=== PATIENT | female | born 1965 | race Caucasian/White ===

== ENCOUNTER 2016-05-28 20:21 | Inpatient (IN) | payer MEDICAID ==
[~2016-05-28] VITALS: Ht 142.2 cm; Wt 48.5 kg
[2016-05-28] VITALS (8 sets, daily range): BP systolic 136–159; BP diastolic 85–98; PULSE 91–105; RESP 18; TEMP 98.3; O2SAT 94–99
[~2016-05-28 20:21] MED LIST: ADVA100A INH; ALBU6.7H INH; GABA300C5 PO; LEVO500T3 PO; PANT20 PO; PRED20 PO; PROT40TA PO; SPIRCAP INH; TRAZ50TA12 PO
[2016-05-28] MEDS ORDERED: SODIUM CHLOR 0.9% 1000 ML INJ 1,000 ML IV ONE (20:27)
[2016-05-28] MEDS ORDERED: ALTEPLASE BOLUS 9 MG/9 ML SYR IV ONE (20:30)
[2016-05-28] MEDS ORDERED: SODIUM CHLORIDE 0.9% 50 ML BAG IVF ONE (20:30)
[2016-05-28] MEDS ORDERED: ALTEPLASE DRIP IV ONE (20:30)
[2016-05-28] MEDS ORDERED: MISCELLANEOUS NURSING INFORMATION XX PRN (20:30)
--- NOTE | 2016-05-28 20:42 | RADRPT ---
EXAM DATE/TIME: 05/28/2016 20:26 [facility] COMPARISON: No previous studies available for comparison. INDICATIONS : Stroke alert; left sided weakness and facial droop for 30 minutes. RADIATION DOSE: 56.35 CTDIvol (mGy) This report was called by Dr Tyler to Dr. Starr at 8: 40PM MEDICAL HISTORY : Cerebrovascular disease. SURGICAL HISTORY : None. ENCOUNTER: Initial ACUITY: 1 day PAIN SCALE: 0/10 LOCATION: cranial TECHNIQUE: Multiple contiguous axial images were obtained of the head. Using automated exposure control and adj ustment of the mA and/or kV according to patient size, radiation dose was kept as low as reasonably a chievable to obtain optimal diagnostic quality images. FINDINGS: CEREBRUM: The ventricles are normal for age. No evidence of midline shift, mass lesion, hemorrhage or acute in farction. No extra-axial fluid collections are seen. POSTERIOR FOSSA: The cerebellum and brainstem are intact. The 4th ventricle is midline. The cerebellopontine angle i s unremarkable. EXTRACRANIAL: The visualized portion of the orbits is intact. There is right maxillary and ethmoid sinus disease. SKULL: The calvaria is intact. No evidence of skull fracture. CONCLUSION: No acute intracranial abnormality is seen. There is sinus disease. Eriberto Mirza MD on May 28, 2016 at 20:38 Board Certified Radiologist. This report was verified electronically.
[2016-05-28 20:43] LABS: AUTOMATED NEUTROPHIL # 20.3 TH/MM3 (1.8-7.7); BASOPHIL # 0.1 TH/MM3 (0-0.2); BASOPHIL % 0.6 % (0.0-2.0); HEMATOCRIT 42.1 % (35.0-46.0); LYMPHOCYTE # 2.6 TH/MM3 (1.0-4.8); MEAN CELL VOLUME 90.4 FL (80.0-100.0); MEAN CORPUSCULAR HEMOGLOBIN 31.5 PG (27.0-34.0); MEAN CORPUSCULAR HGB CONC 34.8 % (32.0-36.0); MONO % 2.9 % (0.0-8.0); NEUT % 85.5 % (16.0-70.0); PLATELET COUNT 282 TH/MM3 (150-450); RED BLOOD COUNT 4.65 MIL/MM3 (4.00-5.30); RED CELL DISTRIBUTION WIDTH 15.3 % (11.6-17.2); WHITE BLOOD COUNT 23.7 TH/MM3 (4.0-11.0)
[2016-05-28 20:44] LABS: I-STAT SODIUM 139 MMOL/L (138-146)
[2016-05-28] MEDS ORDERED: IOHEXOL 350 MG/ML 10 ML VIAL (for RAD DIAG) IV ONE (20:44)
[2016-05-28 20:46] LABS: HEMO FLAGS AUTO DIFF
[2016-05-28 20:57] LABS: APTT (PATIENT) 23.7 SEC (24.3-30.1); INTERNATIONAL NORMALIZED RATIO 0.9 RATIO; PROTHROMBIN TIME - PATIENT 10.3 SEC (9.8-11.6)
--- NOTE | 2016-05-28 21:03 | RADRPT ---
EXAM DATE/TIME: 05/28/2016 20:32 [facility] COMPARISON: No previous studies available for comparison. INDICATIONS : Stroke alert. Altered mental status. IV CONTRAST: 75 cc Omnipaque 350 (iohexol) IV RADIATION DOSE: 17.86 CTDIvol (mGy) MEDICAL HISTORY : Cerebrovascular disease. SURGICAL HISTORY : None. ENCOUNTER: Initial ACUITY: 1 day PAIN SCALE: Non-responsive LOCATION: Cranial TECHNIQUE: Volumetric scanning was performed using a multirow detector CT scanner. The data was post processed with a variety of visualization algorithms including full-volume maximum intensity projection, multip lanar sliding thin-slab reformation, curved-planar reformation, and surface-rendering techniques. Us ing automated exposure control and adjustment of the mA and/or kV according to patient size, radiatio n dose was kept as low as reasonably achievable to obtain optimal diagnostic quality images. FINDINGS: The left common carotid artery arises from the base of the right brachiocephalic artery. This is a no rmal variant. No ostial narrowing is seen at the great vessels at the aortic arch. The common carot id arteries are patent bilaterally. There is calcified plaque seen at the left proximal internal car otid artery. A significant stenosis in the internal carotids is not see on either side. The vertebr al arteries are parent throughout the neck. CONCLUSION: Mild calcified plaque at the left proximal internal carotid artery. A significant st enosis is not seen. Eriberto Mirza MD on May 28, 2016 at 20:54 Board Certified Radiologist. This report was verified electronically.
[2016-05-28 21:08] LABS: BANDS 10 % (0-6); NEUTROPHIL # MANUAL DIFF 21.3 TH/MM3 (1.8-7.7); PLATELET ESTIMATE SMEAR NORMAL (NORMAL); PLATELET MORPHOLOGY NORMAL (NORMAL); POLYS (SEG NEUTROPHILS) 80 % (16-70); WBC DIFF SAMPLE 100
[2016-05-28 21:09] LABS: SCAN/DIFF FINAL DIFF MANUAL
[2016-05-28 21:11] LABS: BETA HCG QUANT 6 MIU/ML (0-5)
--- NOTE | 2016-05-28 21:11 | PD.CONS ---
History of Present Illness Service Neurology Consult Requested By er Reason for Consult stroke Primary Care Physician No Primary Care Physician History of Present Illness 50 y/o f brought in by evac as a stroke alert. acute left sided weakness approx 30 minutes prior to arrival. glucose 118 ct brain naicp. no hx of tia/stroke. no hx of ich/mi. smokes 1 ppd. not on any blood thinners. denies any headache. Past Medical History Asthma: Yes Cancer: No Cardiovascular Problems: No Diabetes: No Diminished Hearing: No Endocrine: No Genitourinary: No Hepatitis: No Hiatal Hernia: No Immune Disorder: No Musculoskeletal: No Neurologic: Yes (NUMBNESS RIGHT FOOT) Reproductive: No Respiratory: Yes (ASTHMA, COPD OXYGEN AT HS) Migraines: Yes Thyroid Disease: No Menopausal: Yes : 2 Para: 2 Tubal Ligation: Yes Past Surgical History Abdominal Surgery: No AICD: No Cardiac Surgery: Yes Ear Surgery: No Endocrine Surgery: No Eye Surgery: No Genitourinary Surgery: No Gynecologic Surgery: Yes (TUBAL LIGATION) Joint Replacement: No Neurologic Surgery: No Oral Surgery: Yes (TEETH REMOVED) Pacemaker: No Thoracic Surgery: No Other Surgery: No Social History Alcohol Use: Yes (OCC) Tobacco Use: Yes (1 PPD) Substance Use: No Allergies-Medications (Allergen,Severity, Reaction): Coded Allergies: No Known Allergies (Verified , 05/28/16) Reported Meds & Prescriptions Reported Meds & Active Scripts Active Reported Protonix (Pantoprazole Sodium) 40 Mg Tab 40 Mg PO DAILY Protonix (Pantoprazole Sodium) 20 Mg Tab 20 Mg PO DAILY Levofloxacin 500 Mg Tab 500 Mg PO DAILY Spiriva Handihaler (Tiotropium Inh) 18 Mcg Cap 18 Mcg INH DAILY 1 capsule = 18 mcg Prednisone 20 Mg Tab 40 Mg PO BID Trazodone (Trazodone HCl) 50 Mg Tab 150 Mg PO HS Gabapentin 300 Mg Cap 600 Mg PO HS Advair Diskus Inh (Fluticasone-Salmeterol Inh) 100-50 Mcg/Blist Aer 1 Puff INH BID Rinse mouth after use. Proventil Hfa 6.7 GM Inh (Albuterol Sulfate) 90 Mcg/Act Aer 2 Puff INH Q4H PRN Review of Systems All other ROS: ROS reviewed as documented in chart Past Family Social History Allergies: Coded Allergies: No Known Allergies (Verified , 05/28/16) Active Ordered Medications Current Medications Medications (Trade) Dose Ordered Sig/Aric Route Start Time Stop Time Status Last Admin Sodium Chloride 1,000 ml @ 70 mls/hr [id number] ONCE IV 05/28/16 20:27 05/29/16 10:44 (Activase Drip/ Syringe/Bag) 45.5 ml @ 45.5 mls/hr ONCE ONCE IV 05/28/16 20:30 05/28/16 21:29 Miscellaneous Information No Heparin, Warfarin, Aspir... UNSCH PRN XX 05/28/16 20:30 05/29/16 20:29 Family History no hx of stroke/sz Social History tob use 1ppd x years Exam I&O / VS Vital Signs Date Time Temp Pulse Resp B/P Pulse Ox O2 Delivery O2 Flow Rate FiO2 05/28/16 20:25 98.3 105 18 153/98 97 Nasal Cannula 05/28/16 20:20 99 2.00 General: Alert and Oriented, No acute distress Neurologic: Alert Psychiatric: Cooperative Exam Comments alert ox 3. follows. mild rt gaze preference. left field hh, reduced left nlf, left hemiplegia, left hemisensory, left anosognosia, left hemiattention, nihss 20 Review/Management Diagnosis/Plan: (1) Acute ischemic right MCA stroke Plan: s/p iv tpa cta's show rt mca ?stenosis with distal filling iv tpa started at 2053 spoke with interventional radiology at 2120 they will be coming in recs pt going to radiology for possible intervention to rt mca post-tpa order set bp <180/100 f/u ct brain in 24 hrs mri brain/echo p.t./s.t scd's no blood thinners x 24 hrs isc follow exam addendum: repeat exam after 45 minutes, nihss 1. intervention deferred (2) HTN (hypertension) (3) Tobacco use Plan: cessation d/w pt Problem Qualifiers (1) HTN (hypertension): Qualified Code: I10 - Essential hypertension Arnaldo Bobo MD May 28, 2016 21:11
[2016-05-28 21:14] LABS: CREATINE KINASE 71 U/L (26-192)
--- NOTE | 2016-05-28 21:28 | RADRPT ---
EXAM DATE/TIME: 05/28/2016 20:32 [facility] COMPARISON: No previous studies available for comparison. INDICATIONS : Stroke alert. Altered mental status. IV CONTRAST: 75 cc Omnipaque 350 (iohexol) IV RADIATION DOSE: 17.86 CTDIvol (mGy) MEDICAL HISTORY : Cerebrovascular disease. SURGICAL HISTORY : None. ENCOUNTER: Initial ACUITY: 1 day PAIN SCALE: Non-responsive LOCATION: Cranial TECHNIQUE: Volumetric scanning was performed using a multi-row detector CT scanner. The data was post processed with a variety of visualization algorithms including full volume maximum intensity pr ojection, multi-planar sliding thin slab reformation, curved planar reformation, and surface renderin g techniques. Using automated exposure control and adjustment of the mA and/or kV according to patie nt size, radiation dose was kept as low as reasonably achievable to obtain optimal diagnostic quality images. FINDINGS: The internal carotid arteries are patent bilaterally. It appears that the right fashion intern al carotid artery primarily bifurcates into the middle and posterior cerebral arteries. There is a f ocal area of significantly diminished flow seen in the midportion of the M1 segment of the right midd le cerebral artery. This is best seen on the coronal images. Flow is seen beyond this region. There do appear to be diminished distal flow in the right cerebral hemisphere compared to the left side in the middle cerebral artery territory. The left internal carotid artery is seen to bifurcate into the anterior and middle cerebral arteries. There is a patent anterior communicating artery. It appears the majority of the A2 flow on both th e right and left side originates from the left side through the patent anterior communicating artery. The basilar artery is performed from the two vertebral arteries. It seems to normally bifurcate into the posterior cerebral arteries with preferential flow going to the left. Much of the right posteri or cerebral artery flow arises from the right internal carotid artery. CONCLUSION: Short focal area of diminished flow potentially representing a thrombus in the midpor tion of the M1 segment of the right middle cerebral artery. The more peripheral flow at the right mi ddle cerebral artery is diminished when compared to the left side. Eriberto Mirza MD on May 28, 2016 at 20:56 Board Certified Radiologist. This report was verified electronically.
--- NOTE | 2016-05-28 21:35 | PD ---
HPI Chief Complaint: Stroke Alert Time Seen by Provider: 20:27 Travel History International Travel<30 days: No Contact w/Intl Traveler<30days: No Traveled to known affect area: No History of Present Illness HPI The patient's 50 years old and arrives as a stroke alert. About 25 minutes prior to ER arrival she developed sudden weakness and left arm and leg and a left facial droop. Smoking and drinking at the time. In the ER patient was identified to have a NIH stroke scale of 15. Her head CT was read as no bleed. TPA was administered with an hour. EMS reports on scene the blood pressure was 140/90 and the heart rate was about 120. O2 sat was 100% on 2 L. The patient has no history of anticoagulant use. She underwent a colonoscopy about 2 months ago which was normal. She reports an endoscopy showed ulcers but cannot provide any additional detail. She has been compliant with Protonix since. No recent surgery or traumatic event reported. The patient offers no specific medical complaint in the ER. PFSH Past Medical History Asthma: Yes Cancer: No Cardiovascular Problems: No Diabetes: No Diminished Hearing: No Endocrine: No Genitourinary: No Hepatitis: No Hiatal Hernia: No Immune Disorder: No Musculoskeletal: No Neurologic: Yes (NUMBNESS RIGHT FOOT) Reproductive: No Respiratory: Yes (ASTHMA, COPD OXYGEN AT HS) Migraines: Yes Thyroid Disease: No Menopausal: Yes : 2 Para: 2 Tubal Ligation: Yes Past Surgical History Abdominal Surgery: No AICD: No Cardiac Surgery: Yes Ear Surgery: No Endocrine Surgery: No Eye Surgery: No Genitourinary Surgery: No Gynecologic Surgery: Yes (TUBAL LIGATION) Joint Replacement: No Neurologic Surgery: No Oral Surgery: Yes (TEETH REMOVED) Pacemaker: No Thoracic Surgery: No Other Surgery: No Social History Alcohol Use: Yes (OCC) Tobacco Use: Yes (1 PPD) Substance Use: No Allergies-Medications (Allergen,Severity, Reaction): Coded Allergies: No Known Allergies (Verified , 05/28/16) Reported Meds & Prescriptions Reported Meds & Active Scripts Active Reported Protonix (Pantoprazole Sodium) 40 Mg Tab 40 Mg PO DAILY Protonix (Pantoprazole Sodium) 20 Mg Tab 20 Mg PO DAILY Levofloxacin 500 Mg Tab 500 Mg PO DAILY Spiriva Handihaler (Tiotropium Inh) 18 Mcg Cap 18 Mcg INH DAILY 1 capsule = 18 mcg Prednisone 20 Mg Tab 40 Mg PO BID Trazodone (Trazodone HCl) 50 Mg Tab 150 Mg PO HS Gabapentin 300 Mg Cap 600 Mg PO HS Advair Diskus Inh (Fluticasone-Salmeterol Inh) 100-50 Mcg/Blist Aer 1 Puff INH BID Rinse mouth after use. Proventil Hfa 6.7 GM Inh (Albuterol Sulfate) 90 Mcg/Act Aer 2 Puff INH Q4H PRN Review of Systems ROS Limitations: Clinical Condition Physical Exam Narrative GENERAL: 50-year-old female mild distress well-nourished well-developed SKIN: Warm and dry. HEAD: Atraumatic. Normocephalic. EYES: Pupils equal and round. No scleral icterus. No injection or drainage. ENT: No nasal bleeding or discharge. Mucous membranes pink and moist. NECK: Trachea midline. No JVD. CARDIOVASCULAR: Regular rhythm. Tachycardia at about 90. RESPIRATORY: No accessory muscle use. Clear to auscultation. Breath sounds equal bilaterally. GASTROINTESTINAL: Abdomen soft, non-tender, nondistended. Hepatic and splenic margins not palpable. MUSCULOSKELETAL: No obvious deformities. No clubbing. No cyanosis. No edema. NEUROLOGICAL: Awake and alert and oriented. The patient has mild dysarthria secondary to left face paralysis. Left upper and lower extremities flaccid. Total sensory loss present in both upper and lower extremities L side. NIH stroke scale estimated to be 15. PSYCHIATRIC: Appropriate mood and affect; insight and judgment normal. Data Data Last Documented VS Vital Signs Date Time Temp Pulse Resp B/P Pulse Ox O2 Delivery O2 Flow Rate FiO2 05/28/16 21:08 91 18 141/97 97 Nasal Cannula 2 05/28/16 20:25 98.3 Orders Diet Npo (05/29/16 Breakfast) Activity Bed Rest (05/28/16 ) Electrocardiogram (05/28/16 ) I-Stat Creatinine (05/28/16 20:27) I-Stat Profile (05/28/16 20:27) Prothrombin Time / Inr (Pt) (05/28/16 20:27) Act Partial Throm Time (Ptt) (05/28/16 20:27) Complete Blood Count With Diff (05/28/16 20:27) Fibrinogen (05/28/16 20:27) Creatine Kinase (Cpk) (05/28/16 20:27) Troponin I (05/28/16 20:27) Ua Includes Microscopic (05/28/16 20:27) Drug Screen, Random Urine (05/28/16 20:27) Type And Screen (05/28/16 20:) Ct Brain W/O Iv Contrast(Rout) (05/28/16 ) Beta Hcg (Quant/Titer) (05/28/16 20:27) Consult Neurology (05/28/16 ) Blood Glucose (05/28/16 20:27) Ecg Monitoring (05/28/16 20:) Neuro Checks Q2HX12,Q4H (05/28/16 20:27) Nursing Bedside Swallow Assess .ONCE (05/28/16 20:) Iv Access Insert/Monitor (05/28/16 20:) NPO (05/28/16 20:) Oximetry (05/28/16 20:27) Oxygen Administration (05/28/16 20:27) Sodium Chlor 0.9% 1000 Ml Inj (Ns 1000 M (05/28/16 20:27) Resp Oxygen Kirill C Titrat 1-4 L (05/28/16 20:27) Cath For Specimen (05/28/16 20:27) ^ Call Pharmacy (05/28/16 20:27) Nih Stroke Scale - Nihss .ONCE (05/28/16 20:) Urinary Catheter Management EVER.Q8H (05/28/16 20:27) Urinary Catheter Insert/Apply (05/28/16 20:27) ^ Anticoagulant Alert (05/28/16 20:) ^ Post Infusion Restrictions (05/28/16 20:27) ^ Medication Alert (05/28/16 20:27) Vital Signs (Adult) .As directed (05/28/16 20:27) ^ Notify Dr: Blood Pressure (05/28/16 20:27) ^ Medication Alert (05/28/16 20:27) Alteplase Bolus (Activase Bolus) (05/28/16 20:30) Alteplase Drip (Activase Drip) (05/28/16 20:30) Sodium Chloride 0.9% Inj (Ns Inj) (05/28/16 20:30) Misc Nursing Information (05/28/16 20:30) Resp Oxygen Kirill C Titrat 1-4 L (05/28/16 ) Ct Brain W/O Iv Contrast(Rout) (05/29/16 ) Cta Brain W Iv Contrast W 3d (05/28/16 20:27) Cta Neck W Iv Contrast W 3d (05/28/16 20:27) (Hub Use Only)Inp Phy Cons/Ref (05/28/16 ) Iohexol 350 Inj (Omnipaque 350 Inj) (05/28/16 20:44) Admit Order (Ed Use Only) (05/28/16 21:11) Mri Brain W/O Contrast (05/28/16 ) Consult Pt Eval & Tx Oob (05/28/16 20:53) Swallow Eval W/ St (05/28/16 20:53) St Request For Service (05/28/16 20:53) Ot Request For Service (05/28/16 20:53) Scd Bilateral/Knee High EVER.QSHIFT (05/28/16 20:53) Corn Sheller / Telemetry EVER.Q8H (05/28/16 20:53) ^ Fall Precautions (05/28/16 20:53) Westergren Sedimentation Rate (05/28/16 20:53) Vitamin B12 (05/28/16 20:53) Thyroid Stimulating Hormone (05/28/16 20:53) Hemoglobin (Hgb) A1c (05/28/16 20:53) Lipid Profile (05/28/16 20:53) Echo 2d Comp W/Dopp(Routine) (05/28/16 ) Labs Laboratory Tests Test 05/28/16 20:30 White Blood Count 23.7 TH/MM3 Red Blood Count 4.65 MIL/MM3 Hemoglobin 14.6 GM/DL Bedside Hemoglobin 14.6 G/DL Hematocrit 42.1 % Bedside Hematocrit 43.0 % Mean Corpuscular Volume 90.4 FL Mean Corpuscular Hemoglobin 31.5 PG Mean Corpuscular Hemoglobin 34.8 % Concent Red Cell Distribution Width 15.3 % Platelet Count 282 TH/MM3 Mean Platelet Volume 7.1 FL Neutrophils (%) (Auto) 85.5 % Lymphocytes (%) (Auto) 11.0 % Monocytes (%) (Auto) 2.9 % Eosinophils (%) (Auto) 0.0 % Basophils (%) (Auto) 0.6 % Neutrophils # (Auto) 20.3 TH/MM3 Lymphocytes # (Auto) 2.6 TH/MM3 Monocytes # (Auto) 0.7 TH/MM3 Eosinophils # (Auto) 0.0 TH/MM3 Basophils # (Auto) 0.1 TH/MM3 CBC Comment AUTO DIFF Differential Total Cells 100 Counted Neutrophils % (Manual) 80 % Band Neutrophils % 10 % Lymphocytes % 8 % Monocytes % 2 % Neutrophils # (Manual) 21.3 TH/MM3 Differential Comment FINAL DIFF MANUAL Platelet Estimate NORMAL Platelet Morphology Comment NORMAL Red Cell Morphology Comment NORMAL Prothrombin Time 10.3 SEC Prothromb Time International 0.9 RATIO Ratio Activated Partial 23.7 SEC Thromboplast Time Fibrinogen 460 mg/dL Bedside Sodium 139 MMOL/L Bedside Potassium 4.0 MMOL/L Bedside Chloride 100 MMOL/L Bedside Blood Urea Nitrogen 11 MG/DL Bedside Creatinine 0.6 MG/DL Bedside Glucose 118 MG/DL Total Creatine Kinase 71 U/L Troponin I LESS THAN 0.02 NG/ML Human Chorionic Gonadotropin, 6 MIU/ML Quant MDM Medical Screen Exam Complete: Yes Emergency Medical Condition: Yes Medical Record Reviewed: Yes EKG Prior to Arrival: Yes Differential Diagnosis Hemorrhagic stroke, ischemic stroke, Rj's paralysis, complex migraine Narrative Course CBC & BMP Diagram 05/28/16 20:30 The troponin is less than 0.02 The EKG reveals a sinus rhythm with normal axis and intervals and a rate of 97 POC Electrolytes are essentially normal Fibrinogen is 460 INR 0.9 APTT 23.7 Last [address] 05/28/16 0000 Signed Impressions: Service Date/Time: Saturday, May 28, 2016 20:26 - CONCLUSION: No acute intracranial abnormality is seen. There is sinus disease. Eriberto Mirza MD Patient is an excellent candidate for TPA. Respiratory alternatives of TPA discussed patient. She was explicitly informed that there is a significant risk for potentially life-threatening bleed. Patient understands and consents to TPA was administered at about 854pm. She'll be admitted to the [facility] under Dr. Segundo. Possible occlusive lesion in the right MCA discussed with the interventionalist Dr Laboy who is considering neuro intervention at time of admission. Neurology consultation Dr. Bobo fortunately was able to evaluate the patient in the ER at time of TPA administration. Critical Care Narrative Aggregate critical care time was 60 minutes. Time to perform other separately billable procedures was not included in the critical care time. My time did not include minutes spent treating any other patients simultaneously or on activities that did not directly contribute to the patient's treatment. The services I provided to this patient were to treat and/or prevent clinically significant deterioration that could result in: Permanent neurologic deficit, cardiopulmonary arrest I provided critical care services requiring my management, as noted below: Chart data review, documentation time, medication orders and management, vital sign assessments/reviewing monitor data, ordering and reviewing lab tests, ordering and interpreting/reviewing x-rays and diagnostic studies, care of the patient and discussion of the patient with the admitting physicians. Stroke Alert NIHSS NIH Stroke Scale Result: 15 NIHSS Time Completed: 20:30 Diagnosis Diagnosis: Primary Impression: Acute ischemic right MCA stroke Admitting Physician Requests: Ronald River MD May 28, 2016 21:35
[2016-05-28 22:16] LABS: BLOOD, URINE NEG (NEG); GLUCOSE,URINE NEG (NEG); KETONE, URINE NEG (NEG); MUCUS URINE FEW /lpf (OCC); NITRITE,URINE NEG (NEG); PH, URINE 6.5 (5.0-8.5); SQUAMOUS EPITHELIAL CELL URINE 5 /hpf (0-5); URINE COLOR YELLOW (YELLW/STRAW)
[2016-05-28 22:23] LABS: AMPHETAMINE, URINE NEG (NEG); BARBITURATES, URINE NEG (NEG); COCAINE, URINE NEG (NEG)
[2016-05-28 22:44] LABS: HDL CHOLESTEROL 82.6 MG/DL (40.0-60.0); LDL CHOLESTEROL 183 MG/DL (0-99)
--- NOTE | 2016-05-28 22:57 | HHI.HP ---
HPI Service Critical Care Medicine Primary Care Physician No Primary Care Physician Admission Diagnosis L MCA CVA Diagnosis: Chief Complaint: weakness Travel History International Travel<30 Days: No Contact w/Intl Traveler <30 Da: No Traveled to Known Affected Are: No History of Present Illness This is a 50-year-old female who presented to the emergency department with history of left arm and leg weakness and facial droop. Symptoms started approximately 25 minutes prior to ER arrival. She admits to smoking and drinking alcohol at the time of first and onset. NIH stroke scale on arrival was 15. Noncontrasted head CT was negative for acute bleed. Systemic TPA was administered within the first hour of symptom onset. CT angiography had not demonstrated possible flow deficit in the right MCA territory. Initially plans for possible endovascular thrombectomy, however repeat neuro exam of 45 minutes to complete resolution of symptoms. She is admitted to the ICU for close monitoring and further evaluation of her ischemic stroke. Review of Systems ROS Limitations: Clinical Condition Past Family Social History Allergies: Coded Allergies: No Known Allergies (Verified , 05/28/16) Past Medical History Asthma COPD- home o2 at night chronic right foot numbness Past Surgical History Tubal ligation teeth removal unknown history of cardiac surgery Reported Medications Protonix (Pantoprazole Sodium) 20 Mg Tab 20 Mg PO DAILY Levofloxacin 500 Mg Tab 500 Mg PO DAILY Spiriva Handihaler (Tiotropium Inh) 18 Mcg Cap 18 Mcg INH DAILY 1 capsule = 18 mcg Prednisone 20 Mg Tab 40 Mg PO BID Trazodone (Trazodone HCl) 50 Mg Tab 150 Mg PO HS Gabapentin 300 Mg Cap 600 Mg PO HS Advair Diskus Inh (Fluticasone-Salmeterol Inh) 100-50 Mcg/Blist Aer 1 Puff INH BID Rinse mouth after use. Proventil Hfa 6.7 GM Inh (Albuterol Sulfate) 90 Mcg/Act Aer 2 Puff INH Q4H PRN Active Ordered Medications See MAR Family History A complete family history is unobtainable secondary to her clinical condition. Social History 1ppd smoker, occasional etoh. Physical Exam Vital Signs Vital Signs Date Time Temp Pulse Resp B/P Pulse Ox O2 Delivery O2 Flow Rate FiO2 05/28/16 22:03 99 18 159/85 99 Room Air 05/28/16 21:30 96 18 145/94 95 Room Air 05/28/16 21:18 98 Room Air 05/28/16 21:16 95 Room Air 05/28/16 21:15 96 18 136/90 95 Room Air 05/28/16 21:08 91 18 141/97 97 Nasal Cannula 2 05/28/16 20:25 98.3 105 18 153/98 97 Nasal Cannula 05/28/16 20:20 99 2.00 Physical Exam GENERAL: Middle-aged female, lying in bed, in apparent distress HEENT: Pupils equal, round and reactive. Notable left-sided facial droop NECK:. Midline. No JVD. CHEST: Equal chest rise. Clear to auscultation. CARDIOVASCULAR: Normal rate. Regular rhythm. No appreciable murmurs. ABDOMEN: Soft, nontender, nondistended. No guarding. MUSCULOSKELETAL: No peripheral edema. Distal pulses 2+. NEUROLOGICAL:Left-sided facial droop. Marked weakness of the left arm and leg. I evaluated the patient both very briefly in the emergency department prior to her radiologic evaluation and then in the intensive care unit approximately an hour later. On my reevaluation approximately an hour later her musculoskeletal strength is 5 out of 5 in all 4 extremities. Sensation is grossly intact on both evaluations. Laboratory Laboratory Tests Test 05/28/16 05/28/16 05/28/16 20:30 20:40 21:30 White Blood Count 23.7 Red Blood Count 4.65 Hemoglobin 14.6 Bedside Hemoglobin 14.6 Hematocrit 42.1 Bedside Hematocrit 43.0 Mean Corpuscular Volume 90.4 Mean Corpuscular Hemoglobin 31.5 Mean Corpuscular Hemoglobin 34.8 Concent Red Cell Distribution Width 15.3 Platelet Count 282 Mean Platelet Volume 7.1 Neutrophils (%) (Auto) 85.5 Lymphocytes (%) (Auto) 11.0 Monocytes (%) (Auto) 2.9 Eosinophils (%) (Auto) 0.0 Basophils (%) (Auto) 0.6 Neutrophils # (Auto) 20.3 Lymphocytes # (Auto) 2.6 Monocytes # (Auto) 0.7 Eosinophils # (Auto) 0.0 Basophils # (Auto) 0.1 CBC Comment AUTO DIFF Differential Total Cells 100 Counted Neutrophils % (Manual) 80 Band Neutrophils % 10 Lymphocytes % 8 Monocytes % 2 Neutrophils # (Manual) 21.3 Differential Comment FINAL DIFF MANUAL Platelet Estimate NORMAL Platelet Morphology Comment NORMAL Red Cell Morphology Comment NORMAL Erythrocyte Sedimentation Rate 35 Prothrombin Time 10.3 Prothromb Time International 0.9 Ratio Activated Partial 23.7 Thromboplast Time Fibrinogen 460 Bedside Sodium 139 Bedside Potassium 4.0 Bedside Chloride 100 Bedside Blood Urea Nitrogen 11 Bedside Creatinine 0.6 Bedside Glucose 118 Total Creatine Kinase 71 Troponin I LESS THAN 0.02 Triglycerides Level 202 Cholesterol Level 306 LDL Cholesterol 183 HDL Cholesterol 82.6 Cholesterol/HDL Ratio 3.70 Vitamin B12 Level 462 Thyroid Stimulating Hormone 0.598 3rd Gen Human Chorionic Gonadotropin, 6 Quant Blood Type O POSITIVE Antibody Screen NEGATIVE Blood Bank Comment Urine Color YELLOW Urine Turbidity CLEAR Urine pH 6.5 Urine Specific [place] 1.035 Urine Protein TRACE Urine Glucose (UA) NEG Urine Ketones NEG Urine Occult Blood NEG Urine Nitrite NEG Urine Bilirubin NEG Urine Urobilinogen LESS THAN 2.0 Urine Leukocyte Esterase NEG Urine WBC 1 Urine Squamous Epithelial 5 Cells Urine Mucus FEW Microscopic Urinalysis Comment Urine Opiates Screen NEG Urine Barbiturates Screen NEG Urine Amphetamines Screen NEG Urine Benzodiazepines Screen NEG Urine Cocaine Screen NEG Urine Cannabinoids Screen POS Result Diagram: 05/28/162029 Imaging Last 24 hours Impressions Neck CTA 05/28/162026 Signed Impressions: Service Date/Time: Saturday, May 28, 2016 20:32 - CONCLUSION: Mild calcified plaque at the left proximal internal carotid artery. A significant stenosis is not seen. Eriberto Mirza MD Head CTA 05/28/162026 Signed Impressions: Service Date/Time: Saturday, May 28, 2016 20:32 - CONCLUSION: Short focal area of diminished flow potentially representing a thrombus in the midportion of the M1 segment of the right middle cerebral artery. The more peripheral flow at the right middle cerebral artery is diminished when compared to the left side. Eriberto Mirza MD Assessment and Plan Assessment and Plan Assessment: 50yF with h/o htn, smoking, and COPD with o2 use at night who presented with right MCA CVA status post systemic TPA. Although her symptoms is resolved. She is still very high risk for decompensation and hemorrhagic conversion remains critically ill this time. She will be admitted to the ICU for close monitoring. Active Problems: Acute CVA s/p systemic TPA Plan: Admit to the ICU 2 hour neuro checks Follow 24-hour head CT A.m. CBC Goal systolic blood pressure less than 180 When necessary labetalol, hydralazine for goal systolic Lipid panel 2-D echo Nursing bedside swallow assessment. If she passes we will do strict clear liquid diet. If she fails we will make nothing by mouth and order formal speech and swallow evaluation. SCDs. holding pharmacologic DVT prophylaxis status post TPA Protonix for GI prophylaxis This patient remains critically ill with one or more organ systems which are or may become a threat to life. I have spent in excess of 40 minutes discontinuously in the care and management of this patient. This time is exclusive of procedures, and includes, but is not limited to, evaluation of the patient, review of the medical record, discussions with family, consultants, nursing staff, or respiratory therapy, and documentation in the medical record. Code Status Full code Mick Valentino MD May 28, 2016 22:57
[2016-05-28] MEDS: RESP: ALBUTEROL 2.5 MG/IPRATROPIUM 0.5 MG NEB (SCH) NEB (23:34)
[2016-05-29] VITALS (12 sets, daily range): BP systolic 118–180; BP diastolic 60–92; PULSE 68–127; RESP 21–36; TEMP 98.3–99.5; O2SAT 88–99
[2016-05-29] MEDS ORDERED: SODIUM PHOSPHATE INJ 30 MMOL in SODIUM CHLOR 0.9% 250 ML INJ 240 ML IV PRN (02:15)
[2016-05-29] MEDS ORDERED: POTASSIUM CHLOR 20 MEQ PREMIX 100 ML IV PRN ×2 (02:15)
[2016-05-29] MEDS ORDERED: POTASSIUM CL 40 MEQ/30 ML LIQ UDC PO/TUBE PRN (02:15)
[2016-05-29] MEDS ORDERED: POTASSIUM CHLOR 40 MEQ PREMIX 100 ML IV PRN ×2 (02:15)
[2016-05-29] MEDS ORDERED: MAGNESIUM SULFATE INJ 2 GM in SODIUM CHLORIDE 0.9% INJ 96 ML IV PRN (02:15)
[2016-05-29] MEDS ORDERED: MISCELLANEOUS NURSING INFORMATION XX SCH (02:15)
[2016-05-29] MEDS ORDERED: POTASSIUM PHOSPHATE MONOBASIC 500 MG TAB PO PRN (02:15)
[2016-05-29] MEDS ORDERED: CHLORHEXIDINE GLUCONATE 2 % 1 PACK (2 CLOTHS) TOP PRN (02:15)
[2016-05-29] MEDS ORDERED: MAGNESIUM SULFATE INJ 4 GM in SODIUM CHLORIDE 0.9% INJ 92 ML IV PRN (02:15)
[2016-05-29] MEDS ORDERED: ONDANSETRON HCL 4 MG/2 ML VIAL IV PRN (02:15)
[2016-05-29] MEDS ORDERED: DEXTROSE 50% IN WATER 50 ML VIAL(D50) IV PUSH PRN (02:15)
[2016-05-29] MEDS ORDERED: SODIUM CHLORIDE 0.9% FLUSH 5 ML FLUSH IV FLUSH PRN (02:15)
[2016-05-29] MEDS ORDERED: POTASSIUM PHOSPHATE INJ 30 MMOL in SODIUM CHLOR 0.9% 250 ML INJ 250 ML IV PRN (02:15)
[2016-05-29] MEDS ORDERED: POTASSIUM PHOSPHATE MONOBASIC 500 MG TAB PO/TUBE PRN (02:15)
[2016-05-29] MEDS ORDERED: MAGNESIUM OXIDE 400 MG TAB PO PRN (02:15)
[2016-05-29] MEDS: CHLORHEXIDINE GLUCONATE 2 % 1 PACK (2 CLOTHS) TOP SCH (04:00)
[2016-05-29] MEDS: RESP: ALBUTEROL 2.5 MG/IPRATROPIUM 0.5 MG NEB (SCH) NEB ×5 (04:07→19:28)
[2016-05-29] MEDS: INSULIN NovoLIN REGULAR SUPPLEMENTAL SCALE SQ SCH ×3 (06:00→18:00)
--- NOTE | 2016-05-29 06:14 | HHI.CCPN ---
Subjective Remarks/Hospital Course This is a 50-year-old female who presented to the emergency department with history of left arm and leg weakness and facial droop. Symptoms started approximately 25 minutes prior to ER arrival. She admits to smoking and drinking alcohol at the time of first and onset. NIH stroke scale on arrival was 15. Noncontrasted head CT was negative for acute bleed. Systemic TPA was administered within the first hour of symptom onset. CT angiography had not demonstrated possible flow deficit in the right MCA territory. Initially plans for possible endovascular thrombectomy, however repeat neuro exam of 45 minutes to complete resolution of symptoms. She is admitted to the ICU for close monitoring and further evaluation of her ischemic stroke. 05/29: Symptoms resolved after tPA last evening. Stable hemodynamics. Objective Vital Signs Date Time Temp Pulse Resp B/P Pulse Ox O2 Delivery O2 Flow Rate FiO2 05/29/16 04:00 98.3 96 21 136/74 93 05/28/16 23:35 21 05/28/16 22:45 Room Air 05/28/16 21:08 2 Intake and Output 05/28/16 05/28/16 05/29/16 08:00 16:00 00:00 Output Total 250 ml Balance -250 ml Result Diagram: 05/28/162029 Imaging Last 24 hours Impressions Neck CTA 05/28/162026 Signed Impressions: Service Date/Time: Saturday, May 28, 2016 20:32 - CONCLUSION: Mild calcified plaque at the left proximal internal carotid artery. A significant stenosis is not seen. Eriberto Mirza MD Head CTA 05/28/162026 Signed Impressions: Service Date/Time: Saturday, May 28, 2016 20:32 - CONCLUSION: Short focal area of diminished flow potentially representing a thrombus in the midportion of the M1 segment of the right middle cerebral artery. The more peripheral flow at the right middle cerebral artery is diminished when compared to the left side. Eriberto Mirza MD Objective Remarks GENERAL: Middle-aged female, calm HEENT: Pupils equal, round and reactive. NECK:. Midline. No JVD. Airway widely patent. CHEST: Equal chest rise. Clear to auscultation. CARDIOVASCULAR: Normal rate. Regular rhythm. No appreciable murmurs. No JVD. ABDOMEN: Soft, nontender, nondistended. No guarding. MUSCULOSKELETAL: No peripheral edema. Distal pulses 2+. NEUROLOGICAL: Musculoskeletal strength is 5 out of 5 in all 4 extremities. A/P Assessment and Plan Assessment: 50yF with h/o htn, smoking, and COPD with o2 use at night who presented with right MCA CVA status post systemic TPA. Although her symptoms have resolved. She is still very high risk for decompensation and hemorrhagic conversion remains critically ill this time. Active Problems: Acute CVA s/p systemic TPA Plan: Keep in ICU X 24 hours total. 2 hour neuro checks Follow 24-hour head CT A.m. CBC Goal systolic blood pressure less than 180 When necessary labetalol, hydralazine for goal systolic Lipid panel 2-D echo Nursing bedside swallow assessment. If she passes we will do strict clear liquid diet. If she fails we will make nothing by mouth and order formal speech and swallow evaluation. SCDs. holding pharmacologic DVT prophylaxis status post TPA Protonix for GI prophylaxis --Repeat CT Head after 24 hours rom tPA Warner Carrero MD May 29, 2016 06:14
--- NOTE | 2016-05-29 06:19 | PD.TRANSFR ---
Transfer Summary Admission Date May 28, 2016 at 21:12 Transfer Date: May 30, 2016 Admitting Diagnosis L MCA CVA Diagnoses: (1) Acute ischemic right MCA stroke Diagnosis: Principal (2) HTN (hypertension) Diagnosis: Principal Significant Findings CT Head, CTA head, neck all negative. Transfer Summary/Subjective 50 y/o woman developed symptoms of Left MCA CVA. Resolved quickly after tPA @ 2100 hours. Objective Vital Signs Date Time Temp Pulse Resp B/P Pulse Ox O2 Delivery O2 Flow Rate FiO2 05/29/16 04:00 98.3 96 21 136/74 93 05/28/16 23:35 21 05/28/16 22:45 Room Air 05/28/16 21:08 2 Intake and Output 05/28/16 05/28/16 05/29/16 08:00 16:00 00:00 Output Total 250 ml Balance -250 ml Result Diagram: 05/28/162029 Imaging Last 24 hours Impressions Neck CTA 05/28/162026 Signed Impressions: Service Date/Time: Saturday, May 28, 2016 20:32 - CONCLUSION: Mild calcified plaque at the left proximal internal carotid artery. A significant stenosis is not seen. Eriberto Mirza MD Head CTA 05/28/162026 Signed Impressions: Service Date/Time: Saturday, May 28, 2016 20:32 - CONCLUSION: Short focal area of diminished flow potentially representing a thrombus in the midportion of the M1 segment of the right middle cerebral artery. The more peripheral flow at the right middle cerebral artery is diminished when compared to the left side. Eriberto Mirza MD Objective Remarks GENERAL: Middle-aged female, calm HEENT: Pupils equal, round and reactive. NECK:. Midline. No JVD. Airway widely patent. CHEST: Equal chest rise. Clear to auscultation. CARDIOVASCULAR: Normal rate. Regular rhythm. No appreciable murmurs. No JVD. ABDOMEN: Soft, nontender, nondistended. No guarding. MUSCULOSKELETAL: No peripheral edema. Distal pulses 2+. NEUROLOGICAL: Musculoskeletal strength is 5 out of 5 in all 4 extremities. A/P Assessment and Plan Assessment: 50yF with h/o htn, smoking, and COPD with o2 use at night who presented with right MCA CVA status post systemic TPA. Although her symptoms have resolved. She is still very high risk for decompensation and hemorrhagic conversion remains critically ill this time. Active Problems: Acute CVA s/p systemic TPA Plan: Keep in ICU X 24 hours total. 2 hour neuro checks Follow 24-hour head CT A.m. CBC Goal systolic blood pressure less than 180 When necessary labetalol, hydralazine for goal systolic Lipid panel 2-D echo Nursing bedside swallow assessment. If she passes we will do strict clear liquid diet. If she fails we will make nothing by mouth and order formal speech and swallow evaluation. SCDs. holding pharmacologic DVT prophylaxis status post TPA Protonix for GI prophylaxis --Repeat CT Head after 24 hours rom tPA Warner Carrero MD May 29, 2016 06:19
[2016-05-29] MEDS: PANTOPRAZOLE SODIUM 40 MG VIAL IV SCH (08:32)
[2016-05-29] MEDS: SODIUM CHLORIDE 0.9% FLUSH 5 ML FLUSH IV FLUSH SCH ×2 (08:32→21:00)
[2016-05-29] MEDS: DOCUSATE SODIUM 50 MG/SENNA 8.6 MG TAB PO SCH ×2 (08:32→22:16)
--- NOTE | 2016-05-29 08:40 | HHI.PR ---
Review/Management Diagnosis/Plan: (1) Acute ischemic right MCA stroke Plan: s/p iv tpa; significant improvement cta's show rt mca ?stenosis with distal filling iv tpa started at 2053 spoke with interventional radiology at 2120 they will be coming in recs risperdone prn iv ativan prn for anxiety/agitation bp <180/100 f/u ct brain in 24 hrs mri brain/echo p.t./s.t scd's no blood thinners x 24 hrs d/w pt, rn (2) HTN (hypertension) (3) Tobacco use Plan: cessation d/w pt Subjective Subjective Comments No acute events reported No headache No chest pain No dyspnea Active Medications Current Medications Medications (Trade) Dose Ordered Sig/Raic Route Start Time Stop Time Status Last Admin (NS 1000 ml Inj) 1,000 ml @ 70 mls/hr [id number] ONCE IV 05/28/16 20:27 05/29/16 10:44 05/28/16 20:58 Miscellaneous Information No Heparin, Warfarin, Aspir... UNSCH PRN XX 05/28/16 20:30 05/29/16 20:29 Magnesium Oxide 800 mg 800 mg UNSCH PRN PO 05/29/16 02:15 Magnesium Sulfate 4 gm/Sodium Chloride 100 ml @ 50 mls/hr UNSCH PRN IV 05/29/16 02:15 Magnesium Sulfate 2 gm/Sodium Chloride 100 ml @ 50 mls/hr UNSCH PRN IV 05/29/16 02:15 Potassium Chloride 100 ml @ 50 mls/hr Q2H PRN IV 05/29/16 02:15 Potassium Chloride 100 ml @ 50 mls/hr Q2H PRN IV 05/29/16 02:15 Potassium Chloride 100 ml @ 50 mls/hr Q2H PRN IV 05/29/16 02:15 (KCl 40 Meq Premix Inj) 100 ml @ 25 mls/hr UNSCH PRN IV 05/29/16 02:15 (KCl 40 Meq/30 ml Liq) 40 meq UNSCH PRN PO/TUBE 05/29/16 02:15 (KCl 40 Meq/30 ml Liq) 40 meq UNSCH PRN PO/TUBE 05/29/16 02:15 (K-Phos) 2,000 mg Q4H PRN PO 05/29/16 02:15 Potassium Phosphate 2000 mg 2,000 mg UNSCH PRN PO/TUBE 05/29/16 02:15 Potassium Phosphate 30 mmol/ Sodium Chloride 260 ml @ 42 mls/hr UNSCH PRN IV 05/29/16 02:15 (Sodium Phosphate Inj/NS 250 ml Inj) 250 ml @ 42 mls/hr UNSCH PRN IV 05/29/16 02:15 (D50w (Vial) Inj) 25 ml UNSCH PRN IV PUSH 05/29/16 02:15 (NovoLIN R SUPPLEMENTAL SCALE) 1 Q6HR SQ 05/29/16 06:00 (NS Flush) 2 ml UNSCH PRN IV FLUSH 05/29/16 02:15 (NS Flush) 2 ml BID IV FLUSH 05/29/16 09:00 05/29/16 08:32 (Tylenol) 650 mg Q6H PRN PO 05/29/16 02:15 (Protonix Inj) 40 mg DAILY IV 05/29/16 09:00 05/29/16 08:32 (Zofran Inj) 4 mg Q6H PRN IV 05/29/16 02:15 (Steffany-Colace) 2 tab BID PO 05/29/16 09:00 Miscellaneous Information 1 Q361D XX 05/29/16 02:15 05/29/16 02:15 (Chlorhexidine 2% Cloth) 3 pack Taper DAILY@04 TOP 05/29/16 04:00 05/25/17 03:59 05/29/16 04:00 (Chlorhexidine 2% Cloth) 3 pack UNSCH PRN TOP 05/29/16 02:15 Allergies Allergies Coded Allergies No Known Allergies (Verified05/28/16) Review of Systems All other ROS: ROS reviewed as documented in chart Exam I&O / VS 05/28/16 05/28/16 05/29/16 15:00 23:00 07:00 Intake Total 748 ml Output Total 250 ml 900 ml Balance -250 ml -152 ml Intake Oral 120 ml IV Total 628 ml Output Urine Total 250 ml 900 ml # Bowel Movements 0 Vital Signs Date Time Temp Pulse Resp B/P Pulse Ox O2 Delivery O2 Flow Rate FiO2 05/29/16 07:00 Room Air 05/29/16 04:00 98.3 96 21 136/74 93 05/29/16 04:00 96 05/29/16 02:00 90 05/29/16 00:00 98.5 88 22 141/67 94 05/29/16 00:00 88 05/28/16 23:35 94 21 05/28/16 22:45 98 Room Air 05/28/16 22:03 99 18 159/85 99 Room Air 05/28/16 21:30 96 18 145/94 95 Room Air 05/28/16 21:18 98 Room Air 05/28/16 21:16 95 Room Air 05/28/16 21:15 96 18 136/90 95 Room Air 05/28/16 21:08 91 18 141/97 97 Nasal Cannula 2 05/28/16 20:25 98.3 105 18 153/98 97 Nasal Cannula 05/28/16 20:20 99 2.00 General: Alert and Oriented, No acute distress Neurologic: Alert Psychiatric: Cooperative Exam Comments alert ox 3. follows. mildly anxious, eomi, vff, no drift, mild left hemisensory , msr symmetric, planterflexor Objective Micro and Labs Laboratory Tests Test 05/28/16 05/28/16 05/28/16 20:30 20:40 21:30 White Blood Count 23.7 Red Blood Count 4.65 Hemoglobin 14.6 Bedside Hemoglobin 14.6 Hematocrit 42.1 Bedside Hematocrit 43.0 Mean Corpuscular Volume 90.4 Mean Corpuscular Hemoglobin 31.5 Mean Corpuscular Hemoglobin 34.8 Concent Red Cell Distribution Width 15.3 Platelet Count 282 Mean Platelet Volume 7.1 Neutrophils (%) (Auto) 85.5 Lymphocytes (%) (Auto) 11.0 Monocytes (%) (Auto) 2.9 Eosinophils (%) (Auto) 0.0 Basophils (%) (Auto) 0.6 Neutrophils # (Auto) 20.3 Lymphocytes # (Auto) 2.6 Monocytes # (Auto) 0.7 Eosinophils # (Auto) 0.0 Basophils # (Auto) 0.1 CBC Comment AUTO DIFF Differential Total Cells 100 Counted Neutrophils % (Manual) 80 Band Neutrophils % 10 Lymphocytes % 8 Monocytes % 2 Neutrophils # (Manual) 21.3 Differential Comment FINAL DIFF MANUAL Platelet Estimate NORMAL Platelet Morphology Comment NORMAL Red Cell Morphology Comment NORMAL Erythrocyte Sedimentation Rate 35 Prothrombin Time 10.3 Prothromb Time International 0.9 Ratio Activated Partial 23.7 Thromboplast Time Fibrinogen 460 Bedside Sodium 139 Bedside Potassium 4.0 Bedside Chloride 100 Bedside Blood Urea Nitrogen 11 Bedside Creatinine 0.6 Bedside Glucose 118 Total Creatine Kinase 71 Troponin I LESS THAN 0.02 Triglycerides Level 202 Cholesterol Level 306 LDL Cholesterol 183 HDL Cholesterol 82.6 Cholesterol/HDL Ratio 3.70 Vitamin B12 Level 462 Thyroid Stimulating Hormone 0.598 3rd Gen Human Chorionic Gonadotropin, 6 Quant Blood Type O POSITIVE Antibody Screen NEGATIVE Blood Bank Comment Urine Color YELLOW Urine Turbidity CLEAR Urine pH 6.5 Urine Specific [place] 1.035 Urine Protein TRACE Urine Glucose (UA) NEG Urine Ketones NEG Urine Occult Blood NEG Urine Nitrite NEG Urine Bilirubin NEG Urine Urobilinogen LESS THAN 2.0 Urine Leukocyte Esterase NEG Urine WBC 1 Urine Squamous Epithelial 5 Cells Urine Mucus FEW Microscopic Urinalysis Comment Urine Opiates Screen NEG Urine Barbiturates Screen NEG Urine Amphetamines Screen NEG Urine Benzodiazepines Screen NEG Urine Cocaine Screen NEG Urine Cannabinoids Screen POS Problem Qualifiers (1) HTN (hypertension): Qualified Code: I10 - Essential hypertension Arnaldo Bobo MD May 29, 2016 08:40
[2016-05-29] MEDS: risperiDONE 0.5 MG TAB PO SCH ×2 (09:00→22:16)
[2016-05-29] MEDS ORDERED: SODIUM CHLOR 0.9% 1000 ML INJ 1,000 ML IV SCH (13:30)
[2016-05-29] MEDS ORDERED: TERBUTALINE INJ 1 MG/ML AMP SQ PRN (13:45)
[2016-05-29] MEDS ORDERED: EPINEPHrine HCL (1:10,000) 1 MG/10 ML SYRINGE ONE ×2 (14:25→21:08)
[2016-05-29] MEDS ORDERED: ATROPINE SULFATE 1 MG/10 ML SYRINGE ONE ×2 (14:25→21:08)
[2016-05-29] MEDS ORDERED: LIDOCAINE HCL 2% 100 MG/5 ML SYRINGE ONE ×2 (14:26→21:09)
[2016-05-29] MEDS ORDERED: fentaNYL CITRATE 250 MCG/5 ML AMP ONE (14:55)
[2016-05-29] MEDS ORDERED: MIDAZOLAM HCL 5 MG/5 ML VIAL ONE (14:55)
[2016-05-29] MEDS ORDERED: VERAPAMIL HCL 5 MG/2 ML VIAL ONE (15:01)
[2016-05-29 16:08] LABS: HEMOGLOBIN A1a 1.3 %; HEMOGLOBIN A1b 2.1 %; HEMOGLOBIN Ao 83.8 %; HEMOGLOBIN LA1C 2.1 %; HEMOGLOBIN P3 4.1 %
--- NOTE | 2016-05-29 17:09 | RADRPT ---
EXAM DATE/TIME: 05/28/2016 00:00 [facility] COMPARISON : No previous studies available for comparison. INDICATIONS : Stroke alert. FINDINGS: Called for stroke alert. Reviewed CTA remotely demonstrating occlusive thrombus in the M2 segment jus t distal to the temporal branch of the right MCA. Discussed the situation with Dr. Bobo from the eurology service. Was told to stroke score was around 20. When I arrived in the emergency department, the patient was moving all 4 extremities symmetrically and there was no facial droop. Reassessment b y Dr. Bobo showed some sensory deficit on the left but no motor dysfunction. Stroke score was cons idered less than 6 and therefore, no intervention was performed. PLAN: No intervention TIME SPENT: 30 minutes Chalo Payne MD on May 29, 2016 at 17:04 Board Certified Radiologist. This report was verified electronically.
--- NOTE | 2016-05-29 17:22 | PD.RAD ---
Post Procedure Progress Note Pre Procedure Diagnosis: (1) Acute ischemic right MCA stroke Post Procedure Diagnosis: (1) Acute ischemic right MCA stroke Procedure Date: May 29, 2016 Supervising Radiologist: Chalo Payne Proceduralist/Assist: Betsy Catherine RT(R), Harvey Croft RT(R), Jasmina Marques RT(R)() Anesthesia: MAC (by anesthesia dept) Plan of Activity Patient to Unit: PACU Patient Condition: Fair See PACS Report for procedural detail/treatment Vascular-Arterial Procedure Procedure 1 Procedure Site: Cerebral (right MCA) Procedure(s): Angiogram, Embolectomy (Large M1 embolus with a smaller embolus in the insular cortex) Access Access Site(s): Right Femoral Artery Closure Site(s): Right vascular closure device (6Fr angioseal) Chalo Payne MD May 29, 2016 17:22
[2016-05-29] MEDS: RESP: ALBUTEROL 2.5 MG/IPRATROPIUM 0.5 MG NEB (PRN) INH (17:23)
[2016-05-29] MEDS: PHENYLEPHRINE INJ 160 MG in DEXTROSE 5% IN WATE 500 ML INJ 484 ML IV SCH ×2 (17:24)
[2016-05-29] MEDS ORDERED: IODIXANOL 320 MG/ML 50 ML VIAL (for RAD SPEC) I-ARTERIAL ONE (17:37)
[2016-05-29] MEDS: SODIUM CHLOR 0.9% 1000 ML INJ 1,000 ML IV SCH (18:13)
--- NOTE | 2016-05-29 22:12 | RADRPT ---
EXAM DATE/TIME: 05/29/2016 21:51 [facility] COMPARISON: CT BRAIN W/O CONTRAST, May 28, 2016, 20:26. INDICATIONS : Stroke; 24 hours post TPA. RADIATION DOSE: 40.56 CTDIvol (mGy) MEDICAL HISTORY : Non-responsive. SURGICAL HISTORY : Non-responsive. ENCOUNTER: Initial ACUITY: 1 day PAIN SCALE: Non-responsive LOCATION: cranial TECHNIQUE: Multiple contiguous axial images were obtained of the head. Using automated exposure control and adj ustment of the mA and/or kV according to patient size, radiation dose was kept as low as reasonably a chievable to obtain optimal diagnostic quality images. FINDINGS: CEREBRUM: There is a new focal area of low density at the midportion of the right frontal lobe. This area measu res 3.1 x 1.3 x 1.5 cm. In addition, there appears to be effacement of the right-sided sulci compared to the left side. The ventricles are normal for age. No evidence of midline shift or hemorrhage. N o extra-axial fluid collections are seen. POSTERIOR FOSSA: The cerebellum and brainstem are intact. The 4th ventricle is midline. The cerebellopontine angle i s unremarkable. EXTRACRANIAL: The visualized portion of the orbits is intact. Sinus disease is present. SKULL: The calvaria is intact. No evidence of skull fracture. CONCLUSION: New focal area of low density at the mid right frontal lobe likely related to an evolving infarct. No hemorrhage is seen. There is some effacement of the sulci over the right convexity compared to the l eft side. Eriberto Mirza MD on May 29, 2016 at 22:07 Board Certified Radiologist. This report was verified electronically.
--- NOTE | 2016-05-29 22:57 | EKG ---
Date Performed: 05/28/2016 Time Performed: 20:46:55 PTAGE: 50 years EKG: Sinus rhythm WITH SHORT SD INTERVAL BORDERLINE ECG INTERPRETATION BASED ON A DEFAULT AGE OF 40 YEARS PREVIOUS TRACING : 03/15/2016 09.22 DOCTOR: Anthony Mayfield Interpretating Date/Time 05/29/2016 22:54:39
[2016-05-30] VITALS (14 sets, daily range): BP systolic 134–164; BP diastolic 65–94; PULSE 62–106; RESP 23–32; TEMP 97.8–99.7; O2SAT 89–100
[2016-05-30] MEDS: RESP: ALBUTEROL 2.5 MG/IPRATROPIUM 0.5 MG NEB (SCH) NEB ×6 (00:27→23:29)
[2016-05-30 04:20] LABS: HEMATOCRIT 37.5 % (35.0-46.0); MEAN CELL VOLUME 89.9 FL (80.0-100.0); MEAN CORPUSCULAR HEMOGLOBIN 31.6 PG (27.0-34.0); MEAN CORPUSCULAR HGB CONC 35.2 % (32.0-36.0); PLATELET COUNT 248 TH/MM3 (150-450); RED BLOOD COUNT 4.17 MIL/MM3 (4.00-5.30); RED CELL DISTRIBUTION WIDTH 15.6 % (11.6-17.2); REVIEW FLAG FINAL; WHITE BLOOD COUNT 16.6 TH/MM3 (4.0-11.0)
[2016-05-30 04:40] LABS: BICARBONATE 27.6 MEQ/L (21.0-32.0); POTASSIUM 3.5 MEQ/L (3.5-5.1)
[2016-05-30] MEDS: INSULIN NovoLIN REGULAR SUPPLEMENTAL SCALE SQ SCH ×4 (05:14→18:00)
[2016-05-30] MEDS: CHLORHEXIDINE GLUCONATE 2 % 1 PACK (2 CLOTHS) TOP SCH (05:14)
--- NOTE | 2016-05-30 07:18 | HHI.CCPN ---
Subjective Remarks/Hospital Course This is a 50-year-old female who presented to the emergency department with history of left arm and leg weakness and facial droop. Symptoms started approximately 25 minutes prior to ER arrival. She admits to smoking and drinking alcohol at the time of first and onset. NIH stroke scale on arrival was 15. Noncontrasted head CT was negative for acute bleed. Systemic TPA was administered within the first hour of symptom onset. CT angiography had not demonstrated possible flow deficit in the right MCA territory. Initially plans for possible endovascular thrombectomy, however repeat neuro exam of 45 minutes to complete resolution of symptoms. She is admitted to the ICU for close monitoring and further evaluation of her ischemic stroke. 05/29: Symptoms resolved after tPA last evening. Stable hemodynamics. 05/30: Persistent left arm weakness but much improved. SBP > 150 with Neosynephrine. Objective Vital Signs Date Time Temp Pulse Resp B/P Pulse Ox O2 Delivery O2 Flow Rate FiO2 05/30/16 06:00 93 05/30/16 04:00 98.4 23 147/79 99 05/29/16 19:30 Nasal Cannula 3.00 05/28/16 23:35 21 Intake and Output 05/29/16 05/29/16 05/30/16 08:00 16:00 00:00 Intake Total 748 ml 575 ml 540 ml Output Total 900 ml Balance -152 ml 575 ml 540 ml Result Diagram: 05/30/16 0320 05/30/16 0320 Imaging Last 24 hours Impressions Neck CTA 05/28/162026 Signed Impressions: Service Date/Time: Saturday, May 28, 2016 20:32 - CONCLUSION: Mild calcified plaque at the left proximal internal carotid artery. A significant stenosis is not seen. Eriberto Mirza MD Head CTA 05/28/162026 Signed Impressions: Service Date/Time: Saturday, May 28, 2016 20:32 - CONCLUSION: Short focal area of diminished flow potentially representing a thrombus in the midportion of the M1 segment of the right middle cerebral artery. The more peripheral flow at the right middle cerebral artery is diminished when compared to the left side. Eriberto Mirza MD Objective Remarks GENERAL: Middle-aged female, moderately agitated. HEENT: Pupils equal, round and reactive. NECK:. Midline. No JVD. Airway widely patent. CHEST: Equal chest rise. Clear to auscultation. Comfortable pattern. CARDIOVASCULAR: Normal rate. Regular rhythm. No appreciable murmurs. No JVD. ABDOMEN: Soft, nontender, nondistended. No guarding. BS active. MUSCULOSKELETAL: No peripheral edema. Distal pulses 2+. Well perfused. NEUROLOGICAL: Musculoskeletal strength is 5 out of 5 in right extremities. 3/5 left arm. 4/5 left leg. A/P Assessment and Plan Assessment: 50yF with h/o htn, smoking, and COPD with o2 use at night who presented with right MCA CVA status post systemic TPA. Although her symptoms have improved after clot extraction, she is still very high risk for decompensation and hemorrhagic conversion; remains critically ill this time. Active Problems: Acute CVA s/p systemic TPA Plan: Keep in ICU X 24 hours total. 2 hour neuro checks Follow 24-hour head CT A.m. CBC Goal systolic blood pressure less than 180 When necessary labetalol, hydralazine for goal systolic Lipid panel 2-D echo Nursing bedside swallow assessment. If she passes we will do strict clear liquid diet. If she fails we will make nothing by mouth and order formal speech and swallow evaluation. SCDs. holding pharmacologic DVT prophylaxis status post TPA Protonix for GI prophylaxis --Repeat CT Head after 24 hours from tPA Overall impression: Complete resolution of symptoms after tPA but recurrent symptoms later yesterday required right side clot extraction in IR. Now on vasopressor support and critically ill. Critical Care 37 mins Warner Carrero MD May 30, 2016 07:18
[2016-05-30] MEDS: DOCUSATE SODIUM 50 MG/SENNA 8.6 MG TAB PO SCH ×2 (08:25→20:07)
[2016-05-30] MEDS: risperiDONE 0.5 MG TAB PO SCH ×2 (08:25→20:06)
[2016-05-30] MEDS: PANTOPRAZOLE SODIUM 40 MG VIAL IV SCH (08:25)
[2016-05-30] MEDS: SODIUM CHLORIDE 0.9% FLUSH 5 ML FLUSH IV FLUSH SCH ×2 (08:25→20:07)
--- NOTE | 2016-05-30 08:47 | HHI.PR ---
Review/Management Diagnosis/Plan: (1) Acute ischemic right MCA stroke Plan: 05/28 s/p iv tpa; significant improvement 05/29 s/p rt mca embolectomy recs start aspirin gabapentin for pain f/u mri/mra brain ok to keep bp <200/100 now light p.t today appreciate critical care/interventional/rn d/w pt, rn (2) HTN (hypertension) (3) Tobacco use Plan: cessation d/w pt Subjective Subjective Comments went to interventional yesterday 05/16 worsening exam; had clot retraction no events overnight No headache No chest pain No dyspnea Active Medications Current Medications Medications (Trade) Dose Ordered Sig/Aric Route Start Time Stop Time Status Last Admin Magnesium Oxide 800 mg 800 mg UNSCH PRN PO 05/29/16 02:15 Magnesium Sulfate 4 gm/Sodium Chloride 100 ml @ 50 mls/hr UNSCH PRN IV 05/29/16 02:15 Magnesium Sulfate 2 gm/Sodium Chloride 100 ml @ 50 mls/hr UNSCH PRN IV 05/29/16 02:15 Potassium Chloride 100 ml @ 50 mls/hr Q2H PRN IV 05/29/16 02:15 Potassium Chloride 100 ml @ 50 mls/hr Q2H PRN IV 05/29/16 02:15 Potassium Chloride 100 ml @ 50 mls/hr Q2H PRN IV 05/29/16 02:15 (KCl 40 Meq Premix Inj) 100 ml @ 25 mls/hr UNSCH PRN IV 05/29/16 02:15 (KCl 40 Meq/30 ml Liq) 40 meq UNSCH PRN PO/TUBE 05/29/16 02:15 (KCl 40 Meq/30 ml Liq) 40 meq UNSCH PRN PO/TUBE 05/29/16 02:15 (K-Phos) 2,000 mg Q4H PRN PO 05/29/16 02:15 Potassium Phosphate 2000 mg 2,000 mg UNSCH PRN PO/TUBE 05/29/16 02:15 Potassium Phosphate 30 mmol/ Sodium Chloride 260 ml @ 42 mls/hr UNSCH PRN IV 05/29/16 02:15 (Sodium Phosphate Inj/NS 250 ml Inj) 250 ml @ 42 mls/hr UNSCH PRN IV 05/29/16 02:15 (D50w (Vial) Inj) 25 ml UNSCH PRN IV PUSH 05/29/16 02:15 (NovoLIN R SUPPLEMENTAL SCALE) 1 Q6HR SQ 05/29/16 06:00 (NS Flush) 2 ml UNSCH PRN IV FLUSH 05/29/16 02:15 (NS Flush) 2 ml BID IV FLUSH 05/29/16 09:00 05/30/16 08:25 (Tylenol) 650 mg Q6H PRN PO 05/29/16 02:15 (Protonix Inj) 40 mg DAILY IV 05/29/16 09:00 05/30/16 08:25 (Zofran Inj) 4 mg Q6H PRN IV 05/29/16 02:15 (Steffany-Colace) 2 tab BID PO 05/29/16 09:00 05/30/16 08:25 Miscellaneous Information 1 Q361D XX 05/29/16 02:15 05/29/16 02:15 (Chlorhexidine 2% Cloth) 3 pack Taper DAILY@04 TOP 05/29/16 04:00 05/25/17 03:59 05/30/16 05:14 (Chlorhexidine 2% Cloth) 3 pack UNSCH PRN TOP 05/29/16 02:15 (risperDAL) 0.5 mg Q12H PRN PO 05/29/16 08:45 (Ativan Inj) 0.5 mg BID PRN IVS 05/29/16 08:45 Risperidone 0.5 mg 0.5 mg BID PO 05/29/16 09:00 05/30/16 08:25 (NS 1000 ml Inj) 1,000 ml @ 70 mls/hr [id number] IV 05/29/16 19:31 Terbutaline Sulfate 1 mg 1 mg UNSCH PRN SQ 05/29/16 13:45 (Neosynephrine Inj/D5W 500 ml Inj) 500 ml @ 0 mls/hr TITRATE IV 05/29/16 13:45 05/29/16 17:24 Allergies Allergies Coded Allergies No Known Allergies (Verified05/28/16) Review of Systems All other ROS: ROS reviewed as documented in chart Exam I&O / VS 05/29/16 05/29/16 05/30/16 15:00 23:00 07:00 Intake Total 575 ml 540 ml 750 ml Balance 575 ml 540 ml 750 ml Intake Oral 120 ml 50 ml 50 ml IV Total 455 ml 490 ml 700 ml # Voids 2 2 3 # Bowel Movements 1 0 0 Vital Signs Date Time Temp Pulse Resp B/P Pulse Ox O2 Delivery O2 Flow Rate FiO2 05/30/16 08:18 100 21 05/30/16 06:00 93 05/30/16 04:00 98.4 70 23 147/79 99 05/30/16 04:00 62 05/30/16 02:00 66 05/30/16 00:00 66 05/30/16 00:00 98.9 83 24 134/79 100 05/29/16 22:00 71 05/29/16 20:00 99.2 73 28 180/92 96 05/29/16 20:00 73 05/29/16 19:30 99 Nasal Cannula 3.00 05/29/16 19:00 Nasal Cannula 3.00 05/29/16 18:00 68 05/29/16 18:00 99.5 68 25 118/60 94 05/29/16 14:00 96 05/29/16 12:00 107 05/29/16 12:00 99.2 107 32 147/79 88 05/29/16 10:00 120 General: Alert and Oriented, No acute distress Neurologic: Alert Psychiatric: Cooperative Exam Comments alert ox 3. follows. mildly anxious, eomi, vff, no drift, able to raise all 4 ext to gravity, left arm 4/5, leg 4+/5, mild left hemisensory, msr symmetric, planterflexor Objective Micro and Labs Laboratory Tests Test 05/30/16 03:20 White Blood Count 16.6 Red Blood Count 4.17 Hemoglobin 13.2 Hematocrit 37.5 Mean Corpuscular Volume 89.9 Mean Corpuscular Hemoglobin 31.6 Mean Corpuscular Hemoglobin 35.2 Concent Red Cell Distribution Width 15.6 Platelet Count 248 Mean Platelet Volume 7.2 Sodium Level 140 Potassium Level 3.5 Chloride Level 104 Carbon Dioxide Level 27.6 Anion Gap 8 Blood Urea Nitrogen 5 Creatinine 0.62 Estimat Glomerular Filtration 101 Rate Random Glucose 83 Calcium Level 8.7 Problem Qualifiers (1) HTN (hypertension): Qualified Code: I10 - Essential hypertension Arnaldo Bobo MD May 30, 2016 08:47
[2016-05-30] MEDS: SODIUM CHLOR 0.9% 1000 ML INJ 1,000 ML IV SCH (09:49)
[2016-05-30] MEDS: POTASSIUM CL 40 MEQ/30 ML LIQ UDC PO/TUBE PRN (10:47)
[2016-05-30] MEDS: ASPIRIN EC 81 MG TABEC PO SCH (10:47)
[2016-05-30] MEDS: HEPARIN SODIUM - SQ 10,000 UNITS/ML VIAL SQ SCH ×2 (10:47→20:07)
[2016-05-30] MEDS ORDERED: ATROPINE SULFATE 1 MG/10 ML SYRINGE ONE (11:24)
[2016-05-30] MEDS ORDERED: EPINEPHrine HCL (1:10,000) 1 MG/10 ML SYRINGE ONE (11:24)
[2016-05-30] MEDS ORDERED: LIDOCAINE HCL 2% 100 MG/5 ML SYRINGE ONE (11:24)
[2016-05-30] MEDS: LORazepam 2 MG/ML VIAL IVS PRN ×2 (12:26→21:05)
--- NOTE | 2016-05-30 13:19 | RADRPT ---
EXAM DATE/TIME: 05/30/2016 11:39 [facility] COMPARISON: No previous studies available for comparison. INDICATIONS : CVA. Slurred speech and left sided weakness. MEDICAL HISTORY : Chronic obstructive pulmonary disease. Hypertension. Stroke Anxiety and asthma. SURGICAL HISTORY : Total knee replacement, right. Blood clots removed from brain on 05/29/2016. ENCOUNTER: Initial ACUITY: 1 day PAIN SCORE: 0/10 LOCATION: Head. TECHNIQUE: Multiplanar, multisequence MRI of the brain was performed without contrast. FINDINGS: There is a large acute infarct in the right MCA distribution also involving the right basal ganglia. There is some associated cerebral swelling and about 3 mm of [id number] midline shift. Mild white matter ischemic changes are noted in the periventricular region. No left-sided infarction is identifi ed. No evidence for associated hemorrhage. No hydrocephalus. No abnormal extra-axial fluid collection s. CONCLUSION: 1. Large right MCA distribution infarct with mild mass effect and 3 mm right to left midline shift. Bert Ayoub MD on May 30, 2016 at 13:13 Board Certified Radiologist. This report was verified electronically.
--- NOTE | 2016-05-30 13:27 | RADRPT ---
EXAM DATE/TIME: 05/30/2016 11:39 [facility] COMPARISON: CTA BRAIN W 3D RECON, May 28, 2016, 20:32. INDICATIONS : CVA. Slurred speech and left sided weakness. MEDICAL HISTORY : Chronic obstructive pulmonary disease. Hypertension. Stroke Asthma and anxiety. SURGICAL HISTORY : Tubal ligation. Blood clots removed from brain on 05/29/2016. ENCOUNTER: Initial ACUITY: 1 day PAIN SCORE: 0/10 LOCATION: Head. Please note a normal MRA of the brain does not entirely exclude the possibility of a small aneurysm, nor the possibility of distal intracranial vessel disease. TECHNIQUE: 3D time of flight MRA was performed. Source images, multiplanar STS MIP, and 3D volume MIP reconstru ctions were reviewed. FINDINGS: Comparison CTA from May 28. Previously identified filling defect in the right cerebral artery is not visualized on the current examination. There is some slight luminal irregularity remaining witho ut definite evidence for hemodynamically significant stenosis. There is origin left [employer]. Distal internal carotid arteries, anterior cerebral arteries, left middle cerebral artery and basilar arter y are patent. CONCLUSION: 1. Resolution of previously identified intraluminal filling defect in the mid right middle cerebral a rtery seen on prior CTA. Currently no hemodynamically significant stenosis identified. Bert Ayoub MD on May 30, 2016 at 13:17 Board Certified Radiologist. This report was verified electronically.
--- NOTE | 2016-05-30 14:54 | RADRPT ---
EXAM DATE/TIME: 05/29/2016 15:22 [facility] COMPARISON: No previous studies available for comparison. INDICATIONS : Patient is in need of a crebral angiogram for evaluation after ischemic stroke symptoms. MEDICAL HISTORY : History of asthma, COPD, chronic right foot numbness. SURGICAL HISTORY : History of tubal ligation, multiple dental extractions, unknown cardiac surgery. ENCOUNTER: Initial ACUITY: 1 day PAIN SCORE: 0/10 FLUORO TIME: 20.3 minutes ACCESS SITE: Right Femoral artery CONTRAST: 140 cc Visipaque (iodixanol) MEDICATION(S): 1.) 5000 units Heparin IV Vancomycin within 2 hours of procedure, Ancef (or alternative) within 1 hour of procedure. DEVICE(S): 1.) Right middle cerebral artery KENISHA 68 reperfusion catheter 2.) Right midddle cerebral artery Solitaire 2 08/01 3.) Right common femoral artery 6Fr Angio-Seal Anesthesia and pain control was provided by the Anesthesia department. PROCEDURE : 1. Ultrasound-guided puncture of the access site. 2. Angiography of the access site prior to closure device. 3. Conscious sedation with continuous EKG and Oximetry monitoring. 4. Percutaneous closure of the access site. 5. Angiography of the right vertebral 6. Angiography of the right middle cerebral artery, M2 segment 7. Penumbra and Solitaire embolectomy, right MCA territory The risks, benefits and alternatives to the procedure were explained and verbal and written consent w as obtained. The site was prepped in sterile fashion. Full sterile technique was used, including ca p, mask, sterile gloves and gown and a large sterile sheet. Hand hygiene and 2% chlorhexidine and/or betadine/alcohol prep was utilized per protocol for cutaneous antisepsis. The skin and subcutaneous tissues were infiltrated with local anesthetic solution. With ultrasound and fluoroscopic guidance the selected artery was punctured and a vascular sheath was placed. Angiography of the common femoral artery was performed for evaluation prior to percutaneous closure device placement. A ARLEEN 2 catheter was used to select the brachiocephalic artery. The catheter was initially placed in t he right vertebral position was confirmed fluoroscopically with positive contrast. Catheter was backe d out in redirected into the common carotid artery. Position was again confirmed with positive contra st. The wire and catheter were then manipulated into the external carotid. The wire was removed and replaced with a Magic torque to facilitate placement of the 088 Neuron sheath. Contrast injection thr ough the neuron sheath showed occlusion near the origin of the M1 segment of the right middle cerebra l artery. Therefore, the Neuron sheath was advanced [id number] just proximal to the Josh portion of the internal carotid. There are sheath was connected to a Verapamil pressure bag. Through the she ath, a coaxial apparatus with an agility wire, Marksman catheter and the 068 Penumbra catheter was ad vanced into the distal internal. The agility wire and microcatheter were manipulated up to and throug h the occluded segment. Position was confirmed with positive contrast. At this point, the 068 Penumbr a catheter was advanced up to the edge of the thrombus, the wire and microcatheter were removed and a spiration instituted for 90 seconds. The catheter was then removed with aspiration of an approximate 8mm li thrombus. Contrast injection showed marked improvement in flow with some residual thrombus i n what appeared to be an insular branch. Therefore, the entire coaxial apparatus was advanced back up through the carrier sheath. Microwire and catheter were advanced through the occluded segment of the MCA and a 4 mm x 2 cm Solitaire stent deployed across the occlusion with some voodoo of flow th rough the trifurcation vessels as confirmed from a positive contrast injection through the Penumbra c atheter. The margin catheter was removed and a solitary left expanded at the junction of the M2 and M 3 segments for 5 minutes. Catheter was then withdrawn to the edge of the penumbra and aspiration inst ituted. The entire device was removed with some thrombus identified in the solitare stent. Completio n angiogram shows excellent flow through the temporal branch with some sluggish flow through the insu lar branch of the trifurcation . Hemostasis was obtained with the prescribed medicated closure device. Conscious sedation was perform ed with the prescribed dosages and duration as above. EKG and oximetry remained stable throughout th e procedure. The patient was sent to post anesthesia recovery in stable condition. CONCLUSION: Success right MCA embolectomy as above . Chalo Payne MD on May 30, 2016 at 14:20 Board Certified Radiologist. This report was verified electronically.
--- NOTE | 2016-05-30 19:00 | EC ---
Study Study Date:05/30/2016 STUDY CONCLUSIONS SUMMARY LEFT VENTRICLE: The cavity size was normal. Wall thickness was normal. Systolic function was normal. The estimated ejection fraction was in the range of 50% to 55%. Wall motion was normal; there were no regional wall motion abnormalities. If LV function is below 40, please consider prescribing an ACEI or ARB or document rationale for non-use. PROCEDURE DATA STUDY STATUS: Elective. Procedure: Transthoracic echocardiography. Image quality was good. Scanning was performed from the parasternal, apical, and subcostal acoustic windows. Study completion: The patient tolerated the procedure well. Transthoracic echocardiography. M-mode, complete 2D, complete spectral Doppler, and color Doppler. Height: Height: 62in. Weight: Weight: 123.7lb. Body mass index: BMI: 22.7kg/m^2. Body surface area: BSA: 1.56m^2. Patient status: Inpatient. CARDIAC ANATOMY LEFT VENTRICLE: The cavity size was normal. Wall thickness was normal. Systolic function was normal. The estimated ejection fraction was in the range of 50% to 55%. Wall motion was normal; there were no regional wall motion abnormalities. AORTIC VALVE: Trileaflet; normal thickness leaflets. Doppler: Transvalvular velocity was within the normal range. There was no stenosis. No regurgitation. Mean gradient: 9mm Hg (S). Peak gradient: 18mm Hg (S). AORTA: Aortic root: The aortic root was normal in size. MITRAL VALVE: Structurally normal valve. Doppler: Transvalvular velocity was within the normal range. There was no evidence for stenosis. No regurgitation. LEFT ATRIUM: The atrium was normal in size. RIGHT VENTRICLE: The cavity size was normal. Wall thickness was normal. PULMONIC VALVE: Doppler: Transvalvular velocity was within the normal range. There was no evidence for stenosis. No regurgitation. TRICUSPID VALVE: Structurally normal valve. Doppler: Transvalvular velocity was within the normal range. Trace regurgitation. PULMONARY ARTERY: The main pulmonary artery was normal-sized. Systolic pressure was within the normal range. RIGHT ATRIUM: The atrium was normal in size. PERICARDIUM: There was no pericardial effusion. SYSTEMIC VEINS: Inferior vena cava: The vessel was normal in size. Patient weight: 123.7lb _Ejection fraction:_ 65-75% _Fractional shortening:_ 32% up to 5Kg 5-11.5Kg 11.6-22.9Kg 23-45Kg 45-57Kg Aortic Root 7-13 <17 13-22 17-27 17-27 LA diam 6-13 <23 24-38 33-47 37-40 RVID 10-17 7-15 7-15 7-18 8-17 LVIDd 12-22 <32 24-38 33-47 37-40 LVPW 2-4 3-6 5-7 6-8 7-8 IVS 2-4 3-6 5-7 6-8 7-8 BASIC MEASUREMENTS ADULT NORMAL Left ventricle LV internal dimension, ED, chordal level, *41 mm 43-52 PLAX LV internal dimension, ES, chordal level, 25.2 mm 23-38 PLAX Fractional shortening, chordal level, PLAX 39 % >29 LV posterior wall thickness, ED 7.59 mm IVS/LVPW ratio, ED 0.99 <1.3 Ventricular septum Septal thickness, ED 7.5 mm Left atrium Anterior-posterior dimension 32 mm Anterior-posterior dimension index 2.05 cm/m^2 <2.2 DOPPLER MEASUREMENTS ADULT NORMAL Aortic valve Peak velocity, S 214 cm/s Mean velocity, S 139 cm/s VTI, S 34.6 cm Mean gradient, S 9 mm Hg Peak gradient, S 18 mm Hg Mitral valve Peak E-wave velocity 58.7 cm/s Peak A-wave velocity 71.6 cm/s Peak E/A ratio 0.8 Tricuspid valve Regurgitant peak velocity 167 cm/s Peak RV-RA gradient, S 11 mm Hg Maximal regurgitant velocity 167 cm/s LEGEND: Mean values are shown as u=mean value. Asterisk (*) lopez values outside specified normal range. Prepared and signed by Rodríguez Klein [id number]
[2016-05-30] MEDS ORDERED: 2% NS 1000 ML IV SCH ×2 (20:00)
[2016-05-30] MEDS: GABAPENTIN 100 MG CAP PO SCH (20:06)
[2016-05-30] MEDS: ATORVASTATIN 40 MG TAB PO SCH (20:06)
[2016-05-30] MEDS: ACETAMINOPHEN 325 MG TAB PO PRN (21:05)
[2016-05-31] VITALS (15 sets, daily range): BP systolic 134–163; BP diastolic 66–96; PULSE 62–116; RESP 16–34; TEMP 98–102.6; O2SAT 90–100
[2016-05-31] MEDS: PHENYLEPHRINE INJ 160 MG in DEXTROSE 5% IN WATE 500 ML INJ 484 ML IV SCH ×4 (01:34→23:40)
[2016-05-31] MEDS: RESP: ALBUTEROL 2.5 MG/IPRATROPIUM 0.5 MG NEB (SCH) NEB ×5 (03:17→20:14)
[2016-05-31] MEDS: CHLORHEXIDINE GLUCONATE 2 % 1 PACK (2 CLOTHS) TOP SCH (04:00)
[2016-05-31 04:51] LABS: HEMATOCRIT 38.7 % (35.0-46.0); MEAN CELL VOLUME 92.9 FL (80.0-100.0); MEAN CORPUSCULAR HEMOGLOBIN 31.1 PG (27.0-34.0); MEAN CORPUSCULAR HGB CONC 33.4 % (32.0-36.0); PLATELET COUNT 231 TH/MM3 (150-450); RED BLOOD COUNT 4.17 MIL/MM3 (4.00-5.30); RED CELL DISTRIBUTION WIDTH 15.5 % (11.6-17.2); REVIEW FLAG FINAL; WHITE BLOOD COUNT 15.1 TH/MM3 (4.0-11.0)
[2016-05-31 05:11] LABS: BICARBONATE 23.4 MEQ/L (21.0-32.0); POTASSIUM 3.9 MEQ/L (3.5-5.1)
[2016-05-31] MEDS: INSULIN NovoLIN REGULAR SUPPLEMENTAL SCALE SQ SCH ×5 (06:00→23:47)
[2016-05-31] MEDS: PANTOPRAZOLE SODIUM 40 MG VIAL IV SCH (07:37)
[2016-05-31] MEDS: SODIUM CHLORIDE 0.9% FLUSH 5 ML FLUSH IV FLUSH SCH ×2 (07:37→20:55)
[2016-05-31] MEDS: risperiDONE 0.5 MG TAB PO SCH ×2 (07:39→20:55)
[2016-05-31] MEDS: DOCUSATE SODIUM 50 MG/SENNA 8.6 MG TAB PO SCH ×2 (07:39→20:56)
[2016-05-31] MEDS: ASPIRIN EC 81 MG TABEC PO SCH (07:39)
[2016-05-31] MEDS: HEPARIN SODIUM - SQ 10,000 UNITS/ML VIAL SQ SCH ×2 (07:39→20:56)
--- NOTE | 2016-05-31 08:00 | HHI.PR ---
Review/Management Diagnosis/Plan: (1) Acute ischemic right MCA stroke Plan: 05/28 s/p iv tpa; significant improvement 05/29 s/p rt mca embolectomy mri brain reviewed; no significant shift, patchy areas of infarct; no ich recs neuro stable d/c pressor follow exam today; if stable ok for 5th floor with tele later today/am full therapy d/w pt, rn (2) HTN (hypertension) (3) Tobacco use Plan: cessation d/w pt Subjective Subjective Comments No acute events reported No headache No chest pain No dyspnea Active Medications Current Medications Medications (Trade) Dose Ordered Sig/Aric Route Start Time Stop Time Status Last Admin Magnesium Oxide 800 mg 800 mg UNSCH PRN PO 05/29/16 02:15 Magnesium Sulfate 4 gm/Sodium Chloride 100 ml @ 50 mls/hr UNSCH PRN IV 05/29/16 02:15 Magnesium Sulfate 2 gm/Sodium Chloride 100 ml @ 50 mls/hr UNSCH PRN IV 05/29/16 02:15 Potassium Chloride 100 ml @ 50 mls/hr Q2H PRN IV 05/29/16 02:15 Potassium Chloride 100 ml @ 50 mls/hr Q2H PRN IV 05/29/16 02:15 Potassium Chloride 100 ml @ 50 mls/hr Q2H PRN IV 05/29/16 02:15 (KCl 40 Meq Premix Inj) 100 ml @ 25 mls/hr UNSCH PRN IV 05/29/16 02:15 (KCl 40 Meq/30 ml Liq) 40 meq UNSCH PRN PO/TUBE 05/29/16 02:15 05/30/16 10:47 (KCl 40 Meq/30 ml Liq) 40 meq UNSCH PRN PO/TUBE 05/29/16 02:15 (K-Phos) 2,000 mg Q4H PRN PO 05/29/16 02:15 Potassium Phosphate 2000 mg 2,000 mg UNSCH PRN PO/TUBE 05/29/16 02:15 Potassium Phosphate 30 mmol/ Sodium Chloride 260 ml @ 42 mls/hr UNSCH PRN IV 05/29/16 02:15 (Sodium Phosphate Inj/NS 250 ml Inj) 250 ml @ 42 mls/hr UNSCH PRN IV 05/29/16 02:15 (D50w (Vial) Inj) 25 ml UNSCH PRN IV PUSH 05/29/16 02:15 (NovoLIN R SUPPLEMENTAL SCALE) 1 Q6HR SQ 05/29/16 06:00 (NS Flush) 2 ml UNSCH PRN IV FLUSH 05/29/16 02:15 (NS Flush) 2 ml BID IV FLUSH 05/29/16 09:00 05/31/16 07:37 (Tylenol) 650 mg Q6H PRN PO 05/29/16 02:15 05/30/16 21:05 (Protonix Inj) 40 mg DAILY IV 05/29/16 09:00 05/31/16 07:37 (Zofran Inj) 4 mg Q6H PRN IV 05/29/16 02:15 (Steffany-Colace) 2 tab BID PO 05/29/16 09:00 05/31/16 07:39 Miscellaneous Information 1 Q361D XX 05/29/16 02:15 05/29/16 02:15 (Chlorhexidine 2% Cloth) 3 pack Taper DAILY@04 TOP 05/29/16 04:00 05/25/17 03:59 05/30/16 05:14 (Chlorhexidine 2% Cloth) 3 pack UNSCH PRN TOP 05/29/16 02:15 (risperDAL) 0.5 mg Q12H PRN PO 05/29/16 08:45 (Ativan Inj) 0.5 mg BID PRN IVS 05/29/16 08:45 05/30/16 21:05 (risperDAL) 0.5 mg BID PO 05/29/16 09:00 05/31/16 07:39 Terbutaline Sulfate 1 mg 1 mg UNSCH PRN SQ 05/29/16 13:45 (Neosynephrine Inj/D5W 500 ml Inj) 500 ml @ 0 mls/hr TITRATE IV 05/29/16 13:45 05/31/16 01:34 (Ecotrin Ec) 162 mg DAILY PO 05/30/16 09:00 05/31/16 07:39 (Heparin Inj) 5,000 units BID SQ 05/30/16 09:00 05/31/16 07:39 (Lipitor) 40 mg HS PO 05/30/16 21:00 05/30/16 20:06 Gabapentin 600 mg 600 mg HS PO 05/30/16 21:00 05/30/16 20:06 (Sodium Chloride 23.4% Inj/NS 1000 ml Inj) 1,000 ml @ 30 mls/hr Q24H IV 05/30/16 20:00 05/30/16 20:07 Allergies Allergies Coded Allergies No Known Allergies (Verified05/28/16) Review of Systems All other ROS: ROS reviewed as documented in chart Exam I&O / VS 05/30/16 05/30/16 05/31/16 15:00 23:00 07:00 Intake Total 1577 ml 810 ml 453 ml Balance 1577 ml 810 ml 453 ml Intake Oral 240 ml 480 ml 0 ml IV Total 1337 ml 330 ml 453 ml # Voids 3 2 1 # Bowel Movements 0 0 0 Vital Signs Date Time Temp Pulse Resp B/P Pulse Ox O2 Delivery O2 Flow Rate FiO2 05/31/16 07:57 92 Venturi Mask 6.00 50 05/31/16 06:00 74 05/31/16 04:00 81 05/31/16 04:00 98.0 81 23 145/71 90 05/31/16 02:00 62 05/31/16 00:00 98.2 89 21 134/75 94 05/31/16 00:00 89 05/30/16 22:00 101 05/30/16 20:00 106 05/30/16 20:00 97.8 104 24 160/94 94 05/30/16 19:40 90 21 05/30/16 19:00 90 Nasal Cannula 3.00 05/30/16 18:00 90 05/30/16 16:00 86 05/30/16 16:00 99.7 86 32 147/65 91 05/30/16 14:00 82 05/30/16 12:00 99.2 106 29 160/76 89 05/30/16 12:00 106 05/30/16 10:00 80 05/30/16 08:18 100 21 05/30/16 08:00 80 05/30/16 08:00 99.0 78 23 164/94 100 General: Alert and Oriented, No acute distress Neurologic: Alert Psychiatric: Cooperative Exam Comments alert ox 3. follows, eomi, vff, no drift, able to raise all 4 ext to gravity, left arm 4/5, leg 4+/5, mild left hemisensory, msr symmetric, planterflexor, nihss 3 Objective Micro and Labs Laboratory Tests Test 05/31/16 05/31/16 00:09 02:43 Sodium Level 139 139 White Blood Count 15.1 Red Blood Count 4.17 Hemoglobin 12.9 Hematocrit 38.7 Mean Corpuscular Volume 92.9 Mean Corpuscular Hemoglobin 31.1 Mean Corpuscular Hemoglobin 33.4 Concent Red Cell Distribution Width 15.5 Platelet Count 231 Mean Platelet Volume 7.4 Potassium Level 3.9 Chloride Level 105 Carbon Dioxide Level 23.4 Anion Gap 11 Blood Urea Nitrogen 9 Creatinine 0.52 Estimat Glomerular Filtration 124 Rate Random Glucose 75 Calcium Level 8.7 Problem Qualifiers (1) HTN (hypertension): Qualified Code: I10 - Essential hypertension Arnaldo Bobo MD May 31, 2016 08:00
[2016-05-31] MEDS ORDERED: MIDAZOLAM HCL 5 MG/ML VIAL (1 ML) ONE (09:30)
[2016-05-31] MEDS ORDERED: ROCURONIUM INJ 50 MG/5 ML VIAL ONE (09:30)
[2016-05-31] MEDS ORDERED: PROPOFOL 1000 MG/100 ML INJ 100 ML ONE (09:47)
--- NOTE | 2016-05-31 09:53 | HHI.CCPN ---
Subjective Remarks/Hospital Course This is a 50-year-old female who presented to the emergency department with history of left arm and leg weakness and facial droop. Symptoms started approximately 25 minutes prior to ER arrival. She admits to smoking and drinking alcohol at the time of first and onset. NIH stroke scale on arrival was 15. Noncontrasted head CT was negative for acute bleed. Systemic TPA was administered within the first hour of symptom onset. CT angiography had not demonstrated possible flow deficit in the right MCA territory. Initially plans for possible endovascular thrombectomy, however repeat neuro exam of 45 minutes to complete resolution of symptoms. She is admitted to the ICU for close monitoring and further evaluation of her ischemic stroke. 05/29: Symptoms resolved after tPA last evening. Stable hemodynamics. 05/30: Persistent left arm weakness but much improved. SBP > 150 with Neosynephrine. 05/31: Persistent hypoxemia this morning. Patient will not wear face mask and does not clear secretions well. Will need to intubate to protect airway and oxygenate adequately. Discussed with her daughter at the bedside. Objective Vital Signs Date Time Temp Pulse Resp B/P Pulse Ox O2 Delivery O2 Flow Rate FiO2 05/31/16 07:57 92 Venturi Mask 6.00 50 05/31/16 06:00 74 05/31/16 04:00 98.0 23 145/71 Intake and Output 05/30/16 05/30/16 05/31/16 08:00 16:00 00:00 Intake Total 750 ml 1577 ml 810 ml Balance 750 ml 1577 ml 810 ml Result Diagram: 05/31/16 0243 05/31/16 0243 Imaging Last 24 hours Impressions Neck CTA 05/28/162026 Signed Impressions: Service Date/Time: Saturday, May 28, 2016 20:32 - CONCLUSION: Mild calcified plaque at the left proximal internal carotid artery. A significant stenosis is not seen. Eriberto Mirza MD Head CTA 05/28/162026 Signed Impressions: Service Date/Time: Saturday, May 28, 2016 20:32 - CONCLUSION: Short focal area of diminished flow potentially representing a thrombus in the midportion of the M1 segment of the right middle cerebral artery. The more peripheral flow at the right middle cerebral artery is diminished when compared to the left side. Eriberto Mirza MD Objective Remarks GENERAL: Middle-aged female, agitated. Uncooperative. HEENT: Pupils equal, round and reactive. NECK:. Midline. No JVD. Snoring, gurgling. CHEST: Equal chest rise. Shallow excursions. Sats 79% CARDIOVASCULAR: Normal rate. Regular rhythm. No appreciable murmurs. No JVD. ABDOMEN: Soft, nontender, nondistended. No guarding. BS active. MUSCULOSKELETAL: No peripheral edema. Distal pulses 2+. Well perfused. NEUROLOGICAL: Musculoskeletal strength is 5 out of 5 in right extremities. 2/5 left arm. 3/5 left leg. Speech unclear. A/P Assessment and Plan Assessment: 50yF with h/o htn, smoking, and COPD with o2 use at night who presented with right MCA CVA status post systemic TPA. Although her symptoms have improved after clot extraction, she is still very high risk for decompensation and hemorrhagic conversion; remains critically ill this time. Active Problems: Acute CVA s/p systemic TPA Plan: Keep in ICU X 24 hours total. 2 hour neuro checks Follow 24-hour head CT A.m. CBC Goal systolic blood pressure less than 180 When necessary labetalol, hydralazine for goal systolic Lipid panel 2-D echo Nursing bedside swallow assessment. If she passes we will do strict clear liquid diet. If she fails we will make nothing by mouth and order formal speech and swallow evaluation. SCDs. holding pharmacologic DVT prophylaxis status post TPA Protonix for GI prophylaxis --Repeat CT Head after 24 hours from tPA -Intubation. Overall impression: Complete resolution of symptoms after tPA but recurrent symptoms later yesterday required right side clot extraction in IR. Now on vasopressor support and critically ill. She repeated her CVA symtoms when we tried to wean neosynephrine. Oxygen diffusion unacceptable - deteriorating status of alertness and ability to protect airway. Requires ventilator support now. Critical Care 42 mins aside from procedures. Warner Carrero MD May 31, 2016 09:52
--- NOTE | 2016-05-31 09:55 | PD.PROCEDR ---
Procedure Note Procedure DX: Hypoxemic Respiratory Failure (J96.01) OP: Orotracheal intubation (90316) Procedure: Versed 5 mg IV while bag mask ventilating. Repeated x 1 versed for suitable sedation. Rocuronium 50 mg IV. Intubated orally with 7.5 tube. Position confirmed with CIO2 detection, breath sounds, improved sats to 100%. CXR ordered, will review. Warner Carrero MD May 31, 2016 09:55
[2016-05-31] MEDS ORDERED: SODIUM CHLOR 0.9% 1000 ML INJ 1,000 ML IV SCH (10:00)
[2016-05-31 10:04] LABS: BLOOD GAS BASE EXCESS -2.1 mmol/L (-2-2); BLOOD GAS CARBOXYHEMOGLOBIN 1.5 % (0-4); BLOOD GAS HCO3 22 mmol/L (22-26); BLOOD GAS O2 HGB SATURATION 76 % (90-100); BLOOD GAS OXYGEN CONTENT 14.8 Vol % (12.0-20.0); BLOOD GAS PCO2 36 mmHg (38-42); BLOOD GAS PO2 44 mmHg (61-120); BLOOD GAS TOTAL HGB 13.9 G/DL (12.0-16.0); CRITICAL VALUE YES; DRAW SITE LT RADIAL; FIO2 50 %; NUMBER OF ARTERIAL PUNCTURES 2; OXYGEN DEVICE Venti Mask; STAT YES; TEMP CORR TO 98.6; ULNAR PULSE PRESENT
[2016-05-31] MEDS ORDERED: METOPROLOL TARTRATE 5 MG/5 ML VIAL ONE (10:37)
[2016-05-31] MEDS ORDERED: MIDAZOLAM HCL 10 MG/10 ML VIAL IV ONE (10:45)
[2016-05-31] MEDS ORDERED: ROCURONIUM INJ 50 MG/5 ML VIAL IV ONE (10:45)
--- NOTE | 2016-05-31 10:52 | RADRPT ---
EXAM DATE/TIME: 05/31/2016 10:14 [facility] COMPARISON: No previous studies available for comparison. INDICATIONS : ET tube placement. NG tube placement. MEDICAL HISTORY : Cerebrovascular disease SURGICAL HISTORY : None. ENCOUNTER: Subsequent ACUITY: 4 - 6 days PAIN SCORE: Non-responsive. LOCATION: Bilateral chest FINDINGS: 2 AP semierect portable views of the chest were obtained and demonstrate an endotracheal tube in plac e with the tip approximately 2 cm above the daryl. Nasogastric tube is in place with the tip project ed over the distal stomach or proximal duodenum. The heart size is within normal limits and there is no effusion. The right lung is clear. There is patchy opacity in the left perihilar region and left l karley base with apparent mild volume loss. The bony thorax is intact. There are no echocardiogram leads and oxygen tubing. CONCLUSION: 1. Intubation and placement of nasogastric tube. 2. Mild volume loss in the left hemithorax with patchy opacity in the perihilar region and left lung base which could indicate pneumonia. Tae Marquez MD on May 31, 2016 at 10:47 Board Certified Radiologist. This report was verified electronically.
[2016-05-31 11:57] LABS: BLOOD GAS BASE EXCESS -4.5 mmol/L (-2-2); BLOOD GAS CARBOXYHEMOGLOBIN 0.9 % (0-4); BLOOD GAS HCO3 21 mmol/L (22-26); BLOOD GAS METHEMOGLOBIN 1.1 % (0-2); BLOOD GAS O2 HGB SATURATION 97 % (90-100); BLOOD GAS OXYGEN CONTENT 16.6 Vol % (12.0-20.0); BLOOD GAS PCO2 40 mmHg (38-42); BLOOD GAS PO2 202 mmHg (61-120); BLOOD GAS TOTAL HGB 11.9 G/DL (12.0-16.0); CRITICAL VALUE NO; DRAW SITE ART LINE; FIO2 100 %; NUMBER OF ARTERIAL PUNCTURES 0; OXYGEN DEVICE VENTILATOR; STAT NO; TEMP CORR TO 98.6; ULNAR PULSE PRESENT; VENT SETTINGS PRVC/AC
[2016-05-31] MEDS: fentaNYL DRIP 250 ML IV SCH (12:09)
[2016-05-31] MEDS: PROPOFOL 1000 MG/100 ML INJ 100 ML IV SCH (12:23)
[2016-05-31] MEDS: ACETAMINOPHEN 325 MG TAB PO PRN ×2 (12:27→23:40)
[2016-05-31] MEDS ORDERED: ATROPINE SULFATE 1 MG/10 ML SYRINGE ONE (13:37)
[2016-05-31] MEDS ORDERED: EPINEPHrine HCL (1:10,000) 1 MG/10 ML SYRINGE ONE (13:37)
[2016-05-31] MEDS ORDERED: LIDOCAINE HCL 2% 100 MG/5 ML SYRINGE ONE (13:38)
[2016-05-31] MEDS ORDERED: IOHEXOL 350 MG/ML 10 ML VIAL (for RAD DIAG) IV ONE (14:17)
--- NOTE | 2016-05-31 14:32 | RADRPT ---
EXAM DATE/TIME: 05/31/2016 13:54 [facility] COMPARISON: CT BRAIN W/O CONTRAST, May 28, 2016, 20:26. ANGIOGRAM, CEREBRAL WO ARCH, May 29, 2016, 15: 22. ANGIOGRAM,SELECT ADD VESSEL,RT, May 29, 2016, 0:00. ANGIOGRAM,SELECT ADD VESSEL,RT, 2016, 0:00. CTA BRAIN W 3D RECON, May 28, 2016, 20:32. MRI BRAIN W/O CONTRAST, May 30, 2016, 11:39. CT BRAIN W/O CONTRAST, May 29, 2016, 21:51. INDICATIONS : Previous stroke alert; status-post intubation. Evolving right middle cerebral artery infarct. Occlude d right MCA status post embolectomy. RADIATION DOSE: 63.10 CTDIvol (mGy) MEDICAL HISTORY : Non-responsive. SURGICAL HISTORY : Non-responsive. ENCOUNTER: Initial ACUITY: 1 day PAIN SCALE: Non-responsive LOCATION: cranial TECHNIQUE: Multiple contiguous axial images were obtained of the head. Using automated exposure control and adj ustment of the mA and/or kV according to patient size, radiation dose was kept as low as reasonably a chievable to obtain optimal diagnostic quality images. FINDINGS: Evolving right MCA territory infarct is again noted with areas of decreased attenuation now noted com pared to the prior CT in portions of the right posterior frontal, parietal and temporal lobes. There is effacement of the sulci with mild mass effect on the right lateral ventricle. There is slight midl ine shift to the left of several millimeters. There is no acute hemorrhage. The posterior fossa and b rainstem remain intact. The right maxillary sinus remains opacified. There is opacification of multip le ethmoidal air cells with possible thickening the sphenoid sinus and right frontal sinus. CONCLUSION: Evolving right middle cerebral artery infarct with mild increased mass effect and sli ght midline shift now noted. Tae Marquez MD on May 31, 2016 at 14:20 Board Certified Radiologist. This report was verified electronically.
--- NOTE | 2016-05-31 14:42 | RADRPT ---
EXAM DATE/TIME: 05/31/2016 14:08 [facility] COMPARISON: CHEST SINGLE AP, May 31, 2016, 10:14. INDICATIONS : Previous stroke alert; right MCA territory infarct. Respiratory failure. The patient is status-post i ntubation. IV CONTRAST: 75 cc Omnipaque 350 (iohexol) IV RADIATION DOSE: 23.34 CTDIvol (mGy) MEDICAL HISTORY : Non-responsive. SURGICAL HISTORY : Non-responsive. ENCOUNTER: Initial ACUITY: 1 day PAIN SCALE: Non-responsive LOCATION: chest TECHNIQUE: Volumetric scanning of the chest was performed using a pulmonary embolism protocol MIP images were re constructed. Using automated exposure control and adjustment of the mA and/or kV according to patien t size, radiation dose was kept as low as reasonably achievable to obtain optimal diagnostic quality images. FINDINGS: PULMONARY ARTERIES: No filling defects are seen in the pulmonary arteries through the segmental level. LUNGS: There is no pneumothorax . Dense consolidation in the left lower lobe area there is patchy infiltrate in the posterior left upper lobe. The right lung is clear. An endotracheal tube and nasogastric tube are present. No concerning pulmonary nodule is visualized. PLEURAE: There is no pleural thickening or pleural effusion. MEDIASTINUM: There is good visualization of the great vessels of the middle mediastinum. No evidence of mediastin al or hilar adenopathy/mass. MUSCULOSKELETAL: Within normal limits for patient age. MISCELLANEOUS: The visualized upper abdominal organs demonstrate no acute abnormality. CONCLUSION: 1. No evidence of pulmonary embolism. 2. Dense consolidation in the left lower lobe with more patchy infiltrate in the posterior left upper lobe. Tae Marquez MD on May 31, 2016 at 14:35 Board Certified Radiologist. This report was verified electronically.
[2016-05-31] MEDS: SODIUM CHLOR 0.9% 1000 ML INJ 1,000 ML IV SCH (16:00)
--- NOTE | 2016-05-31 16:05 | PD.CONS ---
[facility] Service Rehabilitation Medicine Consult Requested By Arnaldo Bobo MD Reason for Consult Comprehensive rehabilitation evaluation. Primary Care Physician No Primary Care Physician History of Present Illness Una Kumar is a 50-year-old female admitted [facility] 05/28/16 with acute onset of left-sided weakness. Head CT was negative. She received tPA. On 05/29/16 she underwent right MCA embolectomy. Brain MRI 05/30/16 showed large right MCA infarct with mild mass effect 3 mm left midline shift. She was intubated 05/31/16. Review of Systems ROS Limitations: Clinical Condition, Intubated Past Family Social History Allergies: Coded Allergies: No Known Allergies (Verified , 05/28/16) Past Medical History Asthma COPD requiring oxygen at night at home Migraine Past Surgical History Tubal ligation Current Medications Current Medications Medications (Trade) Dose Ordered Sig/Aric Route Start Time Stop Time Status Last Admin Magnesium Oxide 800 mg 800 mg UNSCH PRN PO 05/29/16 02:15 Magnesium Sulfate 4 gm/Sodium Chloride 100 ml @ 50 mls/hr UNSCH PRN IV 05/29/16 02:15 Magnesium Sulfate 2 gm/Sodium Chloride 100 ml @ 50 mls/hr UNSCH PRN IV 05/29/16 02:15 Potassium Chloride 100 ml @ 50 mls/hr Q2H PRN IV 05/29/16 02:15 Potassium Chloride 100 ml @ 50 mls/hr Q2H PRN IV 05/29/16 02:15 Potassium Chloride 100 ml @ 50 mls/hr Q2H PRN IV 05/29/16 02:15 (KCl 40 Meq Premix Inj) 100 ml @ 25 mls/hr UNSCH PRN IV 05/29/16 02:15 (KCl 40 Meq/30 ml Liq) 40 meq UNSCH PRN PO/TUBE 05/29/16 02:15 05/30/16 10:47 (KCl 40 Meq/30 ml Liq) 40 meq UNSCH PRN PO/TUBE 05/29/16 02:15 (K-Phos) 2,000 mg Q4H PRN PO 05/29/16 02:15 Potassium Phosphate 2000 mg 2,000 mg UNSCH PRN PO/TUBE 05/29/16 02:15 Potassium Phosphate 30 mmol/ Sodium Chloride 260 ml @ 42 mls/hr UNSCH PRN IV 05/29/16 02:15 (Sodium Phosphate Inj/NS 250 ml Inj) 250 ml @ 42 mls/hr UNSCH PRN IV 05/29/16 02:15 (D50w (Vial) Inj) 25 ml UNSCH PRN IV PUSH 05/29/16 02:15 (NovoLIN R SUPPLEMENTAL SCALE) 1 Q6HR SQ 05/29/16 06:00 (NS Flush) 2 ml UNSCH PRN IV FLUSH 05/29/16 02:15 (NS Flush) 2 ml BID IV FLUSH 05/29/16 09:00 05/31/16 07:37 (Tylenol) 650 mg Q6H PRN PO 05/29/16 02:15 05/31/16 12:27 (Protonix Inj) 40 mg DAILY IV 05/29/16 09:00 05/31/16 07:37 (Zofran Inj) 4 mg Q6H PRN IV 05/29/16 02:15 (Steffany-Colace) 2 tab BID PO 05/29/16 09:00 05/31/16 07:39 Miscellaneous Information 1 Q361D XX 05/29/16 02:15 05/29/16 02:15 (Chlorhexidine 2% Cloth) 3 pack Taper DAILY@04 TOP 05/29/16 04:00 05/25/17 03:59 05/30/16 05:14 (Chlorhexidine 2% Cloth) 3 pack UNSCH PRN TOP 05/29/16 02:15 (risperDAL) 0.5 mg Q12H PRN PO 05/29/16 08:45 (Ativan Inj) 0.5 mg BID PRN IVS 05/29/16 08:45 05/30/16 21:05 (risperDAL) 0.5 mg BID PO 05/29/16 09:00 05/31/16 07:39 (Brethine Inj) 1 mg UNSCH PRN SQ 05/29/16 13:45 (Ecotrin Ec) 162 mg DAILY PO 05/30/16 09:00 05/31/16 07:39 (Heparin Inj) 5,000 units BID SQ 05/30/16 09:00 05/31/16 07:39 (Lipitor) 40 mg HS PO 05/30/16 21:00 05/30/16 20:06 (Neurontin) 600 mg HS PO 05/30/16 21:00 05/30/16 20:06 Chlorhexidine Gluconate 15 ml 15 ml BID@08,20 MT 05/31/16 20:00 Propofol 100 ml @ 0 mls/hr TITRATE IV 05/31/16 10:00 05/31/16 12:23 Sodium Chloride 1,000 ml @ 84 mls/hr [id number] IV 05/31/16 10:00 05/31/16 10:00 Phenylephrine HCl 160 mg/Dextrose 500 ml @ 0 mls/hr TITRATE IV 05/31/16 12:00 (fentaNYL DRIP) 250 ml @ 0 mls/hr TITRATE IV 05/31/16 12:00 05/31/16 12:09 Family History No family history of stroke Social History 1 pack per day tobacco. Lives in [place], [place]. Exam I&O / VS 05/30/16 05/30/16 05/31/16 15:00 23:00 07:00 Intake Total 1577 ml 810 ml 453 ml Balance 1577 ml 810 ml 453 ml Intake Oral 240 ml 480 ml 0 ml IV Total 1337 ml 330 ml 453 ml # Voids 3 2 1 # Bowel Movements 0 0 0 Vital Signs Date Time Temp Pulse Resp B/P Pulse Ox O2 Delivery O2 Flow Rate FiO2 05/31/16 15:47 98 60 05/31/16 12:53 100 60 05/31/16 12:00 102.6 101 29 152/89 100 05/31/16 09:45 100 100 05/31/16 08:00 100.7 116 34 163/96 96 05/31/16 07:57 92 Venturi Mask 6.00 50 05/31/16 07:00 90 Nasal Cannula 3.00 05/31/16 06:00 74 05/31/16 04:00 81 05/31/16 04:00 98.0 81 23 145/71 90 05/31/16 02:00 62 05/31/16 00:00 98.2 89 21 134/75 94 05/31/16 00:00 89 05/30/16 22:00 101 05/30/16 20:00 106 05/30/16 20:00 97.8 104 24 160/94 94 05/30/16 19:40 90 21 05/30/16 19:00 90 Nasal Cannula 3.00 05/30/16 18:00 90 General: Intubated, Sedated Respiratory: Lungs CTA, Non-labored respirations, Coarse breath sounds Gastrointestinal: Positive Bowel Sounds, Non-Distended Cardiovascular: Normal rate, Regular Rhythm Orientation: unable to asses Self, unable to asses Place, unable to asses Time , unable to asses Situation Neurologic: Pupils (PERRLA) DTRs: Normal Babinski: Positive (Left) Clonus: Negative Assessment and Plan Diagnosis: (1) Acute ischemic right MCA stroke Assessment 1. Right MCA ischemic stroke status post TPA and right MCA embolectomy 2. Asthma 3. COPD: Using oxygen nasal cannula at home at bedtime 4. Migraine 5. History tubal ligation Plan 1. Will follow while hospitalized and at discharge. 2. Physical therapy for range of motion progressing to mobilization when medical and neurological status allows 3. Speech therapy for swallow evaluation once extubated 4. Occupational therapy for ADLs 5. Anticipate patient will likely need ongoing rehabilitation and will follow in conjunction with case management Thank you for this consult Lubna Caraballo MD May 31, 2016 16:05
[2016-05-31] MEDS ORDERED: Vancomycin Consult Pharmacy 1 EA OTHER SCH (16:15)
[2016-05-31] MEDS ORDERED: NOREPINEPHRINE INJ 4 MG in SODIUM CHLOR 0.9% 250 ML INJ 246 ML IV SCH (16:15)
[2016-05-31] MEDS ORDERED: TERBUTALINE INJ 1 MG/ML AMP SQ PRN (16:15)
[2016-05-31] MEDS ORDERED: VANCOMYCIN 1,000 MG/NS 250 ML IV ONE ×2 (17:00)
[2016-05-31 17:54] LABS: BLOOD, URINE NEG (NEG); COMMENT (UR) CULT NOT INDICATED; CULTURE IF INDICATED CULT NOT INDICATED; GLUCOSE,URINE NEG (NEG); KETONE, URINE NEG (NEG); NITRITE,URINE NEG (NEG); URINE COLOR YELLOW (YELLW/STRAW)
[2016-05-31] MEDS: PIPERACIL-TAZO 3.375 GM PREMIX 50 ML IV SCH (17:58)
[2016-05-31] MEDS: SODIUM CHLORIDE 23.4% INJ 188 MEQ in SODIUM CHLOR 0.9% 1000 ML INJ 1,000 ML IV SCH (17:58)
--- NOTE | 2016-05-31 18:27 | RADRPT ---
EXAM DATE/TIME: 05/31/2016 18:02 [facility] COMPARISON: CHEST SINGLE AP, May 31, 2016, 10:14. INDICATIONS : Evaluate PICC line placement. MEDICAL HISTORY : None. SURGICAL HISTORY : None. ENCOUNTER: Initial ACUITY: 1 day PAIN SCORE: 0/10 LOCATION: Bilateral chest FINDINGS: The patient is intubated with the tip of the ET tube 2 cm from the daryl. There is a PICC line in place from the right arm with the tip overlying the SVC. The heart size is normal. The re is patchy increased density in the left perihilar region and left base. The right lung is clear. T he costophrenic angles are grossly clear. CONCLUSION: 1. Patchy areas of consolidation in the left perihilar region and left base. 2. PICC line in good position. Eriberto Mirza MD on May 31, 2016 at 18:20 Board Certified Radiologist. This report was verified electronically.
[2016-05-31 19:47] LABS: SODIUM (NA) 137 MEQ/L (136-145)
[2016-05-31 19:56] LABS: BETA HCG QUANT 2 MIU/ML (0-5)
[2016-05-31] MEDS: ATORVASTATIN 40 MG TAB PO SCH (20:55)
[2016-05-31] MEDS: CHLORHEXIDINE 0.12% (ORAL KIT) 15 ML CUP MT SCH (20:55)
[2016-05-31] MEDS: GABAPENTIN 100 MG CAP PO SCH (20:56)
[2016-05-31] MEDS: METOPROLOL TARTRATE 25 MG TAB PO SCH (22:00)
[2016-06-01] VITALS (18 sets, daily range): BP systolic 135–166; BP diastolic 60–72; PULSE 59–85; RESP 16; TEMP 99.3–101.8; O2SAT 96–100
[2016-06-01] MEDS: RESP: ALBUTEROL 2.5 MG/IPRATROPIUM 0.5 MG NEB (SCH) NEB ×7 (00:14→23:44)
[2016-06-01] MEDS: PIPERACIL-TAZO 3.375 GM PREMIX 50 ML IV SCH ×3 (00:38→16:34)
[2016-06-01 03:17] LABS: AUTOMATED NEUTROPHIL # 21.9 TH/MM3 (1.8-7.7); BASOPHIL # 0.1 TH/MM3 (0-0.2); BASOPHIL % 0.2 % (0.0-2.0); EOSINOPHIL % 0.2 % (0.0-4.0); HEMATOCRIT 33.6 % (35.0-46.0); LYMPH % 10.2 % (9.0-44.0); LYMPHOCYTE # 2.6 TH/MM3 (1.0-4.8); MEAN CELL VOLUME 91.5 FL (80.0-100.0); MEAN CORPUSCULAR HEMOGLOBIN 30.9 PG (27.0-34.0); MEAN CORPUSCULAR HGB CONC 33.8 % (32.0-36.0); MONO % 3.6 % (0.0-8.0); NEUT % 85.8 % (16.0-70.0); PLATELET COUNT 226 TH/MM3 (150-450); RED BLOOD COUNT 3.67 MIL/MM3 (4.00-5.30); RED CELL DISTRIBUTION WIDTH 15.6 % (11.6-17.2); WHITE BLOOD COUNT 25.5 TH/MM3 (4.0-11.0)
[2016-06-01 03:23] LABS: HEMO FLAGS AUTO DIFF
[2016-06-01] MEDS: CHLORHEXIDINE GLUCONATE 2 % 1 PACK (2 CLOTHS) TOP SCH (03:32)
[2016-06-01 04:56] LABS: BANDS 5 % (0-6); NEUTROPHIL # MANUAL DIFF 20.7 TH/MM3 (1.8-7.7); POLYS (SEG NEUTROPHILS) 76 % (16-70); WBC DIFF SAMPLE 100
[2016-06-01 04:57] LABS: PLATELET ESTIMATE SMEAR NORMAL (NORMAL); PLATELET MORPHOLOGY NORMAL (NORMAL); SCAN/DIFF FINAL DIFF MANUAL
[2016-06-01 05:34] LABS: BICARBONATE 26.4 MEQ/L (21.0-32.0); POTASSIUM 3.9 MEQ/L (3.5-5.1)
[2016-06-01] MEDS: METOPROLOL TARTRATE 25 MG TAB PO SCH ×3 (05:54→22:00)
[2016-06-01] MEDS: INSULIN NovoLIN REGULAR SUPPLEMENTAL SCALE SQ SCH ×4 (05:54→23:37)
[2016-06-01] MEDS: VANCOMYCIN 1,000 MG/NS 250 ML IV SCH ×4 (05:58→17:35)
[2016-06-01] MEDS: PROPOFOL 1000 MG/100 ML INJ 100 ML IV SCH ×3 (05:58→22:03)
--- NOTE | 2016-06-01 06:28 | RADRPT ---
EXAM DATE/TIME: 06/01/2016 04:36 [facility] COMPARISON: CHEST SINGLE AP, May 31, 2016, 18:02. INDICATIONS : Shortness of breath. MEDICAL HISTORY : None. SURGICAL HISTORY : None. ENCOUNTER: Subsequent ACUITY: 4 - 6 days PAIN SCORE: Non-responsive. LOCATION: Bilateral chest FINDINGS: The cardiac silhouette is normal in transverse diameter. Support lines and tubes are in satisfactory position. There is patchy alveolar disease on the left compatible with edema or pneumonia. The findin gs are improved when compared with the prior exam. The right lung is free of acute parenchymal opacit y. CONCLUSION: 1. Improving left-sided edema versus pneumonia Garrison Holt MD on June 01, 2016 at 6:26 Board Certified Radiologist. This report was verified electronically.
--- NOTE | 2016-06-01 07:19 | MB ---
cc: TAYE GREGORY DO DATE OF CONSULTATION: May 31, 2016 REASON FOR CONSULTATION Consideration of transesophageal echocardiogram. HISTORY OF PRESENT ILLNESS Una Kumar is a 50-year-old female who originally presented to the [facility] emergency room on May 28, 2016 due to left arm and left leg weakness with facial droop. The symptoms started approximately 25 minutes prior to the emergency room arrival. A noncontrast CT at that time was negative for an acute bleed and she was given systemic TPA. A repeat neurologic examination, 45 minutes later showed complete resolution of symptoms. She was admitted to the ICU for close monitoring and further evaluation for his her ischemic stroke. She then underwent embolectomy by interventional radiology of her right MCA. She continued to have left arm weakness but this was much improved with keeping her blood pressure above 150. On May 31, she was noted to have persistent hypoxemia. At that time she was intubated to protect her airway. I was asked to see Ms. Kumar due to consideration for a transesophageal echocardiogram due to her recent stroke which appears to be embolic in nature. In seeing her she is currently intubated and sedated. History is taken from the chart. PAST MEDICAL HISTORY 1. Asthma. 2. Chronic obstructive pulmonary disease with home oxygen at night. 3. Chronic right foot no numbness. PAST SURGICAL HISTORY 1. Tubal ligation. 2. Teeth removal. 3. Unknown history of cardiac surgery. ALLERGIES NO KNOWN DRUG ALLERGIES. MEDICATIONS: 1. Prednisone 40 mg b.i.d. 2. Gabapentin 600 mg every night 3. Trazodone 150 mg every night. 4. Spiriva 18 mcg daily. 5. Albuterol two puffs every 4 hours as needed 6. Advair 100/50, one puff twice a day. 7. Protonix 20 mg daily. FAMILY HISTORY Denies, no known history of sudden cardiac or premature coronary artery disease. SOCIAL HISTORY Smokes one-pack a day. Occasional alcohol use. No drug use history. REVIEW OF SYSTEMS Unable to obtain due to the patient's status. PHYSICAL EXAMINATION VITAL SIGNS: Temperature 100.80, heart rate 64, blood pressure 153/87, respirations 16, pulse ox 98% on the ventilator. IN GENERAL: The patient is currently sedated on the ventilator. HEAD, EYES, EARS, NOSE, AND THROAT: Pupils are equal, round. Mucous membranes moist. ET tube in place. HEART: Heart is regular rate and rhythm. Positive first and second heart sounds with no murmurs, gallops or rubs. PMI is difficult to ascertain. LUNGS: Lungs are clear to auscultation bilaterally. No wheezes, rales or rhonchi. ABDOMEN: The abdomen is soft, nontender and no organomegaly noted. EXTREMITEIS: The extremities show no clubbing, cyanosis or edema. Femoral and distal pulses intact bilaterally. NEUROLOGIC: Neurologically unable to obtain at this time. SKIN: Warm, dry and intact. Osteopathic with no kyphoscoliosis, lordosis or paraspinal tender points. LABORATORY FINDINGS Hemoglobin 12.9, hematocrit 38.7, platelets . Potassium 3.9, BUN 90, creatinine 0.52. IMPRESSION 1. Acute Cerebrovascular accident with embolic stroke of her right MCA status post TPA. 2. Vent respiratory failure. 3. COPD 4. Asthma. RECOMMENDATIONS 1. Una appears to have embolic cerebrovascular accident to the right MCA for which she has undergone t-PA and then embolectomy. This will continue to be treated by neurology and critical care. 2. We will consider doing transesophageal echocardiogram once the patient has stabilized, to look for possible causes. 3. Vent per critical care. 4. Further recommendations based on hospital course. Thank you for allowing me to see Una Kumar. If there are more problems please do not hesitate to call. Taye Gregory DO OMAYRA/minh /11:11 PM /7:01 AM [facility]
[2016-06-01] MEDS: CHLORHEXIDINE 0.12% (ORAL KIT) 15 ML CUP MT SCH ×2 (08:00→20:10)
[2016-06-01] MEDS: ASPIRIN 81 MG CHEW TAB OG-TUBE SCH (08:28)
[2016-06-01] MEDS: HEPARIN SODIUM - SQ 10,000 UNITS/ML VIAL SQ SCH ×2 (08:28→20:11)
[2016-06-01] MEDS: PANTOPRAZOLE SODIUM 40 MG VIAL IV SCH (08:28)
[2016-06-01] MEDS: DOCUSATE SODIUM 50 MG/SENNA 8.6 MG TAB PO SCH ×2 (08:29→20:11)
[2016-06-01] MEDS: SODIUM CHLORIDE 0.9% FLUSH 5 ML FLUSH IV FLUSH SCH ×2 (08:29→20:10)
[2016-06-01] MEDS: risperiDONE 0.5 MG TAB PO SCH ×2 (08:29→20:11)
--- NOTE | 2016-06-01 11:28 | PD.CARD.PN ---
Subjective Subjective Remarks No events over night Objective Medications Current Medications Medications (Trade) Dose Ordered Sig/Aric Route Start Time Stop Time Status Last Admin Magnesium Oxide 800 mg 800 mg UNSCH PRN PO 05/29/16 02:15 Magnesium Sulfate 4 gm/Sodium Chloride 100 ml @ 50 mls/hr UNSCH PRN IV 05/29/16 02:15 Magnesium Sulfate 2 gm/Sodium Chloride 100 ml @ 50 mls/hr UNSCH PRN IV 05/29/16 02:15 Potassium Chloride 100 ml @ 50 mls/hr Q2H PRN IV 05/29/16 02:15 Potassium Chloride 100 ml @ 50 mls/hr Q2H PRN IV 05/29/16 02:15 Potassium Chloride 100 ml @ 50 mls/hr Q2H PRN IV 05/29/16 02:15 (KCl 40 Meq Premix Inj) 100 ml @ 25 mls/hr UNSCH PRN IV 05/29/16 02:15 (KCl 40 Meq/30 ml Liq) 40 meq UNSCH PRN PO/TUBE 05/29/16 02:15 05/30/16 10:47 (KCl 40 Meq/30 ml Liq) 40 meq UNSCH PRN PO/TUBE 05/29/16 02:15 (K-Phos) 2,000 mg Q4H PRN PO 05/29/16 02:15 Potassium Phosphate 2000 mg 2,000 mg UNSCH PRN PO/TUBE 05/29/16 02:15 Potassium Phosphate 30 mmol/ Sodium Chloride 260 ml @ 42 mls/hr UNSCH PRN IV 05/29/16 02:15 (Sodium Phosphate Inj/NS 250 ml Inj) 250 ml @ 42 mls/hr UNSCH PRN IV 05/29/16 02:15 (D50w (Vial) Inj) 25 ml UNSCH PRN IV PUSH 05/29/16 02:15 (NovoLIN R SUPPLEMENTAL SCALE) 1 Q6HR SQ 05/29/16 06:00 (NS Flush) 2 ml UNSCH PRN IV FLUSH 05/29/16 02:15 (NS Flush) 2 ml BID IV FLUSH 05/29/16 09:00 06/01/16 08:29 (Tylenol) 650 mg Q6H PRN PO 05/29/16 02:15 05/31/16 23:40 (Protonix Inj) 40 mg DAILY IV 05/29/16 09:00 06/01/16 08:28 (Zofran Inj) 4 mg Q6H PRN IV 05/29/16 02:15 (Steffany-Colace) 2 tab BID PO 05/29/16 09:00 06/01/16 08:29 Miscellaneous Information 1 Q361D XX 05/29/16 02:15 05/29/16 02:15 (Chlorhexidine 2% Cloth) 3 pack Taper DAILY@04 TOP 05/29/16 04:00 05/25/17 03:59 06/01/16 03:32 (Chlorhexidine 2% Cloth) 3 pack UNSCH PRN TOP 05/29/16 02:15 (risperDAL) 0.5 mg Q12H PRN PO 05/29/16 08:45 (Ativan Inj) 0.5 mg BID PRN IVS 05/29/16 08:45 05/30/16 21:05 (risperDAL) 0.5 mg BID PO 05/29/16 09:00 06/01/16 08:29 (Brethine Inj) 1 mg UNSCH PRN SQ 05/29/16 13:45 (Heparin Inj) 5,000 units BID SQ 05/30/16 09:00 06/01/16 08:28 (Lipitor) 40 mg HS PO 05/30/16 21:00 05/31/16 20:55 (Neurontin) 600 mg HS PO 05/30/16 21:00 05/31/16 20:56 Chlorhexidine Gluconate 15 ml 15 ml BID@08,20 MT 05/31/16 20:00 06/01/16 08:00 Propofol 100 ml @ 0 mls/hr TITRATE IV 05/31/16 10:00 06/01/16 08:28 Phenylephrine HCl 160 mg/Dextrose 500 ml @ 0 mls/hr TITRATE IV 05/31/16 12:00 05/31/16 23:40 Fentanyl Citrate 250 ml @ 0 mls/hr TITRATE IV 05/31/16 12:00 05/31/16 12:09 Sodium Chloride 188 meq/Sodium Chloride 1,047 ml @ 30 mls/hr Q24H IV 05/31/16 17:00 05/31/16 17:58 (NS 1000 ml Inj) 1,000 ml @ 42 mls/hr [id number] IV 05/31/16 16:00 05/31/16 16:00 Metoprolol Tartrate 12.5 mg 12.5 mg Q8HR PO 05/31/16 22:00 Pharmacy Profile Note 0 ml @ 0 mls/hr UNSCH OTHER 05/31/16 16:15 Piperacillin Sod/ Tazobactam Sod 50 ml @ 100 mls/hr Q8H IV 05/31/16 17:00 06/01/16 08:29 (Levophed Inj/NS 250 ml Inj) 250 ml @ 0 mls/hr TITRATE IV 05/31/16 16:15 (Brethine Inj) 1 mg UNSCH PRN SQ 05/31/16 16:15 (NS Flush) See Protocol DAILY IVF 06/01/16 09:00 (NS Flush) See Protocol UNSCH PRN IVF 05/31/16 18:15 (Heparin Central Flush) See Protocol DAILY IVF 06/01/16 09:00 (Heparin Central Flush) See Protocol UNSCH PRN IVF 05/31/16 18:15 IV Flush See Protocol UNSCH PRN IVF 05/31/16 18:15 (Vancomycin Inj/ NS 250 ml Inj) 250 ml @ 250 mls/hr Q12H IV 06/01/16 06:00 06/01/16 05:58 Miscellaneous Information SPECIFIC LAB TO BE ... ONCE ONCE XX 06/02/16 05:45 06/02/16 05:46 (Aspirin Chew) 162 mg DAILY OG-TUBE 06/01/16 09:00 06/01/16 08:28 Vital Signs / I&O Vital Signs Date Time Temp Pulse Resp B/P Pulse Ox O2 Delivery O2 Flow Rate FiO2 06/01/16 10:00 82 06/01/16 08:07 100 50 06/01/16 08:00 59 06/01/16 08:00 50 06/01/16 08:00 99.5 61 16 161/68 100 06/01/16 07:00 Mechanical Ventilator 06/01/16 06:00 60 06/01/16 04:26 100 50 06/01/16 04:00 99.3 63 16 166/71 100 06/01/16 04:00 63 06/01/16 04:00 50 06/01/16 02:00 65 06/01/16 00:14 98 50 06/01/16 00:00 101.7 67 16 151/65 98 06/01/16 00:00 67 06/01/16 00:00 50 05/31/16 22:00 65 05/31/16 20:14 98 50 05/31/16 20:00 50 05/31/16 20:00 100.8 65 16 145/66 100 05/31/16 20:00 64 05/31/16 19:00 Mechanical Ventilator 05/31/16 18:00 64 05/31/16 16:00 60 05/31/16 16:00 100.8 64 16 153/87 97 05/31/16 16:00 64 05/31/16 15:47 98 60 05/31/16 12:53 100 60 05/31/16 12:00 102.6 101 29 152/89 100 I/O 05/31/16 05/31/16 05/31/16 06/01/16 06/01/16 06/01/16 07:00 15:00 23:00 07:00 15:00 23:00 Intake Total 453 ml 594 ml 1262 ml 1190 ml Output Total 550 ml 550 ml 875 ml Balance 453 ml 44 ml 712 ml 315 ml Intake Oral 0 ml IV Total 453 ml 594 ml 1262 ml 1190 ml Output Urine Total 550 ml 550 ml 875 ml # Voids 1 # Bowel Movements 0 2 0 0 Physical Exam GENERAL: Intubated and sedated SKIN: Warm and dry. HEAD: Atraumatic. Normocephalic. EYES: Pupils equal and round. No scleral icterus. No injection or drainage. ENT: No nasal bleeding or discharge. Mucous membranes pink and moist. NECK: Trachea midline. No JVD. CARDIOVASCULAR: Regular rate and rhythm. RESPIRATORY: No accessory muscle use. Clear to auscultation. Breath sounds equal bilaterally. GASTROINTESTINAL: Abdomen soft, non-tender, nondistended. Hepatic and splenic margins not palpable. MUSCULOSKELETAL: Extremities without clubbing, cyanosis, or edema. No obvious deformities. NEUROLOGICAL: Sedated on the vent Laboratory Laboratory Tests Test 05/31/16 05/31/16 05/31/16 05/31/16 11:45 12:12 15:00 18:50 Blood Gas Puncture Site ART LINE Blood Gas Patient Temperature 98.6 Blood Gas HCO3 21 mmol/L Blood Gas Base Excess -4.5 mmol/L Blood Gas Oxygen Saturation 97 % Arterial Blood pH 7.33 Arterial Blood Partial 40 mmHg Pressure CO2 Arterial Blood Partial 202 mmHg Pressure O2 Arterial Blood Oxygen Content 16.6 Vol % Arterial Blood 0.9 % Carboxyhemoglobin Arterial Blood Methemoglobin 1.1 % Blood Gas Hemoglobin 11.9 G/DL Oxygen Delivery Device VENTILATOR Blood Gas Ventilator Setting PRVC/AC Blood Gas Inspired Oxygen 100 % Sodium Level 137 MEQ/L 137 MEQ/L Urine Color YELLOW Urine Turbidity CLEAR Urine pH 6.0 Urine Specific [place] GREATER THAN 1.050 Urine Protein TRACE mg/dL Urine Glucose (UA) NEG mg/dL Urine Ketones NEG mg/dL Urine Occult Blood NEG Urine Nitrite NEG Urine Bilirubin NEG Urine Urobilinogen LESS THAN 2.0 MG/DL Urine Leukocyte Esterase NEG Urine WBC LESS THAN 1 /hpf Microscopic Urinalysis Comment CULT NOT INDICATED Human Chorionic Gonadotropin, 2 MIU/ML Quant Test 06/01/16 03:00 White Blood Count 25.5 TH/MM3 Red Blood Count 3.67 MIL/MM3 Hemoglobin 11.3 GM/DL Hematocrit 33.6 % Mean Corpuscular Volume 91.5 FL Mean Corpuscular Hemoglobin 30.9 PG Mean Corpuscular Hemoglobin 33.8 % Concent Red Cell Distribution Width 15.6 % Platelet Count 226 TH/MM3 Mean Platelet Volume 7.0 FL Neutrophils (%) (Auto) 85.8 % Lymphocytes (%) (Auto) 10.2 % Monocytes (%) (Auto) 3.6 % Eosinophils (%) (Auto) 0.2 % Basophils (%) (Auto) 0.2 % Neutrophils # (Auto) 21.9 TH/MM3 Lymphocytes # (Auto) 2.6 TH/MM3 Monocytes # (Auto) 0.9 TH/MM3 Eosinophils # (Auto) 0.0 TH/MM3 Basophils # (Auto) 0.1 TH/MM3 CBC Comment AUTO DIFF Differential Total Cells 100 Counted Neutrophils % (Manual) 76 % Band Neutrophils % 5 % Lymphocytes % 16 % Monocytes % 3 % Neutrophils # (Manual) 20.7 TH/MM3 Differential Comment FINAL DIFF MANUAL Platelet Estimate NORMAL Platelet Morphology Comment NORMAL Red Cell Morphology Comment NORMAL Sodium Level 140 MEQ/L Potassium Level 3.9 MEQ/L Chloride Level 107 MEQ/L Carbon Dioxide Level 26.4 MEQ/L Anion Gap 7 MEQ/L Blood Urea Nitrogen 7 MG/DL Creatinine 0.62 MG/DL Estimat Glomerular Filtration 101 ML/MIN Rate Random Glucose 140 MG/DL Calcium Level 8.2 MG/DL Assessment and Plan Problem List: (1) Acute ischemic right MCA stroke (2) HTN (hypertension) (3) Tobacco use Assessment and Plan 1) R MCA CVA s/p TPA then embolectomy by IR 2) Will plan MELONIE on Friday, discussed with Dr. Carrero, will plan on continuing on the vent Problem Qualifiers (1) HTN (hypertension): Qualified Code: I10 - Essential hypertension Taye Starr DO Jun 01, 2016 11:28
[2016-06-01] MEDS ORDERED: LIDOCAINE HCL 2% 100 MG/5 ML SYRINGE ONE (11:30)
[2016-06-01] MEDS ORDERED: EPINEPHrine HCL (1:10,000) 1 MG/10 ML SYRINGE ONE (11:30)
[2016-06-01] MEDS ORDERED: ATROPINE SULFATE 1 MG/10 ML SYRINGE ONE (11:30)
[2016-06-01] MEDS: ACETAMINOPHEN 325 MG TAB PO PRN ×2 (11:35→20:10)
--- NOTE | 2016-06-01 12:44 | RADRPT ---
EXAM DATE/TIME: 06/01/2016 12:10 [facility] COMPARISON: CT BRAIN W/O CONTRAST, May 31, 2016, 13:54. INDICATIONS : Post stroke alert. RADIATION DOSE: 32.88 CTDIvol (mGy) MEDICAL HISTORY : Stroke. SURGICAL HISTORY : None. ENCOUNTER: Initial ACUITY: 1 day PAIN SCALE: Non-responsive LOCATION: cranial TECHNIQUE: Multiple contiguous axial images were obtained of the head. Using automated exposure control and adj ustment of the mA and/or kV according to patient size, radiation dose was kept as low as reasonably a chievable to obtain optimal diagnostic quality images. FINDINGS: Subacute infarct right middle cerebral artery distribution again noted, evolving. There is about 3 mm of leftward midline shift, slightly worse. No new ischemic event demonstrated. There is no bleed. No mass lesion demonstrated. CONCLUSION: The subacute right middle cerebral artery distribution infarct is evolving. No bleed. Edema/mass effe ct minimally worse in the interim. Eriberto Castañeda MD on June 01, 2016 at 12:39 Board Certified Radiologist. This report was verified electronically.
[2016-06-01] MEDS: PHENYLEPHRINE INJ 160 MG in DEXTROSE 5% IN WATE 500 ML INJ 484 ML IV SCH ×2 (13:23)
[2016-06-01] MEDS: SODIUM CHLOR 0.9% 1000 ML INJ 1,000 ML IV SCH (15:29)
[2016-06-01] MEDS: SODIUM CHLORIDE 23.4% INJ 188 MEQ in SODIUM CHLOR 0.9% 1000 ML INJ 1,000 ML IV SCH (16:35)
[2016-06-01 18:07] LABS: BICARBONATE 25.3 MEQ/L (21.0-32.0); POTASSIUM 3.8 MEQ/L (3.5-5.1)
[2016-06-01] MEDS: GABAPENTIN 100 MG CAP PO SCH (20:10)
[2016-06-01] MEDS: ATORVASTATIN 40 MG TAB PO SCH (20:10)
--- NOTE | 2016-06-01 20:41 | HHI.PR ---
Review/Management Diagnosis right MCA stroke s/p iv TPA and then right MCA embolectomy Plan hypertonic saline has been increased due to increase edema re check CT brain tomorrow Diagnosis/Plan: (1) Acute ischemic right MCA stroke Plan: 05/28 s/p iv tpa; significant improvement 05/29 s/p rt mca embolectomy mri brain reviewed; no significant shift, patchy areas of infarct; no ich recs neuro stable d/c pressor follow exam today; if stable ok for 5th floor with tele later today/am full therapy d/w pt, rn (2) HTN (hypertension) (3) Tobacco use Plan: cessation d/w pt Subjective Subjective Comments No acute events reported Active Medications Current Medications Medications (Trade) Dose Ordered Sig/Aric Route Start Time Stop Time Status Last Admin Magnesium Oxide 800 mg 800 mg UNSCH PRN PO 05/29/16 02:15 Magnesium Sulfate 4 gm/Sodium Chloride 100 ml @ 50 mls/hr UNSCH PRN IV 05/29/16 02:15 Magnesium Sulfate 2 gm/Sodium Chloride 100 ml @ 50 mls/hr UNSCH PRN IV 05/29/16 02:15 Potassium Chloride 100 ml @ 50 mls/hr Q2H PRN IV 05/29/16 02:15 Potassium Chloride 100 ml @ 50 mls/hr Q2H PRN IV 05/29/16 02:15 Potassium Chloride 100 ml @ 50 mls/hr Q2H PRN IV 05/29/16 02:15 (KCl 40 Meq Premix Inj) 100 ml @ 25 mls/hr UNSCH PRN IV 05/29/16 02:15 (KCl 40 Meq/30 ml Liq) 40 meq UNSCH PRN PO/TUBE 05/29/16 02:15 05/30/16 10:47 (KCl 40 Meq/30 ml Liq) 40 meq UNSCH PRN PO/TUBE 05/29/16 02:15 (K-Phos) 2,000 mg Q4H PRN PO 05/29/16 02:15 Potassium Phosphate 2000 mg 2,000 mg UNSCH PRN PO/TUBE 05/29/16 02:15 Potassium Phosphate 30 mmol/ Sodium Chloride 260 ml @ 42 mls/hr UNSCH PRN IV 05/29/16 02:15 (Sodium Phosphate Inj/NS 250 ml Inj) 250 ml @ 42 mls/hr UNSCH PRN IV 05/29/16 02:15 (D50w (Vial) Inj) 25 ml UNSCH PRN IV PUSH 05/29/16 02:15 (NovoLIN R SUPPLEMENTAL SCALE) 1 Q6HR SQ 05/29/16 06:00 (NS Flush) 2 ml UNSCH PRN IV FLUSH 05/29/16 02:15 (NS Flush) 2 ml BID IV FLUSH 05/29/16 09:00 06/01/16 20:10 (Tylenol) 650 mg Q6H PRN PO 05/29/16 02:15 06/01/16 20:10 (Protonix Inj) 40 mg DAILY IV 05/29/16 09:00 06/01/16 08:28 (Zofran Inj) 4 mg Q6H PRN IV 05/29/16 02:15 (Steffany-Colace) 2 tab BID PO 05/29/16 09:00 06/01/16 20:11 Miscellaneous Information 1 Q361D XX 05/29/16 02:15 05/29/16 02:15 (Chlorhexidine 2% Cloth) 3 pack Taper DAILY@04 TOP 05/29/16 04:00 05/25/17 03:59 06/01/16 03:32 (Chlorhexidine 2% Cloth) 3 pack UNSCH PRN TOP 05/29/16 02:15 (risperDAL) 0.5 mg Q12H PRN PO 05/29/16 08:45 (Ativan Inj) 0.5 mg BID PRN IVS 05/29/16 08:45 05/30/16 21:05 (risperDAL) 0.5 mg BID PO 05/29/16 09:00 06/01/16 20:11 (Brethine Inj) 1 mg UNSCH PRN SQ 05/29/16 13:45 (Heparin Inj) 5,000 units BID SQ 05/30/16 09:00 06/01/16 20:11 (Lipitor) 40 mg HS PO 05/30/16 21:00 06/01/16 20:10 (Neurontin) 600 mg HS PO 05/30/16 21:00 06/01/16 20:10 Chlorhexidine Gluconate 15 ml 15 ml BID@08,20 MT 05/31/16 20:00 06/01/16 20:10 Propofol 100 ml @ 0 mls/hr TITRATE IV 05/31/16 10:00 06/01/16 08:28 Phenylephrine HCl 160 mg/Dextrose 500 ml @ 0 mls/hr TITRATE IV 05/31/16 12:00 06/01/16 13:23 Fentanyl Citrate 250 ml @ 0 mls/hr TITRATE IV 05/31/16 12:00 05/31/16 12:09 (Sodium Chloride 23.4% Inj/NS 1000 ml Inj) 1,047 ml @ 50 mls/hr [id number] IV 05/31/16 17:00 06/01/16 16:35 Metoprolol Tartrate 12.5 mg 12.5 mg Q8HR PO 05/31/16 22:00 Pharmacy Profile Note 0 ml @ 0 mls/hr UNSCH OTHER 05/31/16 16:15 Piperacillin Sod/ Tazobactam Sod 50 ml @ 100 mls/hr Q8H IV 05/31/16 17:00 06/01/16 16:34 (Levophed Inj/NS 250 ml Inj) 250 ml @ 0 mls/hr TITRATE IV 05/31/16 16:15 (Brethine Inj) 1 mg UNSCH PRN SQ 05/31/16 16:15 (NS Flush) See Protocol DAILY IVF 06/01/16 09:00 (NS Flush) See Protocol UNSCH PRN IVF 05/31/16 18:15 (Heparin Central Flush) See Protocol DAILY IVF 06/01/16 09:00 (Heparin Central Flush) See Protocol UNSCH PRN IVF 05/31/16 18:15 IV Flush See Protocol UNSCH PRN IVF 05/31/16 18:15 (Vancomycin Inj/ NS 250 ml Inj) 250 ml @ 250 mls/hr Q12H IV 06/01/16 06:00 06/01/16 17:35 Miscellaneous Information SPECIFIC LAB TO BE JOSÉ MANUEL... ONCE ONCE XX 06/02/16 05:45 06/02/16 05:46 (Aspirin Chew) 162 mg DAILY OG-TUBE 06/01/16 09:00 06/01/16 08:28 Allergies Allergies Coded Allergies No Known Allergies (Verified05/28/16) Review of Systems All other ROS: ROS reviewed as documented in chart Exam I&O / VS 05/31/16 05/31/16 06/01/16 15:00 23:00 07:00 Intake Total 594 ml 1262 ml 1190 ml Output Total 550 ml 550 ml 875 ml Balance 44 ml 712 ml 315 ml IV Total 594 ml 1262 ml 1190 ml Output Urine Total 550 ml 550 ml 875 ml # Bowel Movements 2 0 0 Vital Signs Date Time Temp Pulse Resp B/P Pulse Ox O2 Delivery O2 Flow Rate FiO2 06/01/16 20:10 96 50 06/01/16 18:00 81 06/01/16 16:00 50 06/01/16 16:00 99.7 66 16 135/60 99 06/01/16 16:00 66 06/01/16 15:22 98 50 06/01/16 14:00 62 06/01/16 12:00 50 06/01/16 12:00 101.1 66 16 154/72 100 06/01/16 12:00 66 06/01/16 12:00 100 06/01/16 11:22 100 50 06/01/16 10:00 82 06/01/16 08:07 100 50 06/01/16 08:00 59 06/01/16 08:00 50 06/01/16 08:00 99.5 61 16 161/68 100 06/01/16 07:00 Mechanical Ventilator 06/01/16 06:00 60 06/01/16 04:26 100 50 06/01/16 04:00 99.3 63 16 166/71 100 06/01/16 04:00 63 06/01/16 04:00 50 06/01/16 02:00 65 06/01/16 00:14 98 50 06/01/16 00:00 101.7 67 16 151/65 98 06/01/16 00:00 67 06/01/16 00:00 50 05/31/16 22:00 65 General: Alert and Oriented, No acute distress Neurologic: Alert Psychiatric: Cooperative Exam Comments min responsive pupils 2mm symmetric and reactive. EOMI to occulocephalics No movement left withdrawal right Objective Radiology Results CT brain showing evolving right MCA stroke with mild increase in edema Micro and Labs Laboratory Tests Test 06/01/16 06/01/16 06/01/16 03:00 14:30 14:40 White Blood Count 25.5 Red Blood Count 3.67 Hemoglobin 11.3 Hematocrit 33.6 Mean Corpuscular Volume 91.5 Mean Corpuscular Hemoglobin 30.9 Mean Corpuscular Hemoglobin 33.8 Concent Red Cell Distribution Width 15.6 Platelet Count 226 Mean Platelet Volume 7.0 Neutrophils (%) (Auto) 85.8 Lymphocytes (%) (Auto) 10.2 Monocytes (%) (Auto) 3.6 Eosinophils (%) (Auto) 0.2 Basophils (%) (Auto) 0.2 Neutrophils # (Auto) 21.9 Lymphocytes # (Auto) 2.6 Monocytes # (Auto) 0.9 Eosinophils # (Auto) 0.0 Basophils # (Auto) 0.1 CBC Comment AUTO DIFF Differential Total Cells 100 Counted Neutrophils % (Manual) 76 Band Neutrophils % 5 Lymphocytes % 16 Monocytes % 3 Neutrophils # (Manual) 20.7 Differential Comment FINAL DIFF MANUAL Platelet Estimate NORMAL Platelet Morphology Comment NORMAL Red Cell Morphology Comment NORMAL Sodium Level 140 145 Potassium Level 3.9 3.8 Chloride Level 107 112 Carbon Dioxide Level 26.4 25.3 Anion Gap 7 8 Blood Urea Nitrogen 7 6 Creatinine 0.62 0.76 Estimat Glomerular Filtration 101 80 Rate Random Glucose 140 106 Calcium Level 8.2 8.3 Phosphorus Level 2.9 Magnesium Level 2.0 Date/Time Procedure Status Source Growth 05/31/16 18:05 Aerobic Blood Culture - Preliminary Resulted Blood Peripheral NO GROWTH IN 1 DAY 05/31/16 18:05 Anaerobic Blood Culture - Final Resulted Blood Peripheral ONLY AEROBIC CULTURE ORDERED 05/31/16 15:00 Urine Culture - Preliminary Resulted Urine Catheterized Urine NO GROWTH IN 24 HOURS. 05/31/16 15:00 Gram Stain - Final Resulted Sputum Endotracheal 05/31/16 15:00 Sputum Culture - Preliminary Resulted Sputum Endotracheal HEAVY GROWTH NORMAL RESPIRATORY FERNIE... Problem Qualifiers (1) HTN (hypertension): Qualified Code: I10 - Essential hypertension Amol Isabel PhD Jun 01, 2016 20:41
[2016-06-02] VITALS (17 sets, daily range): BP systolic 131–160; BP diastolic 58–72; PULSE 60–86; RESP 16; TEMP 98.1–99.9; O2SAT 99–100
[2016-06-02] MEDS: CHLORHEXIDINE GLUCONATE 2 % 1 PACK (2 CLOTHS) TOP SCH
[2016-06-02] MEDS: PIPERACIL-TAZO 3.375 GM PREMIX 50 ML IV SCH ×3 (00:46→17:19)
[2016-06-02] MEDS: PHENYLEPHRINE INJ 160 MG in DEXTROSE 5% IN WATE 500 ML INJ 484 ML IV SCH ×4 (00:46→11:10)
[2016-06-02] MEDS: fentaNYL DRIP 250 ML IV SCH ×2 (00:46→11:16)
[2016-06-02] MEDS: RESP: ALBUTEROL 2.5 MG/IPRATROPIUM 0.5 MG NEB (PRN) INH ×2 (04:05→07:44)
[2016-06-02] MEDS ORDERED: EPINEPHrine HCL (1:10,000) 1 MG/10 ML SYRINGE ONE (04:10)
[2016-06-02] MEDS ORDERED: ATROPINE SULFATE 1 MG/10 ML SYRINGE ONE (04:10)
[2016-06-02] MEDS ORDERED: LIDOCAINE HCL 2% 100 MG/5 ML SYRINGE ONE (04:11)
[2016-06-02 04:50] LABS: HEMATOCRIT 31.9 % (35.0-46.0); MEAN CORPUSCULAR HEMOGLOBIN 30.8 PG (27.0-34.0); MEAN CORPUSCULAR HGB CONC 33.2 % (32.0-36.0); PLATELET COUNT 223 TH/MM3 (150-450); RED BLOOD COUNT 3.43 MIL/MM3 (4.00-5.30); RED CELL DISTRIBUTION WIDTH 15.4 % (11.6-17.2); REVIEW FLAG FINAL; WHITE BLOOD COUNT 20.8 TH/MM3 (4.0-11.0)
[2016-06-02 05:15] LABS: BICARBONATE 25.3 MEQ/L (21.0-32.0); POTASSIUM 3.7 MEQ/L (3.5-5.1)
--- NOTE | 2016-06-02 05:34 | RADRPT ---
EXAM DATE/TIME: 06/02/2016 04:59 [facility] COMPARISON: ANGIOGRAM, CEREBRAL WO ARCH, May 29, 2016, 15:22. ANGIOGRAM,SELECT ADD VESSEL,RT, May 29, 2016, 0:00. THROMBECTOMY INTRACRANIAL, RIGHT, May 29, 2016, 0:00. CT BRAIN W/O CONTRAST, 2016, 12:10. INDICATIONS : Post stroke alert. RADIATION DOSE: 32.07 CTDIvol (mGy) MEDICAL HISTORY : Stroke. Cardiovascular disease Chronic obstructive pulmonary disease. SURGICAL HISTORY : None. ENCOUNTER: Subsequent ACUITY: 4 - 6 days PAIN SCALE: 0/10 LOCATION: cranial TECHNIQUE: Multiple contiguous axial images were obtained of the head. Using automated exposure control and adj ustment of the mA and/or kV according to patient size, radiation dose was kept as low as reasonably a chievable to obtain optimal diagnostic quality images. FINDINGS: There is evolving ischemic infarct involving 50% of the right middle cerebral artery distribution. Th ere is minimal mass effect and midline shift 3-4 mm but no signs of herniation. Posterior fossa struc tures are unremarkable. There is complete opacification of the right maxillary sinus and ethmoid air cells. CONCLUSION: 1. Expected evolution of right middle cerebral artery ischemic infarct. 2. No acute hemorrhage is identified Garrison Holt MD on June 02, 2016 at 5:28 Board Certified Radiologist. This report was verified electronically.
[2016-06-02] MEDS: VANCOMYCIN 1,000 MG/NS 250 ML IV SCH ×4 (05:42→17:19)
[2016-06-02] MEDS ORDERED: PHARMACY ORDERED LAB XX ONE ×2 (05:45→17:45)
[2016-06-02] MEDS: METOPROLOL TARTRATE 25 MG TAB PO SCH ×3 (05:51→21:07)
[2016-06-02] MEDS: INSULIN NovoLIN REGULAR SUPPLEMENTAL SCALE SQ SCH ×3 (05:53→17:17)
--- NOTE | 2016-06-02 06:59 | HHI.CCPN ---
Subjective Remarks/Hospital Course This is a 50-year-old female who presented to the emergency department with history of left arm and leg weakness and facial droop. Symptoms started approximately 25 minutes prior to ER arrival. She admits to smoking and drinking alcohol at the time of first and onset. NIH stroke scale on arrival was 15. Noncontrasted head CT was negative for acute bleed. Systemic TPA was administered within the first hour of symptom onset. CT angiography had not demonstrated possible flow deficit in the right MCA territory. Initially plans for possible endovascular thrombectomy, however repeat neuro exam of 45 minutes to complete resolution of symptoms. She is admitted to the ICU for close monitoring and further evaluation of her ischemic stroke. 05/29: Symptoms resolved after tPA last evening. Stable hemodynamics. 05/30: Persistent left arm weakness but much improved. SBP > 150 with Neosynephrine. 05/31: Persistent hypoxemia this morning. Patient will not wear face mask and does not clear secretions well. Will need to intubate to protect airway and oxygenate adequately. Discussed with her daughter at the bedside. 06/01: Unable to wean ventilator. Right hemispheric edema slightly increased, 06/02: Unable to wean ventilator. Objective Vital Signs Date Time Temp Pulse Resp B/P Pulse Ox O2 Delivery O2 Flow Rate FiO2 06/02/16 04:00 50 06/02/16 04:00 99.9 86 16 131/72 100 06/01/16 19:00 Mechanical Ventilator 05/31/16 07:57 6.00 Intake and Output 06/01/16 06/01/16 06/02/16 08:00 16:00 00:00 Intake Total 1190 ml 1272 ml 882 ml Output Total 875 ml 750 ml 1150 ml Balance 315 ml 522 ml -268 ml Result Diagram: 06/02/16 0349 06/02/16 0349 Imaging Last 24 hours Impressions Neck CTA 05/28/162026 Signed Impressions: Service Date/Time: Saturday, May 28, 2016 20:32 - CONCLUSION: Mild calcified plaque at the left proximal internal carotid artery. A significant stenosis is not seen. Eriberto Mirza MD Head CTA 05/28/162026 Signed Impressions: Service Date/Time: Saturday, May 28, 2016 20:32 - CONCLUSION: Short focal area of diminished flow potentially representing a thrombus in the midportion of the M1 segment of the right middle cerebral artery. The more peripheral flow at the right middle cerebral artery is diminished when compared to the left side. Eriberto Mirza MD Objective Remarks GENERAL: Middle-aged female, agitated. Sedated for safety and vent synchrony. HEENT: Pupils equal, round and reactive. NECK:. Midline. Supple. Orally intubated. CHEST: Equal chest rise. Shallow excursions. Sats 79% CARDIOVASCULAR: Normal rate. Regular rhythm. No appreciable murmurs. No JVD. ABDOMEN: Soft, nontender, nondistended. No guarding. BS active. MUSCULOSKELETAL: No peripheral edema. Warm. Well perfused. NEUROLOGICAL: Musculoskeletal strength is 5 out of 5 in right extremities. Left arm and leg grossly weaker than right. Intubated. A/P Assessment and Plan Assessment: 50yF with h/o htn, smoking, and COPD with o2 use at night who presented with right MCA CVA status post systemic TPA. Although her symptoms have improved after clot extraction, she is still very high risk for decompensation and hemorrhagic conversion; remains critically ill this time. Active Problems: Acute CVA s/p systemic TPA Plan: Keep in ICU X 24 hours total. 2 hour neuro checks Follow 24-hour head CT A.m. CBC Goal systolic blood pressure less than 180 When necessary labetalol, hydralazine for goal systolic Lipid panel 2-D echo Nursing bedside swallow assessment. If she passes we will do strict clear liquid diet. If she fails we will make nothing by mouth and order formal speech and swallow evaluation. SCDs. holding pharmacologic DVT prophylaxis status post TPA Protonix for GI prophylaxis --Repeat CT Head after 24 hours from tPA --Intubation. PRVC mode. --2% saline prn to keep Na > 145 --Start TFs Glucerna 06/02 Overall impression: Complete resolution of symptoms after tPA but recurrent symptoms later, required right side clot extraction in IR. Now on vasopressor support, mechanical ventilation, and critically ill. She has sustained and lerge R MCA CVA with swelling and shift. Requires ventilator support and vasopressor therapy. Critical Care 40 mins aside from procedures. Warner Carrero MD Jun 02, 2016 06:59
--- NOTE | 2016-06-02 07:02 | HHI.CCPN ---
Subjective Remarks/Hospital Course Note for 06/01/16: This is a 50-year-old female who presented to the emergency department with history of left arm and leg weakness and facial droop. Symptoms started approximately 25 minutes prior to ER arrival. She admits to smoking and drinking alcohol at the time of first and onset. NIH stroke scale on arrival was 15. Noncontrasted head CT was negative for acute bleed. Systemic TPA was administered within the first hour of symptom onset. CT angiography had not demonstrated possible flow deficit in the right MCA territory. Initially plans for possible endovascular thrombectomy, however repeat neuro exam of 45 minutes to complete resolution of symptoms. She is admitted to the ICU for close monitoring and further evaluation of her ischemic stroke. 05/29: Symptoms resolved after tPA last evening. Stable hemodynamics. 05/30: Persistent left arm weakness but much improved. SBP > 150 with Neosynephrine. 05/31: Persistent hypoxemia this morning. Patient will not wear face mask and does not clear secretions well. Will need to intubate to protect airway and oxygenate adequately. Discussed with her daughter at the bedside. 06/01: Unable to wean ventilator. Right hemispheric edema slightly increased, Objective Vital Signs Date Time Temp Pulse Resp B/P Pulse Ox O2 Delivery O2 Flow Rate FiO2 06/02/16 04:00 50 06/02/16 04:00 99.9 86 16 131/72 100 06/01/16 19:00 Mechanical Ventilator 05/31/16 07:57 6.00 Intake and Output 06/01/16 06/01/16 06/02/16 08:00 16:00 00:00 Intake Total 1190 ml 1272 ml 882 ml Output Total 875 ml 750 ml 1150 ml Balance 315 ml 522 ml -268 ml Result Diagram: 06/02/16 0349 06/02/16 0349 Imaging Last 24 hours Impressions Neck CTA 05/28/162026 Signed Impressions: Service Date/Time: Saturday, May 28, 2016 20:32 - CONCLUSION: Mild calcified plaque at the left proximal internal carotid artery. A significant stenosis is not seen. Eriberto Mirza MD Head CTA 05/28/162026 Signed Impressions: Service Date/Time: Saturday, May 28, 2016 20:32 - CONCLUSION: Short focal area of diminished flow potentially representing a thrombus in the midportion of the M1 segment of the right middle cerebral artery. The more peripheral flow at the right middle cerebral artery is diminished when compared to the left side. Eriberto Mirza MD Objective Remarks GENERAL: Middle-aged female, agitated. Sedated for safety and vent synchrony. HEENT: Pupils equal, round and reactive. NECK:. Midline. Supple. Orally intubated. CHEST: Equal chest rise. Shallow excursions. Sats 79% -> 100% after intubation CARDIOVASCULAR: Normal rate. Regular rhythm. No appreciable murmurs. No JVD. ABDOMEN: Soft, nontender, nondistended. No guarding. BS active. MUSCULOSKELETAL: No peripheral edema. Warm. Well perfused. NEUROLOGICAL: Musculoskeletal strength is 5 out of 5 in right extremities. Left arm and leg grossly weaker than right. Intubated. A/P Assessment and Plan Assessment: 50yF with h/o htn, smoking, and COPD with o2 use at night who presented with right MCA CVA status post systemic TPA. Although her symptoms have improved after clot extraction, she is still very high risk for decompensation and hemorrhagic conversion; remains critically ill this time. Active Problems: Acute CVA s/p systemic TPA Plan: Keep in ICU X 24 hours total. 2 hour neuro checks Follow 24-hour head CT A.m. CBC Goal systolic blood pressure less than 180 When necessary labetalol, hydralazine for goal systolic Lipid panel 2-D echo Nursing bedside swallow assessment. If she passes we will do strict clear liquid diet. If she fails we will make nothing by mouth and order formal speech and swallow evaluation. SCDs. holding pharmacologic DVT prophylaxis status post TPA Protonix for GI prophylaxis --Repeat CT Head after 24 hours from tPA --Intubation. PRVC mode. --2% saline prn to keep Na > 145 Overall impression: Complete resolution of symptoms after tPA but recurrent symptoms later, required right side clot extraction in IR. Now on vasopressor support, mechanical ventilation, and critically ill. Large R MCA CVA with swelling and shift. Requires ventilator support and vasopressor therapy. Clinical deterioration. Critical Care 37 mins aside from procedures. Warner Carrero MD Jun 02, 2016 07:02
[2016-06-02] MEDS: SODIUM CHLORIDE 0.9% FLUSH 5 ML FLUSH IV FLUSH SCH ×2 (09:00→21:07)
[2016-06-02] MEDS: PANTOPRAZOLE SODIUM 40 MG VIAL IV SCH (09:40)
[2016-06-02] MEDS: CHLORHEXIDINE 0.12% (ORAL KIT) 15 ML CUP MT SCH ×2 (09:40→20:20)
[2016-06-02] MEDS: BENEPROTEIN POWDER 1 PACK G-TUBE SCH ×3 (09:40→17:20)
[2016-06-02] MEDS: DOCUSATE SODIUM 50 MG/SENNA 8.6 MG TAB PO SCH ×2 (09:41→21:06)
[2016-06-02] MEDS: ASPIRIN 81 MG CHEW TAB OG-TUBE SCH (09:41)
[2016-06-02] MEDS: HEPARIN SODIUM - SQ 10,000 UNITS/ML VIAL SQ SCH ×2 (09:42→21:06)
[2016-06-02] MEDS: risperiDONE 0.5 MG TAB PO SCH ×2 (09:49→21:06)
[2016-06-02] MEDS: PROPOFOL 1000 MG/100 ML INJ 100 ML IV SCH ×3 (09:49→11:16)
--- NOTE | 2016-06-02 09:51 | PD.CARD.PN ---
Subjective Subjective Remarks No events over night Sedation vacation this morning, follows commands on the right not on the left Objective Medications Current Medications Medications (Trade) Dose Ordered Sig/Aric Route Start Time Stop Time Status Last Admin Magnesium Oxide 800 mg 800 mg UNSCH PRN PO 05/29/16 02:15 Magnesium Sulfate 4 gm/Sodium Chloride 100 ml @ 50 mls/hr UNSCH PRN IV 05/29/16 02:15 Magnesium Sulfate 2 gm/Sodium Chloride 100 ml @ 50 mls/hr UNSCH PRN IV 05/29/16 02:15 Potassium Chloride 100 ml @ 50 mls/hr Q2H PRN IV 05/29/16 02:15 Potassium Chloride 100 ml @ 50 mls/hr Q2H PRN IV 05/29/16 02:15 Potassium Chloride 100 ml @ 50 mls/hr Q2H PRN IV 05/29/16 02:15 (KCl 40 Meq Premix Inj) 100 ml @ 25 mls/hr UNSCH PRN IV 05/29/16 02:15 (KCl 40 Meq/30 ml Liq) 40 meq UNSCH PRN PO/TUBE 05/29/16 02:15 05/30/16 10:47 (KCl 40 Meq/30 ml Liq) 40 meq UNSCH PRN PO/TUBE 05/29/16 02:15 (K-Phos) 2,000 mg Q4H PRN PO 05/29/16 02:15 Potassium Phosphate 2000 mg 2,000 mg UNSCH PRN PO/TUBE 05/29/16 02:15 Potassium Phosphate 30 mmol/ Sodium Chloride 260 ml @ 42 mls/hr UNSCH PRN IV 05/29/16 02:15 (Sodium Phosphate Inj/NS 250 ml Inj) 250 ml @ 42 mls/hr UNSCH PRN IV 05/29/16 02:15 (D50w (Vial) Inj) 25 ml UNSCH PRN IV PUSH 05/29/16 02:15 (NovoLIN R SUPPLEMENTAL SCALE) 1 Q6HR SQ 05/29/16 06:00 (NS Flush) 2 ml UNSCH PRN IV FLUSH 05/29/16 02:15 (NS Flush) 2 ml BID IV FLUSH 05/29/16 09:00 06/01/16 20:10 (Tylenol) 650 mg Q6H PRN PO 05/29/16 02:15 06/01/16 20:10 (Protonix Inj) 40 mg DAILY IV 05/29/16 09:00 06/02/16 09:40 (Zofran Inj) 4 mg Q6H PRN IV 05/29/16 02:15 (Steffany-Colace) 2 tab BID PO 05/29/16 09:00 06/02/16 09:41 Miscellaneous Information 1 Q361D XX 05/29/16 02:15 05/29/16 02:15 (Chlorhexidine 2% Cloth) 3 pack Taper DAILY@04 TOP 05/29/16 04:00 05/25/17 03:59 06/02/16 00:00 (Chlorhexidine 2% Cloth) 3 pack UNSCH PRN TOP 05/29/16 02:15 (risperDAL) 0.5 mg Q12H PRN PO 05/29/16 08:45 (Ativan Inj) 0.5 mg BID PRN IVS 05/29/16 08:45 05/30/16 21:05 (risperDAL) 0.5 mg BID PO 05/29/16 09:00 06/02/16 09:49 (Brethine Inj) 1 mg UNSCH PRN SQ 05/29/16 13:45 (Heparin Inj) 5,000 units BID SQ 05/30/16 09:00 06/02/16 09:42 (Lipitor) 40 mg HS PO 05/30/16 21:00 06/01/16 20:10 (Neurontin) 600 mg HS PO 05/30/16 21:00 06/01/16 20:10 Chlorhexidine Gluconate 15 ml 15 ml BID@08,20 MT 05/31/16 20:00 06/02/16 09:40 Propofol 100 ml @ 0 mls/hr TITRATE IV 05/31/16 10:00 06/02/16 09:49 Phenylephrine HCl 160 mg/Dextrose 500 ml @ 0 mls/hr TITRATE IV 05/31/16 12:00 06/02/16 00:46 Fentanyl Citrate 250 ml @ 0 mls/hr TITRATE IV 05/31/16 12:00 06/02/16 00:46 (Sodium Chloride 23.4% Inj/NS 1000 ml Inj) 1,047 ml @ 50 mls/hr [id number] IV 05/31/16 17:00 06/01/16 16:35 Metoprolol Tartrate 12.5 mg 12.5 mg Q8HR PO 05/31/16 22:00 Pharmacy Profile Note 0 ml @ 0 mls/hr UNSCH OTHER 05/31/16 16:15 Piperacillin Sod/ Tazobactam Sod 50 ml @ 100 mls/hr Q8H IV 05/31/16 17:00 06/02/16 09:39 (Levophed Inj/NS 250 ml Inj) 250 ml @ 0 mls/hr TITRATE IV 05/31/16 16:15 (Brethine Inj) 1 mg UNSCH PRN SQ 05/31/16 16:15 (NS Flush) See Protocol DAILY IVF 06/01/16 09:00 (NS Flush) See Protocol UNSCH PRN IVF 05/31/16 18:15 (Heparin Central Flush) See Protocol DAILY IVF 06/01/16 09:00 (Heparin Central Flush) See Protocol UNSCH PRN IVF 05/31/16 18:15 IV Flush See Protocol UNSCH PRN IVF 05/31/16 18:15 (Vancomycin Inj/ NS 250 ml Inj) 250 ml @ 250 mls/hr Q12H IV 06/01/16 06:00 06/02/16 05:42 (Aspirin Chew) 162 mg DAILY OG-TUBE 06/01/16 09:00 06/02/16 09:41 (Beneprotein Powder) 1 pack TID G-TUBE 06/02/16 09:00 06/02/16 09:40 Miscellaneous Information SPECIFIC LAB TO BE DRAWN:PHARM... ONCE ONCE XX 06/02/16 17:45 06/02/16 17:46 Vital Signs / I&O Vital Signs Date Time Temp Pulse Resp B/P Pulse Ox O2 Delivery O2 Flow Rate FiO2 06/02/16 08:00 98.2 65 16 160/70 100 06/02/16 08:00 50 06/02/16 07:44 100 50 06/02/16 07:00 Mechanical Ventilator 06/02/16 06:00 77 06/02/16 04:55 100 100 06/02/16 04:05 100 50 06/02/16 04:00 50 06/02/16 04:00 99.9 86 16 131/72 100 06/02/16 04:00 86 06/02/16 02:00 65 06/02/16 01:50 100 50 06/02/16 00:00 78 06/02/16 00:00 50 06/02/16 00:00 99.3 78 16 154/72 99 06/01/16 22:00 60 06/01/16 20:10 96 50 06/01/16 20:00 101.8 85 16 146/61 100 06/01/16 20:00 50 06/01/16 20:00 62 06/01/16 19:00 Mechanical Ventilator 06/01/16 18:00 81 06/01/16 16:00 50 06/01/16 16:00 99.7 66 16 135/60 99 06/01/16 16:00 66 06/01/16 15:22 98 50 06/01/16 14:00 62 06/01/16 12:00 50 06/01/16 12:00 101.1 66 16 154/72 100 06/01/16 12:00 66 06/01/16 12:00 100 06/01/16 11:22 100 50 06/01/16 10:00 82 I/O 06/01/16 06/01/16 06/01/16 06/02/16 06/02/16 06/02/16 07:00 15:00 23:00 07:00 15:00 23:00 Intake Total 1190 ml 1272 ml 882 ml 772 ml Output Total 875 ml 750 ml 1150 ml 675 ml Balance 315 ml 522 ml -268 ml 97 ml IV Total 1190 ml 1272 ml 882 ml 772 ml Output Urine Total 875 ml 750 ml 1150 ml 675 ml # Bowel Movements 0 0 0 0 Physical Exam GENERAL: Intubated and sedated SKIN: Warm and dry. HEAD: Atraumatic. Normocephalic. EYES: Pupils equal and round. No scleral icterus. No injection or drainage. ENT: No nasal bleeding or discharge. Mucous membranes pink and moist. NECK: Trachea midline. No JVD. CARDIOVASCULAR: Regular rate and rhythm. RESPIRATORY: No accessory muscle use. Clear to auscultation. Breath sounds equal bilaterally. GASTROINTESTINAL: Abdomen soft, non-tender, nondistended. Hepatic and splenic margins not palpable. MUSCULOSKELETAL: Extremities without clubbing, cyanosis, or edema. No obvious deformities. NEUROLOGICAL: Sedated on the vent Laboratory Laboratory Tests Test 2/18/17 2/18/17 2/19/17 14:30 14:40 03:49 Sodium Level 145 MEQ/L 148 MEQ/L Potassium Level 3.8 MEQ/L 3.7 MEQ/L Chloride Level 112 MEQ/L 113 MEQ/L Carbon Dioxide Level 25.3 MEQ/L 25.3 MEQ/L Anion Gap 8 MEQ/L 10 MEQ/L Blood Urea Nitrogen 6 MG/DL 6 MG/DL Creatinine 0.76 MG/DL 0.93 MG/DL Estimat Glomerular Filtration 80 ML/MIN 63 ML/MIN Rate Random Glucose 106 MG/DL 101 MG/DL Calcium Level 8.3 MG/DL 8.4 MG/DL Phosphorus Level 2.9 MG/DL Magnesium Level 2.0 MG/DL White Blood Count 20.8 TH/MM3 Red Blood Count 3.43 MIL/MM3 Hemoglobin 10.6 GM/DL Hematocrit 31.9 % Mean Corpuscular Volume 93.0 FL Mean Corpuscular Hemoglobin 30.8 PG Mean Corpuscular Hemoglobin 33.2 % Concent Red Cell Distribution Width 15.4 % Platelet Count 223 TH/MM3 Mean Platelet Volume 7.2 FL Assessment and Plan Problem List: (1) Acute ischemic right MCA stroke (2) HTN (hypertension) (3) Tobacco use Assessment and Plan 1) R MCA CVA s/p TPA then embolectomy by IR 2) Will plan [facility] on Friday, discussed with Dr. Carrero 3) Stop tube feeds at 6am Problem Qualifiers (1) HTN (hypertension): Qualified Code: I10 - Essential hypertension Taye Starr DO Jun 02, 2016 09:51
[2016-06-02] MEDS: SODIUM CHLORIDE 23.4% INJ 188 MEQ in SODIUM CHLOR 0.9% 1000 ML INJ 1,000 ML IV SCH (11:10)
--- NOTE | 2016-06-02 17:56 | HHI.PR ---
Review/Management Diagnosis right MCA stroke s/p iv TPA and then right MCA embolectomy Plan hypertonic saline has been increased due to increase edema CT brain stable today Diagnosis/Plan: (1) Acute ischemic right MCA stroke Plan: 05/28 s/p iv tpa; significant improvement 05/29 s/p rt mca embolectomy mri brain reviewed; no significant shift, patchy areas of infarct; no ich recs neuro stable d/c pressor follow exam today; if stable ok for 5th floor with tele later today/am full therapy d/w pt, rn (2) HTN (hypertension) (3) Tobacco use Plan: cessation d/w pt Subjective Subjective Comments No acute events reported Active Medications Current Medications Medications (Trade) Dose Ordered Sig/Aric Route Start Time Stop Time Status Last Admin Magnesium Oxide 800 mg 800 mg UNSCH PRN PO 05/29/16 02:15 Magnesium Sulfate 4 gm/Sodium Chloride 100 ml @ 50 mls/hr UNSCH PRN IV 05/29/16 02:15 Magnesium Sulfate 2 gm/Sodium Chloride 100 ml @ 50 mls/hr UNSCH PRN IV 05/29/16 02:15 Potassium Chloride 100 ml @ 50 mls/hr Q2H PRN IV 05/29/16 02:15 Potassium Chloride 100 ml @ 50 mls/hr Q2H PRN IV 05/29/16 02:15 Potassium Chloride 100 ml @ 50 mls/hr Q2H PRN IV 05/29/16 02:15 (KCl 40 Meq Premix Inj) 100 ml @ 25 mls/hr UNSCH PRN IV 05/29/16 02:15 (KCl 40 Meq/30 ml Liq) 40 meq UNSCH PRN PO/TUBE 05/29/16 02:15 05/30/16 10:47 (KCl 40 Meq/30 ml Liq) 40 meq UNSCH PRN PO/TUBE 05/29/16 02:15 (K-Phos) 2,000 mg Q4H PRN PO 05/29/16 02:15 Potassium Phosphate 2000 mg 2,000 mg UNSCH PRN PO/TUBE 05/29/16 02:15 Potassium Phosphate 30 mmol/ Sodium Chloride 260 ml @ 42 mls/hr UNSCH PRN IV 05/29/16 02:15 (Sodium Phosphate Inj/NS 250 ml Inj) 250 ml @ 42 mls/hr UNSCH PRN IV 05/29/16 02:15 (D50w (Vial) Inj) 25 ml UNSCH PRN IV PUSH 05/29/16 02:15 (NovoLIN R SUPPLEMENTAL SCALE) 1 Q6HR SQ 05/29/16 06:00 (NS Flush) 2 ml UNSCH PRN IV FLUSH 05/29/16 02:15 (NS Flush) 2 ml BID IV FLUSH 05/29/16 09:00 06/01/16 20:10 (Tylenol) 650 mg Q6H PRN PO 05/29/16 02:15 06/01/16 20:10 (Protonix Inj) 40 mg DAILY IV 05/29/16 09:00 06/02/16 09:40 (Zofran Inj) 4 mg Q6H PRN IV 05/29/16 02:15 (Steffany-Colace) 2 tab BID PO 05/29/16 09:00 06/02/16 09:41 Miscellaneous Information 1 Q361D XX 05/29/16 02:15 05/29/16 02:15 (Chlorhexidine 2% Cloth) 3 pack Taper DAILY@04 TOP 05/29/16 04:00 05/25/17 03:59 06/02/16 00:00 (Chlorhexidine 2% Cloth) 3 pack UNSCH PRN TOP 05/29/16 02:15 (risperDAL) 0.5 mg Q12H PRN PO 05/29/16 08:45 (Ativan Inj) 0.5 mg BID PRN IVS 05/29/16 08:45 05/30/16 21:05 (risperDAL) 0.5 mg BID PO 05/29/16 09:00 06/02/16 09:49 (Brethine Inj) 1 mg UNSCH PRN SQ 05/29/16 13:45 (Heparin Inj) 5,000 units BID SQ 05/30/16 09:00 06/02/16 09:42 (Lipitor) 40 mg HS PO 05/30/16 21:00 06/01/16 20:10 (Neurontin) 600 mg HS PO 05/30/16 21:00 06/01/16 20:10 Chlorhexidine Gluconate 15 ml 15 ml BID@08,20 MT 05/31/16 20:00 06/02/16 09:40 Propofol 100 ml @ 0 mls/hr TITRATE IV 05/31/16 10:00 06/02/16 11:16 Phenylephrine HCl 160 mg/Dextrose 500 ml @ 0 mls/hr TITRATE IV 05/31/16 12:00 06/02/16 11:10 Fentanyl Citrate 250 ml @ 0 mls/hr TITRATE IV 05/31/16 12:00 06/02/16 11:16 (Sodium Chloride 23.4% Inj/NS 1000 ml Inj) 1,047 ml @ 50 mls/hr [id number] IV 05/31/16 17:00 06/02/16 11:10 Metoprolol Tartrate 12.5 mg 12.5 mg Q8HR PO 05/31/16 22:00 Pharmacy Profile Note 0 ml @ 0 mls/hr UNSCH OTHER 05/31/16 16:15 Piperacillin Sod/ Tazobactam Sod 50 ml @ 100 mls/hr Q8H IV 05/31/16 17:00 06/02/16 17:19 (Levophed Inj/NS 250 ml Inj) 250 ml @ 0 mls/hr TITRATE IV 05/31/16 16:15 (Brethine Inj) 1 mg UNSCH PRN SQ 05/31/16 16:15 (NS Flush) See Protocol DAILY IVF 06/01/16 09:00 (NS Flush) See Protocol UNSCH PRN IVF 05/31/16 18:15 (Heparin Central Flush) See Protocol DAILY IVF 06/01/16 09:00 (Heparin Central Flush) See Protocol UNSCH PRN IVF 05/31/16 18:15 IV Flush See Protocol UNSCH PRN IVF 05/31/16 18:15 (Vancomycin Inj/ NS 250 ml Inj) 250 ml @ 250 mls/hr Q12H IV 06/01/16 06:00 06/02/16 17:19 (Aspirin Chew) 162 mg DAILY OG-TUBE 06/01/16 09:00 06/02/16 09:41 (Beneprotein Powder) 1 pack TID G-TUBE 06/02/16 09:00 06/02/16 17:20 Allergies Allergies Coded Allergies No Known Allergies (Verified05/28/16) Review of Systems All other ROS: ROS reviewed as documented in chart Exam I&O / VS 06/01/16 06/01/16 06/02/16 15:00 23:00 07:00 Intake Total 1272 ml 882 ml 772 ml Output Total 750 ml 1150 ml 675 ml Balance 522 ml -268 ml 97 ml IV Total 1272 ml 882 ml 772 ml Output Urine Total 750 ml 1150 ml 675 ml # Bowel Movements 0 0 0 Vital Signs Date Time Temp Pulse Resp B/P Pulse Ox O2 Delivery O2 Flow Rate FiO2 06/02/16 16:00 98.4 64 16 159/58 99 06/02/16 16:00 50 06/02/16 15:11 100 50 06/02/16 12:00 98.8 71 16 158/62 100 06/02/16 12:00 50 06/02/16 11:25 100 50 06/02/16 08:00 98.2 65 16 160/70 100 06/02/16 08:00 50 06/02/16 07:44 100 50 06/02/16 07:00 Mechanical Ventilator 06/02/16 06:00 77 06/02/16 04:55 100 100 06/02/16 04:05 100 50 06/02/16 04:00 50 06/02/16 04:00 99.9 86 16 131/72 100 06/02/16 04:00 86 06/02/16 02:00 65 06/02/16 01:50 100 50 06/02/16 00:00 78 06/02/16 00:00 50 06/02/16 00:00 99.3 78 16 154/72 99 06/01/16 22:00 60 06/01/16 20:10 96 50 06/01/16 20:00 101.8 85 16 146/61 100 06/01/16 20:00 50 06/01/16 20:00 62 06/01/16 19:00 Mechanical Ventilator 06/01/16 18:00 81 General: Alert and Oriented, No acute distress Neurologic: Alert Psychiatric: Cooperative Exam Comments min responsive pupils 2mm symmetric and reactive. EOMI to occulocephalics No movement left withdrawal right Objective Radiology Results CT brain--right MCA stroke with no hemorrhage. No change from prior CT Micro and Labs Laboratory Tests Test 06/02/16 03:49 White Blood Count 20.8 Red Blood Count 3.43 Hemoglobin 10.6 Hematocrit 31.9 Mean Corpuscular Volume 93.0 Mean Corpuscular Hemoglobin 30.8 Mean Corpuscular Hemoglobin 33.2 Concent Red Cell Distribution Width 15.4 Platelet Count 223 Mean Platelet Volume 7.2 Sodium Level 148 Potassium Level 3.7 Chloride Level 113 Carbon Dioxide Level 25.3 Anion Gap 10 Blood Urea Nitrogen 6 Creatinine 0.93 Estimat Glomerular Filtration 63 Rate Random Glucose 101 Calcium Level 8.4 Date/Time Procedure Status Source Growth 05/31/16 18:05 Aerobic Blood Culture - Preliminary Resulted Blood Peripheral NO GROWTH IN 1 DAY 05/31/16 18:05 Anaerobic Blood Culture - Final Resulted Blood Peripheral ONLY AEROBIC CULTURE ORDERED 05/31/16 15:00 Urine Culture - Final Complete Urine Catheterized Urine NO GROWTH IN 48 HOURS. 05/31/16 15:00 Gram Stain - Final Complete Sputum Endotracheal 05/31/16 15:00 Sputum Culture - Final Complete Moraxella Catarrahalis Problem Qualifiers (1) HTN (hypertension): Qualified Code: I10 - Essential hypertension Amol Isabel PhD Jun 02, 2016 17:56
[2016-06-02 18:15] LABS: BICARBONATE 25.5 MEQ/L (21.0-32.0); POTASSIUM 3.4 MEQ/L (3.5-5.1)
[2016-06-02] MEDS: GABAPENTIN 100 MG CAP PO SCH (21:06)
[2016-06-02] MEDS: ATORVASTATIN 40 MG TAB PO SCH (21:06)
[2016-06-03] VITALS (19 sets, daily range): BP systolic 136–189; BP diastolic 58–97; PULSE 52–78; RESP 16–18; TEMP 98.2–100.8; O2SAT 96–100
[2016-06-03] MEDS: PIPERACIL-TAZO 3.375 GM PREMIX 50 ML IV SCH ×3 (01:01→17:00)
[2016-06-03] MEDS: CHLORHEXIDINE GLUCONATE 2 % 1 PACK (2 CLOTHS) TOP SCH (04:00)
[2016-06-03 04:05] LABS: HEMATOCRIT 27.8 % (35.0-46.0); MEAN CELL VOLUME 91.8 FL (80.0-100.0); MEAN CORPUSCULAR HGB CONC 33.8 % (32.0-36.0); PLATELET COUNT 241 TH/MM3 (150-450); RED BLOOD COUNT 3.03 MIL/MM3 (4.00-5.30); RED CELL DISTRIBUTION WIDTH 15.4 % (11.6-17.2); REVIEW FLAG FINAL; WHITE BLOOD COUNT 13.7 TH/MM3 (4.0-11.0)
[2016-06-03 04:31] LABS: BICARBONATE 26.3 MEQ/L (21.0-32.0)
[2016-06-03] MEDS: POTASSIUM CL 40 MEQ/30 ML LIQ UDC PO/TUBE PRN (05:18)
[2016-06-03] MEDS: VANCOMYCIN 1,000 MG/NS 250 ML IV SCH ×2 (05:18)
[2016-06-03] MEDS: INSULIN NovoLIN REGULAR SUPPLEMENTAL SCALE SQ SCH ×4 (05:19→18:00)
[2016-06-03] MEDS: METOPROLOL TARTRATE 25 MG TAB PO SCH ×3 (05:57→20:58)
--- NOTE | 2016-06-03 08:28 | HHI.PR ---
Review/Management Diagnosis right MCA stroke s/p iv TPA and then right MCA embolectomy Diagnosis/Plan: (1) Acute ischemic right MCA stroke Plan: 05/28 s/p iv tpa 05/29 s/p rt mca embolectomy mri brain reviewed; no significant shift, patchy areas of infarct; no ich 06/02 ct brain- stable, very mild left temporal lobe swelling and mass effect recs get off sedation and aim for extubation hold off on repeat ct this am; reassess after extubated; yesterday's ct looked stable f/u cxr d/w ccm (2) HTN (hypertension) (3) Tobacco use Plan: cessation d/w pt Subjective Subjective Comments No acute events reported Active Medications Current Medications Medications (Trade) Dose Ordered Sig/Aric Route Start Time Stop Time Status Last Admin Magnesium Oxide 800 mg 800 mg UNSCH PRN PO 05/29/16 02:15 Magnesium Sulfate 4 gm/Sodium Chloride 100 ml @ 50 mls/hr UNSCH PRN IV 05/29/16 02:15 Magnesium Sulfate 2 gm/Sodium Chloride 100 ml @ 50 mls/hr UNSCH PRN IV 05/29/16 02:15 Potassium Chloride 100 ml @ 50 mls/hr Q2H PRN IV 05/29/16 02:15 06/03/16 05:19 Potassium Chloride 100 ml @ 50 mls/hr Q2H PRN IV 05/29/16 02:15 Potassium Chloride 100 ml @ 50 mls/hr Q2H PRN IV 05/29/16 02:15 (KCl 40 Meq Premix Inj) 100 ml @ 25 mls/hr UNSCH PRN IV 05/29/16 02:15 (KCl 40 Meq/30 ml Liq) 40 meq UNSCH PRN PO/TUBE 05/29/16 02:15 06/03/16 05:18 (KCl 40 Meq/30 ml Liq) 40 meq UNSCH PRN PO/TUBE 05/29/16 02:15 (K-Phos) 2,000 mg Q4H PRN PO 05/29/16 02:15 Potassium Phosphate 2000 mg 2,000 mg UNSCH PRN PO/TUBE 05/29/16 02:15 Potassium Phosphate 30 mmol/ Sodium Chloride 260 ml @ 42 mls/hr UNSCH PRN IV 05/29/16 02:15 (Sodium Phosphate Inj/NS 250 ml Inj) 250 ml @ 42 mls/hr UNSCH PRN IV 05/29/16 02:15 (D50w (Vial) Inj) 25 ml UNSCH PRN IV PUSH 05/29/16 02:15 (NovoLIN R SUPPLEMENTAL SCALE) 1 Q6HR SQ 05/29/16 06:00 06/03/16 05:19 (NS Flush) 2 ml UNSCH PRN IV FLUSH 05/29/16 02:15 (NS Flush) 2 ml BID IV FLUSH 05/29/16 09:00 06/02/16 21:07 (Tylenol) 650 mg Q6H PRN PO 05/29/16 02:15 06/01/16 20:10 (Protonix Inj) 40 mg DAILY IV 05/29/16 09:00 06/02/16 09:40 (Zofran Inj) 4 mg Q6H PRN IV 05/29/16 02:15 (Steffany-Colace) 2 tab BID PO 05/29/16 09:00 06/02/16 21:06 Miscellaneous Information 1 Q361D XX 05/29/16 02:15 05/29/16 02:15 (Chlorhexidine 2% Cloth) Taper DAILY@04 TOP 05/29/16 04:00 05/25/17 03:59 06/03/16 04:00 (Chlorhexidine 2% Cloth) 3 pack UNSCH PRN TOP 05/29/16 02:15 (risperDAL) 0.5 mg Q12H PRN PO 05/29/16 08:45 (Ativan Inj) 0.5 mg BID PRN IVS 05/29/16 08:45 05/30/16 21:05 (risperDAL) 0.5 mg BID PO 05/29/16 09:00 06/02/16 21:06 (Brethine Inj) 1 mg UNSCH PRN SQ 05/29/16 13:45 (Heparin Inj) 5,000 units BID SQ 05/30/16 09:00 06/02/16 21:06 (Lipitor) 40 mg HS PO 05/30/16 21:00 06/02/16 21:06 (Neurontin) 600 mg HS PO 05/30/16 21:00 06/02/16 21:06 Chlorhexidine Gluconate 15 ml 15 ml BID@08,20 MT 05/31/16 20:00 06/02/16 20:20 Propofol 100 ml @ 0 mls/hr TITRATE IV 05/31/16 10:00 06/02/16 11:16 Phenylephrine HCl 160 mg/Dextrose 500 ml @ 0 mls/hr TITRATE IV 05/31/16 12:00 06/02/16 11:10 Fentanyl Citrate 250 ml @ 0 mls/hr TITRATE IV 05/31/16 12:00 06/02/16 11:16 (Sodium Chloride 23.4% Inj/NS 1000 ml Inj) 1,047 ml @ 50 mls/hr [id number] IV 05/31/16 17:00 06/02/16 11:10 Metoprolol Tartrate 12.5 mg 12.5 mg Q8HR PO 05/31/16 22:00 06/03/16 05:57 Pharmacy Profile Note 0 ml @ 0 mls/hr UNSCH OTHER 05/31/16 16:15 Piperacillin Sod/ Tazobactam Sod 50 ml @ 100 mls/hr Q8H IV 05/31/16 17:00 06/03/16 01:01 (Levophed Inj/NS 250 ml Inj) 250 ml @ 0 mls/hr TITRATE IV 05/31/16 16:15 (Brethine Inj) 1 mg UNSCH PRN SQ 05/31/16 16:15 (NS Flush) See Protocol DAILY IVF 06/01/16 09:00 (NS Flush) See Protocol UNSCH PRN IVF 05/31/16 18:15 (Heparin Central Flush) See Protocol DAILY IVF 06/01/16 09:00 (Heparin Central Flush) See Protocol UNSCH PRN IVF 05/31/16 18:15 IV Flush See Protocol UNSCH PRN IVF 05/31/16 18:15 (Vancomycin Inj/ NS 250 ml Inj) 250 ml @ 250 mls/hr Q12H IV 06/01/16 06:00 06/03/16 05:18 (Aspirin Chew) 162 mg DAILY OG-TUBE 06/01/16 09:00 06/02/16 09:41 (Beneprotein Powder) 1 pack TID G-TUBE 06/02/16 09:00 06/02/16 17:20 Allergies Allergies Coded Allergies No Known Allergies (Verified05/28/16) Review of Systems All other ROS: ROS reviewed as documented in chart Exam I&O / VS 06/02/16 06/02/16 06/03/16 15:00 23:00 07:00 Intake Total 1088 ml 1633 ml 798 ml Output Total 1000 ml 1000 ml 450 ml Balance 88 ml 633 ml 348 ml IV Total 1088 ml 1448 ml 695 ml Tube Feeding 185 ml 103 ml Output Urine Total 1000 ml 1000 ml 450 ml Vital Signs Date Time Temp Pulse Resp B/P Pulse Ox O2 Delivery O2 Flow Rate FiO2 06/03/16 07:37 99 40 06/03/16 07:10 63 06/03/16 06:00 63 06/03/16 04:00 50 06/03/16 04:00 100.0 63 16 136/58 98 06/03/16 03:43 98 40 06/03/16 02:00 58 06/03/16 01:20 99 40 06/03/16 00:00 50 06/03/16 00:00 60 06/03/16 00:00 98.4 60 16 158/67 99 06/02/16 22:30 99 40 06/02/16 22:00 64 06/02/16 20:00 98.1 60 16 147/70 100 06/02/16 20:00 60 06/02/16 20:00 50 06/02/16 20:00 Mechanical Ventilator 06/02/16 19:30 100 40 06/02/16 16:00 98.4 64 16 159/58 99 06/02/16 16:00 50 06/02/16 15:11 100 50 06/02/16 12:00 98.8 71 16 158/62 100 06/02/16 12:00 50 06/02/16 11:25 100 50 General: Alert and Oriented, No acute distress Neurologic: Alert Psychiatric: Cooperative Exam Comments intubated, sedated, limited exam Objective Micro and Labs Laboratory Tests Test 06/02/16 06/03/16 17:29 03:50 Sodium Level 148 146 Potassium Level 3.4 3.0 Chloride Level 115 113 Carbon Dioxide Level 25.5 26.3 Anion Gap 8 7 Blood Urea Nitrogen 7 7 Creatinine 0.91 0.87 Estimat Glomerular Filtration 65 68 Rate Random Glucose 118 204 Calcium Level 8.4 7.9 Vancomycin Level Trough 16.6 White Blood Count 13.7 Red Blood Count 3.03 Hemoglobin 9.4 Hematocrit 27.8 Mean Corpuscular Volume 91.8 Mean Corpuscular Hemoglobin 31.0 Mean Corpuscular Hemoglobin 33.8 Concent Red Cell Distribution Width 15.4 Platelet Count 241 Mean Platelet Volume 7.1 Date/Time Procedure Status Source Growth 05/31/16 18:05 Aerobic Blood Culture - Preliminary Resulted Blood Peripheral NO GROWTH IN 1 DAY 05/31/16 18:05 Anaerobic Blood Culture - Final Resulted Blood Peripheral ONLY AEROBIC CULTURE ORDERED 05/31/16 15:00 Urine Culture - Final Complete Urine Catheterized Urine NO GROWTH IN 48 HOURS. 05/31/16 15:00 Gram Stain - Final Complete Sputum Endotracheal 05/31/16 15:00 Sputum Culture - Final Complete Moraxella Catarrahalis Problem Qualifiers (1) HTN (hypertension): Qualified Code: I10 - Essential hypertension Arnaldo Bobo MD Jun 03, 2016 08:28
[2016-06-03] MEDS: PROPOFOL 1000 MG/100 ML INJ 100 ML IV SCH (08:36)
[2016-06-03] MEDS: risperiDONE 0.5 MG TAB PO SCH ×2 (08:37→20:57)
[2016-06-03] MEDS: PANTOPRAZOLE SODIUM 40 MG VIAL IV SCH (08:37)
[2016-06-03] MEDS: DOCUSATE SODIUM 50 MG/SENNA 8.6 MG TAB PO SCH ×2 (08:37→20:57)
[2016-06-03] MEDS: HEPARIN SODIUM - SQ 10,000 UNITS/ML VIAL SQ SCH ×2 (08:38→20:58)
[2016-06-03] MEDS: SODIUM CHLORIDE 0.9% FLUSH 5 ML FLUSH IV FLUSH SCH ×2 (08:38→20:22)
[2016-06-03] MEDS: CHLORHEXIDINE 0.12% (ORAL KIT) 15 ML CUP MT SCH ×2 (08:39→20:00)
[2016-06-03] MEDS: BENEPROTEIN POWDER 1 PACK G-TUBE SCH ×3 (08:39→18:00)
[2016-06-03] MEDS: ASPIRIN 81 MG CHEW TAB OG-TUBE SCH (09:00)
[2016-06-03] MEDS: SODIUM CHLORIDE 23.4% INJ 188 MEQ in SODIUM CHLOR 0.9% 1000 ML INJ 1,000 ML IV SCH (09:14)
[2016-06-03] MEDS: PHENYLEPHRINE INJ 160 MG in DEXTROSE 5% IN WATE 500 ML INJ 484 ML IV SCH ×2 (09:14)
--- NOTE | 2016-06-03 09:28 | RADRPT ---
EXAM DATE/TIME: 06/03/2016 08:46 [facility] COMPARISON: CHEST SINGLE AP, June 01, 2016, 4:36. INDICATIONS : CHF. MEDICAL HISTORY : Congestive heart failure. SURGICAL HISTORY : Unobtainable ENCOUNTER: Subsequent ACUITY: 4 - 6 days PAIN SCORE: Non-responsive. LOCATION: Bilateral chest FINDINGS: ET tube remains above the daryl with nasogastric tube to the midline at the stomach and clear right lung field with right PICC line in place. Patchy primarily mid left lung field density is appreciated and faint in the left base not significantly changed. CONCLUSION: Stable chest Noah Parekh MD on June 03, 2016 at 9:25 Board Certified Radiologist. This report was verified electronically.
--- NOTE | 2016-06-03 11:58 | HHI.CCPN ---
Subjective Remarks/Hospital Course This is a 50-year-old female who presented to the emergency department with history of left arm and leg weakness and facial droop. Symptoms started approximately 25 minutes prior to ER arrival. She admits to smoking and drinking alcohol at the time of first and onset. NIH stroke scale on arrival was 15. Noncontrasted head CT was negative for acute bleed. Systemic TPA was administered within the first hour of symptom onset. CT angiography had not demonstrated possible flow deficit in the right MCA territory. Initially plans for possible endovascular thrombectomy, however repeat neuro exam of 45 minutes to complete resolution of symptoms. She is admitted to the ICU for close monitoring and further evaluation of her ischemic stroke. 05/29: Symptoms resolved after tPA last evening. Stable hemodynamics. 05/30: Persistent left arm weakness but much improved. SBP > 150 with Neosynephrine. 05/31: Persistent hypoxemia this morning. Patient will not wear face mask and does not clear secretions well. Will need to intubate to protect airway and oxygenate adequately. Discussed with her daughter at the bedside. 06/01: Unable to wean ventilator. Right hemispheric edema slightly increased, 06/02: Unable to wean ventilator. 06/03: Remains sedated, orally intubated on mechanical ventilation. Awaiting sedation vacation Objective Vital Signs Date Time Temp Pulse Resp B/P Pulse Ox O2 Delivery O2 Flow Rate FiO2 06/03/16 11:45 40 06/03/16 11:43 99 06/03/16 10:00 69 06/03/16 08:00 Mechanical Ventilator 06/03/16 08:00 98.2 16 139/60 05/31/16 07:57 6.00 Intake and Output 06/02/16 06/02/16 06/03/16 08:00 16:00 00:00 Intake Total 772 ml 1088 ml 1633 ml Output Total 675 ml 1000 ml 1000 ml Balance 97 ml 88 ml 633 ml Result Diagram: 06/03/16 0350 06/03/16 0350 Other Results Microbiology Date/Time Procedure Status Source Growth 05/31/16 15:00 Gram Stain - Final Complete Sputum Endotracheal 05/31/16 15:00 Sputum Culture - Final Complete Moraxella Catarrahalis 05/31/16 15:00 Urine Culture - Final Complete Urine Catheterized Urine NO GROWTH IN 48 HOURS. Imaging Last 24 hours Impressions Neck CTA 05/28/162026 Signed Impressions: Service Date/Time: Saturday, May 28, 2016 20:32 - CONCLUSION: Mild calcified plaque at the left proximal internal carotid artery. A significant stenosis is not seen. Eriberto Mirza MD Head CTA 05/28/162026 Signed Impressions: Service Date/Time: Saturday, May 28, 2016 20:32 - CONCLUSION: Short focal area of diminished flow potentially representing a thrombus in the midportion of the M1 segment of the right middle cerebral artery. The more peripheral flow at the right middle cerebral artery is diminished when compared to the left side. Eriberto Mirza MD Objective Remarks GENERAL: Middle-aged female, Sedated for safety and vent synchrony. HEENT: Pupils equal, round and reactive. NECK:. Midline. Supple. Orally intubated. CHEST: Equal chest rise. Shallow excursions. Sats 79% -> 100% after intubation CARDIOVASCULAR: Normal rate. Regular rhythm. No appreciable murmurs. No JVD. ABDOMEN: Soft, nontender, nondistended. No guarding. BS active. MUSCULOSKELETAL: No peripheral edema. Warm. Well perfused. NEUROLOGICAL: Musculoskeletal strength is 5 out of 5 in right extremities. Left arm and leg grossly weaker than right. Intubated. A/P Assessment and Plan Assessment: 50yF with h/o htn, smoking, and COPD with o2 use at night who presented with right MCA CVA status post systemic TPA. Although her symptoms have improved after clot extraction, she is still very high risk for decompensation and hemorrhagic conversion; remains critically ill this time. Active Problems: Acute CVA s/p systemic TPA\ Acute respiratory failure on mechanical ventilation Cerebral edema Plan: Neuro: 2 hour neuro checks Goal systolic blood pressure less than 180 When necessary labetalol, hydralazine for goal systolic Lipid panel, 2-D echo - Hypertonic saline to keep sodium greater than 145 Cardiovascular: - Follow 2-D echo, Naveen-Synephrine for hypotension if needed Pulmonary: - Continue mechanical ventilation. Daily C Pap trials to decide extubation. Vent bundle, bronchodilators as needed. GI/liver: - Continue tube feeds. Renal/: - Strict intake output, monitor and replete electro lites, follow BUN/ creatinine ID: - No antibiotics at this time Endocrine: - Watch for hyperglycemia, SSI for glycemic control as needed Heme: - Follow CBC Prophylaxis: -PPI/SCDs. Subcutaneous heparin when okay with neurology SCDs. holding pharmacologic DVT prophylaxis status post TPA Overall impression: Complete resolution of symptoms after tPA but recurrent symptoms later, required right side clot extraction in IR. Now on mechanical ventilation, and critically ill. Large R MCA CVA with swelling and shift. Requires ventilator support and vasopressor therapy. Clinical deterioration. D/W Dr. Bobo Critical Care 35 mins aside from procedures. Gaurav Gold MD Jun 03, 2016 11:58
--- NOTE | 2016-06-03 15:44 | PD.CARD.PN ---
Subjective Subjective Remarks Post MELONIE, no cardioembolic cause found No events over night noted Objective Medications Current Medications Medications (Trade) Dose Ordered Sig/Aric Route Start Time Stop Time Status Last Admin Magnesium Oxide 800 mg 800 mg UNSCH PRN PO 05/29/16 02:15 Magnesium Sulfate 4 gm/Sodium Chloride 100 ml @ 50 mls/hr UNSCH PRN IV 05/29/16 02:15 Magnesium Sulfate 2 gm/Sodium Chloride 100 ml @ 50 mls/hr UNSCH PRN IV 05/29/16 02:15 Potassium Chloride 100 ml @ 50 mls/hr Q2H PRN IV 05/29/16 02:15 06/03/16 05:19 Potassium Chloride 100 ml @ 50 mls/hr Q2H PRN IV 05/29/16 02:15 Potassium Chloride 100 ml @ 50 mls/hr Q2H PRN IV 05/29/16 02:15 (KCl 40 Meq Premix Inj) 100 ml @ 25 mls/hr UNSCH PRN IV 05/29/16 02:15 (KCl 40 Meq/30 ml Liq) 40 meq UNSCH PRN PO/TUBE 05/29/16 02:15 06/03/16 05:18 (KCl 40 Meq/30 ml Liq) 40 meq UNSCH PRN PO/TUBE 05/29/16 02:15 (K-Phos) 2,000 mg Q4H PRN PO 05/29/16 02:15 Potassium Phosphate 2000 mg 2,000 mg UNSCH PRN PO/TUBE 05/29/16 02:15 Potassium Phosphate 30 mmol/ Sodium Chloride 260 ml @ 42 mls/hr UNSCH PRN IV 05/29/16 02:15 (Sodium Phosphate Inj/NS 250 ml Inj) 250 ml @ 42 mls/hr UNSCH PRN IV 05/29/16 02:15 (D50w (Vial) Inj) 25 ml UNSCH PRN IV PUSH 05/29/16 02:15 (NovoLIN R SUPPLEMENTAL SCALE) 1 Q6HR SQ 05/29/16 06:00 06/03/16 05:19 (NS Flush) 2 ml UNSCH PRN IV FLUSH 05/29/16 02:15 (NS Flush) 2 ml BID IV FLUSH 05/29/16 09:00 06/03/16 08:38 (Tylenol) 650 mg Q6H PRN PO 05/29/16 02:15 06/01/16 20:10 (Protonix Inj) 40 mg DAILY IV 05/29/16 09:00 06/03/16 08:37 (Zofran Inj) 4 mg Q6H PRN IV 05/29/16 02:15 (Steffany-Colace) 2 tab BID PO 05/29/16 09:00 06/03/16 08:37 Miscellaneous Information 1 Q361D XX 05/29/16 02:15 05/29/16 02:15 (Chlorhexidine 2% Cloth) Taper DAILY@04 TOP 05/29/16 04:00 05/25/17 03:59 06/03/16 04:00 (Chlorhexidine 2% Cloth) 3 pack UNSCH PRN TOP 05/29/16 02:15 (risperDAL) 0.5 mg Q12H PRN PO 05/29/16 08:45 (Ativan Inj) 0.5 mg BID PRN IVS 05/29/16 08:45 05/30/16 21:05 (risperDAL) 0.5 mg BID PO 05/29/16 09:00 06/03/16 08:37 (Brethine Inj) 1 mg UNSCH PRN SQ 05/29/16 13:45 (Heparin Inj) 5,000 units BID SQ 05/30/16 09:00 06/03/16 08:38 (Lipitor) 40 mg HS PO 05/30/16 21:00 06/02/16 21:06 (Neurontin) 600 mg HS PO 05/30/16 21:00 06/02/16 21:06 Chlorhexidine Gluconate 15 ml 15 ml BID@08,20 MT 05/31/16 20:00 06/03/16 08:39 Propofol 100 ml @ 0 mls/hr TITRATE IV 05/31/16 10:00 06/03/16 08:36 Phenylephrine HCl 160 mg/Dextrose 500 ml @ 0 mls/hr TITRATE IV 05/31/16 12:00 06/03/16 09:14 Fentanyl Citrate 250 ml @ 0 mls/hr TITRATE IV 05/31/16 12:00 06/02/16 11:16 (Sodium Chloride 23.4% Inj/NS 1000 ml Inj) 1,047 ml @ 50 mls/hr [id number] IV 05/31/16 17:00 06/03/16 09:14 Metoprolol Tartrate 12.5 mg 12.5 mg Q8HR PO 05/31/16 22:00 06/03/16 05:57 Piperacillin Sod/ Tazobactam Sod 50 ml @ 100 mls/hr Q8H IV 05/31/16 17:00 06/03/16 08:37 (Levophed Inj/NS 250 ml Inj) 250 ml @ 0 mls/hr TITRATE IV 05/31/16 16:15 (Brethine Inj) 1 mg UNSCH PRN SQ 05/31/16 16:15 (NS Flush) See Protocol DAILY IVF 06/01/16 09:00 06/03/16 08:38 (NS Flush) See Protocol UNSCH PRN IVF 05/31/16 18:15 (Heparin Central Flush) See Protocol DAILY IVF 06/01/16 09:00 (Heparin Central Flush) See Protocol UNSCH PRN IVF 05/31/16 18:15 (NS Flush) See Protocol UNSCH PRN IVF 05/31/16 18:15 (Aspirin Chew) 162 mg DAILY OG-TUBE 06/01/16 09:00 06/03/16 09:00 (Beneprotein Powder) 1 pack TID G-TUBE 06/02/16 09:00 06/03/16 08:39 Vital Signs / I&O Vital Signs Date Time Temp Pulse Resp B/P Pulse Ox O2 Delivery O2 Flow Rate FiO2 06/03/16 14:00 77 06/03/16 12:00 100.8 76 18 172/93 97 06/03/16 12:00 78 06/03/16 12:00 40 06/03/16 11:45 40 06/03/16 11:43 99 40 06/03/16 10:00 69 06/03/16 10:00 40 06/03/16 08:00 98 Mechanical Ventilator 40 06/03/16 08:00 65 06/03/16 08:00 40 06/03/16 08:00 98.2 65 16 139/60 98 06/03/16 07:37 99 40 06/03/16 07:10 63 06/03/16 06:00 63 06/03/16 04:00 50 06/03/16 04:00 100.0 63 16 136/58 98 06/03/16 03:43 98 40 06/03/16 02:00 58 06/03/16 01:20 99 40 06/03/16 00:00 50 06/03/16 00:00 60 06/03/16 00:00 98.4 60 16 158/67 99 06/02/16 22:30 99 40 06/02/16 22:00 64 06/02/16 20:00 98.1 60 16 147/70 100 06/02/16 20:00 60 06/02/16 20:00 50 06/02/16 20:00 Mechanical Ventilator 06/02/16 19:30 100 40 06/02/16 16:00 98.4 64 16 159/58 99 06/02/16 16:00 50 I/O 06/02/16 06/02/16 06/02/16 06/03/16 06/03/16 06/03/16 07:00 15:00 23:00 07:00 15:00 23:00 Intake Total 772 ml 1088 ml 1633 ml 798 ml 1450 ml Output Total 675 ml 1000 ml 1000 ml 450 ml 1010.0 ml Balance 97 ml 88 ml 633 ml 348 ml 440.0 ml IV Total 772 ml 1088 ml 1448 ml 695 ml 1450 ml Tube Feeding 185 ml 103 ml Output Urine Total 675 ml 1000 ml 1000 ml 450 ml 950 ml Tube Feeding Residual Discard 60.0 ml # Bowel Movements 0 2 Physical Exam GENERAL: Intubated and sedated SKIN: Warm and dry. HEAD: Atraumatic. Normocephalic. EYES: Pupils equal and round. No scleral icterus. No injection or drainage. ENT: No nasal bleeding or discharge. Mucous membranes pink and moist. NECK: Trachea midline. No JVD. CARDIOVASCULAR: Regular rate and rhythm. RESPIRATORY: No accessory muscle use. Clear to auscultation. Breath sounds equal bilaterally. GASTROINTESTINAL: Abdomen soft, non-tender, nondistended. Hepatic and splenic margins not palpable. MUSCULOSKELETAL: Extremities without clubbing, cyanosis, or edema. No obvious deformities. NEUROLOGICAL: Sedated on the vent Laboratory Laboratory Tests Test 06/02/16 06/03/16 06/03/16 17:29 03:50 11:00 Sodium Level 148 MEQ/L 146 MEQ/L Potassium Level 3.4 MEQ/L 3.0 MEQ/L 3.9 MEQ/L Chloride Level 115 MEQ/L 113 MEQ/L Carbon Dioxide Level 25.5 MEQ/L 26.3 MEQ/L Anion Gap 8 MEQ/L 7 MEQ/L Blood Urea Nitrogen 7 MG/DL 7 MG/DL Creatinine 0.91 MG/DL 0.87 MG/DL Estimat Glomerular Filtration 65 ML/MIN 68 ML/MIN Rate Random Glucose 118 MG/DL 204 MG/DL Calcium Level 8.4 MG/DL 7.9 MG/DL Vancomycin Level Trough 16.6 MCG/ML White Blood Count 13.7 TH/MM3 Red Blood Count 3.03 MIL/MM3 Hemoglobin 9.4 GM/DL Hematocrit 27.8 % Mean Corpuscular Volume 91.8 FL Mean Corpuscular Hemoglobin 31.0 PG Mean Corpuscular Hemoglobin 33.8 % Concent Red Cell Distribution Width 15.4 % Platelet Count 241 TH/MM3 Mean Platelet Volume 7.1 FL Assessment and Plan Problem List: (1) Acute ischemic right MCA stroke (2) HTN (hypertension) (3) Tobacco use Assessment and Plan 1) R MCA CVA s/p TPA then embolectomy by IR 2) MELONIE done, no cause of cardioembolic found 3) Will see PRN, call with questions Problem Qualifiers (1) HTN (hypertension): Qualified Code: I10 - Essential hypertension Taye Starr DO Jun 03, 2016 15:44
[2016-06-03] MEDS: GABAPENTIN 100 MG CAP PO SCH (20:57)
[2016-06-03] MEDS: ATORVASTATIN 40 MG TAB PO SCH (20:57)
[2016-06-04] VITALS (21 sets, daily range): BP systolic 139–170; BP diastolic 70–85; PULSE 49–87; RESP 16–18; TEMP 97.5–99; O2SAT 97–100
[2016-06-04] MEDS: PROPOFOL 1000 MG/100 ML INJ 100 ML IV SCH ×3 (00:30→15:55)
[2016-06-04] MEDS: PIPERACIL-TAZO 3.375 GM PREMIX 50 ML IV SCH ×3 (00:31→15:56)
[2016-06-04] MEDS: CHLORHEXIDINE GLUCONATE 2 % 1 PACK (2 CLOTHS) TOP SCH (04:00)
[2016-06-04] MEDS: SODIUM CHLORIDE 23.4% INJ 188 MEQ in SODIUM CHLOR 0.9% 1000 ML INJ 1,000 ML IV SCH ×2 (04:41→07:51)
[2016-06-04 05:48] LABS: HEMATOCRIT 26.7 % (35.0-46.0); MEAN CELL VOLUME 91.6 FL (80.0-100.0); MEAN CORPUSCULAR HEMOGLOBIN 31.4 PG (27.0-34.0); MEAN CORPUSCULAR HGB CONC 34.3 % (32.0-36.0); PLATELET COUNT 262 TH/MM3 (150-450); RED BLOOD COUNT 2.92 MIL/MM3 (4.00-5.30); RED CELL DISTRIBUTION WIDTH 15.6 % (11.6-17.2); REVIEW FLAG FINAL; WHITE BLOOD COUNT 9.7 TH/MM3 (4.0-11.0)
[2016-06-04] MEDS: INSULIN NovoLIN REGULAR SUPPLEMENTAL SCALE SQ SCH ×4 (06:00→17:30)
[2016-06-04 06:17] LABS: BICARBONATE 25.1 MEQ/L (21.0-32.0); POTASSIUM 3.4 MEQ/L (3.5-5.1)
--- NOTE | 2016-06-04 07:08 | HHI.CCPN ---
Subjective Remarks/Hospital Course This is a 50-year-old female who presented to the emergency department with history of left arm and leg weakness and facial droop. Symptoms started approximately 25 minutes prior to ER arrival. She admits to smoking and drinking alcohol at the time of first and onset. NIH stroke scale on arrival was 15. Noncontrasted head CT was negative for acute bleed. Systemic TPA was administered within the first hour of symptom onset. CT angiography had not demonstrated possible flow deficit in the right MCA territory. Initially plans for possible endovascular thrombectomy, however repeat neuro exam of 45 minutes to complete resolution of symptoms. She is admitted to the ICU for close monitoring and further evaluation of her ischemic stroke. 05/29: Symptoms resolved after tPA last evening. Stable hemodynamics. 05/30: Persistent left arm weakness but much improved. SBP > 150 with Neosynephrine. 05/31: Persistent hypoxemia this morning. Patient will not wear face mask and does not clear secretions well. Will need to intubate to protect airway and oxygenate adequately. Discussed with her daughter at the bedside. 06/01: Unable to wean ventilator. Right hemispheric edema slightly increased, 06/02: Unable to wean ventilator. 06/03: Remains sedated, orally intubated on mechanical ventilation. Awaiting sedation vacation. 06/04: Remains sedated, orally intubated on mechanical ventilation. On Naveen- Synephrine to achieve SBP 150. Tolerating tube feeds Objective Vital Signs Date Time Temp Pulse Resp B/P Pulse Ox O2 Delivery O2 Flow Rate FiO2 06/04/16 06:00 87 06/04/16 04:00 40 06/04/16 04:00 98.7 16 157/85 98 06/03/16 20:00 Mechanical Ventilator 05/31/16 07:57 6.00 Intake and Output 06/03/16 06/03/16 06/04/16 08:00 16:00 00:00 Intake Total 798 ml 1450 ml 3141 ml Output Total 510.0 ml 950 ml 1150.0 ml Balance 288.0 ml 500 ml 1991.0 ml Result Diagram: 06/04/16 0530 06/04/16 0530 Imaging Last Impressions Chest X-Ray 06/03/16 0000 Signed Impressions: Service Date/Time: Friday, June 03, 2016 08:46 - CONCLUSION: Stable chest Noah Parekh MD Head CT 06/02/16 0000 Signed Impressions: Service Date/Time: Thursday, June 02, 2016 04:59 - CONCLUSION: 1. Expected evolution of right middle cerebral artery ischemic infarct. 2. No acute hemorrhage is identified Garrison Holt MD CT Angiography 05/31/16 0000 Signed Impressions: Service Date/Time: Tuesday, May 31, 2016 14:08 - CONCLUSION: 1. No evidence of pulmonary embolism. 2. Dense consolidation in the left lower lobe with more patchy infiltrate in the posterior left upper lobe. Tae Marquez MD Head Magnetic Resonance Angiography 05/30/16 0000 Signed Impressions: Service Date/Time: May 11:39 - CONCLUSION: 1. Resolution of previously identified intraluminal filling defect in the mid right middle cerebral artery seen on prior CTA. Currently no hemodynamically significant stenosis identified. Bert Ayoub MD Brain MRI 05/30/16 0000 Signed Impressions: Service Date/Time: May 11:39 - CONCLUSION: 1. Large right MCA distribution infarct with mild mass effect and 3 mm right to left midline shift. Bert Ayoub MD Cerebral Arteriogram 05/29/16 1454 Signed Impressions: Service Date/Time: Sunday, May 29, 2016 15:22 - CONCLUSION: Success right MCA embolectomy as above . Chalo Payne MD Neck CTA 05/28/162026 Signed Impressions: Service Date/Time: Saturday, May 28, 2016 20:32 - CONCLUSION: Mild calcified plaque at the left proximal internal carotid artery. A significant stenosis is not seen. Eriberto Mirza MD Head CTA 05/28/162026 Signed Impressions: Service Date/Time: Saturday, May 28, 2016 20:32 - CONCLUSION: Short focal area of diminished flow potentially representing a thrombus in the midportion of the M1 segment of the right middle cerebral artery. The more peripheral flow at the right middle cerebral artery is diminished when compared to the left side. Eriberto Mirza MD Objective Remarks GENERAL: Middle-aged female, Sedated for safety and vent synchrony. HEENT: Pupils equal, round and reactive. NECK:. Midline. Supple. Orally intubated. CHEST: Equal chest rise. Shallow excursions. Sats 79% -> 100% after intubation CARDIOVASCULAR: Normal rate. Regular rhythm. No appreciable murmurs. No JVD. ABDOMEN: Soft, nontender, nondistended. No guarding. BS active. MUSCULOSKELETAL: No peripheral edema. Warm. Well perfused. NEUROLOGICAL: Musculoskeletal strength is 5 out of 5 in right extremities. Left arm and leg grossly weaker than right. Intubated. Urinary Catheter: Yes Assessment to: Continue Shea insert reason: Measure Accurate Output A/P Assessment and Plan Assessment: 50yF with h/o htn, smoking, and COPD with o2 use at night who presented with right MCA CVA status post systemic TPA and clot extraction, remains critically ill this time. Active Problems: Acute CVA s/p systemic TPA\ Thrombectomy Acute respiratory failure on mechanical ventilation Cerebral edema Plan: Neuro: 2 hour neuro checks Goal systolic blood pressure less than 180 When necessary labetalol, hydralazine for goal systolic Lipid panel, 2-D echo - Hypertonic saline to keep sodium greater than 145 Cardiovascular: - Follow 2-D echo, On Naveen-Synephrine to keep SBP 150s - will d/w Neuro re. titrating off Naveen. Pulmonary: - Continue mechanical ventilation. Daily C Pap trials to decide extubation. Vent bundle, bronchodilators as needed. GI/liver: - Continue tube feeds. Renal/: - Strict intake output, monitor and replete electro lites, follow BUN/ creatinine ID: - No antibiotics at this time Endocrine: - Watch for hyperglycemia, SSI for glycemic control as needed Heme: - Follow CBC Prophylaxis: -PPI/SCDs. Subcutaneous heparin when okay with neurology SCDs. holding pharmacologic DVT prophylaxis status post TPA Overall impression: Complete resolution of symptoms after tPA but recurrent symptoms later, required right side clot extraction in IR. Now on mechanical ventilation, and critically ill. Large R MCA CVA with swelling and shift. Requires ventilator support and vasopressor therapy. D/W Dr. Bobo on 06/03 Critical Care 35 mins aside from procedures. Gaurav Gold MD Jun 04, 2016 07:08
[2016-06-04] MEDS: CHLORHEXIDINE 0.12% (ORAL KIT) 15 ML CUP MT SCH ×2 (08:00→20:00)
[2016-06-04] MEDS: BENEPROTEIN POWDER 1 PACK G-TUBE SCH ×3 (09:00→18:00)
[2016-06-04] MEDS: SODIUM CHLORIDE 0.9% FLUSH 5 ML FLUSH IV FLUSH SCH ×2 (09:00→20:47)
[2016-06-04] MEDS ORDERED: PHENYLEPHRINE HCL 10 MG/ML VIAL ONE (09:06)
[2016-06-04] MEDS: PHENYLEPHRINE INJ 160 MG in DEXTROSE 5% IN WATE 500 ML INJ 484 ML IV SCH ×2 (09:13)
[2016-06-04] MEDS: DOCUSATE SODIUM 50 MG/SENNA 8.6 MG TAB PO SCH ×2 (09:25→20:46)
[2016-06-04] MEDS: ASPIRIN 81 MG CHEW TAB OG-TUBE SCH (09:26)
[2016-06-04] MEDS: PANTOPRAZOLE SODIUM 40 MG VIAL IV SCH (09:26)
--- NOTE | 2016-06-04 09:27 | ETE ---
Study Study Date:06/03/2016 STUDY CONCLUSIONS SUMMARY - Left ventricle: The cavity size was normal. Systolic function was normal. The estimated ejection fraction was in the range of 55% to 60%. Wall motion was normal; there were no regional wall motion abnormalities. - Left atrium: No evidence of thrombus in the atrial cavity or appendage. No spontaneous echo contrast was observed. - Atrial septum: No defect or patent foramen ovale was identified. Impressions: No cardiac source of emboli was indentified. If LV function is below 40, please consider prescribing an ACEI or ARB or document rationale for non-use. PROCEDURE DATA Consent: The risks, benefits, and alternatives to the procedure were explained to the patient's daughterand informed consent was obtained. Procedure: Initial setup. Surface ECG leads and pulse oximetric signals were monitored. Sedation.Patient is intubated and currently on sedation. Transesophageal echocardiography. A transesophageal probe was inserted by the attending owner oral surgeon. Image quality was good. Study completion: All IVs inserted during the procedure were removed. The patient tolerated the procedure well. There were no complications. Transesophageal echocardiography. 2D, complete spectral Doppler, and color Doppler. CARDIAC ANATOMY LEFT VENTRICLE: The cavity size was normal. Systolic function was normal. The estimated ejection fraction was in the range of 55% to 60%. Wall motion was normal; there were no regional wall motion abnormalities. AORTIC VALVE: Structurally normal valve. Trileaflet. Doppler: There was no stenosis. No significant regurgitation. Aorta: - There was no atheroma. There was no evidence for dissection. MITRAL VALVE: The valve appears to be grossly normal. Doppler: There was no evidence for stenosis. Trace regurgitation. LEFT ATRIUM: No evidence of thrombus in the atrial cavity or appendage. No spontaneous echo contrast was observed. The appendage was morphologically a left appendage. Emptying velocity was normal. ATRIAL SEPTUM: No defect or patent foramen ovale was identified. RIGHT VENTRICLE: The cavity size was normal. PULMONIC VALVE: The valve appears to be grossly normal. Doppler: There was no evidence for stenosis. No significant regurgitation. TRICUSPID VALVE: The valve appears to be grossly normal. Doppler: There was no evidence for stenosis. Trace regurgitation. Prepared and signed by Taye Starr [id number]
[2016-06-04] MEDS: HEPARIN SODIUM - SQ 10,000 UNITS/ML VIAL SQ SCH ×2 (09:28→20:47)
[2016-06-04] MEDS: risperiDONE 0.5 MG TAB PO SCH ×2 (09:31→20:46)
[2016-06-04] MEDS: POTASSIUM CL 40 MEQ/30 ML LIQ UDC PO/TUBE PRN (10:14)
[2016-06-04] MEDS: METOPROLOL TARTRATE 25 MG TAB PO SCH ×2 (14:00→20:46)
[2016-06-04] MEDS: fentaNYL DRIP 250 ML IV SCH (15:56)
[2016-06-04 19:09] LABS: BICARBONATE 26.8 MEQ/L (21.0-32.0); POTASSIUM 3.7 MEQ/L (3.5-5.1)
[2016-06-04] MEDS: ATORVASTATIN 40 MG TAB PO SCH (20:46)
[2016-06-04] MEDS: GABAPENTIN 100 MG CAP PO SCH (20:47)
[2016-06-05] VITALS (15 sets, daily range): BP systolic 112–171; BP diastolic 55–85; PULSE 55–70; RESP 16; TEMP 98–98.5; O2SAT 92–100
[2016-06-05] MEDS: PIPERACIL-TAZO 3.375 GM PREMIX 50 ML IV SCH ×3 (00:51→17:28)
[2016-06-05] MEDS: PROPOFOL 1000 MG/100 ML INJ 100 ML IV SCH ×4 (00:51→22:04)
[2016-06-05] MEDS: CHLORHEXIDINE GLUCONATE 2 % 1 PACK (2 CLOTHS) TOP SCH (03:04)
[2016-06-05 04:19] LABS: HEMATOCRIT 26.6 % (35.0-46.0); MEAN CELL VOLUME 92.3 FL (80.0-100.0); MEAN CORPUSCULAR HEMOGLOBIN 32.3 PG (27.0-34.0); PLATELET COUNT 293 TH/MM3 (150-450); RED BLOOD COUNT 2.89 MIL/MM3 (4.00-5.30); RED CELL DISTRIBUTION WIDTH 15.7 % (11.6-17.2); REVIEW FLAG FINAL; WHITE BLOOD COUNT 9.3 TH/MM3 (4.0-11.0)
[2016-06-05 04:39] LABS: BICARBONATE 26.9 MEQ/L (21.0-32.0); POTASSIUM 3.6 MEQ/L (3.5-5.1)
[2016-06-05] MEDS: SODIUM CHLORIDE 23.4% INJ 188 MEQ in SODIUM CHLOR 0.9% 1000 ML INJ 1,000 ML IV SCH ×2 (04:48→13:14)
[2016-06-05] MEDS: INSULIN NovoLIN REGULAR SUPPLEMENTAL SCALE SQ SCH ×4 (05:11→18:00)
[2016-06-05] MEDS: METOPROLOL TARTRATE 25 MG TAB PO SCH ×3 (05:11→22:00)
--- NOTE | 2016-06-05 06:11 | RADRPT ---
EXAM DATE/TIME: 06/05/2016 05:36 [facility] COMPARISON: CT BRAIN W/O CONTRAST, June 02, 2016, 4:59. INDICATIONS : Follow up stroke. RADIATION DOSE: 32.92 CTDIvol (mGy) MEDICAL HISTORY : Stroke. Cardiovascular disease Chronic obstructive pulmonary disease. SURGICAL HISTORY : None. ENCOUNTER: Subsequent ACUITY: 1 week PAIN SCALE: 0/10 LOCATION: cranial TECHNIQUE: Multiple contiguous axial images were obtained of the head. Using automated exposure control and adj ustment of the mA and/or kV according to patient size, radiation dose was kept as low as reasonably a chievable to obtain optimal diagnostic quality images. FINDINGS: CEREBRUM: There is low-density in the right temporal, parietal, and posterior left frontal lobes consistent wit h MCA territory infarct. There is 2-3 mm of minimal right to left midline shift. The basal cisterns a re open. type The ventricles are normal for age. No evidence of hemorrhage. No extra-axial fluid co llections are seen. POSTERIOR FOSSA: The cerebellum and brainstem are intact. The 4th ventricle is midline. The cerebellopontine angle i s unremarkable. EXTRACRANIAL: The visualized portion of the orbits is intact. There is right maxillary sinus, bilateral ethmoid, an d right sphenoid sinus disease. SKULL: The calvaria is intact. No evidence of skull fracture. CONCLUSION: Evolving right middle cerebral artery territory infarct. Eriberto Mirza MD on June 05, 2016 at 6:07 Board Certified Radiologist. This report was verified electronically.
--- NOTE | 2016-06-05 08:00 | HHI.PR ---
Review/Management Diagnosis right MCA stroke s/p iv TPA and then right MCA embolectomy Diagnosis/Plan: (1) Acute ischemic right MCA stroke Plan: 05/28 s/p iv tpa 05/29 s/p rt mca embolectomy mri brain reviewed; no significant shift, patchy areas of infarct; no ich 06/02 ct brain- stable, very mild left temporal lobe swelling and mass effect 06/05 ct brain stable recs cpap trials; difficult extubation 05/16 underlying advanced copd follow exam d/w ccm (2) HTN (hypertension) (3) Tobacco use Plan: cessation d/w pt Subjective Subjective Comments No acute events reported Active Medications Current Medications Medications (Trade) Dose Ordered Sig/Aric Route Start Time Stop Time Status Last Admin Magnesium Oxide 800 mg 800 mg UNSCH PRN PO 05/29/16 02:15 Magnesium Sulfate 4 gm/Sodium Chloride 100 ml @ 50 mls/hr UNSCH PRN IV 05/29/16 02:15 Magnesium Sulfate 2 gm/Sodium Chloride 100 ml @ 50 mls/hr UNSCH PRN IV 05/29/16 02:15 Potassium Chloride 100 ml @ 50 mls/hr Q2H PRN IV 05/29/16 02:15 06/03/16 05:19 Potassium Chloride 100 ml @ 50 mls/hr Q2H PRN IV 05/29/16 02:15 Potassium Chloride 100 ml @ 50 mls/hr Q2H PRN IV 05/29/16 02:15 (KCl 40 Meq Premix Inj) 100 ml @ 25 mls/hr UNSCH PRN IV 05/29/16 02:15 (KCl 40 Meq/30 ml Liq) 40 meq UNSCH PRN PO/TUBE 05/29/16 02:15 06/04/16 10:14 (KCl 40 Meq/30 ml Liq) 40 meq UNSCH PRN PO/TUBE 05/29/16 02:15 (K-Phos) 2,000 mg Q4H PRN PO 05/29/16 02:15 Potassium Phosphate 2000 mg 2,000 mg UNSCH PRN PO/TUBE 05/29/16 02:15 Potassium Phosphate 30 mmol/ Sodium Chloride 260 ml @ 42 mls/hr UNSCH PRN IV 05/29/16 02:15 (Sodium Phosphate Inj/NS 250 ml Inj) 250 ml @ 42 mls/hr UNSCH PRN IV 05/29/16 02:15 (D50w (Vial) Inj) 25 ml UNSCH PRN IV PUSH 05/29/16 02:15 (NovoLIN R SUPPLEMENTAL SCALE) 1 Q6HR SQ 05/29/16 06:00 06/05/16 05:11 (NS Flush) 2 ml UNSCH PRN IV FLUSH 05/29/16 02:15 (NS Flush) 2 ml BID IV FLUSH 05/29/16 09:00 06/04/16 20:47 (Tylenol) 650 mg Q6H PRN PO 05/29/16 02:15 06/01/16 20:10 (Protonix Inj) 40 mg DAILY IV 05/29/16 09:00 06/04/16 09:26 (Zofran Inj) 4 mg Q6H PRN IV 05/29/16 02:15 (Steffany-Colace) 2 tab BID PO 05/29/16 09:00 06/04/16 20:46 Miscellaneous Information 1 Q361D XX 05/29/16 02:15 05/29/16 02:15 (Chlorhexidine 2% Cloth) Taper DAILY@04 TOP 05/29/16 04:00 05/25/17 03:59 06/04/16 04:00 (Chlorhexidine 2% Cloth) 3 pack UNSCH PRN TOP 05/29/16 02:15 (risperDAL) 0.5 mg Q12H PRN PO 05/29/16 08:45 (Ativan Inj) 0.5 mg BID PRN IVS 05/29/16 08:45 05/30/16 21:05 (risperDAL) 0.5 mg BID PO 05/29/16 09:00 06/04/16 20:46 (Brethine Inj) 1 mg UNSCH PRN SQ 05/29/16 13:45 (Heparin Inj) 5,000 units BID SQ 05/30/16 09:00 06/04/16 20:47 (Lipitor) 40 mg HS PO 05/30/16 21:00 06/04/16 20:46 (Neurontin) 600 mg HS PO 05/30/16 21:00 06/04/16 20:47 Chlorhexidine Gluconate 15 ml 15 ml BID@08,20 MT 05/31/16 20:00 06/04/16 20:00 Propofol 100 ml @ 0 mls/hr TITRATE IV 05/31/16 10:00 06/05/16 06:49 Phenylephrine HCl 160 mg/Dextrose 500 ml @ 0 mls/hr TITRATE IV 05/31/16 12:00 06/04/16 09:13 Fentanyl Citrate 250 ml @ 0 mls/hr TITRATE IV 05/31/16 12:00 06/04/16 15:56 (Sodium Chloride 23.4% Inj/NS 1000 ml Inj) 1,047 ml @ 50 mls/hr [id number] IV 05/31/16 17:00 06/05/16 04:48 Metoprolol Tartrate 12.5 mg 12.5 mg Q8HR PO 05/31/16 22:00 06/05/16 05:11 Piperacillin Sod/ Tazobactam Sod 50 ml @ 100 mls/hr Q8H IV 05/31/16 17:00 06/05/16 00:51 (Levophed Inj/NS 250 ml Inj) 250 ml @ 0 mls/hr TITRATE IV 05/31/16 16:15 (Brethine Inj) 1 mg UNSCH PRN SQ 05/31/16 16:15 (NS Flush) See Protocol DAILY IVF 06/01/16 09:00 06/03/16 08:38 (NS Flush) See Protocol UNSCH PRN IVF 05/31/16 18:15 (Heparin Central Flush) See Protocol DAILY IVF 06/01/16 09:00 06/04/16 09:28 (Heparin Central Flush) See Protocol UNSCH PRN IVF 05/31/16 18:15 (NS Flush) See Protocol UNSCH PRN IVF 05/31/16 18:15 (Aspirin Chew) 162 mg DAILY OG-TUBE 06/01/16 09:00 06/04/16 09:26 (Beneprotein Powder) 1 pack TID G-TUBE 06/02/16 09:00 06/04/16 18:00 Allergies Allergies Coded Allergies No Known Allergies (Verified05/28/16) Review of Systems All other ROS: ROS reviewed as documented in chart Exam I&O / VS 06/04/16 06/04/16 06/05/16 15:00 23:00 07:00 Intake Total 1829 ml 1940 ml 736 ml Output Total 1400 ml 2100 ml 900 ml Balance 429 ml -160 ml -164 ml IV Total 1612 ml 1551 ml 676 ml Tube Feeding 217 ml 329 ml Other 60 ml 60 ml Output Urine Total 1400 ml 2100 ml 900 ml Vital Signs Date Time Temp Pulse Resp B/P Pulse Ox O2 Delivery O2 Flow Rate FiO2 06/05/16 06:00 64 06/05/16 04:00 64 06/05/16 04:00 40 06/05/16 04:00 98.5 64 16 171/73 99 06/05/16 03:47 97 40 06/05/16 02:00 63 06/05/16 00:59 99 40 06/05/16 00:00 40 06/05/16 00:00 70 06/05/16 00:00 98.5 70 16 170/80 98 06/04/16 22:00 66 06/04/16 21:00 40 06/04/16 20:00 Mechanical Ventilator 50 06/04/16 20:00 70 06/04/16 20:00 98.5 70 16 170/80 98 06/04/16 19:40 97 40 06/04/16 18:00 68 06/04/16 16:52 98 40 06/04/16 16:00 40 06/04/16 16:00 68 06/04/16 16:00 98.2 68 16 169/85 99 06/04/16 14:00 66 06/04/16 12:21 100 40 06/04/16 12:00 68 06/04/16 12:00 40 06/04/16 11:49 98.5 76 18 139/81 99 06/04/16 11:00 64 06/04/16 11:00 40 06/04/16 10:00 64 06/04/16 09:00 70 06/04/16 08:49 40 06/04/16 08:00 40 06/04/16 08:00 Mechanical Ventilator 50 06/04/16 08:00 62 06/04/16 08:00 97.5 76 18 161/76 99 Arterial Line General: Alert and Oriented, No acute distress Respiratory: Lungs CTA, Non-labored respirations, Coarse breath sounds Cardiology: Normal rate, Regular Rhythm Neurologic: Alert Psychiatric: Cooperative Exam Comments intubated, off propofol, ou 3-2mm, eomi, follows with rt side; shows 2 fingers, moves toes Objective Micro and Labs Laboratory Tests Test 06/04/16 06/05/16 18:23 03:45 Sodium Level 145 142 Potassium Level 3.7 3.6 Chloride Level 112 108 Carbon Dioxide Level 26.8 26.9 Anion Gap 6 7 Blood Urea Nitrogen 6 6 Creatinine 0.84 0.73 Estimat Glomerular Filtration 71 84 Rate Random Glucose 118 211 Calcium Level 8.2 7.7 White Blood Count 9.3 Red Blood Count 2.89 Hemoglobin 9.3 Hematocrit 26.6 Mean Corpuscular Volume 92.3 Mean Corpuscular Hemoglobin 32.3 Mean Corpuscular Hemoglobin 35.0 Concent Red Cell Distribution Width 15.7 Platelet Count 293 Mean Platelet Volume 7.6 Date/Time Procedure Status Source Growth 05/31/16 18:05 Aerobic Blood Culture - Preliminary Resulted Blood Peripheral NO GROWTH IN 1 DAY 05/31/16 18:05 Anaerobic Blood Culture - Final Resulted Blood Peripheral ONLY AEROBIC CULTURE ORDERED 05/31/16 15:00 Urine Culture - Final Complete Urine Catheterized Urine NO GROWTH IN 48 HOURS. 05/31/16 15:00 Gram Stain - Final Complete Sputum Endotracheal 05/31/16 15:00 Sputum Culture - Final Complete Moraxella Catarrahalis Problem Qualifiers (1) HTN (hypertension): Qualified Code: I10 - Essential hypertension Arnaldo Bobo MD Jun 05, 2016 08:00
[2016-06-05] MEDS: CHLORHEXIDINE 0.12% (ORAL KIT) 15 ML CUP MT SCH ×2 (08:32→20:00)
[2016-06-05] MEDS: BENEPROTEIN POWDER 1 PACK G-TUBE SCH ×3 (08:33→17:29)
[2016-06-05] MEDS: SODIUM CHLORIDE 0.9% FLUSH 5 ML FLUSH IV FLUSH SCH ×2 (08:33→22:02)
[2016-06-05] MEDS: DOCUSATE SODIUM 50 MG/SENNA 8.6 MG TAB PO SCH ×2 (08:34→22:02)
[2016-06-05] MEDS: HEPARIN SODIUM - SQ 10,000 UNITS/ML VIAL SQ SCH ×2 (08:35→22:03)
[2016-06-05] MEDS: PANTOPRAZOLE SODIUM 40 MG VIAL IV SCH (08:35)
[2016-06-05] MEDS: risperiDONE 0.5 MG TAB PO SCH ×2 (08:36→22:02)
[2016-06-05] MEDS: ASPIRIN 81 MG CHEW TAB OG-TUBE SCH (08:36)
--- NOTE | 2016-06-05 09:54 | HHI.CCPN ---
Subjective Remarks/Hospital Course This is a 50-year-old female who presented to the emergency department with history of left arm and leg weakness and facial droop. Symptoms started approximately 25 minutes prior to ER arrival. She admits to smoking and drinking alcohol at the time of first and onset. NIH stroke scale on arrival was 15. Noncontrasted head CT was negative for acute bleed. Systemic TPA was administered within the first hour of symptom onset. CT angiography had not demonstrated possible flow deficit in the right MCA territory. Initially plans for possible endovascular thrombectomy, however repeat neuro exam of 45 minutes to complete resolution of symptoms. She is admitted to the ICU for close monitoring and further evaluation of her ischemic stroke. 05/29: Symptoms resolved after tPA last evening. Stable hemodynamics. 05/30: Persistent left arm weakness but much improved. SBP > 150 with Neosynephrine. 05/31: Persistent hypoxemia this morning. Patient will not wear face mask and does not clear secretions well. Will need to intubate to protect airway and oxygenate adequately. Discussed with her daughter at the bedside. 06/01: Unable to wean ventilator. Right hemispheric edema slightly increased, 06/02: Unable to wean ventilator. 06/03: Remains sedated, orally intubated on mechanical ventilation. Awaiting sedation vacation. 06/04: Remains sedated, orally intubated on mechanical ventilation. On Naveen- Synephrine to achieve SBP 150. Tolerating tube feeds. 06/05: Sedated, orally intubated on mechanical ventilation. Tolerating tube feeds. Naveen-Synephrine being titrated down. Objective Vital Signs Date Time Temp Pulse Resp B/P Pulse Ox O2 Delivery O2 Flow Rate FiO2 06/05/16 07:52 99 30 06/05/16 07:00 Mechanical Ventilator 06/05/16 06:00 64 06/05/16 04:00 98.5 16 171/73 Intake and Output 06/04/16 06/04/16 06/05/16 08:00 16:00 00:00 Intake Total 1644 ml 1829 ml 1940 ml Output Total 1000 ml 1400 ml 2100 ml Balance 644 ml 429 ml -160 ml Result Diagram: 06/05/16 0345 06/05/16 0345 Imaging Last Impressions Chest X-Ray 06/03/16 0000 Signed Impressions: Service Date/Time: Friday, June 03, 2016 08:46 - CONCLUSION: Stable chest Noah Parekh MD Head CT 06/02/16 0000 Signed Impressions: Service Date/Time: Thursday, June 02, 2016 04:59 - CONCLUSION: 1. Expected evolution of right middle cerebral artery ischemic infarct. 2. No acute hemorrhage is identified Garrison Holt MD CT Angiography 05/31/16 0000 Signed Impressions: Service Date/Time: Tuesday, May 31, 2016 14:08 - CONCLUSION: 1. No evidence of pulmonary embolism. 2. Dense consolidation in the left lower lobe with more patchy infiltrate in the posterior left upper lobe. Tae Marquez MD Head Magnetic Resonance Angiography 05/30/16 0000 Signed Impressions: Service Date/Time: May 11:39 - CONCLUSION: 1. Resolution of previously identified intraluminal filling defect in the mid right middle cerebral artery seen on prior CTA. Currently no hemodynamically significant stenosis identified. Bert Ayoub MD Brain MRI 05/30/16 0000 Signed Impressions: Service Date/Time: May 11:39 - CONCLUSION: 1. Large right MCA distribution infarct with mild mass effect and 3 mm right to left midline shift. Bert Ayoub MD Cerebral Arteriogram 05/29/16 1454 Signed Impressions: Service Date/Time: Sunday, May 29, 2016 15:22 - CONCLUSION: Success right MCA embolectomy as above . Chalo Payne MD Neck CTA 05/28/162026 Signed Impressions: Service Date/Time: Saturday, May 28, 2016 20:32 - CONCLUSION: Mild calcified plaque at the left proximal internal carotid artery. A significant stenosis is not seen. Eriberto Mirza MD Head CTA 05/28/162026 Signed Impressions: Service Date/Time: Saturday, May 28, 2016 20:32 - CONCLUSION: Short focal area of diminished flow potentially representing a thrombus in the midportion of the M1 segment of the right middle cerebral artery. The more peripheral flow at the right middle cerebral artery is diminished when compared to the left side. Eriberto Mirza MD Objective Remarks GENERAL: Middle-aged female, Sedated for safety and vent synchrony. HEENT: Pupils equal, round and reactive. NECK:. Midline. Supple. Orally intubated. CHEST: On mechanical ventilation, good air entry bilaterally, scattered rhonchi , no wheezing CARDIOVASCULAR: Normal rate. Regular rhythm. No appreciable murmurs. No JVD. ABDOMEN: Soft, nontender, nondistended. No guarding. BS active. MUSCULOSKELETAL: No peripheral edema. Warm. Well perfused. NEUROLOGICAL: Sedated, arousable, orally intubated Musculoskeletal strength is 5 out of 5 in right extremities. Left arm and leg grossly weaker than right. Intubated. A/P Assessment and Plan Assessment: 50yF with h/o htn, smoking, and COPD with o2 use at night who presented with right MCA CVA status post systemic TPA and clot extraction, remains critically ill this time. Active Problems: Acute CVA s/p systemic TPA\ Thrombectomy Acute respiratory failure on mechanical ventilation Cerebral edema Plan: Neuro: 2 hour neuro checks Goal systolic blood pressure less than 180 When necessary labetalol, hydralazine for goal systolic Lipid panel, 2-D echo - Hypertonic saline to keep sodium greater than 145 Cardiovascular: - Follow 2-D echo, Titrate off Naveen. Pulmonary: - Continue mechanical ventilation. Daily C Pap trials to decide extubation. Vent bundle, bronchodilators as needed. Failed C Pap trial and 4 minutes on . We will initiate Solu-Medrol 40 mg IV every 8 hourly in view of advanced COPD and failure to extubate. GI/liver: - Continue tube feeds. Renal/: - Strict intake output, monitor and replete electrolites, follow BUN/ creatinine ID: -Continue Zosyn started on 05/31. Moraxella in sputum cultures noted. Endocrine: - Watch for hyperglycemia, SSI for glycemic control as needed Heme: - Follow CBC Prophylaxis: -PPI/SCDs. Subcutaneous heparin when okay with neurology SCDs. holding pharmacologic DVT prophylaxis status post TPA Overall impression: Complete resolution of symptoms after tPA but recurrent symptoms later, required right side clot extraction in IR. Now on mechanical ventilation, and critically ill. Large R MCA CVA with swelling and shift. Requires ventilator support and vasopressor therapy. D/W Dr. Bobo on 06/04 Critical Care 35 mins aside from procedures. Gaurav Gold MD Jun 05, 2016 09:54
[2016-06-05] MEDS: methylPREDNISolone SOD SUCC 40 MG/1 ML VIAL IV PUSH SCH ×3 (13:15→22:03)
[2016-06-05] MEDS: fentaNYL DRIP 250 ML IV SCH (17:28)
[2016-06-05] MEDS: GABAPENTIN 100 MG CAP PO SCH (22:02)
[2016-06-05] MEDS: ATORVASTATIN 40 MG TAB PO SCH (22:03)
[2016-06-06] VITALS (16 sets, daily range): BP systolic 107–170; BP diastolic 56–77; PULSE 53–76; RESP 16–22; TEMP 97.8–98.8; O2SAT 96–100
[2016-06-06] MEDS: SODIUM CHLORIDE 23.4% INJ 188 MEQ in SODIUM CHLOR 0.9% 1000 ML INJ 1,000 ML IV SCH (00:29)
[2016-06-06] MEDS: INSULIN NovoLIN REGULAR SUPPLEMENTAL SCALE SQ SCH ×5 (01:52→23:33)
[2016-06-06] MEDS: PIPERACIL-TAZO 3.375 GM PREMIX 50 ML IV SCH ×4 (01:53→23:46)
[2016-06-06] MEDS: fentaNYL DRIP 250 ML IV SCH ×2 (02:14→16:15)
[2016-06-06] MEDS: CHLORHEXIDINE GLUCONATE 2 % 1 PACK (2 CLOTHS) TOP SCH (04:00)
[2016-06-06] MEDS: METOPROLOL TARTRATE 25 MG TAB PO SCH ×3 (05:23→21:31)
[2016-06-06] MEDS: methylPREDNISolone SOD SUCC 40 MG/1 ML VIAL IV PUSH SCH ×3 (05:23→21:32)
[2016-06-06] MEDS: PROPOFOL 1000 MG/100 ML INJ 100 ML IV SCH (06:21)
[2016-06-06] MEDS: HEPARIN SODIUM - SQ 10,000 UNITS/ML VIAL SQ SCH ×2 (08:50→21:32)
[2016-06-06] MEDS: CHLORHEXIDINE 0.12% (ORAL KIT) 15 ML CUP MT SCH ×2 (08:50→20:45)
[2016-06-06] MEDS: DOCUSATE SODIUM 50 MG/SENNA 8.6 MG TAB PO SCH ×2 (08:51→21:31)
[2016-06-06] MEDS: SODIUM CHLORIDE 0.9% FLUSH 5 ML FLUSH IV FLUSH SCH ×2 (08:51→21:32)
[2016-06-06] MEDS: ASPIRIN 81 MG CHEW TAB OG-TUBE SCH (08:51)
[2016-06-06] MEDS: risperiDONE 0.5 MG TAB PO SCH ×2 (08:51→21:31)
[2016-06-06] MEDS: PANTOPRAZOLE SODIUM 40 MG VIAL IV SCH (08:52)
[2016-06-06] MEDS: BENEPROTEIN POWDER 1 PACK G-TUBE SCH ×2 (08:52→13:46)
[2016-06-06 15:50] LABS: AUTOMATED NEUTROPHIL # 8.6 TH/MM3 (1.8-7.7); BASOPHIL % 0.2 % (0.0-2.0); HEMATOCRIT 24.2 % (35.0-46.0); LYMPH % 10.2 % (9.0-44.0); MEAN CORPUSCULAR HEMOGLOBIN 31.6 PG (27.0-34.0); MEAN CORPUSCULAR HGB CONC 33.9 % (32.0-36.0); MONO % 4.4 % (0.0-8.0); NEUT % 85.2 % (16.0-70.0); PLATELET COUNT 300 TH/MM3 (150-450); RED BLOOD COUNT 2.61 MIL/MM3 (4.00-5.30); RED CELL DISTRIBUTION WIDTH 15.4 % (11.6-17.2); WHITE BLOOD COUNT 10.1 TH/MM3 (4.0-11.0)
[2016-06-06 15:54] LABS: HEMO FLAGS AUTO DIFF
[2016-06-06 16:05] LABS: BICARBONATE 29.4 MEQ/L (21.0-32.0); POTASSIUM 3.5 MEQ/L (3.5-5.1)
[2016-06-06 16:37] LABS: SCAN/DIFF AUTO DIFF CONFIRMED
[2016-06-06] MEDS: FREE WATER G-TUBE SCH ×2 (18:00→23:34)
--- NOTE | 2016-06-06 18:24 | HHI.CCPN ---
Subjective Remarks/Hospital Course This is a 50-year-old female who presented to the emergency department with history of left arm and leg weakness and facial droop. Symptoms started approximately 25 minutes prior to ER arrival. She admits to smoking and drinking alcohol at the time of first and onset. NIH stroke scale on arrival was 15. Noncontrasted head CT was negative for acute bleed. Systemic TPA was administered within the first hour of symptom onset. CT angiography had not demonstrated possible flow deficit in the right MCA territory. Initially plans for possible endovascular thrombectomy, however repeat neuro exam of 45 minutes to complete resolution of symptoms. She is admitted to the ICU for close monitoring and further evaluation of her ischemic stroke. 05/29: Symptoms resolved after tPA last evening. Stable hemodynamics. 05/30: Persistent left arm weakness but much improved. SBP > 150 with Neosynephrine. 05/31: Persistent hypoxemia this morning. Patient will not wear face mask and does not clear secretions well. Will need to intubate to protect airway and oxygenate adequately. Discussed with her daughter at the bedside. 06/01: Unable to wean ventilator. Right hemispheric edema slightly increased, 06/02: Unable to wean ventilator. 06/03: Remains sedated, orally intubated on mechanical ventilation. Awaiting sedation vacation. 06/04: Remains sedated, orally intubated on mechanical ventilation. On Naveen- Synephrine to achieve SBP 150. Tolerating tube feeds. 06/05: Sedated, orally intubated on mechanical ventilation. Tolerating tube feeds. Naveen-Synephrine being titrated down. 06/06: passes SAT and follows commands, but gets agitated on SBT and fails for tachypnea and agitation. weaning down on phenylephrine infusion. neuro exam stable with SBP > 100. still hypernatremic. Objective Vital Signs Date Time Temp Pulse Resp B/P Pulse Ox O2 Delivery O2 Flow Rate FiO2 06/06/16 16:00 76 06/06/16 16:00 60 06/06/16 16:00 98.8 22 170/77 99 06/05/16 07:00 Mechanical Ventilator Intake and Output 06/05/16 06/05/16 06/06/16 08:00 16:00 00:00 Intake Total 736 ml 1139 ml 1523 ml Output Total 900 ml 1905 ml 1000 ml Balance -164 ml -766 ml 523 ml Result Diagram: 06/06/16 1500 06/06/16 1500 Imaging Last Impressions Chest X-Ray 06/03/16 0000 Signed Impressions: Service Date/Time: Friday, June 03, 2016 08:46 - CONCLUSION: Stable chest Noah Parekh MD Head CT 06/02/16 0000 Signed Impressions: Service Date/Time: Thursday, June 02, 2016 04:59 - CONCLUSION: 1. Expected evolution of right middle cerebral artery ischemic infarct. 2. No acute hemorrhage is identified Garrison Holt MD CT Angiography 05/31/16 0000 Signed Impressions: Service Date/Time: Tuesday, May 31, 2016 14:08 - CONCLUSION: 1. No evidence of pulmonary embolism. 2. Dense consolidation in the left lower lobe with more patchy infiltrate in the posterior left upper lobe. Tae Marquez MD Head Magnetic Resonance Angiography 05/30/16 0000 Signed Impressions: Service Date/Time: May 11:39 - CONCLUSION: 1. Resolution of previously identified intraluminal filling defect in the mid right middle cerebral artery seen on prior CTA. Currently no hemodynamically significant stenosis identified. Bert Ayoub MD Brain MRI 05/30/16 0000 Signed Impressions: Service Date/Time: May 11:39 - CONCLUSION: 1. Large right MCA distribution infarct with mild mass effect and 3 mm right to left midline shift. Bert Ayoub MD Cerebral Arteriogram 05/29/16 1454 Signed Impressions: Service Date/Time: Sunday, May 29, 2016 15:22 - CONCLUSION: Success right MCA embolectomy as above . Chalo Payne MD Neck CTA 05/28/162026 Signed Impressions: Service Date/Time: Saturday, May 28, 2016 20:32 - CONCLUSION: Mild calcified plaque at the left proximal internal carotid artery. A significant stenosis is not seen. Eriberto Mirza MD Head CTA 05/28/162026 Signed Impressions: Service Date/Time: Saturday, May 28, 2016 20:32 - CONCLUSION: Short focal area of diminished flow potentially representing a thrombus in the midportion of the M1 segment of the right middle cerebral artery. The more peripheral flow at the right middle cerebral artery is diminished when compared to the left side. Eriberto Mirza MD Objective Remarks GENERAL: Middle-aged female, Sedated for safety and vent synchrony. HEENT: Pupils equal, round and reactive. NECK:. Midline. Supple. Orally intubated. CHEST: On mechanical ventilation, good air entry bilaterally, scattered rhonchi , no wheezing CARDIOVASCULAR: Normal rate. Regular rhythm. No appreciable murmurs. No JVD. ABDOMEN: Soft, nontender, nondistended. No guarding. BS active. MUSCULOSKELETAL: No peripheral edema. Warm. Well perfused. NEUROLOGICAL: Sedated, arousable, orally intubated Musculoskeletal strength is 5 out of 5 in right extremities. Left arm and leg grossly weaker than right. Intubated. follows commands. RASS -2. A/P Assessment and Plan Assessment: 50yF with h/o htn, smoking, and COPD with o2 use at night who presented with right MCA CVA status post systemic TPA and clot extraction, remains critically ill this time. continues to fail SBT and has persistent acute respiratory failure. Active Problems: Acute CVA s/p systemic TPA\ Thrombectomy Acute respiratory failure on mechanical ventilation Cerebral edema Plan: Neuro: 2 hour neuro checks Goal systolic blood pressure less than 180 When necessary labetalol, hydralazine for goal systolic Lipid panel, 2-D echo - Hypertonic saline to keep sodium greater than 145 Cardiovascular: - Follow 2-D echo, Titrate off Naveen, as tolerated for sbp > 100. Pulmonary: - Continue mechanical ventilation. Daily C Pap trials to decide extubation. continues to fail for tachypnea and agitation on sedation hold. Vent bundle, bronchodilators as needed. continue Solu-Medrol 40 mg IV every 8 hourly in view of advanced COPD and failure to extubate. GI/liver: - Continue tube feeds. Renal/: - Strict intake output, monitor and replete electrolytes, follow BUN/ creatinine ID: -Continue Zosyn started on 05/31. Moraxella in sputum cultures noted. Endocrine: - Watch for hyperglycemia, SSI for glycemic control as needed Heme: - Follow CBC Prophylaxis: -PPI/SCDs. Subcutaneous heparin when okay with neurology SCDs. holding pharmacologic DVT prophylaxis status post TPA Overall impression: Complete resolution of symptoms after tPA but recurrent symptoms later, required right side clot extraction in IR. Now on mechanical ventilation, and critically ill. Large R MCA CVA with swelling and shift. Requires ventilator support and vasopressor therapy. D/W Dr. Bobo on 06/04 Critical Care 39 mins aside from procedures. Mick Valentino MD Jun 06, 2016 18:24
[2016-06-06] MEDS: GABAPENTIN 300 MG CAP PO SCH (21:31)
[2016-06-06] MEDS: ATORVASTATIN 40 MG TAB PO SCH (21:31)
[2016-06-07] VITALS (17 sets, daily range): BP systolic 110–177; BP diastolic 53–104; PULSE 53–108; RESP 16–26; TEMP 98–99.2; O2SAT 94–100
[2016-06-07] MEDS: PROPOFOL 1000 MG/100 ML INJ 100 ML IV SCH ×3 (01:23→08:25)
[2016-06-07] MEDS: CHLORHEXIDINE GLUCONATE 2 % 1 PACK (2 CLOTHS) TOP SCH (02:32)
[2016-06-07 04:16] LABS: AUTOMATED NEUTROPHIL # 12.6 TH/MM3 (1.8-7.7); BASOPHIL # 0.1 TH/MM3 (0-0.2); BASOPHIL % 0.5 % (0.0-2.0); HEMATOCRIT 26.4 % (35.0-46.0); LYMPH % 7.7 % (9.0-44.0); LYMPHOCYTE # 1.1 TH/MM3 (1.0-4.8); MEAN CELL VOLUME 92.9 FL (80.0-100.0); MEAN CORPUSCULAR HEMOGLOBIN 31.9 PG (27.0-34.0); MEAN CORPUSCULAR HGB CONC 34.4 % (32.0-36.0); MONO % 4.1 % (0.0-8.0); NEUT % 87.7 % (16.0-70.0); PLATELET COUNT 357 TH/MM3 (150-450); RED BLOOD COUNT 2.84 MIL/MM3 (4.00-5.30); RED CELL DISTRIBUTION WIDTH 15.1 % (11.6-17.2); WHITE BLOOD COUNT 14.4 TH/MM3 (4.0-11.0)
[2016-06-07 04:23] LABS: HEMO FLAGS AUTO DIFF
[2016-06-07 04:31] LABS: ALT (GPT) 30 U/L (10-53); ANION GAP 7 MEQ/L (5-15); AST (GOT) 44 U/L (15-37); BICARBONATE 29.9 MEQ/L (21.0-32.0); BLOOD UREA NITROGEN 23 MG/DL (7-18); CHLORIDE 115 MEQ/L (98-107); GLOMERULAR FILTRATION RATE 74 ML/MIN (>89); POTASSIUM 3.5 MEQ/L (3.5-5.1); SODIUM (NA) 152 MEQ/L (136-145)
[2016-06-07 04:33] LABS: ALKALINE PHOSPHATASE 256 U/L (45-117); TOTAL BILIRUBIN ADULT 0.3 MG/DL (0.2-1.0)
[2016-06-07] MEDS: methylPREDNISolone SOD SUCC 40 MG/1 ML VIAL IV PUSH SCH ×3 (05:00→20:25)
[2016-06-07] MEDS: INSULIN NovoLIN REGULAR SUPPLEMENTAL SCALE SQ SCH ×4 (05:00→23:39)
[2016-06-07] MEDS: fentaNYL DRIP 250 ML IV SCH (05:00)
[2016-06-07] MEDS: FREE WATER G-TUBE SCH ×6 (05:00→23:25)
[2016-06-07] MEDS: METOPROLOL TARTRATE 25 MG TAB PO SCH (05:00)
[2016-06-07] MEDS: POTASSIUM CL 40 MEQ/30 ML LIQ UDC PO/TUBE PRN (05:21)
--- NOTE | 2016-06-07 07:11 | HHI.CCPN ---
Subjective Remarks/Hospital Course This is a 50-year-old female who presented to the emergency department with history of left arm and leg weakness and facial droop. Symptoms started approximately 25 minutes prior to ER arrival. She admits to smoking and drinking alcohol at the time of first and onset. NIH stroke scale on arrival was 15. Noncontrasted head CT was negative for acute bleed. Systemic TPA was administered within the first hour of symptom onset. CT angiography had not demonstrated possible flow deficit in the right MCA territory. Initially plans for possible endovascular thrombectomy, however repeat neuro exam of 45 minutes to complete resolution of symptoms. She is admitted to the ICU for close monitoring and further evaluation of her ischemic stroke. 05/29: Symptoms resolved after tPA last evening. Stable hemodynamics. 05/30: Persistent left arm weakness but much improved. SBP > 150 with Neosynephrine. 05/31: Persistent hypoxemia this morning. Patient will not wear face mask and does not clear secretions well. Will need to intubate to protect airway and oxygenate adequately. Discussed with her daughter at the bedside. 06/01: Unable to wean ventilator. Right hemispheric edema slightly increased, 06/02: Unable to wean ventilator. 06/03: Remains sedated, orally intubated on mechanical ventilation. Awaiting sedation vacation. 06/04: Remains sedated, orally intubated on mechanical ventilation. On Naveen- Synephrine to achieve SBP 150. Tolerating tube feeds. 06/05: Sedated, orally intubated on mechanical ventilation. Tolerating tube feeds. Naveen-Synephrine being titrated down. 06/06: passes SAT and follows commands, but gets agitated on SBT and fails for tachypnea and agitation. weaning down on phenylephrine infusion. neuro exam stable with SBP > 100. still hypernatremic. 06/07: failed SBT yesterday. initially weaned off naveen, but overnight back on for hypotension. hypernatremia worse despite d/c 2% nacl. Objective Vital Signs Date Time Temp Pulse Resp B/P Pulse Ox O2 Delivery O2 Flow Rate FiO2 06/07/16 06:00 82 06/07/16 04:00 99.2 16 135/74 96 06/07/16 04:00 60 06/05/16 07:00 Mechanical Ventilator Intake and Output 06/06/16 06/06/16 06/07/16 08:00 16:00 00:00 Intake Total 1424 ml 1385 ml 858 ml Output Total 850.0 ml 975 ml 760.0 ml Balance 574.0 ml 410 ml 98.0 ml Result Diagram: 06/07/16 0355 06/07/16 0355 Imaging Last Impressions Chest X-Ray 06/03/16 0000 Signed Impressions: Service Date/Time: Friday, June 03, 2016 08:46 - CONCLUSION: Stable chest Noah Parekh MD Head CT 06/02/16 0000 Signed Impressions: Service Date/Time: Thursday, June 02, 2016 04:59 - CONCLUSION: 1. Expected evolution of right middle cerebral artery ischemic infarct. 2. No acute hemorrhage is identified Garrison Hlot MD CT Angiography 05/31/16 0000 Signed Impressions: Service Date/Time: Tuesday, May 31, 2016 14:08 - CONCLUSION: 1. No evidence of pulmonary embolism. 2. Dense consolidation in the left lower lobe with more patchy infiltrate in the posterior left upper lobe. Tae Marquez MD Head Magnetic Resonance Angiography 05/30/16 Signed Impressions: Service Date/Time: May 11:39 - CONCLUSION: 1. Resolution of previously identified intraluminal filling defect in the mid right middle cerebral artery seen on prior CTA. Currently no hemodynamically significant stenosis identified. Bert Ayoub MD Brain MRI 05/30/16 Signed Impressions: Service Date/Time: May 11:39 - CONCLUSION: 1. Large right MCA distribution infarct with mild mass effect and 3 mm right to left midline shift. Bert Ayoub MD Cerebral Arteriogram 05/29/16 1454 Signed Impressions: Service Date/Time: Sunday, May 29, 2016 15:22 - CONCLUSION: Success right MCA embolectomy as above . Chalo Payne MD Neck CTA 05/28/162026 Signed Impressions: Service Date/Time: Saturday, May 28, 2016 20:32 - CONCLUSION: Mild calcified plaque at the left proximal internal carotid artery. A significant stenosis is not seen. Eriberto Mirza MD Head CTA 05/28/162026 Signed Impressions: Service Date/Time: Saturday, May 28, 2016 20:32 - CONCLUSION: Short focal area of diminished flow potentially representing a thrombus in the midportion of the M1 segment of the right middle cerebral artery. The more peripheral flow at the right middle cerebral artery is diminished when compared to the left side. Eriberto Mirza MD Objective Remarks GENERAL: Middle-aged female, Sedated for safety and vent synchrony. HEENT: Pupils equal, round and reactive. NECK:. Midline. Supple. Orally intubated. CHEST: On mechanical ventilation, good air entry bilaterally, scattered rhonchi , no wheezing CARDIOVASCULAR: Normal rate. Regular rhythm. No appreciable murmurs. No JVD. ABDOMEN: Soft, nontender, nondistended. No guarding. BS active. MUSCULOSKELETAL: No peripheral edema. Warm. Well perfused. NEUROLOGICAL: Sedated, arousable, orally intubated Musculoskeletal strength is 5 out of 5 in right extremities. Left arm and leg grossly weaker than right. Intubated. follows commands. RASS -2. A/P Assessment and Plan Assessment: 50yF with h/o htn, smoking, and COPD with o2 use at night who presented with right MCA CVA status post systemic TPA and clot extraction, remains critically ill this time. continues to fail SBT and has persistent acute respiratory failure. Plan by systems: Neurologic: Acute right MCA CVA s/p TPA s/p mechanical endovascular thrombectomy Cerebral Edema -- q2h neuro checks -- slowly normalize serum sodium -- fent/prop for vent synchrony -- continue gabapentin at lower dose, 300mg daily -- avoid long-acting sedating medications Respiratory: Acute hypercarbic hypoxic respiratory failure COPD Vent bundle Head of bed 30 We'll again do SBT today. Failed yesterday for tachycardia and agitation Wean FiO2 for goal SPO2 greater than 92% --continue methylpred for presumed COPD exacerbation Cardiovascular: Hypotension --hold home metoprolol --likely sedation related --already receiving steroids, though unlikely to be adrenal insufficiency --wean phenylephrine as tolerated for map > 65 mmHg or SBP > 100 mmHg. Renal: Shea for strict I's and O's -- Strict I/Os FEN/GI: Acute protein calorie malnutritionmoderate Hypernatremia Constipation Increase free water to 300 every 4 Start D5W at 50 cc an hour Recheck serum sodium and new Tube feeds at goal Daily BMP ICU electrolyte protocol Bowel regimen with senna and Colace, will add miralax and lactulose for goal BM today. Heme/ID: Leukocytosis Community acquired pneumonia --leukocytosis is at this point likely 2/2 steroid use --s/p 7 days of therapy for moraxella pneumonia -- d/c Zosyn today -- williamson culture for fever. patient has remained afebrile. -- daily CBC Endocrine: Hyperglycemia of critical illness Steroids for presumed COPD exacerbation -- SSI -- will not wean steroids while on vasopressors, once off, will slowly wean. Prophylaxis: GI Prophylaxis Protonix 40 mg IV every 12 hours DVT Prophylaxis -- SCDs SQH, 5000 q12h. Lines: Peripheral IVs Dispo: Remain in the ICU. She remains critically ill with multiple organ systems involved. She continues to have hypotension requiring vasopressor support and continues to fail trials of separation mechanical ventilation. She is off pathway This patient remains critically ill with one or more organ systems which are or may become a threat to life. I have spent in excess of 41 minutes discontinuously in the care and management of this patient. This time is exclusive of procedures, and includes, but is not limited to, evaluation of the patient, review of the medical record, discussions with family, consultants, nursing staff, or respiratory therapy, and documentation in the medical record. Mick Valentino MD Jun 07, 2016 07:11
[2016-06-07] MEDS ORDERED: FUROSEMIDE 20 MG/2 ML VIAL IV PUSH ONE (07:15)
[2016-06-07 07:20] LABS: METAMYELOCYTES 1 % (0-1); NEUTROPHIL # MANUAL DIFF 12.8 TH/MM3 (1.8-7.7); PLATELET ESTIMATE SMEAR NORMAL (NORMAL); PLATELET MORPHOLOGY NORMAL (NORMAL); POLYS (SEG NEUTROPHILS) 88 % (16-70); SCAN/DIFF FINAL DIFF MANUAL; WBC DIFF SAMPLE 100
[2016-06-07] MEDS: BENEPROTEIN POWDER 1 PACK G-TUBE SCH ×3 (08:25→17:51)
[2016-06-07] MEDS: DEXTROSE 5% IN WATE 1000ML INJ 1,000 ML IV SCH (08:26)
[2016-06-07] MEDS: CHLORHEXIDINE 0.12% (ORAL KIT) 15 ML CUP MT SCH ×2 (08:27→20:00)
[2016-06-07] MEDS: PANTOPRAZOLE SODIUM 40 MG VIAL IV SCH (08:27)
[2016-06-07] MEDS: ASPIRIN 81 MG CHEW TAB OG-TUBE SCH (08:28)
[2016-06-07] MEDS: HEPARIN SODIUM - SQ 10,000 UNITS/ML VIAL SQ SCH ×2 (08:28→20:25)
[2016-06-07] MEDS: POLYETHYLENE GLYCOL 17 GM PKG PO SCH ×2 (08:28→20:25)
[2016-06-07] MEDS: DOCUSATE SODIUM 50 MG/SENNA 8.6 MG TAB PO SCH ×2 (08:28→20:25)
[2016-06-07] MEDS: risperiDONE 0.5 MG TAB PO SCH ×2 (08:28→20:24)
[2016-06-07] MEDS: LACTULOSE SYRUP 20 GM/30 ML CUP PO SCH ×2 (08:29→20:25)
[2016-06-07] MEDS: SODIUM CHLORIDE 0.9% FLUSH 5 ML FLUSH IV FLUSH SCH ×2 (08:29→20:26)
[2016-06-07] MEDS: BISACODYL 10 MG SUPP RECTAL SCH (08:29)
[2016-06-07] MEDS ORDERED: niCARdipine INJ 25 MG in SODIUM CHLOR 0.9% 250 ML INJ 250 ML IV SCH (10:00)
[2016-06-07 11:30] LABS: BLOOD GAS CARBOXYHEMOGLOBIN 0.9 % (0-4); BLOOD GAS HCO3 30 mmol/L (22-26); BLOOD GAS METHEMOGLOBIN 0.8 % (0-2); BLOOD GAS O2 HGB SATURATION 94 % (90-100); BLOOD GAS OXYGEN CONTENT 14.9 Vol % (12.0-20.0); BLOOD GAS PCO2 52 mmHg (38-42); BLOOD GAS PO2 90 mmHg (61-120); BLOOD GAS TOTAL HGB 11.1 G/DL (12.0-16.0); TEMP CORR TO 98.6
[2016-06-07 11:31] LABS: CRITICAL VALUE YES; OXYGEN DEVICE VENTILATOR; VENT SETTINGS 5/+5 CPAP
[2016-06-07 11:32] LABS: DRAW SITE RT RADIAL; FIO2 40 %; NUMBER OF ARTERIAL PUNCTURES 1; STAT NO; ULNAR PULSE PRESENT
[2016-06-07] MEDS: RESP: ALBUTEROL 2.5 MG/IPRATROPIUM 0.5 MG NEB (PRN) INH ×2 (11:58→16:12)
[2016-06-07] MEDS: oxyCODONE HCL ORAL CONC 20 MG/ML SYRINGE PO PRN ×2 (12:54→20:25)
[2016-06-07] MEDS: LABETALOL HCL 100 MG/20 ML VIAL IV PUSH PRN ×2 (14:52→23:25)
--- NOTE | 2016-06-07 16:38 | HHI.PR ---
Subjective Allergies: Coded Allergies: No Known Allergies (Verified , 05/28/16) Review of Systems All other ROS: ROS reviewed as documented in chart Exam I&O / VS 06/06/16 06/06/16 06/07/16 15:00 23:00 07:00 Intake Total 1385 ml 858 ml 837 ml Output Total 1175.0 ml 760.0 ml 515 ml Balance 210.0 ml 98.0 ml 322 ml IV Total 1120 ml 602 ml 453 ml Tube Feeding 165 ml 106 ml 124 ml Other 100 ml 150 ml 260 ml Output Urine Total 575 ml 360 ml 340 ml Gastric Drainage Total 400 ml 200 ml 175 ml Tube Feeding Residual Discard 200.0 ml 200.0 ml # Bowel Movements 0 0 0 Vital Signs Date Time Temp Pulse Resp B/P Pulse Ox O2 Delivery O2 Flow Rate FiO2 06/07/16 14:00 104 06/07/16 13:54 18 06/07/16 12:00 108 06/07/16 12:00 98.9 108 22 177/86 94 06/07/16 11:45 95 Nasal Cannula 4 06/07/16 10:00 82 06/07/16 08:17 96 40 06/07/16 08:17 40 06/07/16 08:17 100 Ventilator 40 06/07/16 08:00 62 06/07/16 08:00 99.2 62 16 110/65 99 06/07/16 08:00 40 06/07/16 06:00 82 06/07/16 04:00 98 06/07/16 04:00 99.2 98 16 135/74 96 06/07/16 04:00 60 06/07/16 03:43 99 60 06/07/16 02:00 83 06/07/16 00:32 99 60 06/07/16 00:00 54 06/07/16 00:00 60 06/07/16 00:00 98.0 53 16 111/53 98 06/06/16 22:00 61 06/06/16 20:28 99 60 06/06/16 20:00 98.6 76 17 134/76 100 06/06/16 20:00 62 06/06/16 20:00 60 06/06/16 18:00 56 General: No acute distress, Other (Finance at bedside) Respiratory: Coarse breath sounds Psychiatric: Cooperative Neurologic: Pupils (PERRLA), EOM (Right gaze preference but tracks to left), Facial Symmetry (Left facial droop), Speech (Attempts to verbalize but not intelligible) Motor: Right Upper Extremity (Grossly intact), Left Upper Extremity (0/5), Right Lower Extremity (Grossly intact), Left Lower Extremity (0/5) Sensory Unable to assess Clonus: Negative Objective Micro and Labs Laboratory Tests Test 06/07/16 06/07/16 06/07/16 03:55 11:18 12:40 White Blood Count 14.4 Red Blood Count 2.84 Hemoglobin 9.1 Hematocrit 26.4 Mean Corpuscular Volume 92.9 Mean Corpuscular Hemoglobin 31.9 Mean Corpuscular Hemoglobin 34.4 Concent Red Cell Distribution Width 15.1 Platelet Count 357 Mean Platelet Volume 7.8 Neutrophils (%) (Auto) 87.7 Lymphocytes (%) (Auto) 7.7 Monocytes (%) (Auto) 4.1 Eosinophils (%) (Auto) 0.0 Basophils (%) (Auto) 0.5 Neutrophils # (Auto) 12.6 Lymphocytes # (Auto) 1.1 Monocytes # (Auto) 0.6 Eosinophils # (Auto) 0.0 Basophils # (Auto) 0.1 CBC Comment AUTO DIFF Differential Total Cells 100 Counted Neutrophils % (Manual) 88 Lymphocytes % 9 Monocytes % 2 Neutrophils # (Manual) 12.8 Metamyelocytes 1 Differential Comment FINAL DIFF MANUAL Platelet Estimate NORMAL Platelet Morphology Comment NORMAL Red Cell Morphology Comment NORMAL Sodium Level 152 149 Potassium Level 3.5 Chloride Level 115 Carbon Dioxide Level 29.9 Anion Gap 7 Blood Urea Nitrogen 23 Creatinine 0.81 Estimat Glomerular Filtration 74 Rate Random Glucose 145 Calcium Level 8.5 Total Bilirubin 0.3 Aspartate Amino Transf 44 (AST/SGOT) Alanine Aminotransferase 30 (ALT/SGPT) Alkaline Phosphatase 256 Total Protein 6.3 Albumin 2.0 Blood Gas Puncture Site RT RADIAL Blood Gas Patient Temperature 98.6 Blood Gas HCO3 30 Blood Gas Base Excess 5.0 Blood Gas Oxygen Saturation 94 Arterial Blood pH 7.38 Arterial Blood Partial 52 Pressure CO2 Arterial Blood Partial 90 Pressure O2 Arterial Blood Oxygen Content 14.9 Arterial Blood 0.9 Carboxyhemoglobin Arterial Blood Methemoglobin 0.8 Blood Gas Hemoglobin 11.1 Oxygen Delivery Device VENTILATOR Blood Gas Ventilator Setting 5/+5 CPAP Blood Gas Inspired Oxygen 40 Assessment and Plan Diagnosis: (1) Acute ischemic right MCA stroke Assessment 1. Right MCA ischemic stroke status post TPA and right MCA embolectomy with left hemiplegia, dysphagia 2. Asthma 3. COPD: Using oxygen nasal cannula at home at bedtime 4. Migraine 5. History tubal ligation Plan 1. Physical therapy currently providing range of motion. To progress to mobilization when medical and neurological status allows 2. Speech therapy has evaluated swallow and currently NPO 3. Occupational therapy for ADLs and currently dependent. ROM in process 4. Anticipate patient will likely need ongoing rehabilitation and will follow in conjunction with case management 5. Will follow while hospitalized and at discharge Lubna Caraballo MD Jun 07, 2016 16:38
[2016-06-07] MEDS: ATORVASTATIN 40 MG TAB PO SCH (20:24)
[2016-06-07] MEDS: GABAPENTIN 300 MG CAP PO SCH (20:24)
[2016-06-07] MEDS ORDERED: PILL SPLITTER OTHER PRN (23:30)
[2016-06-08] VITALS (14 sets, daily range): BP systolic 122–173; BP diastolic 59–85; PULSE 54–110; RESP 16–27; TEMP 97.6–99.3; O2SAT 91–98
[2016-06-08] MEDS: oxyCODONE HCL ORAL CONC 20 MG/ML SYRINGE PO PRN ×2 (00:25→19:51)
[2016-06-08] MEDS: risperiDONE 0.25 MG TAB PO PRN (00:25)
[2016-06-08] MEDS: DEXTROSE 5% IN WATE 1000ML INJ 1,000 ML IV SCH ×2 (02:26→21:53)
[2016-06-08] MEDS: CHLORHEXIDINE GLUCONATE 2 % 1 PACK (2 CLOTHS) TOP SCH (03:33)
[2016-06-08] MEDS: FREE WATER G-TUBE SCH ×6 (03:33→23:41)
[2016-06-08 04:11] LABS: HEMATOCRIT 22.8 % (35.0-46.0); MEAN CORPUSCULAR HEMOGLOBIN 32.8 PG (27.0-34.0); MEAN CORPUSCULAR HGB CONC 35.2 % (32.0-36.0); PLATELET COUNT 354 TH/MM3 (150-450); RED BLOOD COUNT 2.45 MIL/MM3 (4.00-5.30); RED CELL DISTRIBUTION WIDTH 15.3 % (11.6-17.2); REVIEW FLAG FINAL; WHITE BLOOD COUNT 12.3 TH/MM3 (4.0-11.0)
[2016-06-08 04:29] LABS: BICARBONATE 33.4 MEQ/L (21.0-32.0); POTASSIUM 3.9 MEQ/L (3.5-5.1)
[2016-06-08] MEDS: METOPROLOL TARTRATE 25 MG TAB PO SCH ×4 (05:11→21:49)
[2016-06-08] MEDS: INSULIN NovoLIN REGULAR SUPPLEMENTAL SCALE SQ SCH ×4 (05:48→23:39)
[2016-06-08] MEDS ORDERED: FUROSEMIDE 40 MG/4 ML VIAL IV PUSH ONE (06:15)
--- NOTE | 2016-06-08 06:55 | HHI.CCPN ---
Subjective Remarks/Hospital Course This is a 50-year-old female who presented to the emergency department with history of left arm and leg weakness and facial droop. Symptoms started approximately 25 minutes prior to ER arrival. She admits to smoking and drinking alcohol at the time of first and onset. NIH stroke scale on arrival was 15. Noncontrasted head CT was negative for acute bleed. Systemic TPA was administered within the first hour of symptom onset. CT angiography had not demonstrated possible flow deficit in the right MCA territory. Initially plans for possible endovascular thrombectomy, however repeat neuro exam of 45 minutes to complete resolution of symptoms. She is admitted to the ICU for close monitoring and further evaluation of her ischemic stroke. 05/29: Symptoms resolved after tPA last evening. Stable hemodynamics. 05/30: Persistent left arm weakness but much improved. SBP > 150 with Neosynephrine. 05/31: Persistent hypoxemia this morning. Patient will not wear face mask and does not clear secretions well. Will need to intubate to protect airway and oxygenate adequately. Discussed with her daughter at the bedside. 06/01: Unable to wean ventilator. Right hemispheric edema slightly increased, 06/02: Unable to wean ventilator. 06/03: Remains sedated, orally intubated on mechanical ventilation. Awaiting sedation vacation. 06/04: Remains sedated, orally intubated on mechanical ventilation. On Naveen- Synephrine to achieve SBP 150. Tolerating tube feeds. 06/05: Sedated, orally intubated on mechanical ventilation. Tolerating tube feeds. Naveen-Synephrine being titrated down. 06/06: passes SAT and follows commands, but gets agitated on SBT and fails for tachypnea and agitation. weaning down on phenylephrine infusion. neuro exam stable with SBP > 100. still hypernatremic. 06/07: failed SBT yesterday. initially weaned off naveen, but overnight back on for hypotension. hypernatremia worse despite d/c 2% nacl. 06/08: extubated successfully yesterday. doing well. hypotension has resolved. sodium downtrending. failed swallow eval. Objective Vital Signs Date Time Temp Pulse Resp B/P Pulse Ox O2 Delivery O2 Flow Rate FiO2 06/08/16 06:00 84 06/08/16 04:00 98.6 16 131/59 97 06/07/16 20:43 Nasal Cannula 3.00 06/07/16 08:17 40 Intake and Output 06/07/16 06/07/16 06/08/16 08:00 16:00 00:00 Intake Total 837 ml 1416 ml 812 ml Output Total 515.0 ml 2350 ml 690 ml Balance 322.0 ml -934 ml 122 ml Result Diagram: 06/08/16 0346 06/08/16 0346 Other Results Laboratory Tests Test 06/07/16 11:18 Blood Gas Puncture Site RT RADIAL Blood Gas Patient Temperature 98.6 Blood Gas HCO3 30 mmol/L (22-26) Blood Gas Base Excess 5.0 mmol/L (-2-2) Blood Gas Oxygen Saturation 94 % (90-100) Arterial Blood pH 7.38 (7.380-7.420) Arterial Blood Partial 52 mmHg (38-42) Pressure CO2 Arterial Blood Partial 90 mmHg Pressure O2 (61-120) Arterial Blood Oxygen Content 14.9 Vol % (12.0-20.0) Arterial Blood 0.9 % (0-4) Carboxyhemoglobin Arterial Blood Methemoglobin 0.8 % (0-2) Blood Gas Hemoglobin 11.1 G/DL (12.0-16.0) Oxygen Delivery Device VENTILATOR Blood Gas Ventilator Setting 5/+5 CPAP Blood Gas Inspired Oxygen 40 % Imaging Last Impressions Chest X-Ray 06/03/16 0000 Signed Impressions: Service Date/Time: Friday, June 03, 2016 08:46 - CONCLUSION: Stable chest Noah Parekh MD Head CT 06/02/16 0000 Signed Impressions: Service Date/Time: Thursday, June 02, 2016 04:59 - CONCLUSION: 1. Expected evolution of right middle cerebral artery ischemic infarct. 2. No acute hemorrhage is identified Garrison Holt MD CT Angiography 05/31/16 0000 Signed Impressions: Service Date/Time: Tuesday, May 31, 2016 14:08 - CONCLUSION: 1. No evidence of pulmonary embolism. 2. Dense consolidation in the left lower lobe with more patchy infiltrate in the posterior left upper lobe. Tae Marquez MD Head Magnetic Resonance Angiography 05/30/16 0000 Signed Impressions: Service Date/Time: May 11:39 - CONCLUSION: 1. Resolution of previously identified intraluminal filling defect in the mid right middle cerebral artery seen on prior CTA. Currently no hemodynamically significant stenosis identified. Bert Ayoub MD Brain MRI 05/30/16 0000 Signed Impressions: Service Date/Time: May 11:39 - CONCLUSION: 1. Large right MCA distribution infarct with mild mass effect and 3 mm right to left midline shift. Bert Ayoub MD Cerebral Arteriogram 05/29/16 1454 Signed Impressions: Service Date/Time: Sunday, May 29, 2016 15:22 - CONCLUSION: Success right MCA embolectomy as above . Chalo Payne MD Neck CTA 05/28/162026 Signed Impressions: Service Date/Time: Saturday, May 28, 2016 20:32 - CONCLUSION: Mild calcified plaque at the left proximal internal carotid artery. A significant stenosis is not seen. Eriberto Mirza MD Head CTA 05/28/162026 Signed Impressions: Service Date/Time: Saturday, May 28, 2016 20:32 - CONCLUSION: Short focal area of diminished flow potentially representing a thrombus in the midportion of the M1 segment of the right middle cerebral artery. The more peripheral flow at the right middle cerebral artery is diminished when compared to the left side. Eriberto Mirza MD Objective Remarks GENERAL: Middle-aged female, lying in bed HEENT: Pupils equal, round and reactive. NECK:. Midline. Supple. CHEST: equal chest rise. good air entry. clear to auscultation. CARDIOVASCULAR: Normal rate. Regular rhythm. No appreciable murmurs. No JVD. ABDOMEN: Soft, nontender, nondistended. No guarding. BS active. MUSCULOSKELETAL: No peripheral edema. Warm. Well perfused. NEUROLOGICAL: RASS -1. follows commands on right. A/P Assessment and Plan Assessment: 50yF with h/o htn, smoking, and COPD with o2 use at night who presented with right MCA CVA status post systemic TPA and clot extraction. Now extubated and clinically improving. Plan by systems: Neurologic: Acute right MCA CVA s/p TPA s/p mechanical endovascular thrombectomy Cerebral Edema -- liberalize to q4h neuro checks -- slowly normalize serum sodium -- fent/prop for vent synchrony -- continue gabapentin at lower dose, 300mg daily -- avoid long-acting sedating medications Respiratory: Acute hypercarbic hypoxic respiratory failure- resolving. COPD --wean o2 by CA for goal spo2 > 90%. --methylpred taper presumed COPD exacerbation Cardiovascular: Hypotension- resolved. Hypertension --restart home metoprolol --add norvasc 10mg po daily. --goal sbp < 160 Renal: Shea for strict I's and O's while we are actively diuresing patient. -- Strict I/Os FEN/GI: Acute protein calorie malnutritionmoderate Hypernatremia Constipation Metabolic alkalosis acute Intravascular volume overload continue free water to 300 every 4 continue D5W at 50 cc an hour repeat serum sodium at 1200 Tube feeds at goal Daily [facility] ICU electrolyte protocol Bowel regimen with senna and Colace, successful BM yesterday. -- diamox 500mg iv q8h x 3 doses for alkalosis -- lasix 20mg iv x 1 for volume overload and in the setting of aggressive free water replacements to normalize serum sodium. Heme/ID: Leukocytosis Community acquired pneumonia- resolved. --leukocytosis is at this point likely 2/2 steroid use --s/p 7 days of therapy for moraxella pneumonia with Zosyn. -- williamson culture for fever. patient has remained afebrile. -- daily CBC Endocrine: Hyperglycemia of critical illness Steroids for presumed COPD exacerbation -- SSI -- taper methylpred. Prophylaxis: GI Prophylaxis d/c iv protonix, start po pepcid. DVT Prophylaxis -- SCDs SQH, 5000 q12h. Lines: Peripheral IVs Dispo: we will consult the hospitalist service. she continues to improve. she is nearing the time to transfer out of ICU. Mick Valentino MD Jun 08, 2016 06:55
[2016-06-08] MEDS: SODIUM CHLORIDE 0.9% FLUSH 5 ML FLUSH IV FLUSH SCH ×2 (09:00→19:49)
[2016-06-08] MEDS: BENEPROTEIN POWDER 1 PACK G-TUBE SCH ×3 (09:00→17:54)
[2016-06-08] MEDS: BISACODYL 10 MG SUPP RECTAL SCH (09:00)
[2016-06-08] MEDS: LACTULOSE SYRUP 20 GM/30 ML CUP PO SCH ×2 (09:00→19:50)
[2016-06-08] MEDS: POLYETHYLENE GLYCOL 17 GM PKG PO SCH ×2 (09:00→19:50)
[2016-06-08] MEDS: risperiDONE 0.5 MG TAB PO SCH ×2 (10:07→19:50)
[2016-06-08] MEDS: DOCUSATE SODIUM 50 MG/SENNA 8.6 MG TAB PO SCH ×2 (10:07→19:50)
[2016-06-08] MEDS: ASPIRIN 81 MG CHEW TAB OG-TUBE SCH (10:07)
[2016-06-08] MEDS: methylPREDNISolone SOD SUCC 40 MG/1 ML VIAL IV PUSH SCH (10:07)
[2016-06-08] MEDS: HEPARIN SODIUM - SQ 10,000 UNITS/ML VIAL SQ SCH ×2 (10:07→19:49)
[2016-06-08] MEDS: CHLORHEXIDINE 0.12% (ORAL KIT) 15 ML CUP MT SCH ×2 (10:12→19:49)
[2016-06-08] MEDS: FAMOTIDINE SUSP 40 MG/5 ML NG SCH ×2 (10:19→19:49)
[2016-06-08] MEDS: GABAPENTIN 300 MG CAP PO SCH (19:50)
[2016-06-08] MEDS: ATORVASTATIN 40 MG TAB PO SCH (19:50)
[2016-06-09] VITALS (16 sets, daily range): BP systolic 124–149; BP diastolic 68–91; PULSE 62–122; RESP 22–29; TEMP 98.3–99.2; O2SAT 91–100
[2016-06-09] MEDS: FREE WATER G-TUBE SCH ×5 (03:49→20:00)
[2016-06-09] MEDS: CHLORHEXIDINE GLUCONATE 2 % 1 PACK (2 CLOTHS) TOP SCH (03:49)
[2016-06-09 03:57] LABS: HEMATOCRIT 28.8 % (35.0-46.0); MEAN CELL VOLUME 92.3 FL (80.0-100.0); MEAN CORPUSCULAR HEMOGLOBIN 32.2 PG (27.0-34.0); MEAN CORPUSCULAR HGB CONC 34.9 % (32.0-36.0); PLATELET COUNT 442 TH/MM3 (150-450); RED BLOOD COUNT 3.12 MIL/MM3 (4.00-5.30); RED CELL DISTRIBUTION WIDTH 15.3 % (11.6-17.2); REVIEW FLAG FINAL
[2016-06-09 04:22] LABS: BICARBONATE 26.6 MEQ/L (21.0-32.0)
[2016-06-09 04:27] LABS: POTASSIUM 2.8 MEQ/L (3.5-5.1)
[2016-06-09] MEDS: RESP: ALBUTEROL 2.5 MG/IPRATROPIUM 0.5 MG NEB (PRN) INH (04:31)
[2016-06-09] MEDS: METOPROLOL TARTRATE 25 MG TAB PO SCH ×3 (05:29→20:46)
[2016-06-09 05:38] LABS: BLOOD GAS CARBOXYHEMOGLOBIN 1.1 % (0-4); BLOOD GAS HCO3 23 mmol/L (22-26); BLOOD GAS METHEMOGLOBIN 0.8 % (0-2); BLOOD GAS O2 HGB SATURATION 90 % (90-100); BLOOD GAS OXYGEN CONTENT 17.3 Vol % (12.0-20.0); BLOOD GAS PCO2 37 mmHg (38-42); BLOOD GAS PO2 67 mmHg (61-120); BLOOD GAS TOTAL HGB 13.7 G/DL (12.0-16.0); TEMP CORR TO 98.6
[2016-06-09 05:39] LABS: CRITICAL VALUE NO; DRAW SITE RT RADIAL; FIO2 50 %; LITER FLOW 6 L/M; NUMBER OF ARTERIAL PUNCTURES 1; OXYGEN DEVICE Venti Mask; STAT YES; ULNAR PULSE PRESENT
[2016-06-09] MEDS: INSULIN NovoLIN REGULAR SUPPLEMENTAL SCALE SQ SCH ×3 (06:00→17:21)
[2016-06-09] MEDS: CHLORHEXIDINE 0.12% (ORAL KIT) 15 ML CUP MT SCH ×2 (08:00→20:00)
[2016-06-09] MEDS: BENEPROTEIN POWDER 1 PACK G-TUBE SCH ×3 (08:50→17:07)
[2016-06-09] MEDS: FAMOTIDINE SUSP 40 MG/5 ML NG SCH ×2 (08:51→20:47)
[2016-06-09] MEDS: SODIUM CHLORIDE 0.9% FLUSH 5 ML FLUSH IV FLUSH SCH ×2 (08:51→20:46)
[2016-06-09] MEDS: LACTULOSE SYRUP 20 GM/30 ML CUP PO SCH ×2 (08:52→20:47)
[2016-06-09] MEDS: POLYETHYLENE GLYCOL 17 GM PKG PO SCH (08:52)
[2016-06-09] MEDS: methylPREDNISolone SOD SUCC 40 MG/1 ML VIAL IV PUSH SCH (08:53)
[2016-06-09] MEDS: risperiDONE 0.5 MG TAB PO SCH ×2 (08:54→20:46)
[2016-06-09] MEDS: BISACODYL 10 MG SUPP RECTAL SCH (08:54)
[2016-06-09] MEDS: DOCUSATE SODIUM 50 MG/SENNA 8.6 MG TAB PO SCH ×2 (08:54→20:47)
[2016-06-09] MEDS: HEPARIN SODIUM - SQ 10,000 UNITS/ML VIAL SQ SCH ×2 (08:54→20:48)
[2016-06-09] MEDS: ASPIRIN 81 MG CHEW TAB OG-TUBE SCH (08:54)
[2016-06-09] MEDS ORDERED: SODIUM CHLOR 0.9% 1000 ML INJ 1,000 ML IV SCH (18:00)
[2016-06-09] MEDS: ATORVASTATIN 40 MG TAB PO SCH (20:46)
[2016-06-09] MEDS: GABAPENTIN 300 MG CAP PO SCH (20:46)
[2016-06-09] MEDS: oxyCODONE HCL ORAL CONC 20 MG/ML SYRINGE PO PRN (20:47)
--- NOTE | 2016-06-09 21:07 | HHI.PR ---
Subjective Remarks Patient seen today around 4 PM. Slurred speech, but improvement per nursing. Denies pain. Objective Vital Signs Date Time Temp Pulse Resp B/P Pulse Ox O2 Delivery O2 Flow Rate FiO2 06/09/16 18:00 106 06/09/16 16:00 77 06/09/16 16:00 99.2 77 22 149/81 100 06/09/16 14:00 79 06/09/16 12:00 100 06/09/16 12:00 98.3 100 29 142/81 92 06/09/16 10:00 88 06/09/16 09:35 95 Nasal Cannula 4.00 06/09/16 08:00 96 06/09/16 08:00 98.4 96 23 144/79 91 06/09/16 07:04 62 06/09/16 06:00 65 06/09/16 05:30 93 Venturi Mask 6.00 50 06/09/16 04:00 98.3 65 28 124/68 94 06/09/16 04:00 70 06/09/16 02:00 67 06/09/16 00:00 66 06/09/16 00:00 98.3 64 28 131/71 97 06/08/16 22:00 64 06/08/16 21:33 98 Nasal Cannula 4.00 I/O 06/08/16 06/08/16 06/08/16 06/09/16 06/09/16 06/09/16 07:00 15:00 23:00 07:00 15:00 23:00 Intake Total 1099 ml 2495 ml 644 ml 411 ml Output Total 540 ml 8100 ml 910 ml 1914 ml Balance 559 ml -5605 ml -266 ml -1503 ml IV Total 220 ml 1048 ml 382 ml 109 ml Tube Feeding 279 ml 547 ml 262 ml 302 ml Other 600 ml 900 ml Output Urine Total 460 ml 7960 ml 850 ml 1850 ml Stool Total 4 ml Gastric Drainage Total 80 ml 140 ml 60 ml 60 ml # Bowel Movements 1 1 0 0 Result Diagram: 06/09/16 0345 06/09/16 0912 Objective Remarks GENERAL: Patient sitting up in bed. Appears comfortable. SKIN: Warm and dry. HEAD: Normocephalic. EYES: No scleral icterus. No injection or drainage. NECK: Supple, trachea midline. No JVD or lymphadenopathy. CARDIOVASCULAR: Regular rate and rhythm without murmurs, gallops, or rubs. RESPIRATORY: Breath sounds equal bilaterally. No accessory muscle use. GASTROINTESTINAL: Abdomen soft, non-tender, nondistended. MUSCULOSKELETAL: No cyanosis, or edema. Patient not moving left side. Strength intact on the right. BACK: Nontender without obvious deformity. No CVA tenderness. A/P Assessment and Plan ==== 06/10/16 Patient continues improving. -Continues on NG tube feeds. We'll need to discuss PEG tube with family. -Hypokalemia this morning resolved. Sodium decreased. Decrease free water flushes. Dietary consult. Hyponatremia. Decrease free water flushes Assessment: 50yF with h/o htn, smoking, and COPD with o2 use at night who presented with right MCA CVA status post systemic TPA and clot extraction. Now extubated and clinically improving. //Acute right MCA CVA //s/p TPA //s/p mechanical endovascular thrombectomy //Cerebral Edema --Continue q4h neuro checks -- continue gabapentin 300mg daily -- avoid long-acting sedating medications -Continues on tube feeds. Failed swallow. We'll need to discuss PEG tube with family. Respiratory: //Acute hypercarbic hypoxic respiratory failure- resolving. //COPD --wean o2 by [place] for goal spo2 > 90%. --Discontinue methyl Pred. Tinea monitor respiratory status Cardiovascular: //Hypotension- resolved. //Hypertension --Continue home metoprololIV for now. --Continue norvasc 10mg po daily. --goal sbp < 160 Renal: Shea for strict I's and O's while we are actively diuresing patient. -- Strict I/Os FEN/GI: //Acute protein calorie malnutritionmoderate //Hypernatremia //Constipation //Metabolic alkalosis //acute Intravascular volume overload 06/09 Hypernatremia resolved. Decrease. Water flushes. Heme/ID: //Leukocytosis //Community acquired pneumonia- resolved status post antibiotics. --Leukocytosis resolved. Endocrine: //Hyperglycemia of critical illness //Steroids for presumed COPD exacerbation -- SSI --Discontinue methylprednisolone. SPECT hyperglycemia to improve with discontinuation of methylprednisolone. Prophylaxis: //GI Prophylaxis- cont pepcid due to risk of niru ulcer. //DVT Prophylaxis -- SCDs SQH, 5000 q12h. Discharge Planning Patient may need PEG tube. Weight speech reevaluation Rehabilitation medicine following. Surjit Quintanilla MD Jun 09, 2016 21:07
[2016-06-10] VITALS (12 sets, daily range): BP systolic 83–129; BP diastolic 52–86; PULSE 58–107; RESP 16–20; TEMP 97.6–99.3; O2SAT 92–100
[2016-06-10] MEDS: FREE WATER G-TUBE SCH ×6 (03:52→20:00)
[2016-06-10] MEDS: CHLORHEXIDINE GLUCONATE 2 % 1 PACK (2 CLOTHS) TOP SCH (03:53)
[2016-06-10] MEDS: oxyCODONE HCL ORAL CONC 20 MG/ML SYRINGE PO PRN (03:53)
[2016-06-10 05:09] LABS: HEMATOCRIT 32.8 % (35.0-46.0); MEAN CELL VOLUME 91.1 FL (80.0-100.0); MEAN CORPUSCULAR HEMOGLOBIN 31.1 PG (27.0-34.0); MEAN CORPUSCULAR HGB CONC 34.1 % (32.0-36.0); PLATELET COUNT 531 TH/MM3 (150-450); REVIEW FLAG FINAL; WHITE BLOOD COUNT 11.5 TH/MM3 (4.0-11.0)
[2016-06-10 05:34] LABS: BICARBONATE 24.7 MEQ/L (21.0-32.0); POTASSIUM 3.3 MEQ/L (3.5-5.1)
[2016-06-10] MEDS: INSULIN NovoLIN REGULAR SUPPLEMENTAL SCALE SQ SCH ×4 (05:54→18:51)
[2016-06-10] MEDS: METOPROLOL TARTRATE 25 MG TAB PO SCH ×3 (06:00→22:00)
[2016-06-10] MEDS: LACTULOSE SYRUP 20 GM/30 ML CUP PO SCH ×2 (09:00→21:00)
[2016-06-10] MEDS: DOCUSATE SODIUM 50 MG/SENNA 8.6 MG TAB PO SCH ×2 (09:00→21:00)
[2016-06-10] MEDS: BISACODYL 10 MG SUPP RECTAL SCH (09:00)
[2016-06-10] MEDS: risperiDONE 0.5 MG TAB PO SCH ×2 (09:11→21:00)
[2016-06-10] MEDS: methylPREDNISolone SOD SUCC 40 MG/1 ML VIAL IV PUSH SCH (09:11)
[2016-06-10] MEDS: HEPARIN SODIUM - SQ 10,000 UNITS/ML VIAL SQ SCH ×2 (09:11→21:00)
[2016-06-10] MEDS: ASPIRIN 81 MG CHEW TAB OG-TUBE SCH (09:11)
[2016-06-10] MEDS: BENEPROTEIN POWDER 1 PACK G-TUBE SCH ×3 (09:12→18:00)
[2016-06-10] MEDS: FAMOTIDINE SUSP 40 MG/5 ML NG SCH ×2 (09:12→21:00)
[2016-06-10] MEDS: CHLORHEXIDINE 0.12% (ORAL KIT) 15 ML CUP MT SCH ×2 (09:13→20:00)
[2016-06-10] MEDS: SODIUM CHLORIDE 0.9% FLUSH 5 ML FLUSH IV FLUSH SCH ×2 (09:13→21:00)
[2016-06-10] MEDS ORDERED: POTASSIUM CHLORIDE 25 MEQ EFFERVESCENT TAB NG ONE (10:00)
[2016-06-10] MEDS: RESP: ALBUTEROL 2.5 MG/IPRATROPIUM 0.5 MG NEB (PRN) INH (15:43)
--- NOTE | 2016-06-10 19:38 | HHI.PR ---
Subjective Remarks Patient seen this afternoon around 3 PM. Patient reportedly passed her swallow evaluation, but has not been eating much per nursing. He has been having a bit of a nonproductive cough, however breathing comfortably. On room air. Denies any pain. Objective Vital Signs Date Time Temp Pulse Resp B/P Pulse Ox O2 Delivery O2 Flow Rate FiO2 06/10/16 16:00 99.3 85 20 83/52 92 06/10/16 14:00 107 06/10/16 12:00 104 06/10/16 12:00 99.3 98 16 118/74 96 06/10/16 10:00 77 06/10/16 08:09 94 21 06/10/16 08:00 89 06/10/16 08:00 98.3 89 16 107/61 100 06/10/16 06:00 89 06/10/16 04:00 98.0 58 16 112/66 100 06/10/16 04:00 104 06/10/16 02:00 80 06/10/16 00:00 104 06/10/16 00:00 97.6 104 20 123/70 97 06/09/16 22:06 98 Nasal Cannula 4.00 06/09/16 22:00 94 06/09/16 20:00 122 06/09/16 20:00 98.9 122 28 144/91 98 I/O 06/09/16 06/09/16 06/09/16 06/10/16 06/10/16 06/10/16 07:00 15:00 23:00 07:00 15:00 23:00 Intake Total 644 ml 826 ml 576 ml 521 ml Output Total 910 ml 2914 ml 500 ml 425 ml Balance -266 ml -2088 ml 76 ml 96 ml IV Total 382 ml 144 ml 40 ml 40 ml Tube Feeding 262 ml 502 ml 286 ml 241 ml Tube Irrigant 60 ml Other 120 ml 250 ml 240 ml Output Urine Total 850 ml 2850 ml 500 ml 425 ml Stool Total 4 ml Gastric Drainage Total 60 ml 60 ml # Bowel Movements 0 1 0 0 Result Diagram: 06/10/1644906/10/16449 Objective Remarks GENERAL: Patient sitting up in bed. Appears comfortable. SKIN: Warm and dry. HEAD: Normocephalic. EYES: No scleral icterus. No injection or drainage. NECK: Supple, trachea midline. No JVD. CARDIOVASCULAR: Regular rate and rhythm without murmurs, gallops, or rubs. RESPIRATORY: Breath sounds equal bilaterally. No accessory muscle use. GASTROINTESTINAL: Abdomen soft, non-tender, nondistended. MUSCULOSKELETAL: No cyanosis, or edema. Patient not moving left side. Strength intact on the right.unchanged from yesterday. BACK: Nontender without obvious deformity. No CVA tenderness. A/P Assessment and Plan ==== 06/10/16 Patient continues improving. -Patient passed swallow evaluation. Slight cough today. Respiratory status stable on room air. We'll order chest x-ray. -Hypokalemia replaced again. Sodium stable Assessment: 50yF with h/o htn, smoking, and COPD with o2 use at night who presented with right MCA CVA status post systemic TPA and clot extraction. Now extubated and clinically improving. //Acute right MCA CVA //s/p TPA //s/p mechanical endovascular thrombectomy //Cerebral Edema --Continue q4h neuro checks -- continue gabapentin 300mg daily -- avoid long-acting sedating medications -Continues on tube feeds. Failed swallow. We'll need to discuss PEG tube with family. 06/10. Swallow evaluation. Slight cough afterwards. Otherwise breathing currently. X -ray at- Respiratory: //Acute hypercarbic hypoxic respiratory failure- resolving. //COPD --wean o2 by [place] for goal spo2 > 90%. --Discontinue methyl Pred. Continue to monitor respiratory status Cardiovascular: //Hypotension- resolved. //Hypertension --Continue home metoprololIV for now. --Continue norvasc 10mg po daily. --goal sbp < 160 Renal: Shea for strict I's and O's while we are actively diuresing patient. -- Strict I/Os FEN/GI: //Acute protein calorie malnutritionmoderate //Hypernatremia //Constipation //Metabolic alkalosis //acute Intravascular volume overload 06/09 Hypernatremia resolved. Decrease. Water flushes. Heme/ID: //Leukocytosis //Community acquired pneumonia- resolved status post antibiotics. --Leukocytosis resolved. Endocrine: //Hyperglycemia of critical illness //Steroids for presumed COPD exacerbation -- SSI --Discontinue methylprednisolone. SPECT hyperglycemia to improve with discontinuation of methylprednisolone. Prophylaxis: //GI Prophylaxis- cont pepcid due to risk of niru ulcer. //DVT Prophylaxis -- SCDs SQH, 5000 q12h. Discharge Planning patient passed swallow evaluation. Monitor on by mouth diet. Rehabilitation medicine following. Surjit Quintanilla MD Jun 10, 2016 19:38
--- NOTE | 2016-06-10 20:13 | RADRPT ---
EXAM DATE/TIME: 06/10/2016 19:51 [facility] COMPARISON: CHEST SINGLE AP, June 03, 2016, 8:46. INDICATIONS : Cough. MEDICAL HISTORY : Chronic obstructive pulmonary disease. SURGICAL HISTORY : None. ENCOUNTER: Initial ACUITY: 1 day PAIN SCORE: 0/10 LOCATION: Bilateral chest FINDINGS: Endotracheal tube has been removed. There is mild residual airspace disease in the left upper lobe. L ungs are otherwise clear. Nasogastric tube and right PICC line remain in place. CONCLUSION: Mild residual airspace disease left upper lobe. Status post extubation. No acute findings. Arjun Cancino MD on June 10, 2016 at 20:11 Board Certified Radiologist. This report was verified electronically.
[2016-06-10] MEDS: ATORVASTATIN 40 MG TAB PO SCH (21:00)
[2016-06-10] MEDS: GABAPENTIN 300 MG CAP PO SCH (21:00)
[2016-06-11] VITALS (7 sets, daily range): BP systolic 120–143; BP diastolic 71–94; PULSE 80–105; RESP 18–22; TEMP 98–98.4; O2SAT 92–98
[2016-06-11] MEDS: INSULIN NovoLIN REGULAR SUPPLEMENTAL SCALE SQ SCH ×4 (00:30→18:00)
[2016-06-11] MEDS: CHLORHEXIDINE GLUCONATE 2 % 1 PACK (2 CLOTHS) TOP SCH (04:00)
[2016-06-11] MEDS: FREE WATER G-TUBE SCH ×6 (04:00→20:00)
[2016-06-11] MEDS: METOPROLOL TARTRATE 25 MG TAB PO SCH ×3 (06:00→22:10)
[2016-06-11 07:14] LABS: AUTOMATED NEUTROPHIL # 11.4 TH/MM3 (1.8-7.7); BASOPHIL # 0.1 TH/MM3 (0-0.2); BASOPHIL % 0.9 % (0.0-2.0); EOSINOPHIL % 0.2 % (0.0-4.0); HEMO FLAGS DIFF FINAL; LYMPH % 17.8 % (9.0-44.0); LYMPHOCYTE # 2.7 TH/MM3 (1.0-4.8); MEAN CELL VOLUME 90.5 FL (80.0-100.0); MEAN CORPUSCULAR HEMOGLOBIN 30.9 PG (27.0-34.0); MEAN CORPUSCULAR HGB CONC 34.2 % (32.0-36.0); MONO % 6.4 % (0.0-8.0); NEUT % 74.7 % (16.0-70.0); PLATELET COUNT 638 TH/MM3 (150-450); RED BLOOD COUNT 4.09 MIL/MM3 (4.00-5.30); RED CELL DISTRIBUTION WIDTH 14.8 % (11.6-17.2); WHITE BLOOD COUNT 15.2 TH/MM3 (4.0-11.0)
[2016-06-11 07:28] LABS: BICARBONATE 25.4 MEQ/L (21.0-32.0); POTASSIUM 3.4 MEQ/L (3.5-5.1)
[2016-06-11] MEDS: CHLORHEXIDINE 0.12% (ORAL KIT) 15 ML CUP MT SCH ×2 (08:00→20:00)
[2016-06-11] MEDS: FAMOTIDINE SUSP 40 MG/5 ML NG SCH ×2 (08:23→22:10)
[2016-06-11] MEDS: risperiDONE 0.5 MG TAB PO SCH ×2 (08:24→22:10)
[2016-06-11] MEDS: ASPIRIN 81 MG CHEW TAB OG-TUBE SCH (08:24)
[2016-06-11] MEDS: methylPREDNISolone SOD SUCC 40 MG/1 ML VIAL IV PUSH SCH (08:25)
[2016-06-11] MEDS: HEPARIN SODIUM - SQ 10,000 UNITS/ML VIAL SQ SCH ×2 (08:26→22:10)
[2016-06-11] MEDS: DOCUSATE SODIUM 50 MG/SENNA 8.6 MG TAB PO SCH ×2 (08:27→22:10)
[2016-06-11] MEDS: BISACODYL 10 MG SUPP RECTAL SCH (08:27)
[2016-06-11] MEDS: LACTULOSE SYRUP 20 GM/30 ML CUP PO SCH ×2 (08:27→22:10)
[2016-06-11] MEDS: SODIUM CHLORIDE 0.9% FLUSH 5 ML FLUSH IV FLUSH SCH ×2 (08:29→22:10)
[2016-06-11] MEDS: BENEPROTEIN POWDER 1 PACK G-TUBE SCH ×3 (08:30→18:00)
--- NOTE | 2016-06-11 15:57 | HHI.PR ---
Subjective Remarks Follow-up for CVA and dysphagia. The patient states her lungs hurt. Is having some shortness of breath. She is oriented to person, place, and time. She does not want a tube in her stomach. She would like her daughter's help making medical decisions. Objective Vitals Vital Signs Date Time Temp Pulse Resp B/P Pulse Ox O2 Delivery O2 Flow Rate FiO2 06/11/16 12:00 98.0 90 22 130/74 96 06/11/16 08:23 97 Nasal Cannula 3.00 06/11/16 08:00 98.1 91 20 142/76 98 06/11/16 04:00 98.3 101 18 143/71 95 06/11/16 00:51 98.4 80 18 126/84 92 06/10/16 23:39 94 21 06/10/16 20:00 98.9 84 18 129/86 92 06/10/16 16:00 99.3 85 20 83/52 92 I/O 06/10/16 06/10/16 06/10/16 06/11/16 06/11/16 06/11/16 07:00 15:00 23:00 07:00 15:00 23:00 Intake Total 576 ml 521 ml 240 ml 200 ml 240 ml 30 ml Output Total 500 ml 425 ml 950 ml 600 ml 350 ml Balance 76 ml 96 ml -710 ml -400 ml -110 ml 30 ml Intake Oral 240 ml 200 ml 0 ml IV Total 40 ml 40 ml Tube Feeding 286 ml 241 ml 240 ml 30 ml Other 250 ml 240 ml Output Urine Total 500 ml 425 ml 950 ml 600 ml 350 ml Tube Feeding Residual Discard 0 ml # Bowel Movements 0 0 Result Diagram: 06/11/16 0650 06/11/16 0650 Imaging Last Impressions Chest X-Ray 06/10/16 0000 Signed Impressions: Service Date/Time: Friday, June 10, 2016 19:51 - CONCLUSION: Mild residual airspace disease left upper lobe. Status post extubation. No acute findings. Arjun Cancino MD Head CT 06/04/16 0000 Signed Impressions: Service Date/Time: Sunday, June 05, 2016 05:36 - CONCLUSION: Evolving right middle cerebral artery territory infarct. Eriberto Mirza MD CT Angiography 05/31/16 0000 Signed Impressions: Service Date/Time: Tuesday, May 31, 2016 14:08 - CONCLUSION: 1. No evidence of pulmonary embolism. 2. Dense consolidation in the left lower lobe with more patchy infiltrate in the posterior left upper lobe. aTe Marquez MD Head Magnetic Resonance Angiography 05/30/16 0000 Signed Impressions: Service Date/Time: May 11:39 - CONCLUSION: 1. Resolution of previously identified intraluminal filling defect in the mid right middle cerebral artery seen on prior CTA. Currently no hemodynamically significant stenosis identified. Bert Ayoub MD Brain MRI 05/30/16 0000 Signed Impressions: Service Date/Time: May 11:39 - CONCLUSION: 1. Large right MCA distribution infarct with mild mass effect and 3 mm right to left midline shift. Bert Ayoub MD Cerebral Arteriogram 05/29/16 1454 Signed Impressions: Service Date/Time: Sunday, May 29, 2016 15:22 - CONCLUSION: Success right MCA embolectomy as above . Chalo Payne MD Neck CTA 05/28/162026 Signed Impressions: Service Date/Time: Saturday, May 28, 2016 20:32 - CONCLUSION: Mild calcified plaque at the left proximal internal carotid artery. A significant stenosis is not seen. Eriberto Mirza MD Head CTA 05/28/162026 Signed Impressions: Service Date/Time: Saturday, May 28, 2016 20:32 - CONCLUSION: Short focal area of diminished flow potentially representing a thrombus in the midportion of the M1 segment of the right middle cerebral artery. The more peripheral flow at the right middle cerebral artery is diminished when compared to the left side. Eriberto Mirza MD Objective Remarks GENERAL: Well-developed well-nourished. In no acute distress. Nasogastric tube in place. SKIN: Warm and dry. No lesions noted. HEENT: Normocephalic. Pupils equal and round. Mucous membranes pink and moist. CARDIOVASCULAR: Regular rate and rhythm. No murmur appreciated. RESPIRATORY: No accessory muscle use. Clear to auscultation. Breath sounds equal bilaterally. GASTROINTESTINAL: Abdomen soft, non-tender, nondistended. Bowel sounds x4. MUSCULOSKELETAL: No obvious deformities. No clubbing or cyanosis. No edema. NEUROLOGICAL: Awake and alert. Left-sided weakness. Normal speech. Oriented 3. PSYCHIATRIC: Appropriate mood and affect; insight and judgment fair to normal. A/P Problem List: (1) Acute ischemic right MCA stroke ICD Code: I63.511 Status: Acute (2) HTN (hypertension) ICD Code: I10 Status: Acute Assessment and Plan 50yF with h/o htn, smoking, and COPD with o2 use at night who presented with right MCA CVA status post systemic TPA and clot extraction. Now extubated and clinically improving. //Acute right MCA CVA //s/p TPA //s/p mechanical endovascular thrombectomy //Cerebral Edema -Neurochecks -Steroid taper, stop date 06/11 -Dysphagia on tube feeds as below -Neurology and rehabilitation medicine follow-up -Aspirin and statin //Dysphagia s/p CVA as above //Aspiration //Moderate protein calorie malnutrition and hyponatremia Patient with clinical signs of aspiration. Chest x-ray 06/10 with airspace disease left upper lobe. -ST on board, continue nasogastric tube feeds for now with free water flushes, nothing by mouth. -Afebrile. Repeat chest x-ray and follow-up labs. -Would benefit from PEG tube placement, consult gastroenterology and palliative care //Acute hypercarbic hypoxic respiratory failure- resolved. //COPD -wean o2 by [place] for goal spo2 > 90%. -Continue to monitor respiratory status //Hypotension- resolved. //Hypertension- recently controlled -Continue metoprolol and amlodipine. -IV labetalol as needed //Hyperglycemia of critical illness, improving //Steroids for presumed COPD exacerbation, tapering Hemoglobin A1c 6.2 -SSI DVT prophylaxis: SCDs. Heparin. Written by Randolph Hayward, acting as scribe for Dr. Quintanilla on 06/11/16 at 15:36. Attending Statement The documentation accurately reflects the work performed [id number] by nd, Dr. Quintanilla on 06/11/16 at 15:36. Problem Qualifiers (1) HTN (hypertension): Qualified Code: I10 - Essential hypertension Randolph Hayward Jun 11, 2016 15:56 Surjit Quintanilla MD Jun 17, 2016 00:59
[2016-06-11] MEDS: ACETAMINOPHEN 325 MG TAB PO PRN (17:53)
--- NOTE | 2016-06-11 18:18 | RADRPT ---
EXAM DATE/TIME: 06/11/2016 17:52 [facility] COMPARISON: CHEST SINGLE AP, June 10, 2016, 19:51. INDICATIONS : Cough MEDICAL HISTORY : Congestive heart failure SURGICAL HISTORY : None. ENCOUNTER: Subsequent ACUITY: 2 weeks PAIN SCORE: 0/10 LOCATION: Bilateral chest FINDINGS: Improving lung aeration is noted. Left perihilar airspace disease is still evident. There are no new pulmonary abnormalities. Nasogastric tube and right upper extremity PICC line are in stable position. CONCLUSION: Improving lung aeration. Persistent left midlung airspace disease. Otherwise stable chest. Arjun Cancino MD on June 11, 2016 at 18:14 Board Certified Radiologist. This report was verified electronically.
--- NOTE | 2016-06-11 20:39 | RADRPT ---
EXAM DATE/TIME: 06/11/2016 20:05 [facility] COMPARISON: No previous studies available for comparison. INDICATIONS : Confirm NG tube placement. MEDICAL HISTORY : Stroke. Cardiovascular disease Chronic obstructive pulmonary disease SURGICAL HISTORY : None. ENCOUNTER: Subsequent ACUITY: 2 weeks PAIN SCORE: Non-responsive. LOCATION: Bilateral abdomen. FINDINGS: Tip of nasogastric tube is in the cardia of the stomach with the side-port in the distal esophagus. The distal gastric unremarkable. CONCLUSION: Tip of nasogastric tube and cardia of the stomach. No evidence of obstruction. Arjun Cancino MD on June 11, 2016 at 20:36 Board Certified Radiologist. This report was verified electronically.
[2016-06-11] MEDS: ATORVASTATIN 40 MG TAB PO SCH (22:10)
[2016-06-11] MEDS: GABAPENTIN 300 MG CAP PO SCH (22:10)
[2016-06-12] VITALS (9 sets, daily range): BP systolic 107–130; BP diastolic 59–90; PULSE 96–128; RESP 20; TEMP 95.3–98.8; O2SAT 93–97
[2016-06-12] MEDS: INSULIN NovoLIN REGULAR SUPPLEMENTAL SCALE SQ SCH ×3 (00:45→18:00)
[2016-06-12 05:55] LABS: AUTOMATED NEUTROPHIL # 9.8 TH/MM3 (1.8-7.7); BASOPHIL # 0.1 TH/MM3 (0-0.2); EOSINOPHIL # 0.1 TH/MM3 (0-0.4); EOSINOPHIL % 0.4 % (0.0-4.0); LYMPH % 16.5 % (9.0-44.0); LYMPHOCYTE # 2.2 TH/MM3 (1.0-4.8); MEAN CORPUSCULAR HEMOGLOBIN 30.8 PG (27.0-34.0); MEAN CORPUSCULAR HGB CONC 34.2 % (32.0-36.0); MONO % 7.1 % (0.0-8.0); PLATELET COUNT 640 TH/MM3 (150-450); RED BLOOD COUNT 4.33 MIL/MM3 (4.00-5.30)
[2016-06-12 06:01] LABS: HEMO FLAGS AUTO DIFF
[2016-06-12 06:14] LABS: ALKALINE PHOSPHATASE 209 U/L (45-117); ALT (GPT) 44 U/L (10-53); ANION GAP 10 MEQ/L (5-15); AST (GOT) 31 U/L (15-37); BICARBONATE 26.1 MEQ/L (21.0-32.0); BLOOD UREA NITROGEN 19 MG/DL (7-18); CHLORIDE 102 MEQ/L (98-107); GLOMERULAR FILTRATION RATE 84 ML/MIN (>89); POTASSIUM 3.3 MEQ/L (3.5-5.1); SODIUM (NA) 138 MEQ/L (136-145); TOTAL BILIRUBIN ADULT 0.8 MG/DL (0.2-1.0)
[2016-06-12] MEDS: FREE WATER G-TUBE SCH ×5 (08:00→20:00)
[2016-06-12 08:04] LABS: PLATELET ESTIMATE SMEAR HIGH (NORMAL); PLATELET MORPHOLOGY NORMAL (NORMAL); SCAN/DIFF AUTO DIFF CONFIRMED
[2016-06-12] MEDS: BISACODYL 10 MG SUPP RECTAL SCH (09:00)
[2016-06-12] MEDS: LACTULOSE SYRUP 20 GM/30 ML CUP PO SCH ×2 (09:00→21:57)
[2016-06-12] MEDS: DOCUSATE SODIUM 50 MG/SENNA 8.6 MG TAB PO SCH ×2 (09:00→22:17)
[2016-06-12] MEDS: BENEPROTEIN POWDER 1 PACK G-TUBE SCH ×3 (09:00→18:00)
[2016-06-12] MEDS: SODIUM CHLORIDE 0.9% FLUSH 5 ML FLUSH IV FLUSH SCH ×2 (09:00→22:13)
[2016-06-12] MEDS: FAMOTIDINE SUSP 40 MG/5 ML NG SCH ×2 (09:00→21:56)
[2016-06-12] MEDS: CHLORHEXIDINE GLUCONATE 2 % 1 PACK (2 CLOTHS) TOP SCH (09:57)
[2016-06-12] MEDS: CHLORHEXIDINE 0.12% (ORAL KIT) 15 ML CUP MT SCH ×2 (11:20→20:00)
[2016-06-12] MEDS: risperiDONE 0.5 MG TAB PO SCH ×2 (11:23→21:00)
[2016-06-12] MEDS: HEPARIN SODIUM - SQ 10,000 UNITS/ML VIAL SQ SCH ×2 (11:23→21:59)
[2016-06-12] MEDS: ASPIRIN 81 MG CHEW TAB OG-TUBE SCH (11:23)
[2016-06-12] MEDS: AMPICILLIN-SULBACTAM INJ 3 GM in SODIUM CHLORIDE 0.9% INJ 100 ML IV SCH ×2 (13:31→21:59)
[2016-06-12] MEDS: METOPROLOL TARTRATE 25 MG TAB PO SCH ×3 (13:31→22:00)
--- NOTE | 2016-06-12 13:57 | HHI.PR ---
Subjective Remarks Follow-up for CVA. RN at bedside. The patient removed her NG tube and Shea catheter overnight. She is currently refusing any further tubes replaced. She is currently oriented, but still intermittently confused. She has been tolerating pured diet, no choking noted. She does state that she is short of breath. She does have a headache. Objective Vitals Vital Signs Date Time Temp Pulse Resp B/P Pulse Ox O2 Delivery O2 Flow Rate FiO2 06/12/16 12:00 95.3 128 20 130/80 93 06/12/16 11:18 95 21 06/12/16 08:15 98.8 97 20 120/78 95 06/12/16 04:00 98.3 100 20 126/88 93 06/12/16 00:10 98.3 102 20 130/90 93 06/11/16 20:00 98.2 105 20 128/94 93 06/11/16 16:00 98.1 83 20 120/72 96 I/O 06/11/16 06/11/16 06/11/16 06/12/16 06/12/16 06/12/16 07:00 15:00 23:00 07:00 15:00 23:00 Intake Total 200 ml 240 ml 30 ml Output Total 600 ml 350 ml 350 ml 400 ml Balance -400 ml -110 ml -320 ml -400 ml Intake Oral 200 ml 0 ml Tube Feeding 240 ml 30 ml Output Urine Total 600 ml 350 ml 350 ml 400 ml Result Diagram: 06/12/16 0520 06/12/16 0520 Imaging Last Impressions Chest X-Ray 06/11/16 0000 Signed Impressions: Service Date/Time: Saturday, June 11, 2016 17:52 - CONCLUSION: Improving lung aeration. Persistent left midlung airspace disease. Otherwise stable chest. Arjun Cancino MD Abdomen X-Ray 06/11/16 0000 Signed Impressions: Service Date/Time: Saturday, June 11, 2016 20:05 - CONCLUSION: Tip of nasogastric tube and cardia of the stomach. No evidence of obstruction. Arjun Cancino MD Head CT 06/04/16 0000 Signed Impressions: Service Date/Time: Sunday, June 05, 2016 05:36 - CONCLUSION: Evolving right middle cerebral artery territory infarct. Eriberto Mirza MD CT Angiography 05/31/16 0000 Signed Impressions: Service Date/Time: Tuesday, May 31, 2016 14:08 - CONCLUSION: 1. No evidence of pulmonary embolism. 2. Dense consolidation in the left lower lobe with more patchy infiltrate in the posterior left upper lobe. Tae Marquez MD Head Magnetic Resonance Angiography 05/30/16 0000 Signed Impressions: Service Date/Time: May 11:39 - CONCLUSION: 1. Resolution of previously identified intraluminal filling defect in the mid right middle cerebral artery seen on prior CTA. Currently no hemodynamically significant stenosis identified. Bert Ayoub MD Brain MRI 05/30/16 0000 Signed Impressions: Service Date/Time: May 11:39 - CONCLUSION: 1. Large right MCA distribution infarct with mild mass effect and 3 mm right to left midline shift. Bert Ayoub MD Cerebral Arteriogram 05/29/16 1454 Signed Impressions: Service Date/Time: Sunday, May 29, 2016 15:22 - CONCLUSION: Success right MCA embolectomy as above . Chalo Payne MD Neck CTA 05/28/162026 Signed Impressions: Service Date/Time: Saturday, May 28, 2016 20:32 - CONCLUSION: Mild calcified plaque at the left proximal internal carotid artery. A significant stenosis is not seen. Eriberto Mirza MD Head CTA 05/28/162026 Signed Impressions: Service Date/Time: Saturday, May 28, 2016 20:32 - CONCLUSION: Short focal area of diminished flow potentially representing a thrombus in the midportion of the M1 segment of the right middle cerebral artery. The more peripheral flow at the right middle cerebral artery is diminished when compared to the left side. Eriberto Mirza MD Objective Remarks GENERAL: Well-developed well-nourished. In no acute distress. Right-sided restraints. SKIN: Warm and dry. No lesions noted. HEENT: Normocephalic. Pupils equal and round. Mucous membranes pink and moist. CARDIOVASCULAR: Regular rate and rhythm. No murmur appreciated. RESPIRATORY: No accessory muscle use. Clear to auscultation. Breath sounds equal bilaterally. GASTROINTESTINAL: Abdomen soft, non-tender, nondistended. Bowel sounds x4. MUSCULOSKELETAL: No obvious deformities. No clubbing or cyanosis. No edema. NEUROLOGICAL: Awake and alert. Profound Left-sided weakness. Tongue deviates to the left. Normal speech. Oriented 3. PSYCHIATRIC: Appropriate mood and affect; insight and judgment fair to normal. A/P Problem List: (1) Acute ischemic right MCA stroke ICD Code: I63.511 Status: Acute (2) HTN (hypertension) ICD Code: I10 Status: Acute Assessment and Plan 50yF with h/o htn, smoking, and COPD with o2 use at night who presented with right MCA CVA status post systemic TPA and clot extraction. Now extubated and clinically improving. //Acute right MCA CVA //s/p TPA //s/p mechanical endovascular thrombectomy //Cerebral Edema -Neurochecks -S/P steroid taper, stopped 06/11 -Dysphagia as below -Neurology and rehabilitation medicine following -Aspirin and statin //Dysphagia s/p CVA as above //Aspiration //Moderate protein calorie malnutrition and hyponatremia Patient with clinical signs of aspiration. Chest x-ray 06/10 with airspace disease left upper lobe. -ST on board, her period night sitting up for now, continue free water flushes. -Afebrile. Repeat chest x-ray 06/11 with improving aeration of her persistent left mid lung airspace disease. Empiric IV Unasyn for now. -Would benefit from PEG tube placement, consulted gastroenterology and palliative care //Acute hypercarbic hypoxic respiratory failure- resolved. //COPD -wean o2 by [place] for goal spo2 > 90%. -Continue to monitor respiratory status //Hypotension- resolved. //Hypertension- recently controlled -Continue metoprolol and amlodipine. -IV labetalol as needed //Hyperglycemia of critical illness, improving //Steroids for presumed COPD exacerbation, tapered Hemoglobin A1c 6.2 -SSI DVT prophylaxis: SCDs. Heparin. Written by Randolph Hayward, acting as scribe for Dr. Emery on 06/12/16 at 13:56. The documentation accurately reflects the work performed [id number] by me on at 13:56. Problem Qualifiers (1) HTN (hypertension): Qualified Code: I10 - Essential hypertension Randolph Hayward Jun 12, 2016 13:56 Pravin Emery MD Jun 12, 2016 15:47
--- NOTE | 2016-06-12 14:13 | PD.CONS ---
Consult Service Palliative Care Consult Requested By Dr. Emery Primary Care Physician No Primary Care Physician Reason for Consultation b. To assist medical decision maker(s) with: better understanding of current medical conditions; weighing benefits/burdens of medical treatment options; making medical treatment decisions. HPI History of Present Illness Patient is a 50-year-old who has a past medical history of asthma, COPD, chronic right foot numbness that presented to the ER on 05/28/2016 with a report of left arm and leg weakness and facial droop. Symptoms started approximately 25 minutes prior to ER on arrival. Systemic tPA was administered within the first hour of symptom onset. Initially plans for possible endovascular thrombectomy, but on repeat examination patient symptoms seem to have subsided. Patient was admitted to the ICU for close monitoring. Stroke workup continues , neurology consulted and followed. Imaging shows 05/28/2016:Head CTA shows focal area of diminished flow potentially representing a thrombus in the midportion of the M1 segment of the right middle cerebral artery. The more peripheral flow at the right middle cerebral artery is diminished when compared to the left side. Neck CTA Make calcified plaque at the left proximal internal carotid artery. A significant stenosis is not seen == 05/29/[address] shows new focal area of low density of the mid right frontal lobe likely related to an evolving infarct. No hemorrhages seen. There is effacement of the sulci over the right convexity compared to the left side. Interventional radiology was consulted and patient had right MCA embolectomy == 05/30/2016-head MRA shows resolution of previous identify intraluminal filling defect in the right middle cerebral artery seen on prior CT 8. Currently there is no hemodynamically significant stenosis identified. Brain MRI shows a large right MCA distribution infarct with mild mass effect and 3 mm [id number] midline shift. 2-D echo shows an EF of 50-55%. Wall motion was normal. Ventricles and also appears to be within normal size range. == 05/31/2016-patient developed hypoxemia in the morning and has not been clear secretions well. Intensivists spoke with daughter at bedside and decided to intubate to protect airway. Head CT shows evolving right MCA infarct with mild increase in mass effect and slight midline shift now noted. Chest x-ray shows patchy areas of consolidation in the left perihilar region and left face. CTA was performed and shows no evidence of PE. There is dense consolidation in the left lower lobe with more patchy infiltrate in the posterior left upper lobe. == 06/01/2016 to 06/05/2016- during that time patient remains sedated and intubated on mechanical ventilation. Several head CT was done demonstrating evolving stroke. Supportive care continued to be given. == 06/06 2016- patient passes weaning trials but gets agitated and fails and that could tachypneic and agitated. == 06/07- -patient extubated successfully. Hypotension resolved sodium trending down however. Pt would get agitated, pull NG tube folley. She would also try to get up and walk and fall. She declined peg tube, and palliative care was consulted to review goals of care. Today. On my visit pt currently on restraints. She is oriented to place, person, and day. He know who the president is. However she insists "I was never intubated." I try to review course of hospitalization and the fact she was in icu with her but she insist was not intubated. She is aware she has a stroke, and she has COPD. She did eat her meals before I came in, with assistance with feeding. I did review with her the reason for peg tube after a stroke. I review options of not getting the peg tube and comfort care only, such as hospice. She state "Oh no I am not ready to ." She inform me that she wants her daughter Park as health Care surrogate, and was amenable for me to speak with Park. I spoke with Park and she feels her mother after the stroke sometimes is oriented, but have behavorial issues, and confused at times. Reviewed course of hospitalization with daughter and she endorse aggressive care. She state she would want peg tube place, if she could not get enough nutrition. Park endorses a full code. Function/Cognitive Trajectory COPD. dyspneic at times, chronic smoker. Review of Systems ROS Limitations: Clinical Condition Respiratory: COMPLAINS OF: Sputum production, Shortness of breath Musculoskeletal: COMPLAINS OF: Muscle aches Neurologic: COMPLAINS OF: Abnormal gait, Paresthesias, Speech Problems, Poor Balance Past Family Social History Coded Allergies: No Known Allergies (Verified , 05/28/16) Past Medical History Asthma COPD- home o2 at night chronic right foot numbness Past Surgical History Tubal ligation teeth removal unknown history of cardiac surgery Reported Medications Protonix (Pantoprazole Sodium) 20 Mg Tab 20 Mg PO DAILY Levofloxacin 500 Mg Tab 500 Mg PO DAILY Spiriva Handihaler (Tiotropium Inh) 18 Mcg Cap 18 Mcg INH DAILY 1 capsule = 18 mcg Prednisone 20 Mg Tab 40 Mg PO BID Trazodone (Trazodone HCl) 50 Mg Tab 150 Mg PO HS Gabapentin 300 Mg Cap 600 Mg PO HS Advair Diskus Inh (Fluticasone-Salmeterol Inh) 100-50 Mcg/Blist Aer 1 Puff INH BID Rinse mouth after use. Proventil Hfa 6.7 GM Inh (Albuterol Sulfate) 90 Mcg/Act Aer 2 Puff INH Q4H PRN Current Medications Medications (Trade) Dose Ordered Sig/Aric Route Start Time Stop Time Status Last Admin (D50w (Vial) Inj) 25 ml UNSCH PRN IV PUSH 05/29/16 02:15 (NovoLIN R SUPPLEMENTAL SCALE) 1 Q6HR SQ 05/29/16 06:00 06/12/16 12:00 (NS Flush) 2 ml UNSCH PRN IV FLUSH 05/29/16 02:15 (NS Flush) 2 ml BID IV FLUSH 05/29/16 09:00 06/12/16 09:00 (Tylenol) 650 mg Q6H PRN PO 05/29/16 02:15 06/11/16 17:53 (Zofran Inj) 4 mg Q6H PRN IV 05/29/16 02:15 (Steffany-Colace) 2 tab BID PO 05/29/16 09:00 06/12/16 09:00 Miscellaneous Information 1 Q361D XX 05/29/16 02:15 05/29/16 02:15 (Chlorhexidine 2% Cloth) Taper DAILY@04 TOP 05/29/16 04:00 05/25/17 03:59 06/10/16 03:53 (Chlorhexidine 2% Cloth) 3 pack UNSCH PRN TOP 05/29/16 02:15 (risperDAL) 0.5 mg Q12H PRN PO 05/29/16 08:45 06/08/16 00:25 (risperDAL) 0.5 mg BID PO 05/29/16 09:00 06/12/16 11:23 (Heparin Inj) 5,000 units BID SQ 05/30/16 09:00 06/12/16 11:23 (Lipitor) 40 mg HS PO 05/30/16 21:00 06/11/16 22:10 (Peridex 0.12% Liq) 15 ml BID@08,20 MT 05/31/16 20:00 06/11/16 20:00 (Brethine Inj) 1 mg UNSCH PRN SQ 05/31/16 16:15 (NS Flush) See Protocol DAILY IVF 06/01/16 09:00 06/12/16 09:00 (NS Flush) See Protocol UNSCH PRN IVF 05/31/16 18:15 (Heparin Central Flush) See Protocol DAILY IVF 06/01/16 09:00 06/12/16 09:00 (Heparin Central Flush) See Protocol UNSCH PRN IVF 05/31/16 18:15 (NS Flush) See Protocol UNSCH PRN IVF 05/31/16 18:15 (Aspirin Chew) 162 mg DAILY OG-TUBE 06/01/16 09:00 06/12/16 11:23 (Beneprotein Powder) 1 pack TID G-TUBE 06/02/16 09:00 06/11/16 18:00 (Neurontin) 300 mg HS PO 06/06/16 21:00 06/11/16 22:10 (Dulcolax Supp) 10 mg DAILY RECTAL 06/07/16 09:00 06/07/16 08:29 (Lactulose Liq) 30 ml BID PO 06/07/16 09:00 06/07/16 08:29 (Roxicodone Intensol Liq) 5 mg Q4H PRN PO 06/07/16 10:00 06/10/16 03:53 (Trandate Inj) 10 mg Q20M PRN IV PUSH 06/07/16 13:15 06/07/16 23:25 (Lopressor) 12.5 mg Q8HR PO 06/08/16 06:00 06/12/16 13:31 (Pill Splitter) 1 ea UNSCH PRN OTHER 06/07/16 23:30 06/08/16 19:51 (Norvasc) 10 mg DAILY PO 06/08/16 09:00 06/12/16 11:23 (Pepcid Liq) 20 mg BID NG 06/08/16 09:00 06/11/16 22:10 Water VOLUME OF WATER: (120) ML Q4HR G-TUBE 06/09/16 20:00 06/12/16 00:00 (Unasyn Inj/NS Inj) 100 ml @ 200 mls/hr Q6H IV 06/12/16 14:00 06/12/16 13:31 Family History Family hx of tobacco abuse Substance Use Tobacco:yes Alcohol:yes, occ Prescription med abuse:denies Illicits:denies Psychosocial History From [facility]. Has 2 daughters. Frantz Howard and Park Hampton. Living Will in place and Lino Hampton (significant other) and Park Hampton ( daughter) are the Health Care surrogate. Spiritual/Cultural Factors Rastafari Living Will: Copy in medical record Physical Exam Vital Signs Date Time Temp Pulse Resp B/P Pulse Ox O2 Delivery O2 Flow Rate FiO2 06/12/16 12:00 95.3 128 20 130/80 93 06/12/16 11:18 95 21 06/12/16 08:15 98.8 97 20 120/78 95 06/12/16 04:00 98.3 100 20 126/88 93 06/12/16 00:10 98.3 102 20 130/90 93 06/11/16 20:00 98.2 105 20 128/94 93 06/11/16 16:00 98.1 83 20 120/72 96 06/11/16 06/12/16 19:00 07:00 Intake Total 270 ml Output Total 350 ml 750 ml Balance -80 ml -750 ml Intake Oral 0 ml Tube Feeding 270 ml Output Urine Total 350 ml 750 ml Exam CONSTITUTIONAL/GENERAL: This is an adequately nourished patient, in restraints, and upset. SKIN: No jaundice, rashes, or lesions. Ecchymoses on upper extremities. No wounds seen anteriorly. Skin temperature appropriate. Not diaphoretic. HEAD: Atraumatic. Normocephalic. EYES: Pupils equal and round and reactive. Extraocular motions intact. No scleral icterus. No injection or drainage. Fundi not examined. ENT: Hearing grossly normal. Nose without bleeding or purulent drainage. Throat without visible erythema, exudates, masses, or lesions. NECK: Trachea midline. Supple, nontender. No palpable thyroid enlargement or nodularity. CARDIOVASCULAR: Regular rate and rhythm without murmurs, gallops, or rubs. No JVD. Peripheral pulses symmetric. RESPIRATORY/CHEST: Coarse upper respiratory breath sounds. GASTROINTESTINAL: Abdomen soft, non-tender, nondistended. No hepato-splenomegaly , or palpable masses. No guarding. Bowel sounds present. GENITOURINARY: Without palpable bladder distension. Shea catheter in place. MUSCULOSKELETAL: Extremities edema. LYMPHATICS: No palpable cervical or supraclavicular adenopathy. NEUROLOGICAL: Awake and alert, somewhat subtle confusion. PSYCHIATRIC: Upset anxious that she is in restraints. Diagnostic Tests Laboratory Laboratory Tests Test 06/10/16 06/11/16 06/12/16 04:50 06:50 05:20 White Blood Count 11.5 TH/MM3 15.2 TH/MM3 13.0 TH/MM3 (4.0-11.0) (4.0-11.0) (4.0-11.0) Red Blood Count 3.60 MIL/MM3 4.09 MIL/MM3 4.33 MIL/MM3 (4.00-5.30) (4.00-5.30) (4.00-5.30) Hemoglobin 11.2 GM/DL 12.6 GM/DL 13.3 GM/DL (11.6-15.3) (11.6-15.3) (11.6-15.3) Hematocrit 32.8 % 37.0 % 39.0 % (35.0-46.0) (35.0-46.0) (35.0-46.0) Mean Corpuscular Volume 91.1 FL 90.5 FL 90.0 FL (80.0-100.0) (80.0-100.0) (80.0-100.0) Mean Corpuscular Hemoglobin 31.1 PG 30.9 PG 30.8 PG (27.0-34.0) (27.0-34.0) (27.0-34.0) Mean Corpuscular Hemoglobin 34.1 % 34.2 % 34.2 % Concent (32.0-36.0) (32.0-36.0) (32.0-36.0) Red Cell Distribution Width 15.0 % 14.8 % 15.0 % (11.6-17.2) (11.6-17.2) (11.6-17.2) Platelet Count 531 TH/MM3 638 TH/MM3 640 TH/MM3 (150-450) (150-450) (150-450) Mean Platelet Volume 7.2 FL 7.3 FL 7.4 FL (7.0-11.0) (7.0-11.0) (7.0-11.0) Sodium Level 139 MEQ/L 138 MEQ/L 138 MEQ/L (136-145) (136-145) (136-145) Potassium Level 3.3 MEQ/L 3.4 MEQ/L 3.3 MEQ/L (3.5-5.1) (3.5-5.1) (3.5-5.1) Chloride Level 105 MEQ/L 102 MEQ/L 102 MEQ/L (98-107) (98-107) (98-107) Carbon Dioxide Level 24.7 MEQ/L 25.4 MEQ/L 26.1 MEQ/L (21.0-32.0) (21.0-32.0) (21.0-32.0) Anion Gap 9 MEQ/L (5-15) 11 MEQ/L (5-15) 10 MEQ/L (5-15) Blood Urea Nitrogen 24 MG/DL (7-18) 23 MG/DL (7-18) 19 MG/DL (7-18) Creatinine 0.65 MG/DL 0.75 MG/DL 0.73 MG/DL (0.50-1.00) (0.50-1.00) (0.50-1.00) Estimat Glomerular Filtration 96 ML/MIN (>89) 81 ML/MIN (>89) 84 ML/MIN (>89) Rate Random Glucose 106 MG/DL 130 MG/DL 101 MG/DL (74-106) (74-106) (74-106) Calcium Level 9.2 MG/DL 9.1 MG/DL 9.2 MG/DL (8.5-10.1) (8.5-10.1) (8.5-10.1) Neutrophils (%) (Auto) 74.7 % 75.0 % (16.0-70.0) (16.0-70.0) Lymphocytes (%) (Auto) 17.8 % 16.5 % (9.0-44.0) (9.0-44.0) Monocytes (%) (Auto) 6.4 % (0.0-8.0) 7.1 % (0.0-8.0) Eosinophils (%) (Auto) 0.2 % (0.0-4.0) 0.4 % (0.0-4.0) Basophils (%) (Auto) 0.9 % (0.0-2.0) 1.0 % (0.0-2.0) Neutrophils # (Auto) 11.4 TH/MM3 9.8 TH/MM3 (1.8-7.7) (1.8-7.7) Lymphocytes # (Auto) 2.7 TH/MM3 2.2 TH/MM3 (1.0-4.8) (1.0-4.8) Monocytes # (Auto) 1.0 TH/MM3 0.9 TH/MM3 (0-0.9) (0-0.9) Eosinophils # (Auto) 0.0 TH/MM3 0.1 TH/MM3 (0-0.4) (0-0.4) Basophils # (Auto) 0.1 TH/MM3 0.1 TH/MM3 (0-0.2) (0-0.2) CBC Comment DIFF FINAL AUTO DIFF Differential Comment AUTO DIFF CONFIRMED Platelet Estimate HIGH (NORMAL) Platelet Morphology Comment NORMAL (NORMAL) Total Bilirubin 0.8 MG/DL (0.2-1.0) Aspartate Amino Transf 31 U/L (15-37) (AST/SGOT) Alanine Aminotransferase 44 U/L (10-53) (ALT/SGPT) Alkaline Phosphatase 209 U/L (45-117) Total Protein 8.1 GM/DL (6.4-8.2) Albumin 3.5 GM/DL (3.4-5.0) Result Diagram: 06/12/1651906/12/1620 Imaging Last Impressions Chest X-Ray 06/11/16 0000 Signed Impressions: Service Date/Time: Saturday, June 11, 2016 17:52 - CONCLUSION: Improving lung aeration. Persistent left midlung airspace disease. Otherwise stable chest. Arjun Cancino MD Abdomen X-Ray 06/11/16 0000 Signed Impressions: Service Date/Time: Saturday, June 11, 2016 20:05 - CONCLUSION: Tip of nasogastric tube and cardia of the stomach. No evidence of obstruction. Arjun Cancino MD Head CT 06/04/16 0000 Signed Impressions: Service Date/Time: Sunday, June 05, 2016 05:36 - CONCLUSION: Evolving right middle cerebral artery territory infarct. Eriberto Mirza MD CT Angiography 05/31/16 0000 Signed Impressions: Service Date/Time: Tuesday, May 31, 2016 14:08 - CONCLUSION: 1. No evidence of pulmonary embolism. 2. Dense consolidation in the left lower lobe with more patchy infiltrate in the posterior left upper lobe. Tae Marquez MD Head Magnetic Resonance Angiography 05/30/16 0000 Signed Impressions: Service Date/Time: May 11:39 - CONCLUSION: 1. Resolution of previously identified intraluminal filling defect in the mid right middle cerebral artery seen on prior CTA. Currently no hemodynamically significant stenosis identified. Bert Ayoub MD Brain MRI 05/30/16 0000 Signed Impressions: Service Date/Time: May 11:39 - CONCLUSION: 1. Large right MCA distribution infarct with mild mass effect and 3 mm right to left midline shift. Bert Ayoub MD Cerebral Arteriogram 05/29/16 1454 Signed Impressions: Service Date/Time: Sunday, May 29, 2016 15:22 - CONCLUSION: Success right MCA embolectomy as above . Chalo Payne MD Neck CTA 05/28/162026 Signed Impressions: Service Date/Time: Saturday, May 28, 2016 20:32 - CONCLUSION: Mild calcified plaque at the left proximal internal carotid artery. A significant stenosis is not seen. Eriberto Mirza MD Head CTA 05/28/162026 Signed Impressions: Service Date/Time: Saturday, May 28, 2016 20:32 - CONCLUSION: Short focal area of diminished flow potentially representing a thrombus in the midportion of the M1 segment of the right middle cerebral artery. The more peripheral flow at the right middle cerebral artery is diminished when compared to the left side. Eriberto Mirza MD Patient/Family Conference Present at Family Conference: 25 min with pt. 25 min with daughter over the phone. Family Conference Time (mins): 50 Family Conference Location: Consult Room, Telephone Issues Discussed: * Palliative care role, purpose, approach * Additional medical, psychosocial, and spiritual history * Patients general health, functional status, and cognitive changes in the months leading up to the current hospitalization * Patient/family understanding of the current medical problems * Patient/family understanding of prognosis * Patients goals of care as best understood from advance directives and/or conversations and/or values * Current medical treatment options and benefits/burdens of those options * Likely scenarios comparing ongoing aggressive care with a transition to comfort measures only * Questions answered to the best of my ability * Palliative care contact information provided Assessment and Plan Disease Oriented Problem List: (1) Acute ischemic right MCA stroke (2) COPD (chronic obstructive pulmonary disease) (3) Dysphagia (4) Respiratory failure Comment: resolved, was intubated, but was sucessfully extubated. Remains an aspiration risk. (5) Hypertension Symptom Scale: Pertinent Non-Medical Issues Psychosocial: Spiritual: Legal: Ethical issues impacting care: Important Contacts Park (daughter) and Melissa Hampton (significant other). Prognosis 50 year old with Right MCA cva, with copd risk, with behavorial issues/ encephalopathy? Prognosis is guarded. Main challenge besides aspiration risk, is compliance. I feel however, if she is compliant, prognosis would improve and would not be appropriate for hospice. Code Status: Full Code Plan == Capacity- pt is AOx3 to date, know who the president is, able to say she has a stroke, has COPD when ask open ended questions. She appears to have comprehension and at least a basic understanding of her medical condition. However there is subtle confusion, where she dispute with me that she was never intubated. She also during her stay, has agitation, pulling on IV and NG tube, falling on the floor..etc. Pt currently on restraints. Family feels pt behavior is not the same as it was. I suspect her capacity fluctuates, There is a behavioral component to her compliance issue, I would recommend psych consult to determine capacity to make medical decisions and assisstance with behavorial issues. She is s/p CVA, is there encephalopathy that is influencing her non-compliant behavior? She is very upset she is in restraints. She did say she wants daughter to assist in making medical condition and she has a living will that designated Park (daughter) and Lino as health care surrogate. Pt did tell me she does not want hospice, and that she was not ready to . She did say she will try to eat but want to avoid having the feeding tube place. == Health Care surrogate is Park Hampton daughter, and Lino Hampton ( significant other.) == Park (daughter) goals are aggressive. Discuss pt copd, aspiration risk, challenges she faces in rehab including compliance. She endorses Full code. She would want mom to have PEG tube as last resort, but is amenable to it. == If pt is found to have capacity, then we have to abide by pt's wishes. If pt is found not to have capacity, at that point Park and Lino takes over medical decision making. == Living Will, which she had completed in March 15, 2016 stated she would not want dying "to be artificially prolonged" should she be in a vegetative state. == Code is full at this time. == Palliative Care will continue to follow. Thank you for the opportunity to participate in the care of Ms. Kumar. Attestation To help prompt me to consider important information that might be impacting today's encounter and assessment, information from prior notes written by myself or my colleagues may have been "brought forward" into today's note. My signature on this note, however, is an attestation that I personally performed the exam, history, and/or decision-making noted today, and, unless otherwise indicated, the interactions with patient, family, and staff as well as the review of records all occurred today. I also attest that the listed assessment and stated plan reflect my best clinical judgment today based on the combination of historical information, prior notes, and today's exam/ interactions. When time spent is documented, it refers only to time spent today by the signer, or if indicated, combined time spent today by collaborating physician/nurse practitioner. Ronal Leong MD Jun 12, 2016 14:12
[2016-06-12] MEDS: risperiDONE 0.25 MG TAB PO PRN ×4 (21:57→22:14)
[2016-06-12] MEDS: ATORVASTATIN 40 MG TAB PO SCH (21:57)
[2016-06-12] MEDS: GABAPENTIN 300 MG CAP PO SCH (21:57)
[2016-06-12] MEDS: oxyCODONE HCL ORAL CONC 20 MG/ML SYRINGE PO PRN (22:10)
[2016-06-13] VITALS (7 sets, daily range): BP systolic 95–124; BP diastolic 53–82; PULSE 80–113; RESP 18–20; TEMP 97–99.7; O2SAT 92–97
[2016-06-13] MEDS: CHLORHEXIDINE GLUCONATE 2 % 1 PACK (2 CLOTHS) TOP SCH (03:48)
[2016-06-13] MEDS: FREE WATER G-TUBE SCH ×6 (03:48→20:00)
[2016-06-13] MEDS: AMPICILLIN-SULBACTAM INJ 3 GM in SODIUM CHLORIDE 0.9% INJ 100 ML IV SCH ×4 (03:48→21:43)
[2016-06-13] MEDS: METOPROLOL TARTRATE 25 MG TAB PO SCH ×3 (05:58→21:41)
[2016-06-13] MEDS: INSULIN NovoLIN REGULAR SUPPLEMENTAL SCALE SQ SCH ×5 (05:58→18:00)
[2016-06-13 07:18] LABS: BICARBONATE 25.4 MEQ/L (21.0-32.0); POTASSIUM 3.8 MEQ/L (3.5-5.1)
[2016-06-13 07:41] LABS: HEMATOCRIT 37.3 % (35.0-46.0); MEAN CELL VOLUME 93.6 FL (80.0-100.0); MEAN CORPUSCULAR HEMOGLOBIN 31.2 PG (27.0-34.0); MEAN CORPUSCULAR HGB CONC 33.3 % (32.0-36.0); PLATELET COUNT 397 TH/MM3 (150-450); RED BLOOD COUNT 3.99 MIL/MM3 (4.00-5.30); RED CELL DISTRIBUTION WIDTH 15.6 % (11.6-17.2); REVIEW FLAG FINAL; WHITE BLOOD COUNT 11.7 TH/MM3 (4.0-11.0)
[2016-06-13] MEDS: BENEPROTEIN POWDER 1 PACK G-TUBE SCH ×3 (08:50→18:00)
[2016-06-13] MEDS: CHLORHEXIDINE 0.12% (ORAL KIT) 15 ML CUP MT SCH ×2 (08:50→21:42)
[2016-06-13] MEDS: SODIUM CHLORIDE 0.9% FLUSH 5 ML FLUSH IV FLUSH SCH ×2 (08:50→21:00)
[2016-06-13] MEDS: ASPIRIN 81 MG CHEW TAB OG-TUBE SCH (08:51)
[2016-06-13] MEDS: BISACODYL 10 MG SUPP RECTAL SCH (08:51)
[2016-06-13] MEDS: HEPARIN SODIUM - SQ 10,000 UNITS/ML VIAL SQ SCH ×2 (08:51→21:42)
[2016-06-13] MEDS: risperiDONE 0.5 MG TAB PO SCH ×2 (08:51→21:41)
[2016-06-13] MEDS: LACTULOSE SYRUP 20 GM/30 ML CUP PO SCH ×2 (08:51→21:42)
[2016-06-13] MEDS: DOCUSATE SODIUM 50 MG/SENNA 8.6 MG TAB PO SCH ×2 (08:51→21:41)
[2016-06-13] MEDS: FAMOTIDINE SUSP 40 MG/5 ML NG SCH ×2 (08:51→21:00)
--- NOTE | 2016-06-13 11:37 | HHI.HCPN ---
Reason for visit a. To assist with evaluation and management of symptoms including:aggitation b. To assist medical decision maker(s) with: better understanding of current medical conditions; weighing benefits/burdens of medical treatment options; making medical treatment decisions. Subjective/Interval History Pt on my visit remains in restraints. She is AOx3, and able to say she has a stroke and has copd when asked open ended questions. She however insist she was not intubated, and remains upset. In the past she has pulled NG tube out, get out of bed and fall. Its recorded she ate 15% of breakfast and 75% of lunch. She denies pain or dyspnea on my visit. [facility] P 06/13/2016 Patient is a 50-year-old who has a past medical history of asthma, COPD, chronic right foot numbness that presented to the ER on 05/28/2016 with a report of left arm and leg weakness and facial droop. Symptoms started approximately 25 minutes prior to ER on arrival. Systemic tPA was administered within the first hour of symptom onset. Initially plans for possible endovascular thrombectomy, but on repeat examination patient symptoms seem to have subsided. Patient was admitted to the ICU for close monitoring. Stroke workup continues , neurology consulted and followed. Imaging shows 05/28/2016:Head CTA shows focal area of diminished flow potentially representing a thrombus in the midportion of the M1 segment of the right middle cerebral artery. The more peripheral flow at the right middle cerebral artery is diminished when compared to the left side. Neck CTA Make calcified plaque at the left proximal internal carotid artery. A significant stenosis is not seen == 05/29/[address] shows new focal area of low density of the mid right frontal lobe likely related to an evolving infarct. No hemorrhages seen. There is effacement of the sulci over the right convexity compared to the left side. Interventional radiology was consulted and patient had right MCA embolectomy == 05/30/2016-head MRA shows resolution of previous identify intraluminal filling defect in the right middle cerebral artery seen on prior CT 8. Currently there is no hemodynamically significant stenosis identified. Brain MRI shows a large right MCA distribution infarct with mild mass effect and 3 mm ulvop-do-lsxy midline shift. 2-D echo shows an EF of 50-55%. Wall motion was normal. Ventricles and also appears to be within normal size range. == 05/31/2016-patient developed hypoxemia in the morning and has not been clear secretions well. Intensivists spoke with daughter at bedside and decided to intubate to protect airway. Head CT shows evolving right MCA infarct with mild increase in mass effect and slight midline shift now noted. Chest x-ray shows patchy areas of consolidation in the left perihilar region and left face. CTA was performed and shows no evidence of PE. There is dense consolidation in the left lower lobe with more patchy infiltrate in the posterior left upper lobe. == 06/01/2016 to 06/05/2016- during that time patient remains sedated and intubated on mechanical ventilation. Several head CT was done demonstrating evolving stroke. Supportive care continued to be given. == 06/06 2016- patient passes weaning trials but gets agitated and fails and that could tachypneic and agitated. == 06/07- -patient extubated successfully. Hypotension resolved sodium trending down however. Pt would get agitated, pull NG tube folley. She would also try to get up and walk and fall. She declined peg tube, and palliative care was consulted to review goals of care. Today. On my visit pt currently on restraints. She is oriented to place, person, and day. He know who the president is. However she insists "I was never intubated." I try to review course of hospitalization and the fact she was in icu with her but she insist was not intubated. She is aware she has a stroke, and she has COPD. She did eat her meals before I came in, with assistance with feeding. I did review with her the reason for peg tube after a stroke. I review options of not getting the peg tube and comfort care only, such as hospice. She state "Oh no I am not ready to ." She inform me that she wants her daughter Park as health Care surrogate, and was amenable for me to speak with Park. I spoke with Park and she feels her mother after the stroke sometimes is oriented, but have behavorial issues, and confused at times. Reviewed course of hospitalization with daughter and she endorse aggressive care. She state she would want peg tube place, if she could not get enough nutrition. Park endorses a full code. Family/friend interactions Called Park [phone], unable to leave a voicemail today. I have spoken with her yesterday and goals have been aggressive. Advance Directives Living Will: Copy in medical record Objective Vital Signs Date Time Temp Pulse Resp B/P Pulse Ox O2 Delivery O2 Flow Rate FiO2 06/13/16 09:20 92 06/13/16 09:10 97.1 113 18 121/80 93 06/13/16 04:00 98.1 89 18 103/70 95 06/13/16 00:00 97.0 111 20 118/82 95 06/12/16 20:00 98.4 104 20 107/59 96 06/12/16 18:00 96 06/12/16 16:00 97.0 101 20 108/72 97 06/12/16 15:13 114 06/12/16 12:00 95.3 128 20 130/80 93 Physical Exam CONSTITUTIONAL/GENERAL: This is an adequately nourished patient, in restraints, and upset. SKIN: No jaundice, rashes, or lesions. Ecchymoses on upper extremities. No wounds seen anteriorly. Skin temperature appropriate. Not diaphoretic. HEAD: Atraumatic. Normocephalic. EYES: Pupils equal and round and reactive. Extraocular motions intact. No scleral icterus. No injection or drainage. Fundi not examined. ENT: Hearing grossly normal. Nose without bleeding or purulent drainage. Throat without visible erythema, exudates, masses, or lesions. NECK: Trachea midline. Supple, nontender. No palpable thyroid enlargement or nodularity. CARDIOVASCULAR: Regular rate and rhythm without murmurs, gallops, or rubs. No JVD. Peripheral pulses symmetric. RESPIRATORY/CHEST: Coarse upper respiratory breath sounds. GASTROINTESTINAL: Abdomen soft, non-tender, nondistended. No hepato-splenomegaly , or palpable masses. No guarding. Bowel sounds present. GENITOURINARY: Without palpable bladder distension. Shea catheter in place. MUSCULOSKELETAL: Extremities edema. LYMPHATICS: No palpable cervical or supraclavicular adenopathy. NEUROLOGICAL: Awake and alert, somewhat subtle confusion. PSYCHIATRIC: Upset anxious that she is in restraints. Diagnostic Tests Laboratory Laboratory Tests Test 06/11/16 06/12/16 06/13/16 06:50 05:20 06:30 White Blood Count 15.2 TH/MM3 13.0 TH/MM3 11.7 TH/MM3 (4.0-11.0) (4.0-11.0) (4.0-11.0) Red Blood Count 4.09 MIL/MM3 4.33 MIL/MM3 3.99 MIL/MM3 (4.00-5.30) (4.00-5.30) (4.00-5.30) Hemoglobin 12.6 GM/DL 13.3 GM/DL 12.4 GM/DL (11.6-15.3) (11.6-15.3) (11.6-15.3) Hematocrit 37.0 % 39.0 % 37.3 % (35.0-46.0) (35.0-46.0) (35.0-46.0) Mean Corpuscular Volume 90.5 FL 90.0 FL 93.6 FL (80.0-100.0) (80.0-100.0) (80.0-100.0) Mean Corpuscular Hemoglobin 30.9 PG 30.8 PG 31.2 PG (27.0-34.0) (27.0-34.0) (27.0-34.0) Mean Corpuscular Hemoglobin 34.2 % 34.2 % 33.3 % Concent (32.0-36.0) (32.0-36.0) (32.0-36.0) Red Cell Distribution Width 14.8 % 15.0 % 15.6 % (11.6-17.2) (11.6-17.2) (11.6-17.2) Platelet Count 638 TH/MM3 640 TH/MM3 397 TH/MM3 (150-450) (150-450) (150-450) Mean Platelet Volume 7.3 FL 7.4 FL 7.2 FL (7.0-11.0) (7.0-11.0) (7.0-11.0) Neutrophils (%) (Auto) 74.7 % 75.0 % (16.0-70.0) (16.0-70.0) Lymphocytes (%) (Auto) 17.8 % 16.5 % (9.0-44.0) (9.0-44.0) Monocytes (%) (Auto) 6.4 % (0.0-8.0) 7.1 % (0.0-8.0) Eosinophils (%) (Auto) 0.2 % (0.0-4.0) 0.4 % (0.0-4.0) Basophils (%) (Auto) 0.9 % (0.0-2.0) 1.0 % (0.0-2.0) Neutrophils # (Auto) 11.4 TH/MM3 9.8 TH/MM3 (1.8-7.7) (1.8-7.7) Lymphocytes # (Auto) 2.7 TH/MM3 2.2 TH/MM3 (1.0-4.8) (1.0-4.8) Monocytes # (Auto) 1.0 TH/MM3 0.9 TH/MM3 (0-0.9) (0-0.9) Eosinophils # (Auto) 0.0 TH/MM3 0.1 TH/MM3 (0-0.4) (0-0.4) Basophils # (Auto) 0.1 TH/MM3 0.1 TH/MM3 (0-0.2) (0-0.2) CBC Comment DIFF FINAL AUTO DIFF Differential Comment AUTO DIFF CONFIRMED Sodium Level 138 MEQ/L 138 MEQ/L 141 MEQ/L (136-145) (136-145) (136-145) Potassium Level 3.4 MEQ/L 3.3 MEQ/L 3.8 MEQ/L (3.5-5.1) (3.5-5.1) (3.5-5.1) Chloride Level 102 MEQ/L 102 MEQ/L 105 MEQ/L (98-107) (98-107) (98-107) Carbon Dioxide Level 25.4 MEQ/L 26.1 MEQ/L 25.4 MEQ/L (21.0-32.0) (21.0-32.0) (21.0-32.0) Anion Gap 11 MEQ/L (5-15) 10 MEQ/L (5-15) 11 MEQ/L (5-15) Blood Urea Nitrogen 23 MG/DL (7-18) 19 MG/DL (7-18) 24 MG/DL (7-18) Creatinine 0.75 MG/DL 0.73 MG/DL 0.66 MG/DL (0.50-1.00) (0.50-1.00) (0.50-1.00) Estimat Glomerular Filtration 81 ML/MIN (>89) 84 ML/MIN (>89) 94 ML/MIN (>89) Rate Random Glucose 130 MG/DL 101 MG/DL 115 MG/DL (74-106) (74-106) (74-106) Calcium Level 9.1 MG/DL 9.2 MG/DL 9.1 MG/DL (8.5-10.1) (8.5-10.1) (8.5-10.1) Platelet Estimate HIGH (NORMAL) Platelet Morphology Comment NORMAL (NORMAL) Total Bilirubin 0.8 MG/DL (0.2-1.0) Aspartate Amino Transf 31 U/L (15-37) (AST/SGOT) Alanine Aminotransferase 44 U/L (10-53) (ALT/SGPT) Alkaline Phosphatase 209 U/L (45-117) Total Protein 8.1 GM/DL (6.4-8.2) Albumin 3.5 GM/DL (3.4-5.0) Result Diagram: 06/13/1630 06/13/16 0630 Imaging Last Impressions Chest X-Ray 06/11/16 0000 Signed Impressions: Service Date/Time: Saturday, June 11, 2016 17:52 - CONCLUSION: Improving lung aeration. Persistent left midlung airspace disease. Otherwise stable chest. Arjun Cancino MD Abdomen X-Ray 06/11/16 0000 Signed Impressions: Service Date/Time: Saturday, June 11, 2016 20:05 - CONCLUSION: Tip of nasogastric tube and cardia of the stomach. No evidence of obstruction. Arjun Cancino MD Head CT 06/04/16 0000 Signed Impressions: Service Date/Time: Sunday, June 05, 2016 05:36 - CONCLUSION: Evolving right middle cerebral artery territory infarct. Eriberto Mirza MD CT Angiography 05/31/16 0000 Signed Impressions: Service Date/Time: Tuesday, May 31, 2016 14:08 - CONCLUSION: 1. No evidence of pulmonary embolism. 2. Dense consolidation in the left lower lobe with more patchy infiltrate in the posterior left upper lobe. Tae Marquez MD Head Magnetic Resonance Angiography 05/30/16 0000 Signed Impressions: Service Date/Time: May 11:39 - CONCLUSION: 1. Resolution of previously identified intraluminal filling defect in the mid right middle cerebral artery seen on prior CTA. Currently no hemodynamically significant stenosis identified. Bert Ayoub MD Brain MRI 05/30/16 0000 Signed Impressions: Service Date/Time: May 11:39 - CONCLUSION: 1. Large right MCA distribution infarct with mild mass effect and 3 mm right to left midline shift. Bert Ayoub MD Cerebral Arteriogram 05/29/16 1454 Signed Impressions: Service Date/Time: Sunday, May 29, 2016 15:22 - CONCLUSION: Success right MCA embolectomy as above . Chalo Payne MD Neck CTA 05/28/162026 Signed Impressions: Service Date/Time: Saturday, May 28, 2016 20:32 - CONCLUSION: Mild calcified plaque at the left proximal internal carotid artery. A significant stenosis is not seen. Eriberto Mirza MD Head CTA 05/28/162026 Signed Impressions: Service Date/Time: Saturday, May 28, 2016 20:32 - CONCLUSION: Short focal area of diminished flow potentially representing a thrombus in the midportion of the M1 segment of the right middle cerebral artery. The more peripheral flow at the right middle cerebral artery is diminished when compared to the left side. Eriberto Mirza MD Assessment and Plan Disease Oriented Problem List: (1) Acute ischemic right MCA stroke (2) COPD (chronic obstructive pulmonary disease) (3) Dysphagia (4) Respiratory failure Comment: resolved, was intubated, but was sucessfully extubated. Remains an aspiration risk. (5) Hypertension Symptom Scale: Pertinent Non-Medical Issues Psychosocial: Spiritual: Legal: Ethical issues impacting care: Important Contacts Park (daughter) and Melissa Hampton (significant other). [phone] Prognosis 50 year old with Right MCA cva, with copd risk, with behavorial issues/ encephalopathy? Prognosis is guarded. Main challenge besides aspiration risk, is compliance. I feel however, if she is compliant, prognosis would improve and would not be appropriate for hospice. Code Status: Full Code Plan == Capacity- today examine pt again 06/13/2016. pt is AOx3 to date, know who the president is, able to say she has a stroke, has COPD when ask open ended questions. She again appears to have comprehension and at least a basic understanding of her medical condition. However there is subtle confusion, where she dispute with me that she was never intubated. She also during her stay, has agitation, pulling on IV and NG tube, falling on the floor..etc. Pt currently on restraints. Family feels pt behavior is not the same as it was. I suspect her capacity fluctuates. I would recommend psych consult to determine capacity to make medical decisions and assistance with behavioral issues, but will leave that to attending. She is s/p CVA, is there encephalopathy that is influencing her non-compliant behavior? She is very upset she is in restraints. She did say she wants daughter to assist in making medical condition and she has a living will that designated Park (daughter) randolph Huynh as health care surrogate. Pt did tell me she does not want hospice, and that she was not ready to . She did say she will try to eat but want to avoid having the feeding tube place. == Health Care surrogate is Park Memo daughter, and Lino Hampton ( significant other.) == Park (daughter) goals are aggressive. Discuss pt copd, aspiration risk, challenges she faces in rehab including compliance. She endorses Full code. She would want mom to have PEG tube as last resort, but is amenable to it. == If pt is found to have capacity, then we have to abide by pt's wishes. If pt is found not to have capacity, at that point Marvin takes over medical decision making. == Living Will, which she had completed in March 15, 2016 stated she would not want dying "to be artificially prolonged" should she be in a vegetative state. == Code is full at this time. == Palliative Care will continue to follow, and will follow once capacity issue is clarified. Ronal Leong MD Jun 13, 2016 11:37
--- NOTE | 2016-06-13 15:28 | HHI.PR ---
Subjective Remarks Follow up for CVA. The patient is awake, alert, oriented to person, place, time. She states she is eating, and is requesting more water. I asked her if she understands what we want to do if she doesn't eat, she states "yeah I know, you want to put a tube in me". She denies any fevers, chills. She has an occasional nonproductive cough but denies any choking episodes. She wants to go home. Objective Vitals Vital Signs Date Time Temp Pulse Resp B/P Pulse Ox O2 Delivery O2 Flow Rate FiO2 06/13/16 12:50 97.1 103 18 124/71 92 06/13/16 10:12 Nasal Cannula 2.00 06/13/16 09:20 92 06/13/16 09:10 97.1 113 18 121/80 93 06/13/16 04:00 98.1 89 18 103/70 95 06/13/16 00:00 97.0 111 20 118/82 95 06/12/16 20:00 98.4 104 20 107/59 96 06/12/16 18:00 96 06/12/16 16:00 97.0 101 20 108/72 97 I/O 06/12/16 06/12/16 06/12/16 06/13/16 06/13/16 06/13/16 07:00 15:00 23:00 07:00 15:00 23:00 Intake Total 240 ml Output Total 400 ml 220 ml 800 ml Balance -400 ml 20 ml -800 ml Intake Oral 240 ml Output Urine Total 400 ml 220 ml 800 ml Bladder Scan Volume Amount 297 ml # Voids 4 1 # Bowel Movements 0 2 Result Diagram: 06/13/16 0630 06/13/16 0630 Imaging Last Impressions Chest X-Ray 06/11/16 0000 Signed Impressions: Service Date/Time: Saturday, June 11, 2016 17:52 - CONCLUSION: Improving lung aeration. Persistent left midlung airspace disease. Otherwise stable chest. Arjun Cancino MD Abdomen X-Ray 06/11/16 0000 Signed Impressions: Service Date/Time: Saturday, June 11, 2016 20:05 - CONCLUSION: Tip of nasogastric tube and cardia of the stomach. No evidence of obstruction. Arjun Cancino MD Head CT 06/04/16 0000 Signed Impressions: Service Date/Time: Sunday, June 05, 2016 05:36 - CONCLUSION: Evolving right middle cerebral artery territory infarct. Eriberto Mirza MD CT Angiography 05/31/16 0000 Signed Impressions: Service Date/Time: Tuesday, May 31, 2016 14:08 - CONCLUSION: 1. No evidence of pulmonary embolism. 2. Dense consolidation in the left lower lobe with more patchy infiltrate in the posterior left upper lobe. Tae Marquez MD Head Magnetic Resonance Angiography 05/30/16 Signed Impressions: Service Date/Time: May 11:39 - CONCLUSION: 1. Resolution of previously identified intraluminal filling defect in the mid right middle cerebral artery seen on prior CTA. Currently no hemodynamically significant stenosis identified. Bert Ayoub MD Brain MRI 05/30/16 Signed Impressions: Service Date/Time: May 11:39 - CONCLUSION: 1. Large right MCA distribution infarct with mild mass effect and 3 mm right to left midline shift. Bert Ayoub MD Cerebral Arteriogram 05/29/16 1454 Signed Impressions: Service Date/Time: Sunday, May 29, 2016 15:22 - CONCLUSION: Success right MCA embolectomy as above . Chalo Payne MD Neck CTA 05/28/162026 Signed Impressions: Service Date/Time: Saturday, May 28, 2016 20:32 - CONCLUSION: Mild calcified plaque at the left proximal internal carotid artery. A significant stenosis is not seen. Eriberto Mirza MD Head CTA 05/28/162026 Signed Impressions: Service Date/Time: Saturday, May 28, 2016 20:32 - CONCLUSION: Short focal area of diminished flow potentially representing a thrombus in the midportion of the M1 segment of the right middle cerebral artery. The more peripheral flow at the right middle cerebral artery is diminished when compared to the left side. Eriberto Mirza MD Objective Remarks GENERAL: Well-developed well-nourished middle aged female patient in NAD. Resting in bed, RUE in soft restraint. SKIN: Warm and dry. No rash noted. HEENT: Normocephalic. Pupils equal and round. Mucous membranes pink and moist. CARDIOVASCULAR: Regular rate and rhythm. No murmur appreciated. RESPIRATORY: No accessory muscle use. Clear to auscultation. Breath sounds equal bilaterally. GASTROINTESTINAL: Abdomen soft, non-tender, nondistended. Bowel sounds x4. MUSCULOSKELETAL: No obvious deformities. No clubbing or cyanosis. No edema. NEUROLOGICAL: Awake and alert. Profound Left-sided deficit. Tongue deviates to the left. Normal speech. Oriented 4. PSYCHIATRIC: Appropriate mood and affect; insight and judgment fair to normal. Medications and IVs Current Medications Medications (Trade) Dose Ordered Sig/Aric Route Start Time Stop Time Status Last Admin (D50w (Vial) Inj) 25 ml UNSCH PRN IV PUSH 05/29/16 02:15 (NovoLIN R SUPPLEMENTAL SCALE) 1 Q6HR SQ 05/29/16 06:00 06/12/16 12:00 (NS Flush) 2 ml UNSCH PRN IV FLUSH 05/29/16 02:15 06/13/16 06:01 (NS Flush) 2 ml BID IV FLUSH 05/29/16 09:00 06/13/16 08:50 (Tylenol) 650 mg Q6H PRN PO 05/29/16 02:15 06/11/16 17:53 (Zofran Inj) 4 mg Q6H PRN IV 05/29/16 02:15 (Steffany-Colace) 2 tab BID PO 05/29/16 09:00 06/13/16 08:51 Miscellaneous Information 1 Q361D XX 05/29/16 02:15 05/29/16 02:15 (Chlorhexidine 2% Cloth) Taper DAILY@04 TOP 05/29/16 04:00 05/25/17 03:59 06/10/16 03:53 (Chlorhexidine 2% Cloth) 3 pack UNSCH PRN TOP 05/29/16 02:15 (risperDAL) 0.5 mg Q12H PRN PO 05/29/16 08:45 06/12/16 22:14 (risperDAL) 0.5 mg BID PO 05/29/16 09:00 06/13/16 08:51 (Heparin Inj) 5,000 units BID SQ 05/30/16 09:00 06/13/16 08:51 (Lipitor) 40 mg HS PO 05/30/16 21:00 06/12/16 21:57 (Peridex 0.12% Liq) 15 ml BID@08,20 MT 05/31/16 20:00 06/11/16 20:00 (Brethine Inj) 1 mg UNSCH PRN SQ 05/31/16 16:15 (NS Flush) See Protocol DAILY IVF 06/01/16 09:00 06/13/16 08:50 (NS Flush) See Protocol UNSCH PRN IVF 05/31/16 18:15 (Heparin Central Flush) See Protocol DAILY IVF 06/01/16 09:00 06/13/16 08:50 (Heparin Central Flush) See Protocol UNSCH PRN IVF 05/31/16 18:15 (NS Flush) See Protocol UNSCH PRN IVF 05/31/16 18:15 (Aspirin Chew) 162 mg DAILY OG-TUBE 06/01/16 09:00 06/13/16 08:51 (Beneprotein Powder) 1 pack TID G-TUBE 06/02/16 09:00 06/11/16 18:00 (Neurontin) 300 mg HS PO 06/06/16 21:00 06/12/16 21:57 (Dulcolax Supp) 10 mg DAILY RECTAL 06/07/16 09:00 06/07/16 08:29 (Lactulose Liq) 30 ml BID PO 06/07/16 09:00 06/13/16 08:51 (Roxicodone Intensol Liq) 5 mg Q4H PRN PO 06/07/16 10:00 06/12/16 22:10 (Trandate Inj) 10 mg Q20M PRN IV PUSH 06/07/16 13:15 06/07/16 23:25 (Lopressor) 12.5 mg Q8HR PO 06/08/16 06:00 06/13/16 13:44 (Pill Splitter) 1 ea UNSCH PRN OTHER 06/07/16 23:30 06/08/16 19:51 (Norvasc) 10 mg DAILY PO 06/08/16 09:00 06/13/16 08:51 (Pepcid Liq) 20 mg BID NG 06/08/16 09:00 06/12/16 21:56 Water VOLUME OF WATER: (120) ML Q4HR G-TUBE 06/09/16 20:00 06/12/16 00:00 (Unasyn Inj/NS Inj) 100 ml @ 200 mls/hr Q6H IV 06/12/16 14:00 06/13/16 13:44 A/P Problem List: (1) Acute ischemic right MCA stroke ICD Code: I63.511 Status: Acute (2) HTN (hypertension) ICD Code: I10 Status: Acute Assessment and Plan 50yF with h/o htn, smoking, and COPD with o2 use at night who presented with right MCA CVA status post systemic TPA and clot extraction. Now extubated and clinically improving. Acute right MCA CVA with Cerebral Edema: s/p TPA, s/p mechanical endovascular thrombectomy -Continue Neurochecks -S/p steroid taper, discontinued 06/11 -Dysphagia as below -Neurology and rehabilitation medicine following -Aspirin and statin Dysphagia/Aspiration s/p CVA as above Moderate protein calorie malnutrition and hyponatremia -Chest x-ray 06/10 with airspace disease left upper lobe. -ST on board, meals sitting up for now, s/p NGT however patient removed -Repeat chest x-ray 06/11 with improving aeration of her persistent left mid lung airspace disease. -On empiric IV Unasyn for now. -Patient reportedly eating, will ask vice president for instruction for calorie count, if not meeting adequate caloric intake, would consider PEG placement -consulted gastroenterology and palliative care, appreciated recommendations, hold of on PEG for now Acute hypercarbic hypoxic respiratory failure and COPD- resolved. -wean o2 by NC for goal spo2 > 90%. -Continue to monitor respiratory status -stable on room air Hypotension- resolved. Hypertension- recently controlled -Continue metoprolol and amlodipine. -IV labetalol as needed Hyperglycemia of critical illness, improving -Steroids for presumed COPD exacerbation, tapered, now discontinued -Hemoglobin A1c 6.2 -SSI DVT prophylaxis: SCDs. Heparin. Discussed with Dr. Yuly CNA. Problem Qualifiers (1) HTN (hypertension): Qualified Code: I10 - Essential hypertension Arelis Bernard PA-C Jun 13, 2016 15:28
[2016-06-13] MEDS: GABAPENTIN 300 MG CAP PO SCH (21:41)
[2016-06-13] MEDS: ATORVASTATIN 40 MG TAB PO SCH (21:41)
[2016-06-14] MEDS: AMPICILLIN-SULBACTAM INJ 3 GM in SODIUM CHLORIDE 0.9% INJ 100 ML IV SCH ×4 (03:08→22:14)
[2016-06-14 04:00] VITALS: BP_SYST 114; BP_DIAS 84; BP_DIAS 87; PULSE 87; PULSE 89; RESP 20; TEMP 97; TEMP 97.2; O2SAT 97; O2SAT 98
[2016-06-14] MEDS: CHLORHEXIDINE GLUCONATE 2 % 1 PACK (2 CLOTHS) TOP SCH (04:00)
[2016-06-14] MEDS: FREE WATER G-TUBE SCH ×6 (04:00→20:00)
[2016-06-14] MEDS: METOPROLOL TARTRATE 25 MG TAB PO SCH ×3 (05:35→22:15)
[2016-06-14] MEDS: INSULIN NovoLIN REGULAR SUPPLEMENTAL SCALE SQ SCH ×4 (05:39→18:00)
[2016-06-14] MEDS: CHLORHEXIDINE 0.12% (ORAL KIT) 15 ML CUP MT SCH ×2 (08:00→20:00)
[2016-06-14 08:24] VITALS: BP 123/75; PULSE 88; RESP 18; TEMP 98.2; O2SAT 94
[2016-06-14 08:31] LABS: HEMATOCRIT 36.1 % (35.0-46.0); MEAN CELL VOLUME 90.5 FL (80.0-100.0); MEAN CORPUSCULAR HEMOGLOBIN 30.6 PG (27.0-34.0); MEAN CORPUSCULAR HGB CONC 33.8 % (32.0-36.0); PLATELET COUNT 601 TH/MM3 (150-450); RED BLOOD COUNT 3.99 MIL/MM3 (4.00-5.30); RED CELL DISTRIBUTION WIDTH 14.5 % (11.6-17.2); REVIEW FLAG FINAL; WHITE BLOOD COUNT 11.7 TH/MM3 (4.0-11.0)
[2016-06-14] MEDS: BENEPROTEIN POWDER 1 PACK G-TUBE SCH ×3 (09:00→15:56)
[2016-06-14] MEDS: LACTULOSE SYRUP 20 GM/30 ML CUP PO SCH ×3 (09:00→21:00)
[2016-06-14] MEDS: BISACODYL 10 MG SUPP RECTAL SCH (09:00)
[2016-06-14] MEDS: FAMOTIDINE SUSP 40 MG/5 ML NG SCH ×2 (09:00→21:00)
[2016-06-14] MEDS: DOCUSATE SODIUM 50 MG/SENNA 8.6 MG TAB PO SCH ×2 (09:00→21:00)
[2016-06-14 09:06] LABS: BICARBONATE 28.7 MEQ/L (21.0-32.0); POTASSIUM 3.4 MEQ/L (3.5-5.1)
[2016-06-14] MEDS: ASPIRIN 81 MG CHEW TAB OG-TUBE SCH (10:01)
[2016-06-14] MEDS: SODIUM CHLORIDE 0.9% FLUSH 5 ML FLUSH IV FLUSH SCH ×2 (10:02→21:00)
[2016-06-14] MEDS: risperiDONE 0.5 MG TAB PO SCH ×2 (10:08→22:15)
--- NOTE | 2016-06-14 11:02 | HHI.PR ---
Objective Vitals Vital Signs Date Time Temp Pulse Resp B/P Pulse Ox O2 Delivery O2 Flow Rate FiO2 06/14/16 08:24 98.2 88 18 123/75 94 06/14/16 04:00 97.0 89 20 114/87 98 06/14/16 04:00 97.2 87 20 114/84 97 06/13/16 20:00 97.2 97 18 104/71 97 06/13/16 17:12 99.7 80 18 95/53 97 06/13/16 12:50 97.1 103 18 124/71 92 I/O 06/13/16 06/13/16 06/13/16 06/14/16 06/14/16 06/14/16 07:00 15:00 23:00 07:00 15:00 23:00 Intake Total 240 ml Output Total 800 ml 900 ml Balance -800 ml 240 ml -900 ml Intake Oral 240 ml Output Urine Total 800 ml 900 ml # Voids 4 1 1 # Bowel Movements 2 2 1 Result Diagram: 06/14/1615 06/14/1615 Objective Remarks GENERAL: Well-developed well-nourished middle aged female patient in [facility]. Resting in bed, RUE in soft restraint. SKIN: Warm and dry. No rash noted. HEENT: Normocephalic. Pupils equal and round. Mucous membranes pink and moist. CARDIOVASCULAR: Regular rate and rhythm. No murmur appreciated. RESPIRATORY: No accessory muscle use. Clear to auscultation. Breath sounds equal bilaterally. GASTROINTESTINAL: Abdomen soft, non-tender, nondistended. Bowel sounds x4. MUSCULOSKELETAL: No obvious deformities. No clubbing or cyanosis. No edema. NEUROLOGICAL: Sleepy but easily arousable, profound left-sided deficit, 4 over 5 right upper extremities. Tongue deviates to the left. A/P Problem List: (1) Acute ischemic right MCA stroke ICD Code: I63.511 Status: Acute (2) HTN (hypertension) ICD Code: I10 Status: Acute Assessment and Plan 50yF with h/o htn, smoking, and COPD with o2 use at night who presented with right MCA CVA status post systemic TPA and clot extraction. Now extubated and clinically improving. Acute right MCA CVA with Cerebral Edema: s/p TPA, s/p mechanical endovascular thrombectomy -Continue Neurochecks, status post steroids. Continue aspirin and statin Dysphagia/Aspiration with aspiration pneumonia Moderate protein calorie malnutrition -Chest x-ray 06/10 with airspace disease left upper lobe. -ST on board, meals sitting up for now, s/p NGT however patient removed -Repeat chest x-ray 06/11 with improving aeration of her persistent left mid lung airspace disease. Continue empiric Unasyn, possibly switch to oral tomorrow. -Patient reportedly eating, will ask textile technical officer for calorie count, if not meeting adequate caloric intake, would consider PEG placement -consulted gastroenterology and palliative care, appreciated recommendations, hold of on PEG for now, if no need for PEG, May discharged to [place]. Acute hypercarbic hypoxic respiratory failure and COPD- resolved. -wean o2 by [place] for goal spo2 > 90%. -Continue to monitor respiratory status -stable on room air Hypotension- resolved. Hypertension- recently controlled -Continue metoprolol and amlodipine. -IV labetalol as needed Hyperglycemia of critical illness, improving -Steroids for presumed COPD exacerbation, tapered, now discontinued -Hemoglobin A1c 6.2 -SSI DVT prophylaxis: SCDs. Heparin. Discharge Planning Discharged to [place] when eating enough. Likely tomorrow. Problem Qualifiers (1) HTN (hypertension): Qualified Code: I10 - Essential hypertension Pravin Emery MD Jun 14, 2016 11:02
[2016-06-14] MEDS: oxyCODONE HCL ORAL CONC 20 MG/ML SYRINGE PO PRN ×2 (11:33→16:06)
[2016-06-14] MEDS: HEPARIN SODIUM - SQ 10,000 UNITS/ML VIAL SQ SCH ×2 (11:36→21:00)
[2016-06-14 12:33] VITALS: BP 149/77; PULSE 90; RESP 18; TEMP 98.2; O2SAT 93
[2016-06-14 16:44] VITALS: BP 110/68; PULSE 90; RESP 18; TEMP 98.2; O2SAT 90
--- NOTE | 2016-06-14 17:53 | HHI.PR ---
Subjective Subjective Comments Patient awake and alert. No pain behaviors observed. No shortness of breath noted. Allergies: Coded Allergies: No Known Allergies (Verified , 05/28/16) Review of Systems All other ROS: ROS reviewed as documented in chart Exam I&O / VS 06/13/16 06/13/16 06/14/16 15:00 23:00 07:00 Intake Total 240 ml Output Total 900 ml Balance 240 ml -900 ml Intake Oral 240 ml Output Urine Total 900 ml # Voids 1 1 # Bowel Movements 2 1 Vital Signs Date Time Temp Pulse Resp B/P Pulse Ox O2 Delivery O2 Flow Rate FiO2 06/14/16 16:44 98.2 90 18 110/68 90 06/14/16 12:33 98.2 90 18 149/77 93 06/14/16 08:24 98.2 88 18 123/75 94 06/14/16 04:00 97.0 89 20 114/87 98 06/14/16 04:00 97.2 87 20 114/84 97 06/13/16 20:00 97.2 97 18 104/71 97 General: No acute distress, Other (Finance at bedside) Respiratory: Coarse breath sounds Psychiatric: Cooperative Orientation: oriented to Self, oriented to Place, oriented to Time (with cues) , oriented to Situation Neurologic: Pupils (PERRLA), EOM (tracks right and left but with left neglect) Motor: Right Upper Extremity (5/5), Left Upper Extremity (shoulder elevation 3/ 5; remainder 0/5), Right Lower Extremity (5/5), Left Lower Extremity (hip extension 3/5; knee extension 1/5; ankle 0/5) Spasticity None noted Sensory Impaired in the left upper and lower extremity to light touch Clonus: Negative Objective Micro and Labs Laboratory Tests Test 06/14/16 08:15 White Blood Count 11.7 Red Blood Count 3.99 Hemoglobin 12.2 Hematocrit 36.1 Mean Corpuscular Volume 90.5 Mean Corpuscular Hemoglobin 30.6 Mean Corpuscular Hemoglobin 33.8 Concent Red Cell Distribution Width 14.5 Platelet Count 601 Mean Platelet Volume 7.2 Sodium Level 140 Potassium Level 3.4 Chloride Level 102 Carbon Dioxide Level 28.7 Anion Gap 9 Blood Urea Nitrogen 15 Creatinine 0.69 Estimat Glomerular Filtration 89 Rate Random Glucose 117 Calcium Level 9.1 Assessment and Plan Diagnosis: (1) Acute ischemic right MCA stroke Assessment 1. Right MCA ischemic stroke status post TPA and right MCA embolectomy with left hemiplegia, left neglect, left hemisensory impairment and dysphagia 2. Asthma 3. COPD: Using oxygen nasal cannula at home at bedtime 4. Migraine 5. History tubal ligation Plan 1. Physical therapy and patient is now moderate to maximal assistance for transfers. Continue to mobilize as tolerated 2. Speech therapy has evaluated swallow and tolerating pured diet with nectar thick liquids. Calorie count in process. 3. Occupational therapy for ADLs and currently dependent 4. Case management working on identifying ongoing rehabilitation services 5. Will follow while hospitalized and at discharge Lubna Caraballo MD Jun 14, 2016 17:53
[2016-06-14 20:00] VITALS: BP 127/84; PULSE 97; RESP 18; TEMP 97.2; O2SAT 96
[2016-06-14] MEDS: GABAPENTIN 300 MG CAP PO SCH (22:15)
[2016-06-14] MEDS: ATORVASTATIN 40 MG TAB PO SCH (22:15)
[2016-06-15] VITALS: BP 123/80; PULSE 95; RESP 20; TEMP 97.2; O2SAT 93
[2016-06-15] MEDS: AMPICILLIN-SULBACTAM INJ 3 GM in SODIUM CHLORIDE 0.9% INJ 100 ML IV SCH ×4 (02:00→22:54)
[2016-06-15] MEDS: FREE WATER G-TUBE SCH ×7 (03:16→23:46)
[2016-06-15] MEDS: CHLORHEXIDINE GLUCONATE 2 % 1 PACK (2 CLOTHS) TOP SCH ×2 (03:16→23:45)
[2016-06-15 05:58] VITALS: PULSE 95
[2016-06-15] MEDS: INSULIN NovoLIN REGULAR SUPPLEMENTAL SCALE SQ SCH ×5 (06:00→23:45)
[2016-06-15] MEDS: METOPROLOL TARTRATE 25 MG TAB PO SCH ×3 (06:51→22:59)
[2016-06-15 08:00] VITALS: BP 118/72; PULSE 86; RESP 18; TEMP 97.6; O2SAT 93
[2016-06-15] MEDS: CHLORHEXIDINE 0.12% (ORAL KIT) 15 ML CUP MT SCH ×2 (08:00→20:00)
[2016-06-15] MEDS: BENEPROTEIN POWDER 1 PACK G-TUBE SCH ×3 (09:00→15:46)
[2016-06-15] MEDS: LACTULOSE SYRUP 20 GM/30 ML CUP PO SCH ×3 (09:00→23:02)
[2016-06-15] MEDS: FAMOTIDINE SUSP 40 MG/5 ML NG SCH ×2 (09:00→22:59)
[2016-06-15] MEDS: BISACODYL 10 MG SUPP RECTAL SCH (09:00)
[2016-06-15] MEDS: risperiDONE 0.5 MG TAB PO SCH ×2 (10:16→22:59)
[2016-06-15] MEDS: ASPIRIN 81 MG CHEW TAB OG-TUBE SCH (10:17)
[2016-06-15] MEDS: DOCUSATE SODIUM 50 MG/SENNA 8.6 MG TAB PO SCH ×3 (10:17→23:02)
[2016-06-15] MEDS: HEPARIN SODIUM - SQ 10,000 UNITS/ML VIAL SQ SCH ×2 (10:19→22:59)
[2016-06-15] MEDS: SODIUM CHLORIDE 0.9% FLUSH 5 ML FLUSH IV FLUSH SCH ×2 (10:19→23:44)
[2016-06-15 12:00] VITALS: BP 124/74; PULSE 94; RESP 19; TEMP 97.4; O2SAT 96
--- NOTE | 2016-06-15 13:09 | HHI.PR ---
Subjective Remarks Follow up for CVA with dysphagia and poor oral intake. Discussed with RN, patient has been out of restraints since last night. She ate half of her breakfast however refused her lunch. She denies any medical complaints. No fevers/chills. Vital signs stable. Objective Vitals Vital Signs Date Time Temp Pulse Resp B/P Pulse Ox O2 Delivery O2 Flow Rate FiO2 06/15/16 12:00 97.4 94 19 124/74 96 06/15/16 08:00 97.6 86 18 118/72 93 06/15/16 00:00 97.2 95 20 123/80 93 06/14/16 20:00 97.2 97 18 127/84 96 06/14/16 16:44 98.2 90 18 110/68 90 I/O 06/14/16 06/14/16 06/14/16 06/15/16 06/15/16 06/15/16 07:00 15:00 23:00 07:00 15:00 23:00 Intake Total 240 ml Output Total 900 ml 1000 ml Balance -900 ml 240 ml -1000 ml Intake Oral 240 ml Output Urine Total 900 ml 1000 ml # Bowel Movements 1 1 Result Diagram: 06/14/16 0815 06/14/16 0815 Imaging Last Impressions Chest X-Ray 06/11/16 0000 Signed Impressions: Service Date/Time: Saturday, June 11, 2016 17:52 - CONCLUSION: Improving lung aeration. Persistent left midlung airspace disease. Otherwise stable chest. Arjun Cancino MD Abdomen X-Ray 06/11/16 0000 Signed Impressions: Service Date/Time: Saturday, June 11, 2016 20:05 - CONCLUSION: Tip of nasogastric tube and cardia of the stomach. No evidence of obstruction. Arjun Cancino MD Head CT 06/04/16 0000 Signed Impressions: Service Date/Time: Sunday, June 05, 2016 05:36 - CONCLUSION: Evolving right middle cerebral artery territory infarct. Eriberto Mirza MD CT Angiography 05/31/16 0000 Signed Impressions: Service Date/Time: Tuesday, May 31, 2016 14:08 - CONCLUSION: 1. No evidence of pulmonary embolism. 2. Dense consolidation in the left lower lobe with more patchy infiltrate in the posterior left upper lobe. Tae Marquez MD Head Magnetic Resonance Angiography 05/30/16 0000 Signed Impressions: Service Date/Time: May 11:39 - CONCLUSION: 1. Resolution of previously identified intraluminal filling defect in the mid right middle cerebral artery seen on prior CTA. Currently no hemodynamically significant stenosis identified. Bert Ayoub MD Brain MRI 05/30/16 0000 Signed Impressions: Service Date/Time: May 11:39 - CONCLUSION: 1. Large right MCA distribution infarct with mild mass effect and 3 mm right to left midline shift. Bert Ayoub MD Cerebral Arteriogram 05/29/16 1454 Signed Impressions: Service Date/Time: Sunday, May 29, 2016 15:22 - CONCLUSION: Success right MCA embolectomy as above . Chalo Payne MD Neck CTA 05/28/162026 Signed Impressions: Service Date/Time: Saturday, May 28, 2016 20:32 - CONCLUSION: Mild calcified plaque at the left proximal internal carotid artery. A significant stenosis is not seen. Eriberto Mirza MD Head CTA 05/28/162026 Signed Impressions: Service Date/Time: Saturday, May 28, 2016 20:32 - CONCLUSION: Short focal area of diminished flow potentially representing a thrombus in the midportion of the M1 segment of the right middle cerebral artery. The more peripheral flow at the right middle cerebral artery is diminished when compared to the left side. Eriberto Mirza MD Objective Remarks GENERAL: Well-developed well-nourished middle aged female patient in [facility]. Resting in bed. SKIN: Warm and dry. No rash noted. HEENT: Normocephalic. Pupils equal and round. Mucous membranes pink and moist. CARDIOVASCULAR: Regular rate and rhythm. No murmur appreciated. RESPIRATORY: No accessory muscle use. Clear to auscultation. Breath sounds equal bilaterally. GASTROINTESTINAL: Abdomen soft, non-tender, nondistended. Bowel sounds x4. MUSCULOSKELETAL: No obvious deformities. No clubbing or cyanosis. No edema. NEUROLOGICAL: Awake and alert. Profound Left-sided deficit. Tongue deviates to the left. Normal speech. PSYCHIATRIC: Appropriate mood and affect; insight and judgment fair to normal. Medications and IVs Current Medications Medications (Trade) Dose Ordered Sig/Aric Route Start Time Stop Time Status Last Admin (D50w (Vial) Inj) 25 ml UNSCH PRN IV PUSH 05/29/16 02:15 (NovoLIN R SUPPLEMENTAL SCALE) 1 Q6HR SQ 05/29/16 06:00 06/12/16 12:00 (NS Flush) 2 ml UNSCH PRN IV FLUSH 05/29/16 02:15 06/13/16 06:01 (NS Flush) 2 ml BID IV FLUSH 05/29/16 09:00 06/15/16 10:19 (Tylenol) 650 mg Q6H PRN PO 05/29/16 02:15 06/11/16 17:53 (Zofran Inj) 4 mg Q6H PRN IV 05/29/16 02:15 (Steffany-Colace) 2 tab BID PO 05/29/16 09:00 06/15/16 10:17 Miscellaneous Information 1 Q361D XX 05/29/16 02:15 05/29/16 02:15 (Chlorhexidine 2% Cloth) Taper DAILY@04 TOP 05/29/16 04:00 05/25/17 03:59 06/10/16 03:53 (Chlorhexidine 2% Cloth) 3 pack UNSCH PRN TOP 05/29/16 02:15 (risperDAL) 0.5 mg Q12H PRN PO 05/29/16 08:45 06/12/16 22:14 (risperDAL) 0.5 mg BID PO 05/29/16 09:00 06/15/16 10:16 (Heparin Inj) 5,000 units BID SQ 05/30/16 09:00 06/15/16 10:19 (Lipitor) 40 mg HS PO 05/30/16 21:00 06/14/16 22:15 (Peridex 0.12% Liq) 15 ml BID@08,20 MT 05/31/16 20:00 06/13/16 21:42 (Brethine Inj) 1 mg UNSCH PRN SQ 05/31/16 16:15 (NS Flush) See Protocol DAILY IVF 06/01/16 09:00 06/15/16 10:19 (NS Flush) See Protocol UNSCH PRN IVF 05/31/16 18:15 (Heparin Central Flush) See Protocol DAILY IVF 06/01/16 09:00 06/15/16 10:18 (Heparin Central Flush) See Protocol UNSCH PRN IVF 05/31/16 18:15 (NS Flush) See Protocol UNSCH PRN IVF 05/31/16 18:15 (Aspirin Chew) 162 mg DAILY OG-TUBE 06/01/16 09:00 06/15/16 10:17 (Beneprotein Powder) 1 pack TID G-TUBE 06/02/16 09:00 06/11/16 18:00 (Neurontin) 300 mg HS PO 06/06/16 21:00 06/14/16 22:15 (Dulcolax Supp) 10 mg DAILY RECTAL 06/07/16 09:00 06/07/16 08:29 (Lactulose Liq) 30 ml BID PO 06/07/16 09:00 06/13/16 21:42 (Roxicodone Intensol Liq) 5 mg Q4H PRN PO 06/07/16 10:00 06/14/16 16:06 (Trandate Inj) 10 mg Q20M PRN IV PUSH 06/07/16 13:15 06/07/16 23:25 (Lopressor) 12.5 mg Q8HR PO 06/08/16 06:00 06/15/16 06:51 (Pill Splitter) 1 ea UNSCH PRN OTHER 06/07/16 23:30 06/08/16 19:51 (Norvasc) 10 mg DAILY PO 06/08/16 09:00 06/15/16 10:17 (Pepcid Liq) 20 mg BID NG 06/08/16 09:00 06/14/16 21:00 Water VOLUME OF WATER: (120) ML Q4HR G-TUBE 06/09/16 20:00 06/12/16 00:00 (Unasyn Inj/NS Inj) 100 ml @ 200 mls/hr Q6H IV 06/12/16 14:00 06/15/16 10:19 A/P Problem List: (1) Acute ischemic right MCA stroke ICD Code: I63.511 Status: Acute (2) HTN (hypertension) ICD Code: I10 Status: Acute Assessment and Plan 50yF with h/o htn, smoking, and COPD with o2 use at night who presented with right MCA CVA status post systemic TPA and clot extraction. Now extubated and clinically improving. Acute right MCA CVA with Cerebral Edema: s/p TPA, s/p mechanical endovascular thrombectomy -Continue Neurochecks -S/p steroid taper, discontinued 06/11 -Continue aspirin and statin -Neurology and rehabilitation medicine following Dysphagia/Aspiration s/p CVA as above Moderate protein calorie malnutrition and hyponatremia -CXR 06/10 with airspace disease left upper lobe. -ST on board, meals sitting up for now, s/p NGT however patient removed -Repeat chest x-ray 06/11 with improving aeration of her persistent left mid lung airspace disease. -On empiric IV Unasyn for now, consider switching to po -Patient reportedly eating, will ask director of restaurants for calorie count, if not meeting adequate caloric intake, would consider PEG placement -consulted gastroenterology and palliative care, appreciated recommendations, hold of on PEG for now -continue calorie count, if adequate intake and no need for PEG, may discharge to [facility] Acute hypercarbic hypoxic respiratory failure and COPD- resolved. -weaned O2 by [place] for goal spo2 > 90%. -Continue to monitor respiratory status -stable on room air Hypotension- resolved. Hypertension- recently controlled -Continue metoprolol and amlodipine. -IV labetalol as needed Hyperglycemia of critical illness, improving -Steroids for presumed COPD exacerbation, tapered, now discontinued -Hemoglobin A1c 6.2 -SSI DVT prophylaxis: SCDs. Heparin. Discussed with Dr. Emery, RN. Discharge Planning Discharge to [facility] when having adequate oral intake. Hopefully in 1-2 days. Problem Qualifiers (1) HTN (hypertension): Qualified Code: I10 - Essential hypertension Arelis Bernard PA-C Jun 15, 2016 13:09
[2016-06-15] MEDS: oxyCODONE HCL ORAL CONC 20 MG/ML SYRINGE PO PRN (14:26)
[2016-06-15 16:00] VITALS: BP 135/64; PULSE 71; RESP 18; TEMP 96.6; O2SAT 96
[2016-06-15 20:10] VITALS: BP 121/81; PULSE 84; RESP 20; TEMP 99.7; O2SAT 92
[2016-06-15] MEDS: ATORVASTATIN 40 MG TAB PO SCH (22:58)
[2016-06-15] MEDS: GABAPENTIN 300 MG CAP PO SCH (22:58)
[2016-06-16] VITALS (7 sets, daily range): BP systolic 99–130; BP diastolic 56–81; PULSE 76–95; RESP 18–20; TEMP 96.7–97.9; O2SAT 91–98
[2016-06-16] MEDS: AMPICILLIN-SULBACTAM INJ 3 GM in SODIUM CHLORIDE 0.9% INJ 100 ML IV SCH ×2 (02:00→08:18)
[2016-06-16] MEDS: FREE WATER G-TUBE SCH ×3 (04:00→12:00)
[2016-06-16] MEDS: oxyCODONE HCL ORAL CONC 20 MG/ML SYRINGE PO PRN ×2 (04:27→20:41)
[2016-06-16] MEDS: METOPROLOL TARTRATE 25 MG TAB PO SCH ×3 (04:27→20:47)
[2016-06-16] MEDS: INSULIN NovoLIN REGULAR SUPPLEMENTAL SCALE SQ SCH ×4 (04:34→23:50)
[2016-06-16] MEDS: CHLORHEXIDINE 0.12% (ORAL KIT) 15 ML CUP MT SCH ×2 (08:00→20:00)
[2016-06-16] MEDS: DOCUSATE SODIUM 50 MG/SENNA 8.6 MG TAB PO SCH ×2 (08:11→20:40)
[2016-06-16] MEDS: LACTULOSE SYRUP 20 GM/30 ML CUP PO SCH ×3 (08:11→20:40)
[2016-06-16] MEDS: risperiDONE 0.5 MG TAB PO SCH ×2 (08:11→20:45)
[2016-06-16] MEDS: ASPIRIN 81 MG CHEW TAB OG-TUBE SCH (08:12)
[2016-06-16] MEDS: BENEPROTEIN POWDER 1 PACK G-TUBE SCH ×2 (08:13→12:37)
[2016-06-16] MEDS: SODIUM CHLORIDE 0.9% FLUSH 5 ML FLUSH IV FLUSH SCH ×2 (08:13→20:41)
[2016-06-16] MEDS: FAMOTIDINE SUSP 40 MG/5 ML NG SCH ×2 (08:17→20:40)
[2016-06-16] MEDS: BISACODYL 10 MG SUPP RECTAL SCH (08:17)
[2016-06-16] MEDS: HEPARIN SODIUM - SQ 10,000 UNITS/ML VIAL SQ SCH ×2 (08:21→20:40)
--- NOTE | 2016-06-16 13:03 | HHI.PR ---
Subjective Remarks Follow-up for CVA, dysphagia, encephalopathy. RN at bedside. Patient has been doing okay without restraints. Her appetite and eating have been fair. The patient does not like the pured diet and wants to go to a sandwich shop. She also wants to be allowed to do more, such as use the restroom. She rambles nonsensically at times, but continues to refuse PEG tube. Objective Vitals Vital Signs Date Time Temp Pulse Resp B/P Pulse Ox O2 Delivery O2 Flow Rate FiO2 06/16/16 12:00 97.6 82 18 126/66 98 06/16/16 08:00 97.5 82 18 118/63 95 06/16/16 05:37 16 06/16/16 04:09 97.6 80 18 114/61 94 06/16/16 00:23 97.9 86 20 99/56 91 06/15/16 20:10 99.7 84 20 121/81 92 06/15/16 16:00 96.6 71 18 135/64 96 I/O 06/15/16 06/15/16 06/15/16 06/16/16 06/16/16 06/16/16 07:00 15:00 23:00 07:00 15:00 23:00 Intake Total 480 ml 240 ml Output Total 1000 ml Balance -1000 ml 480 ml 240 ml Intake Oral 480 ml 240 ml Output Urine Total 1000 ml # Voids 1 1 # Bowel Movements 1 1 Result Diagram: 06/14/16 0815 06/14/16 0815 Objective Remarks GENERAL: Well-developed well-nourished. In no acute distress. Right-sided restraints. SKIN: Warm and dry. No lesions noted. HEENT: Normocephalic. Pupils equal and round. Mucous membranes pink and moist. CARDIOVASCULAR: Regular rate and rhythm. No murmur appreciated. RESPIRATORY: No accessory muscle use. Clear to auscultation. Breath sounds equal bilaterally. GASTROINTESTINAL: Abdomen soft, non-tender, nondistended. Bowel sounds x4. MUSCULOSKELETAL: No obvious deformities. No clubbing or cyanosis. No edema. NEUROLOGICAL: Awake and alert. Profound Left-sided weakness. Tongue deviates to the left. Normal speech. PSYCHIATRIC: A bit confused mood and guarded affect; insight and judgment fair. A/P Problem List: (1) Acute ischemic right MCA stroke ICD Code: I63.511 Status: Acute (2) HTN (hypertension) ICD Code: I10 Status: Acute Assessment and Plan 50yF with h/o htn, smoking, and COPD with o2 use at night who presented with right MCA CVA status post systemic TPA and clot extraction. Now extubated and clinically improving. Acute right MCA CVA with Cerebral Edema: s/p TPA, s/p mechanical endovascular thrombectomy -Continue Neurochecks -S/p steroid taper, discontinued 06/11 -Continue aspirin and statin -Neurology and rehabilitation medicine following Dysphagia/Aspiration s/p CVA as above Moderate protein calorie malnutrition and hyponatremia -CXR 06/10 with airspace disease left upper lobe. -ST on board, meals sitting up for now, s/p NGT however patient removed -Repeat chest x-ray 06/11 with improving aeration of her persistent left mid lung airspace disease. -Received empiric IV Unasyn since 06/12, change to oral Augmentin -Patient reportedly eating, will ask abalone processor for calorie count, if not meeting adequate caloric intake, would consider PEG placement -consulted gastroenterology and palliative care, appreciated recommendations, hold of on PEG for now -continue calorie count, results 06/17 -if adequate intake and no need for PEG, may discharge to [facility] -If inadequate intake, we'll need to consult psychiatry for decision-making capacity regarding PEG Acute hypercarbic hypoxic respiratory failure and COPD- resolved. -weaned O2 by [place] for goal spo2 > 90%. -Continue to monitor respiratory status -stable on room air Hypotension- resolved. Hypertension-reasonably controlled -Continue metoprolol and amlodipine. -IV labetalol as needed Hyperglycemia of critical illness, improving -Steroids for presumed COPD exacerbation, tapered, now discontinued -Hemoglobin A1c 6.2 -SSI DVT prophylaxis: SCDs. Heparin. Discussed with Dr. Emery Problem Qualifiers (1) HTN (hypertension): Qualified Code: I10 - Essential hypertension Randolph Hayward Jun 16, 2016 13:03
[2016-06-16] MEDS: AMOXICILLIN/CLAVULANATE K 875 MG TAB PO SCH (20:39)
[2016-06-16] MEDS: ATORVASTATIN 40 MG TAB PO SCH (20:39)
[2016-06-16] MEDS: GABAPENTIN 300 MG CAP PO SCH (20:40)
[2016-06-16] MEDS: CHLORHEXIDINE GLUCONATE 2 % 1 PACK (2 CLOTHS) TOP SCH (23:50)
[2016-06-17 00:09] VITALS: BP 103/57; PULSE 82; RESP 18; TEMP 98.1; O2SAT 91
[2016-06-17 05:23] VITALS: BP 111/68; PULSE 63; RESP 20; TEMP 98.1; O2SAT 96
[2016-06-17] MEDS: METOPROLOL TARTRATE 25 MG TAB PO SCH ×3 (05:52→23:58)
[2016-06-17] MEDS: INSULIN NovoLIN REGULAR SUPPLEMENTAL SCALE SQ SCH ×4 (05:53→23:36)
[2016-06-17] MEDS: oxyCODONE HCL ORAL CONC 20 MG/ML SYRINGE PO PRN (05:53)
[2016-06-17 08:00] VITALS: BP 103/56; PULSE 93; RESP 16; TEMP 97.9; O2SAT 97
[2016-06-17] MEDS: risperiDONE 0.5 MG TAB PO SCH ×2 (09:00→23:58)
[2016-06-17] MEDS: FAMOTIDINE SUSP 40 MG/5 ML NG SCH ×2 (09:00→21:00)
[2016-06-17] MEDS: LACTULOSE SYRUP 20 GM/30 ML CUP PO SCH ×2 (09:44→23:58)
[2016-06-17] MEDS: AMOXICILLIN/CLAVULANATE K 875 MG TAB PO SCH ×2 (09:45→23:57)
[2016-06-17] MEDS: DOCUSATE SODIUM 50 MG/SENNA 8.6 MG TAB PO SCH ×2 (09:45→21:00)
[2016-06-17] MEDS: risperiDONE 0.25 MG TAB PO PRN (09:45)
[2016-06-17] MEDS: ASPIRIN 81 MG CHEW TAB PO SCH (09:45)
[2016-06-17] MEDS: BISACODYL 10 MG SUPP RECTAL SCH (09:46)
[2016-06-17] MEDS: HEPARIN SODIUM - SQ 10,000 UNITS/ML VIAL SQ SCH ×2 (09:47→23:58)
[2016-06-17] MEDS: SODIUM CHLORIDE 0.9% FLUSH 5 ML FLUSH IV FLUSH SCH ×2 (09:53→23:56)
[2016-06-17] MEDS: CHLORHEXIDINE 0.12% (ORAL KIT) 15 ML CUP MT SCH ×2 (09:54→20:00)
[2016-06-17 12:00] VITALS: BP 101/61; PULSE 90; RESP 18; TEMP 97.1; O2SAT 92
--- NOTE | 2016-06-17 14:56 | HHI.PR ---
Subjective Subjective Comments Patient awake and alert. Nursing providing care. Denies any pain. No shortness of breath noted. Allergies: Coded Allergies: No Known Allergies (Verified , 05/28/16) Review of Systems All other ROS: ROS reviewed as documented in chart Exam I&O / VS 06/16/16 06/16/16 06/17/16 15:00 23:00 07:00 Output Total 4 ml Balance -4 ml Output Urine Total 4 ml # Voids 1 1 # Bowel Movements 0 Vital Signs Date Time Temp Pulse Resp B/P Pulse Ox O2 Delivery O2 Flow Rate FiO2 06/17/16 12:00 97.1 90 18 101/61 92 06/17/16 08:00 97.9 93 16 103/56 97 06/17/16 07:02 16 06/17/16 05:23 98.1 63 20 111/68 96 06/17/16 00:09 98.1 82 18 103/57 91 06/16/16 21:17 96.7 95 18 128/81 91 06/16/16 16:00 97.8 86 18 130/68 98 General: No acute distress, Other (Finance at bedside) Respiratory: Coarse breath sounds Psychiatric: Cooperative Orientation: oriented to Self, oriented to Situation Neurologic: Pupils (reactive bilaterally), EOM (tracks right and left), Speech (fluent) Motor: Left Upper Extremity (0/5), Left Lower Extremity (0/5) Assessment and Plan Diagnosis: (1) Acute ischemic right MCA stroke Assessment 1. Right MCA ischemic stroke status post TPA and right MCA embolectomy with left hemiplegia, left neglect, left hemisensory impairment and dysphagia 2. Asthma 3. COPD: Using oxygen nasal cannula at home at bedtime 4. Migraine 5. History tubal ligation Plan 1. Physical therapy and patient is now min to mod assistance for transfers and ambulating 25 feet with fair minus balance. Continue to mobilize as tolerated 2. Speech therapy has evaluated swallow and tolerating pured diet with nectar thick liquids. Calorie count in process. Discussed with dietitian 3. Occupational therapy for ADLs and currently max assist 4. Case management working on identifying ongoing rehabilitation services 5. Will follow while hospitalized and at discharge Lubna Caraballo MD Jun 17, 2016 14:56
[2016-06-17 16:00] VITALS: BP 106/71; PULSE 80; RESP 16; TEMP 96.9; O2SAT 98
--- NOTE | 2016-06-17 16:51 | HHI.PR ---
Subjective Remarks Follow-up for Poor oral intake Failed cautery counting, not eating more than half of her meals. Patient flipped flopping and inserting the tube or not, I do think patient has capacity to decide. She is oriented but seems like she cannot understand the repercussions of her decisions. No change in mental status, no change in deficits. No nausea or vomiting. No diarrhea. Objective Vitals Vital Signs Date Time Temp Pulse Resp B/P Pulse Ox O2 Delivery O2 Flow Rate FiO2 06/17/16 16:00 96.9 80 16 106/71 98 06/17/16 12:00 97.1 90 18 101/61 92 06/17/16 08:00 97.9 93 16 103/56 97 06/17/16 07:02 16 06/17/16 05:23 98.1 63 20 111/68 96 06/17/16 00:09 98.1 82 18 103/57 91 06/16/16 21:17 96.7 95 18 128/81 91 I/O 06/16/16 06/16/16 06/16/16 06/17/16 06/17/16 06/17/16 06:59 14:59 22:59 06:59 14:59 22:59 Intake Total 360 ml Output Total 4 ml Balance -4 ml 360 ml Intake Oral 360 ml Output Urine Total 4 ml # Voids 1 1 1 3 # Bowel Movements 1 0 Result Diagram: 06/14/1615 06/14/1615 Objective Remarks GENERAL: Well-developed well-nourished. In no acute distress. Right-sided restraints. CARDIOVASCULAR: Regular rate and rhythm. No murmur appreciated. RESPIRATORY: No accessory muscle use. Clear to auscultation. Breath sounds equal bilaterally. GASTROINTESTINAL: Abdomen soft, non-tender, nondistended. Bowel sounds x4. MUSCULOSKELETAL: No obvious deformities. No clubbing or cyanosis. No edema. NEUROLOGICAL: Awake and alert. Profound Left-sided weakness. Normal speech. PSYCHIATRIC: A bit confused mood and guarded affect; insight and judgment fair. Oriented to self, place and time. A/P Problem List: (1) Acute ischemic right MCA stroke ICD Code: I63.511 Status: Acute (2) HTN (hypertension) ICD Code: I10 Status: Acute Assessment and Plan 50yF with h/o htn, smoking, and COPD with o2 use at night who presented with right MCA CVA status post systemic TPA and clot extraction. Now extubated and clinically improving. Acute right MCA CVA with Cerebral Edema: s/p TPA, s/p mechanical endovascular thrombectomy -Continue Neurochecks -S/p steroid taper, discontinued 06/11 -Continue aspirin and statin -Neurology and rehabilitation medicine following Dysphagia/Aspiration s/p CVA as above Moderate protein calorie malnutrition and hyponatremia -CXR 06/10 with airspace disease left upper lobe. -ST on board, meals sitting up for now, s/p NGT however patient removed -Repeat chest x-ray 06/11 with improving aeration of her persistent left mid lung airspace disease. -Received empiric IV Unasyn since 06/12, change to oral Augmentin -Patient reportedly eating, will ask statement processor for calorie count, if not meeting adequate caloric intake, would consider PEG placement -consulted gastroenterology and palliative care, appreciated recommendations, hold of on PEG for now -Patient failed calorie counting 06/17/16, consult psychiatry for capacity. I personally don't think she has capacity to make decisions for herself. After PEG tube insertion, she can be discharged to [place]. Acute hypercarbic hypoxic respiratory failure and COPD- resolved. -weaned O2 by CT for goal spo2 > 90%. -Continue to monitor respiratory status -stable on room air Hypotension- resolved. Hypertension-reasonably controlled -Continue metoprolol and amlodipine. -IV labetalol as needed Hyperglycemia of critical illness, improving -Steroids for presumed COPD exacerbation, tapered, now discontinued -Hemoglobin A1c 6.2 -SSI DVT prophylaxis: SCDs. Heparin. Discharge Planning Discharged to [place] when eating enough. Likely tomorrow. Problem Qualifiers (1) HTN (hypertension): Qualified Code: I10 - Essential hypertension Pravin Emery MD Jun 17, 2016 16:51
[2016-06-17 21:03] VITALS: BP 126/70; PULSE 94; RESP 17; TEMP 99.7; O2SAT 94
[2016-06-17] MEDS: GABAPENTIN 300 MG CAP PO SCH (23:59)
[2016-06-18] MEDS: ATORVASTATIN 40 MG TAB PO SCH ×2 (00:05→23:15)
[2016-06-18 01:19] VITALS: BP 118/77; PULSE 95; RESP 18; TEMP 99.1; O2SAT 94
[2016-06-18] MEDS: CHLORHEXIDINE GLUCONATE 2 % 1 PACK (2 CLOTHS) TOP SCH (04:00)
[2016-06-18 05:40] VITALS: BP 110/78; PULSE 82; RESP 18; TEMP 97.5; O2SAT 92
[2016-06-18] MEDS: INSULIN NovoLIN REGULAR SUPPLEMENTAL SCALE SQ SCH ×3 (06:00→18:00)
[2016-06-18] MEDS: METOPROLOL TARTRATE 25 MG TAB PO SCH ×3 (07:15→23:17)
[2016-06-18 08:00] VITALS: BP 119/69; PULSE 87; RESP 20; TEMP 97.1; O2SAT 97
[2016-06-18] MEDS: CHLORHEXIDINE 0.12% (ORAL KIT) 15 ML CUP MT SCH ×2 (08:00→20:00)
[2016-06-18] MEDS: SODIUM CHLORIDE 0.9% FLUSH 5 ML FLUSH IV FLUSH SCH ×2 (09:00→23:11)
[2016-06-18] MEDS: AMOXICILLIN/CLAVULANATE K 875 MG TAB PO SCH ×2 (09:00→23:14)
[2016-06-18] MEDS: risperiDONE 0.5 MG TAB PO SCH ×2 (09:00→23:16)
[2016-06-18] MEDS: LACTULOSE SYRUP 20 GM/30 ML CUP PO SCH ×2 (09:00→23:13)
[2016-06-18] MEDS: BISACODYL 10 MG SUPP RECTAL SCH (09:00)
[2016-06-18] MEDS: DOCUSATE SODIUM 50 MG/SENNA 8.6 MG TAB PO SCH ×2 (09:00→21:00)
[2016-06-18] MEDS: HEPARIN SODIUM - SQ 10,000 UNITS/ML VIAL SQ SCH ×2 (09:00→23:16)
[2016-06-18] MEDS: FAMOTIDINE SUSP 40 MG/5 ML NG SCH ×2 (09:50→21:00)
[2016-06-18 12:00] VITALS: BP 113/58; PULSE 75; RESP 18; TEMP 98.1; O2SAT 97
--- NOTE | 2016-06-18 14:10 | PD.CONS ---
Provisional Diagnosis Admission Date May 28, 2016 at 21:12 [place] I. Delirium due to underlying medical condition [place] II. Deferred [place]. Stroke History of Present Illness Service Psychiatry Consult Requested By Primary Care Physician No Primary Care Physician HPI The patient is a 50-year-old woman, without any previous psychiatric history, with medical history hypertension, smoking, and COPD with o2 use at night who presented with right MCA CVA status post systemic TPA and clot extraction. Presenting with dysphagia was probably as a consequence of the stroke. She was recommended to have a PEG tube, but she declined. Consulted to psychiatry to assess capacity to refuse recommended treatment. On Evaluation today patient was found agitated, trying to get out of bed, but fully oriented by 3, cooperative. She endorses good mood, denies anxiety, denies depression, denies annemarie, denies perceptual disturbances. She denies suicidal or homicidal ideation. Patient is able to say that the reason of her hospitalization is that she had a stroke. She says that she needs a PEG tube because he has problems eating, yesterday she refuses, but she thought about it and she is in agreement with the procedure. During that oversedation with the patient patient become confused different occasions needing redirections. . Past Family Social History Coded Allergies: No Known Allergies (Verified , 05/28/16) Reported Medications Pantoprazole (Protonix)20 Mg Tab20 Mg PO DAILY Ref 0 03/15/16 Tiotropium Inh (Spiriva Handihaler)18 Mcg Cap18 Mcg INH DAILY #30 CAP Ref 0 1 capsule = 18 mcg 03/14/16 Prednisone 20 Mg Tab40 Mg PO BID Ref 0 03/14/16 Trazodone 50 Mg Jkm110 Mg PO HS #90 TAB Ref 0 03/06/16 Gabapentin 300 Mg [id number] Mg PO HS #60 CAP Ref 0 03/06/16 Fluticasone-Salmeterol Inh (Advair Diskus Inh)100-50 Mcg/Blist Aer1 Puff INH BID #1 INHALER Ref 0 Rinse mouth after use. 03/06/16 Albuterol 6.7 GM Inh (Proventil Hfa 6.7 GM Inh)90 Mcg/Act Aer2 Puff INH Q4H PRN (SHORTNESS OF BREATH) #1 INHALER Ref 0 03/06/16 Current Medications Medications (Trade) Dose Ordered Sig/Aric Route Start Time Stop Time Status Last Admin (D50w (Vial) Inj) 25 ml UNSCH PRN IV PUSH 05/29/16 02:15 (NovoLIN R SUPPLEMENTAL SCALE) 1 Q6HR SQ 05/29/16 06:00 06/16/16 18:14 (NS Flush) 2 ml UNSCH PRN IV FLUSH 05/29/16 02:15 06/13/16 06:01 (NS Flush) 2 ml BID IV FLUSH 05/29/16 09:00 06/18/16 09:00 (Tylenol) 650 mg Q6H PRN PO 05/29/16 02:15 06/11/16 17:53 (Zofran Inj) 4 mg Q6H PRN IV 05/29/16 02:15 (Steffany-Colace) 2 tab BID PO 05/29/16 09:00 06/17/16 09:45 Miscellaneous Information 1 Q361D XX 05/29/16 02:15 05/29/16 02:15 (Chlorhexidine 2% Cloth) 3 pack Taper DAILY@04 TOP 05/29/16 04:00 05/25/17 03:59 06/10/16 03:53 (Chlorhexidine 2% Cloth) 3 pack UNSCH PRN TOP 05/29/16 02:15 (risperDAL) 0.5 mg Q12H PRN PO 05/29/16 08:45 06/17/16 09:45 (risperDAL) 0.5 mg BID PO 05/29/16 09:00 06/17/16 23:58 (Heparin Inj) 5,000 units BID SQ 05/30/16 09:00 06/17/16 23:58 (Lipitor) 40 mg HS PO 05/30/16 21:00 06/18/16 00:05 (Peridex 0.12% Liq) 15 ml BID@08,20 MT 05/31/16 20:00 06/17/16 09:54 (Brethine Inj) 1 mg UNSCH PRN SQ 05/31/16 16:15 (NS Flush) See Protocol DAILY IVF 06/01/16 09:00 06/18/16 09:00 (NS Flush) See Protocol UNSCH PRN IVF 05/31/16 18:15 (Heparin Central Flush) See Protocol DAILY IVF 06/01/16 09:00 06/17/16 09:45 (Heparin Central Flush) See Protocol UNSCH PRN IVF 05/31/16 18:15 (NS Flush) See Protocol UNSCH PRN IVF 05/31/16 18:15 (Neurontin) 300 mg HS PO 06/06/16 21:00 06/17/16 23:59 (Dulcolax Supp) 10 mg DAILY RECTAL 06/07/16 09:00 06/17/16 09:46 (Lactulose Liq) 30 ml BID PO 06/07/16 09:00 06/17/16 23:58 (Roxicodone Intensol Liq) 5 mg Q4H PRN PO 06/07/16 10:00 06/17/16 05:53 (Trandate Inj) 10 mg Q20M PRN IV PUSH 06/07/16 13:15 06/07/16 23:25 (Lopressor) 12.5 mg Q8HR PO 06/08/16 06:00 06/18/16 07:15 (Pill Splitter) 1 ea UNSCH PRN OTHER 06/07/16 23:30 06/08/16 19:51 (Norvasc) 10 mg DAILY PO 06/08/16 09:00 06/17/16 09:45 (Pepcid Liq) 20 mg BID NG 06/08/16 09:00 06/16/16 20:40 (Augmentin) 875 mg Q12HR PO 06/16/16 21:00 06/17/16 23:57 (Aspirin Chew) 162 mg DAILY PO 06/17/16 09:00 Hold 06/17/16 09:45 Physical Exam Vital Signs Vital Signs Date Time Temp Pulse Resp B/P Pulse Ox O2 Delivery O2 Flow Rate FiO2 06/18/16 12:00 98.1 75 18 113/58 97 I/O 06/17/16 06/17/16 06/18/16 08:00 16:00 00:00 Intake Total 360 ml Balance 360 ml Mental Status Examination Speech: Unremarkable Orientation: x3 Memory: Unremarkable Thought Process: Organized Hallucination Type: None Suicidal Ideation: No Previous Homicide Attempts: No Judgement: WNL Affect: Good Affect if Inappropriate: Flat Mood: Appropriate Motor Activity: Normal gait Assessment & Plan Problem List: (1) Delirium due to another medical condition Assessment & Plan: Decision-making capacity is not applicable at this moment since patient is agreeing to have the PEG tube. However, is important to clarify that due to potential confusion/delirium due to her underlying medical conditions decision-making capacity can vary at any moment and patient can refuse again to have PEG and in that case, call me to my cell phone to reassess decision making capacity. ICD Code: F05 Assessment & Plan Estimated LOS: days Eb Bolanos MD Jun 18, 2016 14:10
[2016-06-18] MEDS: oxyCODONE HCL ORAL CONC 20 MG/ML SYRINGE PO PRN ×2 (14:16→23:19)
[2016-06-18 16:00] VITALS: BP 118/68; PULSE 65; RESP 16; TEMP 96.9; O2SAT 94
--- NOTE | 2016-06-18 16:26 | HHI.PR ---
Subjective Remarks Follow up for CVA with poor oral intake. Discussed extensively with RN and GAME FARM HELPER. Patient has only ate 3-4 bites in the last 24hrs. She is now refusing PEG. Discussed extensively with the patient, asked if she knows what happens when people don't have adequate nutritional intake, she states "yeah they usually get sick". When told this will likely happen to her, she states "I'm fine with that". She otherwise denies any other medical complaints. Denies difficulty swallowing. States she just doesn't feel like eating. Discussed with the RN regarding PEG who talked with the daughter, reportedly the daughter wants to abide by the patient's wishes and avoid PEG. Objective Vitals Vital Signs Date Time Temp Pulse Resp B/P Pulse Ox O2 Delivery O2 Flow Rate FiO2 06/18/16 12:00 98.1 75 18 113/58 97 06/18/16 08:00 97.1 87 20 119/69 97 06/18/16 05:40 97.5 82 18 110/78 92 06/18/16 01:19 99.1 95 18 118/77 94 06/17/16 21:03 99.7 94 17 126/70 94 I/O 06/17/16 06/17/16 06/17/16 06/18/16 06/18/16 06/18/16 07:00 15:00 23:00 07:00 15:00 23:00 Intake Total 360 ml Balance 360 ml Intake Oral 360 ml # Voids 1 3 1 0 1 Result Diagram: 06/14/16 0815 06/14/16 0815 Imaging Last Impressions Chest X-Ray 06/11/16 0000 Signed Impressions: Service Date/Time: Saturday, June 11, 2016 17:52 - CONCLUSION: Improving lung aeration. Persistent left midlung airspace disease. Otherwise stable chest. Arjun Cancino MD Abdomen X-Ray 06/11/16 0000 Signed Impressions: Service Date/Time: Saturday, June 11, 2016 20:05 - CONCLUSION: Tip of nasogastric tube and cardia of the stomach. No evidence of obstruction. Arjun Cancino MD Head CT 06/04/16 0000 Signed Impressions: Service Date/Time: Sunday, June 05, 2016 05:36 - CONCLUSION: Evolving right middle cerebral artery territory infarct. Eriberto Mirza MD CT Angiography 05/31/16 0000 Signed Impressions: Service Date/Time: Tuesday, May 31, 2016 14:08 - CONCLUSION: 1. No evidence of pulmonary embolism. 2. Dense consolidation in the left lower lobe with more patchy infiltrate in the posterior left upper lobe. Tea Marquez MD Head Magnetic Resonance Angiography 05/30/16 0000 Signed Impressions: Service Date/Time: May 11:39 - CONCLUSION: 1. Resolution of previously identified intraluminal filling defect in the mid right middle cerebral artery seen on prior CTA. Currently no hemodynamically significant stenosis identified. Bert Ayoub MD Brain MRI 05/30/16 0000 Signed Impressions: Service Date/Time: May 11:39 - CONCLUSION: 1. Large right MCA distribution infarct with mild mass effect and 3 mm right to left midline shift. Bert Ayoub MD Cerebral Arteriogram 05/29/16 1454 Signed Impressions: Service Date/Time: Sunday, May 29, 2016 15:22 - CONCLUSION: Success right MCA embolectomy as above . Chalo Payne MD Neck CTA 05/28/162026 Signed Impressions: Service Date/Time: Saturday, May 28, 2016 20:32 - CONCLUSION: Mild calcified plaque at the left proximal internal carotid artery. A significant stenosis is not seen. Eriberto Mirza MD Head CTA 05/28/162026 Signed Impressions: Service Date/Time: Saturday, May 28, 2016 20:32 - CONCLUSION: Short focal area of diminished flow potentially representing a thrombus in the midportion of the M1 segment of the right middle cerebral artery. The more peripheral flow at the right middle cerebral artery is diminished when compared to the left side. Eriberto Mirza MD Objective Remarks GENERAL: Well-developed well-nourished middle aged female patient in NAD. Resting in bed. SKIN: Warm and dry. No rash noted. HEENT: Normocephalic. Pupils equal and round. Mucous membranes pink and moist. CARDIOVASCULAR: Regular rate and rhythm. No murmur appreciated. RESPIRATORY: No accessory muscle use. Clear to auscultation. Breath sounds equal bilaterally. GASTROINTESTINAL: Abdomen soft, non-tender, nondistended. Bowel sounds x4. MUSCULOSKELETAL: No obvious deformities. No clubbing or cyanosis. No edema. NEUROLOGICAL: Awake and alert. Profound Left-sided deficit. Normal speech. PSYCHIATRIC: Appropriate mood and affect; insight and judgment fair to normal. Medications and IVs Current Medications Medications (Trade) Dose Ordered Sig/Aric Route Start Time Stop Time Status Last Admin (D50w (Vial) Inj) 25 ml UNSCH PRN IV PUSH 05/29/16 02:15 (NovoLIN R SUPPLEMENTAL SCALE) 1 Q6HR SQ 05/29/16 06:00 06/16/16 18:14 (NS Flush) 2 ml UNSCH PRN IV FLUSH 05/29/16 02:15 06/13/16 06:01 (NS Flush) 2 ml BID IV FLUSH 05/29/16 09:00 06/18/16 09:00 (Tylenol) 650 mg Q6H PRN PO 05/29/16 02:15 06/11/16 17:53 (Zofran Inj) 4 mg Q6H PRN IV 05/29/16 02:15 (Steffany-Colace) 2 tab BID PO 05/29/16 09:00 06/17/16 09:45 Miscellaneous Information 1 Q361D XX 05/29/16 02:15 05/29/16 02:15 (Chlorhexidine 2% Cloth) 3 pack Taper DAILY@04 TOP 05/29/16 04:00 05/25/17 03:59 06/10/16 03:53 (Chlorhexidine 2% Cloth) 3 pack UNSCH PRN TOP 05/29/16 02:15 (risperDAL) 0.5 mg Q12H PRN PO 05/29/16 08:45 06/17/16 09:45 (risperDAL) 0.5 mg BID PO 05/29/16 09:00 06/17/16 23:58 (Heparin Inj) 5,000 units BID SQ 05/30/16 09:00 06/17/16 23:58 (Lipitor) 40 mg HS PO 05/30/16 21:00 06/18/16 00:05 (Peridex 0.12% Liq) 15 ml BID@08,20 MT 05/31/16 20:00 06/17/16 09:54 (Brethine Inj) 1 mg UNSCH PRN SQ 05/31/16 16:15 (NS Flush) See Protocol DAILY IVF 06/01/16 09:00 06/18/16 09:00 (NS Flush) See Protocol UNSCH PRN IVF 05/31/16 18:15 (Heparin Central Flush) See Protocol DAILY IVF 06/01/16 09:00 06/17/16 09:45 (Heparin Central Flush) See Protocol UNSCH PRN IVF 05/31/16 18:15 (NS Flush) See Protocol UNSCH PRN IVF 05/31/16 18:15 (Neurontin) 300 mg HS PO 06/06/16 21:00 06/17/16 23:59 (Dulcolax Supp) 10 mg DAILY RECTAL 06/07/16 09:00 06/17/16 09:46 (Lactulose Liq) 30 ml BID PO 06/07/16 09:00 06/17/16 23:58 (Roxicodone Intensol Liq) 5 mg Q4H PRN PO 06/07/16 10:00 06/18/16 14:16 (Trandate Inj) 10 mg Q20M PRN IV PUSH 06/07/16 13:15 06/07/16 23:25 (Lopressor) 12.5 mg Q8HR PO 06/08/16 06:00 06/18/16 14:15 (Pill Splitter) 1 ea UNSCH PRN OTHER 06/07/16 23:30 06/08/16 19:51 (Norvasc) 10 mg DAILY PO 06/08/16 09:00 06/17/16 09:45 (Pepcid Liq) 20 mg BID NG 06/08/16 09:00 06/16/16 20:40 (Augmentin) 875 mg Q12HR PO 06/16/16 21:00 06/17/16 23:57 (Aspirin Chew) 162 mg DAILY PO 06/17/16 09:00 Hold 06/17/16 09:45 Urinary Catheter: No Vascular Central Line Catheter: Yes Assessment to: Remove Date of Removal: Jun 18, 2016 Line: PICC Side: Right A/P Problem List: (1) Acute ischemic right MCA stroke ICD Code: I63.511 Status: Acute (2) HTN (hypertension) ICD Code: I10 Status: Acute Assessment and Plan 50yF with h/o htn, smoking, and COPD with o2 use at night who presented with right MCA CVA status post systemic TPA and clot extraction. Now extubated and clinically improving. Acute right MCA CVA with Cerebral Edema: s/p TPA, s/p mechanical endovascular thrombectomy -Continue Neurochecks -S/p steroid taper, discontinued 06/11 -Continue aspirin and statin -Neurology and rehabilitation medicine following Dysphagia/Aspiration s/p CVA as above Moderate protein calorie malnutrition and hyponatremia -CXR 06/10 with airspace disease left upper lobe. -ST on board, meals sitting up for now, s/p NGT however patient removed -Repeat chest x-ray 06/11 with improving aeration of her persistent left mid lung airspace disease. -Received empiric IV Unasyn since 06/12, change to oral Augmentin -patient not accepted to rehab unless adequate oral intake or PEG in place -consulted gastroenterology, appreciate recommendations, hold off on PEG for now as patient reportedly eating, ordered calorie counting -Patient failed calorie counting 06/17/16, consult psychiatry for capacity. I personally don't think she has capacity to make decisions for herself. -Psychiatry evaluated, patient deemed to not have capacity to make medical decisions however no daughter refusing PEG, wants to abide by patient's wishes -Consult palliative care Acute hypercarbic hypoxic respiratory failure and COPD- resolved. -weaned O2 by NC for goal spo2 > 90%. -Continue to monitor respiratory status -stable on room air Hypotension- resolved. Hypertension-reasonably controlled -Continue metoprolol and amlodipine. -IV labetalol as needed Hyperglycemia of critical illness, improving -Steroids for presumed COPD exacerbation, tapered, now discontinued -Hemoglobin A1c 6.2 -SSI Remove PICC today 06/18. DVT prophylaxis: SCDs. Heparin. Discussed with Dr Acosta, RN and GAME FARM HELPER. Discharge Planning Patient not accepted to [facility] until adequate oral intake vs PEG in place. Problem Qualifiers (1) HTN (hypertension): Qualified Code: I10 - Essential hypertension Arelis Bernard PA-C Jun 18, 2016 16:26 Isma Acosta MD Jun 18, 2016 21:45
--- NOTE | 2016-06-18 16:30 | HHI.HCPN ---
Palliative care was consulted 06/12/16 for goals of care/symptom management. Dr. Leong spoke with patient's daughter and HCS ( Park Hampton) via telephone. Park verbalized aggressive goals, include PEG tube placement if necessary. Patient failed calorie count and nutritional intake remains poor, less than 50%. Patient has been indecisive regarding artificial nutrition and PEG tube placement. Dr. Bolanos was consulted 06/19/15 to determine patient's capacity. Per Dr. Bolanos, the patient did not appear to understand the consequences PEG tube placement/refusal. Family is now wanting to respect patient's wishes, requesting to meet with palliative care to discuss aggressive goals versus comfort focus goals. Attempted to contact patient's daughter, Park Hampton, via telephone. Unable to leave message on voicemail, will reattempt at a later time. . Jessica López Jun 18, 2016 16:30
[2016-06-18 20:06] VITALS: BP 93/55; PULSE 70; RESP 16; TEMP 98; O2SAT 97
[2016-06-18] MEDS ORDERED: GLUCAGON 1 MG/ML VIAL OTHER PRN (22:00)
[2016-06-18] MEDS: GABAPENTIN 300 MG CAP PO SCH (23:14)
[2016-06-19 00:13] VITALS: BP 117/76; PULSE 92; RESP 16; TEMP 97.4; O2SAT 96
[2016-06-19] MEDS: CHLORHEXIDINE GLUCONATE 2 % 1 PACK (2 CLOTHS) TOP SCH (04:00)
[2016-06-19 04:15] VITALS: BP 104/62; PULSE 82; RESP 16; TEMP 97.6; O2SAT 96
[2016-06-19] MEDS: INSULIN NovoLIN REGULAR SUPPLEMENTAL SCALE SQ SCH ×4 (06:00→21:00)
[2016-06-19] MEDS: METOPROLOL TARTRATE 25 MG TAB PO SCH ×4 (06:00→23:38)
[2016-06-19 07:48] VITALS: BP 106/69; PULSE 87; RESP 18; TEMP 98.4; O2SAT 92
[2016-06-19] MEDS: CHLORHEXIDINE 0.12% (ORAL KIT) 15 ML CUP MT SCH ×2 (08:00→20:00)
[2016-06-19] MEDS: SODIUM CHLORIDE 0.9% FLUSH 5 ML FLUSH IV FLUSH SCH ×2 (09:00→21:00)
[2016-06-19] MEDS: BISACODYL 10 MG SUPP RECTAL SCH (09:00)
[2016-06-19] MEDS: FAMOTIDINE SUSP 40 MG/5 ML NG SCH ×2 (09:45→21:00)
[2016-06-19] MEDS: LACTULOSE SYRUP 20 GM/30 ML CUP PO SCH ×2 (09:45→23:38)
[2016-06-19] MEDS: DOCUSATE SODIUM 50 MG/SENNA 8.6 MG TAB PO SCH ×2 (09:46→23:38)
[2016-06-19] MEDS: AMOXICILLIN/CLAVULANATE K 875 MG TAB PO SCH ×2 (09:46→23:38)
[2016-06-19] MEDS: HEPARIN SODIUM - SQ 10,000 UNITS/ML VIAL SQ SCH ×2 (09:46→23:39)
--- NOTE | 2016-06-19 10:26 | HHI.HCPN ---
Reason for visit a. To assist with evaluation and management of symptoms including: pain, agitation, decreased appetite b. To assist medical decision maker(s) with: better understanding of current medical conditions; weighing benefits/burdens of medical treatment options; making medical treatment decisions. . Subjective/Interval History Patient presents siting in recliner. She is alert and oriented to person place and time. Patient denies shortness of breath. Reporting sever pain in her neck, back and hip- unwilling to describe or rate her pain other than saying "It's real bad." PRN Oxycodone and Acetaminophen are available. Patient has received 2 doses of Oxycodone in the past 24 hours. Patient is on Gabapentin 300mg PO qHS scheduled. Nutritional intake remains poor, per documentation average intake over the past 5 days approximately 37%. ST continues to follow patient. Patient continues to have overt s/s aspiration with thin liquids. Recommendations for mechanically soft diet with nectar thickened liquids. Patient continues to refuse PEG tube placement stating her appetite is improving The patient states she wants to be able to care for her grandchild again. We discussed the impact adequate nutritional intake will have on her rehab success. Patient states she is eating but " they are trying to force me to eat four trays of food at every meal." Patient reports her appetite is good and she would eat more if a family member or friend would bring her food. Patient is somewhat irritable throughout visit. Per report, patient becomes agitated at times. Patient is on scheduled and PRN Risperidone. Palliative care attempted to contact patient's [facility] ([place]) on 06/18/16 and twice on 06/19/16. Unable to leave message on voicemail. Discussed with chemical unit operatorArabella rojo, and requested that palliative care be notified if any family members or friends arrive at the patient's room. . Family/friend interactions Palliative Care attempted to contact patient's [facility] ( [place]) on 06/18/16 and twice on 06/19/16. Unable to leave message on VM. Discussed with chemical unit operatorArabella rojo, who will notify Palliative Care should family members arrive at the hospital. . Advance Directives Living Will: Copy in medical record Advance Directive Specifics Date completed: 03/15/2016 . Health Care Surrogate(s): Patient's daughter ( Park Hampton) and her spouse (Lino Hampton) are designated as the patient's HCS. . Documented care wishes: Patient's living will, completed 03/15/16, states if she is in a persistent vegetative state and her attending physician and another consulting physician have determined there is no reasonable medical probability for her recovery, she directs that life prolonging procedures be withheld or withdrawn when the application of such procedures would serve only to prolong artificially the process of dying. She request she be permitted to naturally with only the administration of medications or the performance of any medical procedure deemed necessary to provide her with comfort care or to alleviate pain. . Significant change in goals: Daughter wants to abide by her mother's wishes and avoid PEG tube placement. . Objective Vital Signs Date Time Temp Pulse Resp B/P Pulse Ox O2 Delivery O2 Flow Rate FiO2 06/19/16 07:48 98.4 87 18 106/69 92 06/19/16 04:15 97.6 82 16 104/62 96 06/19/16 00:32 16 06/19/16 00:13 97.4 92 16 117/76 96 06/18/16 20:06 98.0 70 16 93/55 97 06/18/16 16:00 96.9 65 16 118/68 94 06/18/16 12:00 98.1 75 18 113/58 97 Intake & Output 06/19/16 06/19/16 07:00 19:00 Intake Total 60 ml Balance 60 ml Intake Oral 60 ml # Voids 4 # Bowel Movements 1 . Physical Exam CONSTITUTIONAL/GENERAL: This is an adequately nourished female patient in NAD, sitting in recliner. TUBES/LINES/DRAIN: PICC SKIN: No jaundice, rashes, or lesions.Skin temperature appropriate. Not diaphoretic. HEAD: Atraumatic. Normocephalic. EYES: Pupils equal and round and reactive. Extraocular motions intact. No scleral icterus. No injection or drainage. Fundi not examined. ENT: Hearing grossly normal. Nose without bleeding or purulent drainage. NECK: Trachea midline. CARDIOVASCULAR: Regular rate and rhythm without murmurs, gallops, or rubs. No JVD. Peripheral pulses symmetric. RESPIRATORY/CHEST: Respirations are symmetric, unlabored. Coarse upper respiratory breath sounds. GASTROINTESTINAL: Abdomen soft, non-tender, nondistended. No hepato-splenomegaly , or palpable masses. No guarding. Bowel sounds present. GENITOURINARY: Without palpable bladder distension. MUSCULOSKELETAL: No edema, clubbing, cyanosis. LYMPHATICS: No palpable cervical or supraclavicular adenopathy. NEUROLOGICAL: Awake and alert, somewhat irritable with subtle confusion. PSYCHIATRIC: Agitated. . Assessment and Plan Disease Oriented Problem List: (1) Acute ischemic right MCA stroke (2) COPD (chronic obstructive pulmonary disease) (3) Dysphagia (4) Respiratory failure Comment: resolved, was intubated, but was sucessfully extubated. Remains an aspiration risk. (5) Hypertension Symptom Scale: (1) Pain Comment: Patient reporting pain in her should, back and hips. Unwilling to describe pain or rate but states its : bad". PRN Oxycodone and Acetaminophen are available. Patient on Gabapentin 300mg qHS scheduled. . (2) Decreased appetite (3) Agitation Pertinent Non-Medical Issues Psychosocial: Spiritual: Legal: Ethical issues impacting care: Important Contacts Park (daughter) and Melissa Hampton (significant other). [phone] Prognosis 50 year old with Right MCA cva, with copd risk, with behavorial issues/ encephalopathy? Prognosis is guarded. Main challenge besides aspiration risk, is compliance. I feel however, if she is compliant, prognosis would improve and would not be appropriate for hospice. Code Status: Full Code Plan * FULL CODE * Decision-making: Patient has designated her daughter (Park Hampton) and son-in -law (Lino Hampton) as her HCS * Psych was consulted 06/17/16. Per Dr. Bolanos, at the time of exam the patient does not have capacity to refuse PEG tube. * Goals: Patient's daughter now wishes to respect the patient's wishes and avoid PEG tube placement. * Palliative care attempted to contact HCS (Park/Lino) on 06/18/16 and twice on 06/19/16. Unable to leave message on VM. Discussed with chemical unit operatorArabella, who will notify Palliative Care should family members arrive at the hospital. * Symptom management-pain: Patient reporting pain in her should, back and hips. Unwilling to describe pain or rate but states its : bad". PRN Oxycodone and Acetaminophen are available. Patient on Gabapentin 300mg qHS scheduled. Attestation To help prompt me to consider important information that might be impacting today's encounter and assessment, information from prior notes written by myself or my colleagues may have been "brought forward" into today's note. My signature on this note, however, is an attestation that I personally performed the exam, history, and/or decision-making noted today, and, unless otherwise indicated, the interactions with patient, family, and staff as well as the review of records all occurred today. I also attest that the listed assessment and stated plan reflect my best clinical judgment today based on the combination of historical information, prior notes, and today's exam/ interactions. When time spent is documented, it refers only to time spent today by the signer, or if indicated, combined time spent today by collaborating physician/nurse practitioner. . Jessica López Jun 19, 2016 10:26 Jessica López Jun 19, 2016 10:26 and assistance with behavioral issues, but will leave that to attending. She is s/p CVA, is there encephalopathy that is influencing her non-compliant behavior? She is very upset she is in restraints. She did say she wants daughter to assist in making medical condition and she has a living will that designated Park (daughter) randolph Huynh as health care surrogate. Pt did tell me she does not want hospice, and that she was not ready to . She did say she will try to eat but want to avoid having the feeding tube place. == Health Care surrogate is Park Hampton daughter, and Lino Hampton ( significant other.) == Park (daughter) goals are aggressive. Discuss pt copd, aspiration risk, challenges she faces in rehab including compliance. She endorses Full code. She would want mom to have PEG tube as last resort, but is amenable to it. == If pt is found to have capacity, then we have to abide by pt's wishes. If pt is found not to have capacity, at that point Marvin takes over medical decision making. == Living Will, which she had completed in March 15, 2016 stated she would not want dying "to be artificially prolonged" should she be in a vegetative state. == Code is full at this time. == Palliative Care will continue to follow, and will follow once capacity issue is clarified. Jessica López Jun 19, 2016 10:26
[2016-06-19] MEDS ORDERED: risperiDONE 0.5 MG TAB PO PRN (11:15)
[2016-06-19] MEDS: risperiDONE 0.5 MG TAB PO SCH ×2 (11:21→23:50)
[2016-06-19 12:14] VITALS: BP 103/65; PULSE 87; RESP 18; TEMP 98.1; O2SAT 94
--- NOTE | 2016-06-19 15:52 | HHI.PR ---
Subjective Remarks Follow-up for CVA with poor oral intake. Discussed with RN. The patient ate her dinner last night and most of her breakfast this morning. She denies any medical complaints. Denies any dysphagia/odynophagia. Appears more alert and oriented today. Objective Vitals Vital Signs Date Time Temp Pulse Resp B/P Pulse Ox O2 Delivery O2 Flow Rate FiO2 06/19/16 12:14 98.1 87 18 103/65 94 06/19/16 07:48 98.4 87 18 106/69 92 06/19/16 04:15 97.6 82 16 104/62 96 06/19/16 00:32 16 06/19/16 00:13 97.4 92 16 117/76 96 06/18/16 20:06 98.0 70 16 93/55 97 06/18/16 16:00 96.9 65 16 118/68 94 I/O 06/18/16 06/18/16 06/18/16 06/19/16 06/19/16 06/19/16 07:00 15:00 23:00 07:00 15:00 23:00 Intake Total 240 ml 60 ml 480 ml Balance 240 ml 60 ml 480 ml Intake Oral 240 ml 60 ml 480 ml # Voids 0 1 2 2 2 # Bowel Movements 1 0 Imaging Last Impressions Chest X-Ray 06/11/16 0000 Signed Impressions: Service Date/Time: Saturday, June 11, 2016 17:52 - CONCLUSION: Improving lung aeration. Persistent left midlung airspace disease. Otherwise stable chest. Arjun Cnacino MD Abdomen X-Ray 06/11/16 0000 Signed Impressions: Service Date/Time: Saturday, June 11, 2016 20:05 - CONCLUSION: Tip of nasogastric tube and cardia of the stomach. No evidence of obstruction. Arjun Cancino MD Head CT 06/04/16 0000 Signed Impressions: Service Date/Time: Sunday, June 05, 2016 05:36 - CONCLUSION: Evolving right middle cerebral artery territory infarct. Eriberto Mirza MD CT Angiography 05/31/16 0000 Signed Impressions: Service Date/Time: Tuesday, May 31, 2016 14:08 - CONCLUSION: 1. No evidence of pulmonary embolism. 2. Dense consolidation in the left lower lobe with more patchy infiltrate in the posterior left upper lobe. Tae Marquez MD Head Magnetic Resonance Angiography 05/30/16 0000 Signed Impressions: Service Date/Time: May 11:39 - CONCLUSION: 1. Resolution of previously identified intraluminal filling defect in the mid right middle cerebral artery seen on prior CTA. Currently no hemodynamically significant stenosis identified. Bert Ayoub MD Brain MRI 05/30/16 0000 Signed Impressions: Service Date/Time: May 11:39 - CONCLUSION: 1. Large right MCA distribution infarct with mild mass effect and 3 mm right to left midline shift. Bert Ayoub MD Cerebral Arteriogram 05/29/16 1454 Signed Impressions: Service Date/Time: Sunday, May 29, 2016 15:22 - CONCLUSION: Success right MCA embolectomy as above . Chalo Payne MD Neck CTA 05/28/162026 Signed Impressions: Service Date/Time: Saturday, May 28, 2016 20:32 - CONCLUSION: Mild calcified plaque at the left proximal internal carotid artery. A significant stenosis is not seen. Eriberto Mirza MD Head CTA 05/28/162026 Signed Impressions: Service Date/Time: Saturday, May 28, 2016 20:32 - CONCLUSION: Short focal area of diminished flow potentially representing a thrombus in the midportion of the M1 segment of the right middle cerebral artery. The more peripheral flow at the right middle cerebral artery is diminished when compared to the left side. Eriberto Mirza MD Objective Remarks GENERAL: Well-developed well-nourished middle aged female patient in [facility]. Resting in bed. SKIN: Warm and dry. No rash noted. HEENT: Normocephalic. Pupils equal and round. Mucous membranes pink and moist. CARDIOVASCULAR: Regular rate and rhythm. No murmur appreciated. RESPIRATORY: No accessory muscle use. Clear to auscultation. Breath sounds equal bilaterally. GASTROINTESTINAL: Abdomen soft, non-tender, nondistended. Bowel sounds x4. MUSCULOSKELETAL: No obvious deformities. No clubbing or cyanosis. No edema. NEUROLOGICAL: Awake and alert. Profound Left-sided deficit. Normal speech. PSYCHIATRIC: Appropriate mood and affect; insight and judgment fair to normal. Medications and IVs Current Medications Medications (Trade) Dose Ordered Sig/Aric Route Start Time Stop Time Status Last Admin (D50w (Vial) Inj) 25 ml UNSCH PRN IV PUSH 05/29/16 02:15 (NS Flush) 2 ml UNSCH PRN IV FLUSH 05/29/16 02:15 06/13/16 06:01 (NS Flush) 2 ml BID IV FLUSH 05/29/16 09:00 06/18/16 23:11 (Tylenol) 650 mg Q6H PRN PO 05/29/16 02:15 06/11/16 17:53 (Zofran Inj) 4 mg Q6H PRN IV 05/29/16 02:15 (Steffany-Colace) 2 tab BID PO 05/29/16 09:00 06/19/16 09:46 Miscellaneous Information 1 Q361D XX 05/29/16 02:15 05/29/16 02:15 (Chlorhexidine 2% Cloth) 3 pack Taper DAILY@04 TOP 05/29/16 04:00 05/25/17 03:59 06/10/16 03:53 (Chlorhexidine 2% Cloth) 3 pack UNSCH PRN TOP 05/29/16 02:15 (risperDAL) 0.5 mg BID PO 05/29/16 09:00 06/19/16 11:21 (Heparin Inj) 5,000 units BID SQ 05/30/16 09:00 06/19/16 09:46 (Lipitor) 40 mg HS PO 05/30/16 21:00 06/18/16 23:15 (Peridex 0.12% Liq) 15 ml BID@08,20 MT 05/31/16 20:00 06/17/16 09:54 (Brethine Inj) 1 mg UNSCH PRN SQ 05/31/16 16:15 (NS Flush) See Protocol DAILY IVF 06/01/16 09:00 06/18/16 09:00 (NS Flush) See Protocol UNSCH PRN IVF 05/31/16 18:15 (Heparin Central Flush) See Protocol DAILY IVF 06/01/16 09:00 06/17/16 09:45 (Heparin Central Flush) See Protocol UNSCH PRN IVF 05/31/16 18:15 (NS Flush) See Protocol UNSCH PRN IVF 05/31/16 18:15 (Neurontin) 300 mg HS PO 06/06/16 21:00 06/18/16 23:14 (Dulcolax Supp) 10 mg DAILY RECTAL 06/07/16 09:00 06/17/16 09:46 (Lactulose Liq) 30 ml BID PO 06/07/16 09:00 06/19/16 09:45 (Roxicodone Intensol Liq) 5 mg Q4H PRN PO 06/07/16 10:00 06/18/16 23:19 (Trandate Inj) 10 mg Q20M PRN IV PUSH 06/07/16 13:15 06/07/16 23:25 (Lopressor) 12.5 mg Q8HR PO 06/08/16 06:00 06/18/16 23:17 (Pill Splitter) 1 ea UNSCH PRN OTHER 06/07/16 23:30 06/08/16 19:51 (Norvasc) 10 mg DAILY PO 06/08/16 09:00 06/17/16 09:45 (Pepcid Liq) 20 mg BID NG 06/08/16 09:00 06/19/16 09:45 (Augmentin) 875 mg Q12HR PO 06/16/16 21:00 06/22/16 20:59 06/19/16 09:46 (Aspirin Chew) 162 mg DAILY PO 06/17/16 09:00 Hold 06/17/16 09:45 (Glucagon Inj) 1 mg UNSCH PRN OTHER 06/18/16 22:00 (risperDAL) 0.5 mg Q12H PRN PO 06/19/16 11:15 Urinary Catheter: No Vascular Central Line Catheter: No Date of Removal: Jun 18, 2016 Line: PICC Side: Right A/P Problem List: (1) Acute ischemic right MCA stroke ICD Code: I63.511 Status: Acute (2) HTN (hypertension) ICD Code: I10 Status: Acute Assessment and Plan 50yF with h/o htn, smoking, and COPD with o2 use at night who presented with right MCA CVA status post systemic TPA and clot extraction. Now extubated and clinically improving. Acute right MCA CVA with Cerebral Edema: s/p TPA, s/p mechanical endovascular thrombectomy -Continue Neurochecks -S/p steroid taper, discontinued 06/11 -Continue aspirin and statin -Neurology and rehabilitation medicine following Dysphagia/Aspiration s/p CVA as above Moderate protein calorie malnutrition and hyponatremia -CXR 06/10 with airspace disease left upper lobe. -ST on board, meals sitting up for now, s/p NGT however patient removed -Repeat chest x-ray 06/11 with improving aeration of her persistent left mid lung airspace disease. -Received empiric IV Unasyn since 06/12, change to oral Augmentin -patient not accepted to rehab unless adequate oral intake or PEG in place -consulted gastroenterology, appreciate recommendations, hold off on PEG for now as patient reportedly eating, ordered calorie counting -Patient failed calorie counting 06/17/16, consult psychiatry for capacity. I personally don't think she has capacity to make decisions for herself. -Psychiatry evaluated, patient deemed to not have capacity to make medical decisions however no daughter refusing PEG, wants to abide by patient's wishes -Consult palliative care, attempting to discuss with patient's daughter -Update 06/19 - patient ate dinner last night and breakfast this morning, patient seems to understand we want to place PEG and is now eating more, continue to monitor, hopefully [facility] will accept admission Acute hypercarbic hypoxic respiratory failure and COPD- resolved. -weaned O2 by NC for goal spo2 > 90%. -Continue to monitor respiratory status -stable on room air Hypotension- resolved. Hypertension-reasonably controlled -Continue metoprolol and amlodipine. -IV labetalol as needed Hyperglycemia of critical illness, improving -Steroids for presumed COPD exacerbation, tapered, now discontinued -Hemoglobin A1c 6.2 -SSI Removed PICC 06/18. DVT prophylaxis: SCDs. Heparin. Discussed with Dr Karla RN. Discharge Planning Discharge to [facility] when accepted. Patient now eating more, tolerating oral intake. Problem Qualifiers (1) HTN (hypertension): Qualified Code: I10 - Essential hypertension Arelis Bernard PA-C Jun 19, 2016 15:52 Isma Acosta MD Jun 19, 2016 17:13
[2016-06-19 16:10] VITALS: BP 101/68; PULSE 88; RESP 18; TEMP 97.9; O2SAT 93
[2016-06-19] MEDS: oxyCODONE HCL ORAL CONC 20 MG/ML SYRINGE PO PRN ×2 (18:52→23:41)
[2016-06-19 20:00] VITALS: BP 95/55; PULSE 87; RESP 20; TEMP 100.2; O2SAT 92
[2016-06-19] MEDS: GABAPENTIN 300 MG CAP PO SCH (23:39)
[2016-06-19] MEDS: ATORVASTATIN 40 MG TAB PO SCH (23:39)
[2016-06-20] VITALS (7 sets, daily range): BP systolic 84–125; BP diastolic 52–75; PULSE 81–94; RESP 18–20; TEMP 97.8–99.8; O2SAT 91–94
[2016-06-20] MEDS: CHLORHEXIDINE GLUCONATE 2 % 1 PACK (2 CLOTHS) TOP SCH (04:00)
[2016-06-20] MEDS: METOPROLOL TARTRATE 25 MG TAB PO SCH ×3 (06:00→22:00)
[2016-06-20] MEDS: INSULIN NovoLIN REGULAR SUPPLEMENTAL SCALE SQ SCH ×4 (07:00→21:00)
[2016-06-20] MEDS: CHLORHEXIDINE 0.12% (ORAL KIT) 15 ML CUP MT SCH ×2 (08:00→20:00)
[2016-06-20] MEDS: FAMOTIDINE SUSP 40 MG/5 ML NG SCH ×2 (09:00→21:00)
[2016-06-20] MEDS: BISACODYL 10 MG SUPP RECTAL SCH (09:00)
[2016-06-20] MEDS: DOCUSATE SODIUM 50 MG/SENNA 8.6 MG TAB PO SCH ×2 (09:00→21:00)
[2016-06-20] MEDS: LACTULOSE SYRUP 20 GM/30 ML CUP PO SCH ×2 (09:00→21:00)
[2016-06-20] MEDS: HEPARIN SODIUM - SQ 10,000 UNITS/ML VIAL SQ SCH ×2 (09:00→09:12)
[2016-06-20] MEDS: SODIUM CHLORIDE 0.9% FLUSH 5 ML FLUSH IV FLUSH SCH ×3 (09:00→21:00)
[2016-06-20] MEDS: AMOXICILLIN/CLAVULANATE K 875 MG TAB PO SCH ×2 (09:09→21:00)
[2016-06-20] MEDS: ACETAMINOPHEN 325 MG TAB PO PRN (09:17)
--- NOTE | 2016-06-20 09:28 | HHI.PR ---
Subjective Remarks Follow up for CVA with poor oral intake. The patient is seen with ADMINISTRATIVE AIDE at bedside who reports the patient ate 100% of her breakfast yesterday, 25% of lunch, 25% of dinner. ADMINISTRATIVE AIDE states she does well with eating when she is up in bedside chair. The patient states she is hungry, awaiting breakfast. The patient denies any medical complaints. Objective Vitals Vital Signs Date Time Temp Pulse Resp B/P Pulse Ox O2 Delivery O2 Flow Rate FiO2 06/20/16 07:45 97.9 94 18 103/75 91 06/20/16 04:00 98.6 81 20 100/56 93 06/20/16 00:15 98.1 85 20 103/66 93 06/20/16 00:00 98.1 89 20 84/58 93 06/19/16 20:00 100.2 87 20 95/55 92 06/19/16 16:10 97.9 88 18 101/68 93 06/19/16 12:14 98.1 87 18 103/65 94 I/O 06/19/16 06/19/16 06/19/16 06/20/16 06/20/16 06/20/16 07:00 15:00 23:00 07:00 15:00 23:00 Intake Total 60 ml 480 ml 960 ml 60 ml Balance 60 ml 480 ml 960 ml 60 ml Intake Oral 60 ml 480 ml 960 ml 60 ml # Voids 2 2 0 0 # Bowel Movements 0 0 0 Imaging Last Impressions Chest X-Ray 06/11/16 0000 Signed Impressions: Service Date/Time: Saturday, June 11, 2016 17:52 - CONCLUSION: Improving lung aeration. Persistent left midlung airspace disease. Otherwise stable chest. Arjun Cancino MD Abdomen X-Ray 06/11/16 0000 Signed Impressions: Service Date/Time: Saturday, June 11, 2016 20:05 - CONCLUSION: Tip of nasogastric tube and cardia of the stomach. No evidence of obstruction. Arjun Cancino MD Head CT 06/04/16 0000 Signed Impressions: Service Date/Time: Sunday, June 05, 2016 05:36 - CONCLUSION: Evolving right middle cerebral artery territory infarct. Eriberto Mirza MD CT Angiography 05/31/16 0000 Signed Impressions: Service Date/Time: Tuesday, May 31, 2016 14:08 - CONCLUSION: 1. No evidence of pulmonary embolism. 2. Dense consolidation in the left lower lobe with more patchy infiltrate in the posterior left upper lobe. Tae Marquez MD Head Magnetic Resonance Angiography 05/30/16 0000 Signed Impressions: Service Date/Time: May 11:39 - CONCLUSION: 1. Resolution of previously identified intraluminal filling defect in the mid right middle cerebral artery seen on prior CTA. Currently no hemodynamically significant stenosis identified. Bert Ayoub MD Brain MRI 05/30/16 0000 Signed Impressions: Service Date/Time: May 11:39 - CONCLUSION: 1. Large right MCA distribution infarct with mild mass effect and 3 mm right to left midline shift. Bret Ayoub MD Cerebral Arteriogram 05/29/16 1454 Signed Impressions: Service Date/Time: Sunday, May 29, 2016 15:22 - CONCLUSION: Success right MCA embolectomy as above . Chalo Payne MD Neck CTA 05/28/162026 Signed Impressions: Service Date/Time: Saturday, May 28, 2016 20:32 - CONCLUSION: Mild calcified plaque at the left proximal internal carotid artery. A significant stenosis is not seen. Eriberto Mirza MD Head CTA 05/28/162026 Signed Impressions: Service Date/Time: Saturday, May 28, 2016 20:32 - CONCLUSION: Short focal area of diminished flow potentially representing a thrombus in the midportion of the M1 segment of the right middle cerebral artery. The more peripheral flow at the right middle cerebral artery is diminished when compared to the left side. Eriberto Mirza MD Objective Remarks GENERAL: Well-developed well-nourished middle aged female patient in [facility]. SKIN: Warm and dry. No rash noted. HEENT: Normocephalic. Pupils equal and round. Mucous membranes pink and moist. CARDIOVASCULAR: Regular rate and rhythm. No murmur appreciated. RESPIRATORY: No accessory muscle use. Clear to auscultation. Breath sounds equal bilaterally. GASTROINTESTINAL: Abdomen soft, non-tender, nondistended. Bowel sounds x4. MUSCULOSKELETAL: No obvious deformities. No clubbing or cyanosis. No edema. NEUROLOGICAL: Awake and alert. Profound Left-sided deficit. Normal speech. PSYCHIATRIC: Appropriate mood and affect; insight and judgment fair to normal. Medications and IVs Current Medications Medications (Trade) Dose Ordered Sig/Aric Route Start Time Stop Time Status Last Admin (D50w (Vial) Inj) 25 ml UNSCH PRN IV PUSH 05/29/16 02:15 (NS Flush) 2 ml UNSCH PRN IV FLUSH 05/29/16 02:15 06/13/16 06:01 (NS Flush) 2 ml BID IV FLUSH 05/29/16 09:00 06/20/16 09:13 (Tylenol) 650 mg Q6H PRN PO 05/29/16 02:15 06/20/16 09:17 (Zofran Inj) 4 mg Q6H PRN IV 05/29/16 02:15 (Steffany-Colace) 2 tab BID PO 05/29/16 09:00 06/19/16 23:38 Miscellaneous Information 1 Q361D XX 05/29/16 02:15 05/29/16 02:15 (Chlorhexidine 2% Cloth) 3 pack Taper DAILY@04 TOP 05/29/16 04:00 05/25/17 03:59 06/10/16 03:53 (Chlorhexidine 2% Cloth) 3 pack UNSCH PRN TOP 05/29/16 02:15 (risperDAL) 0.5 mg BID PO 05/29/16 09:00 06/19/16 23:50 (Heparin Inj) 5,000 units BID SQ 05/30/16 09:00 06/19/16 23:39 (Lipitor) 40 mg HS PO 05/30/16 21:00 06/19/16 23:39 (Peridex 0.12% Liq) 15 ml BID@08,20 MT 05/31/16 20:00 06/17/16 09:54 (Brethine Inj) 1 mg UNSCH PRN SQ 05/31/16 16:15 (NS Flush) See Protocol DAILY IVF 06/01/16 09:00 06/18/16 09:00 (NS Flush) See Protocol UNSCH PRN IVF 05/31/16 18:15 (Heparin Central Flush) See Protocol DAILY IVF 06/01/16 09:00 06/17/16 09:45 (Heparin Central Flush) See Protocol UNSCH PRN IVF 05/31/16 18:15 (NS Flush) See Protocol UNSCH PRN IVF 05/31/16 18:15 (Neurontin) 300 mg HS PO 06/06/16 21:00 06/19/16 23:39 (Dulcolax Supp) 10 mg DAILY RECTAL 06/07/16 09:00 06/17/16 09:46 (Lactulose Liq) 30 ml BID PO 06/07/16 09:00 06/19/16 23:38 (Roxicodone Intensol Liq) 5 mg Q4H PRN PO 06/07/16 10:00 06/19/16 23:41 (Trandate Inj) 10 mg Q20M PRN IV PUSH 06/07/16 13:15 06/07/16 23:25 (Lopressor) 12.5 mg Q8HR PO 06/08/16 06:00 06/18/16 23:17 (Pill Splitter) 1 ea UNSCH PRN OTHER 06/07/16 23:30 06/08/16 19:51 (Norvasc) 10 mg DAILY PO 06/08/16 09:00 06/20/16 09:08 (Pepcid Liq) 20 mg BID NG 06/08/16 09:00 06/19/16 09:45 (Augmentin) 875 mg Q12HR PO 06/16/16 21:00 06/22/16 20:59 06/20/16 09:09 (Aspirin Chew) 162 mg DAILY PO 06/17/16 09:00 Hold 06/17/16 09:45 (Glucagon Inj) 1 mg UNSCH PRN OTHER 06/18/16 22:00 (risperDAL) 0.5 mg Q12H PRN PO 06/19/16 11:15 Urinary Catheter: No Vascular Central Line Catheter: No Date of Removal: Jun 18, 2016 Line: PICC Side: Right A/P Problem List: (1) Acute ischemic right MCA stroke ICD Code: I63.511 Status: Acute (2) HTN (hypertension) ICD Code: I10 Status: Acute Assessment and Plan 50yF with h/o htn, smoking, and COPD with o2 use at night who presented with right MCA CVA status post systemic TPA and clot extraction. Now extubated and clinically improving. Acute right MCA CVA with Cerebral Edema: s/p TPA, s/p mechanical endovascular thrombectomy -Continue Neurochecks -S/p steroid taper, discontinued 06/11 -Continue aspirin and statin -Neurology and rehabilitation medicine following Dysphagia/Aspiration s/p CVA as above Moderate protein calorie malnutrition and hyponatremia -CXR 06/10 with airspace disease left upper lobe. -ST on board, meals sitting up for now, s/p NGT however patient removed -Repeat chest x-ray 06/11 with improving aeration of her persistent left mid lung airspace disease. -Received empiric IV Unasyn since 06/12, change to oral Augmentin -patient not accepted to rehab unless adequate oral intake or PEG in place -consulted gastroenterology, appreciate recommendations, hold off on PEG for now as patient reportedly eating, ordered calorie counting -Patient failed calorie counting 06/17/16, consult psychiatry for capacity. I personally don't think she has capacity to make decisions for herself. -Psychiatry evaluated, patient deemed to not have capacity to make medical decisions however no daughter refusing PEG, wants to abide by patient's wishes -Consult palliative care, attempting to discuss with patient's daughter -06/20 - patient is eating most of her meals, hopefully [facility] will accept admission Acute hypercarbic hypoxic respiratory failure and COPD- resolved. -weaned O2 by ID for goal spo2 > 90%. -Continue to monitor respiratory status -stable on room air Hypotension- resolved. Hypertension-reasonably controlled -Continue metoprolol and amlodipine. -IV labetalol as needed Hyperglycemia of critical illness, improving -Steroids for presumed COPD exacerbation, tapered, now discontinued -Hemoglobin A1c 6.2 -SSI Removed PICC 06/18. DVT prophylaxis: SCDs. Heparin. Written by Arelis Bernard, acting as scribe for Dr. Acosta on 06/20/16 at 08:57. All or portions of this note were transcribed by scribe []. I, Dr. Isma Acosta personally performed the history, physical exam, and medical decision making; and confirmed the accuracy of the information in the transcribed note. Authenticated by Dr. Isma Acosta on 06/20/16 at 14:57. Discharge Planning Discharge to [facility] when accepted. Patient now eating more, tolerating oral intake. Problem Qualifiers (1) HTN (hypertension): Qualified Code: I10 - Essential hypertension Arelis Bernard PA-C Jun 20, 2016 09:28 Isam Acosta MD Jun 20, 2016 14:57
[2016-06-20] MEDS ORDERED: OXYC1CON3 PO (09:34)
[2016-06-20] MEDS: risperiDONE 0.5 MG TAB PO SCH (12:11)
--- NOTE | 2016-06-20 17:10 | HHI.HCPN ---
Reason for visit a. To assist with evaluation and management of symptoms including: pain, agitation, decreased appetite b. To assist medical decision maker(s) with: better understanding of current medical conditions; weighing benefits/burdens of medical treatment options; making medical treatment decisions. . Subjective/Interval History Patient presents siting in recliner. She is alert and oriented to person place and time. Patient denies shortness of breath or pain. PRN Oxycodone and Acetaminophen are available, being used sparingly. Patient is on Gabapentin 300mg PO qHS scheduled. No further recommendations at this time. Patient continues to refuse PEG tube placement, nutritional intake improving. Per documentation, patient ate 100% of her breakfast and lunch today. ST continues to follow patient- current diet mechanically soft, chopped meat with gravy and nectar consistency thickened liquids. Case management spoke to Padmini at [place], requesting follow-up calorie count. Attempted to contact patient's daughterPark. Discussed with patient's nurse, Beka. Palliative care contact information provided to nurse (Beka), requesting to be notified should family/friends arrive at hospital. . Family/friend interactions Attempted to contact patient's daughterPark. Discussed with patient's nurse, Beka. Palliative care contact information provided to nurse (Beka), requesting to be notified should family/friends arrive at hospital. . Advance Directives Living Will: Copy in medical record Advance Directive Specifics Date completed: 03/15/2016 . Health Care Surrogate(s): Patient's daughter ( Park Hampton) and her spouse (Lino Hampton) are designated as the patient's HCS. . Documented care wishes: Patient's living will, completed 03/15/16, states if she is in a persistent vegetative state and her attending physician and another consulting physician have determined there is no reasonable medical probability for her recovery, she directs that life prolonging procedures be withheld or withdrawn when the application of such procedures would serve only to prolong artificially the process of dying. She request she be permitted to naturally with only the administration of medications or the performance of any medical procedure deemed necessary to provide her with comfort care or to alleviate pain. . Significant change in goals: Appetite has improved. Case management spoke to [place] [facility] today- they have requested a follow-up calorie count to ensure the patient's intake is adequate. . Objective Vital Signs Date Time Temp Pulse Resp B/P Pulse Ox O2 Delivery O2 Flow Rate FiO2 06/20/16 16:29 99.0 88 18 125/68 94 06/20/16 12:40 97.8 88 18 112/70 94 06/20/16 07:45 97.9 94 18 103/75 91 06/20/16 04:00 98.6 81 20 100/56 93 06/20/16 00:15 98.1 85 20 103/66 93 06/20/16 00:00 98.1 89 20 84/58 93 06/19/16 20:00 100.2 87 20 95/55 92 Intake & Output 06/20/16 06/20/16 07:00 19:00 Intake Total 1020 ml 480 ml Balance 1020 ml 480 ml Intake Oral 1020 ml 480 ml # Voids 0 2 # Bowel Movements 0 . Physical Exam CONSTITUTIONAL/GENERAL: This is an adequately nourished female patient in NAD, sitting in recliner. TUBES/LINES/DRAIN: SKIN: No jaundice, rashes, or lesions.Skin temperature appropriate. Not diaphoretic. HEAD: Atraumatic. Normocephalic. EYES: Pupils equal and round and reactive. No scleral icterus. No injection or drainage. Fundi not examined. ENT: Hearing grossly normal. Nose without bleeding or purulent drainage. NECK: Trachea midline. CARDIOVASCULAR: Regular rate and rhythm without murmurs, gallops, or rubs. No JVD. Peripheral pulses symmetric. RESPIRATORY/CHEST: Respirations are symmetric, unlabored. GASTROINTESTINAL: Abdomen soft, non-tender, nondistended. No hepato-splenomegaly , or palpable masses. No guarding. Bowel sounds present. GENITOURINARY: Without palpable bladder distension. MUSCULOSKELETAL: No edema, clubbing, cyanosis. LYMPHATICS: No palpable cervical or supraclavicular adenopathy. NEUROLOGICAL: Awake and alert, intermittently confused. PSYCHIATRIC: No anxiety/agitation observed. . Assessment and Plan Disease Oriented Problem List: (1) Acute ischemic right MCA stroke (2) COPD (chronic obstructive pulmonary disease) (3) Dysphagia (4) Respiratory failure Comment: resolved, was intubated, but was sucessfully extubated. Remains an aspiration risk. (5) Hypertension Symptom Scale: (1) Pain Comment: PRN Oxycodone and Acetaminophen are available, being used sparingly. Patient on Gabapentin 300mg qHS scheduled. No recommendations at this time. . (2) Decreased appetite Comment: Appetite, nutritional intake improving. Patient reportedly ate 100% of breakfast and 100% of lunch today. [facility] has requested a follow-up calorie count to ensure the patient's intake is adequate. . (3) Agitation Pertinent Non-Medical Issues Psychosocial: Spiritual: Legal: Ethical issues impacting care: Important Contacts Park (daughter) and Melissa Hampton (significant other). [phone] Prognosis 50 year old with Right MCA cva, with copd risk, with behavorial issues/ encephalopathy? Prognosis is guarded. Main challenge besides aspiration risk, is compliance. I feel however, if she is compliant, prognosis would improve and would not be appropriate for hospice. Code Status: Full Code Plan * FULL CODE * Decision-making: Patient has designated her daughter (Park Hampton) and son-in -law (Lino Hampton) as her HCS * Psych was consulted 06/17/16. Per Dr. Bolanos, at the time of exam the patient does not have capacity to refuse PEG tube. * Goals: Nutritional intake improving, patient continues to refuse PEG tube placement. Goal is to transfer to rehabilitation upon dischargepatient wants to return home and "take care of her granddaughter." * Symptom managementappetite: Appetite, nutritional intake improving. Patient reportedly ate 100% of breakfast and 100% of lunch today. [facility] has requested a follow-up calorie count to ensure the patient's intake is adequate. * Symptom management-pain: Patient denies pain on exam. PRN Oxycodone and Acetaminophen are available, sparingly used. Patient on Gabapentin 300mg qHS scheduled. No further recommendations. * Attempted to contact patient's daughterPark. Discussed with patient's nurse , Beka. Palliative care contact information provided to nurse (Beka), requesting to be notified should family/friends arrive at hospital. . Attestation To help prompt me to consider important information that might be impacting today's encounter and assessment, information from prior notes written by myself or my colleagues may have been "brought forward" into today's note. My signature on this note, however, is an attestation that I personally performed the exam, history, and/or decision-making noted today, and, unless otherwise indicated, the interactions with patient, family, and staff as well as the review of records all occurred today. I also attest that the listed assessment and stated plan reflect my best clinical judgment today based on the combination of historical information, prior notes, and today's exam/ interactions. When time spent is documented, it refers only to time spent today by the signer, or if indicated, combined time spent today by collaborating physician/nurse practitioner. . Jessica López Jun 20, 2016 17:10
[2016-06-20] MEDS: oxyCODONE HCL ORAL CONC 20 MG/ML SYRINGE PO PRN (18:46)
[2016-06-21] VITALS (7 sets, daily range): BP systolic 97–119; BP diastolic 56–68; PULSE 81–94; RESP 17–22; TEMP 98–100.4; O2SAT 92–95
[2016-06-21] MEDS: ATORVASTATIN 40 MG TAB PO SCH ×2 (00:34→22:57)
[2016-06-21] MEDS: GABAPENTIN 300 MG CAP PO SCH ×2 (00:34→22:57)
[2016-06-21] MEDS: risperiDONE 0.5 MG TAB PO SCH ×3 (00:35→22:57)
[2016-06-21] MEDS: CHLORHEXIDINE GLUCONATE 2 % 1 PACK (2 CLOTHS) TOP SCH ×2 (00:36→23:08)
[2016-06-21] MEDS: HEPARIN SODIUM - SQ 10,000 UNITS/ML VIAL SQ SCH ×3 (00:36→23:08)
[2016-06-21] MEDS: oxyCODONE HCL ORAL CONC 20 MG/ML SYRINGE PO PRN ×2 (00:38→15:48)
[2016-06-21] MEDS: ACETAMINOPHEN 325 MG TAB PO PRN ×2 (05:31→22:56)
[2016-06-21] MEDS: METOPROLOL TARTRATE 25 MG TAB PO SCH ×3 (05:31→22:00)
[2016-06-21] MEDS: INSULIN NovoLIN REGULAR SUPPLEMENTAL SCALE SQ SCH ×4 (05:31→21:00)
[2016-06-21] MEDS: CHLORHEXIDINE 0.12% (ORAL KIT) 15 ML CUP MT SCH ×2 (08:00→20:00)
[2016-06-21] MEDS: BISACODYL 10 MG SUPP RECTAL SCH (08:45)
[2016-06-21] MEDS: SODIUM CHLORIDE 0.9% FLUSH 5 ML FLUSH IV FLUSH SCH ×2 (08:45→21:00)
[2016-06-21] MEDS: FAMOTIDINE SUSP 40 MG/5 ML NG SCH ×2 (09:00→22:58)
[2016-06-21] MEDS: AMOXICILLIN/CLAVULANATE K 875 MG TAB PO SCH ×2 (09:44→23:05)
[2016-06-21] MEDS: DOCUSATE SODIUM 50 MG/SENNA 8.6 MG TAB PO SCH ×2 (09:45→23:03)
[2016-06-21] MEDS: LACTULOSE SYRUP 20 GM/30 ML CUP PO SCH ×2 (09:46→23:08)
[2016-06-21] MEDS ORDERED: AMLO10 PO (13:13)
[2016-06-21] MEDS ORDERED: RISP0.5T20 PO (13:13)
[2016-06-21] MEDS ORDERED: NEUR300C PO (13:13)
[2016-06-21] MEDS ORDERED: SENN1TAB PO (13:13)
[2016-06-21] MEDS ORDERED: METO25TA3 PO (13:13)
[2016-06-21] MEDS ORDERED: LIPI40TA PO (13:13)
[2016-06-21] MEDS ORDERED: AMOX875T2 PO (13:13)
[2016-06-21] MEDS ORDERED: LACT10SO PO (13:13)
--- NOTE | 2016-06-21 13:13 | HHI.DCPOC ---
Discharge Care Plan Diagnosis: (1) CVA (cerebral vascular accident) Your Health Problems Are: Difficulty with ADL Exercise Tolerance Goals to Promote Your Health * To prevent worsening of your condition and complications * To maintain your health at the optimal level Directions to Meet Your Goals Take your medications as prescribed Follow your dietary instruction Follow activity as directed Keep your appointments as scheduled Take your immunizations and boosters as scheduled If your symptoms worsen call your PCP, if no PCP go to Urgent Care Center or Emergency Room Smoking is Dangerous to Your Health. Avoid second hand smoke Call the 24-hour hour crisis hotline for domestic abuse at Isma Acosta MD Jun 21, 2016 13:13
[2016-06-21] MEDS ORDERED: Aspirin Chew PO (13:16)
--- NOTE | 2016-06-21 13:29 | HHI.PR ---
Subjective Remarks Follow-up for CVA with poor intake. The patient continues to improve. She states that she has been eating well, RN at bedside agrees. The patient states her shoulders are uncomfortable today, likely from pulling herself up in bed. She continues to decline PEG tube. Objective Vitals Vital Signs Date Time Temp Pulse Resp B/P Pulse Ox O2 Delivery O2 Flow Rate FiO2 06/21/16 12:40 98.7 84 17 110/61 92 06/21/16 09:14 94 Nasal Cannula 2.00 06/21/16 08:00 98.3 81 17 97/62 92 06/21/16 05:29 100.4 94 18 117/66 95 06/21/16 03:40 18 06/21/16 00:11 100.4 93 22 119/68 94 06/20/16 20:00 99.8 86 18 91/52 94 06/20/16 16:29 99.0 88 18 125/68 94 I/O 06/20/16 06/20/16 06/20/16 06/21/16 06/21/16 06/21/16 07:00 15:00 23:00 07:00 15:00 23:00 Intake Total 60 ml 480 ml 240 ml Balance 60 ml 480 ml 240 ml Intake Oral 60 ml 480 ml 240 ml # Voids 0 2 0 # Bowel Movements 0 0 Imaging Last Impressions Chest X-Ray 06/11/16 0000 Signed Impressions: Service Date/Time: Saturday, June 11, 2016 17:52 - CONCLUSION: Improving lung aeration. Persistent left midlung airspace disease. Otherwise stable chest. Arjun Cancino MD Abdomen X-Ray 06/11/16 0000 Signed Impressions: Service Date/Time: Saturday, June 11, 2016 20:05 - CONCLUSION: Tip of nasogastric tube and cardia of the stomach. No evidence of obstruction. Arjun Cancino MD Head CT 06/04/16 0000 Signed Impressions: Service Date/Time: Sunday, June 05, 2016 05:36 - CONCLUSION: Evolving right middle cerebral artery territory infarct. Eriberto Mirza MD CT Angiography 05/31/16 0000 Signed Impressions: Service Date/Time: Tuesday, May 31, 2016 14:08 - CONCLUSION: 1. No evidence of pulmonary embolism. 2. Dense consolidation in the left lower lobe with more patchy infiltrate in the posterior left upper lobe. Tae Marquez MD Head Magnetic Resonance Angiography 05/30/16 0000 Signed Impressions: Service Date/Time: May 11:39 - CONCLUSION: 1. Resolution of previously identified intraluminal filling defect in the mid right middle cerebral artery seen on prior CTA. Currently no hemodynamically significant stenosis identified. Bert Ayoub MD Brain MRI 05/30/16 0000 Signed Impressions: Service Date/Time: May 11:39 - CONCLUSION: 1. Large right MCA distribution infarct with mild mass effect and 3 mm right to left midline shift. Bert Ayoub MD Cerebral Arteriogram 05/29/16 1454 Signed Impressions: Service Date/Time: Sunday, May 29, 2016 15:22 - CONCLUSION: Success right MCA embolectomy as above . Chalo Payne MD Neck CTA 05/28/162026 Signed Impressions: Service Date/Time: Saturday, May 28, 2016 20:32 - CONCLUSION: Mild calcified plaque at the left proximal internal carotid artery. A significant stenosis is not seen. Eriberto Mirza MD Head CTA 05/28/162026 Signed Impressions: Service Date/Time: Saturday, May 28, 2016 20:32 - CONCLUSION: Short focal area of diminished flow potentially representing a thrombus in the midportion of the M1 segment of the right middle cerebral artery. The more peripheral flow at the right middle cerebral artery is diminished when compared to the left side. Eriberto Mirza MD Objective Remarks GENERAL: Well-developed well-nourished. In no acute distress. SKIN: Warm and dry. No lesions noted. HEENT: Normocephalic. Pupils equal and round. Mucous membranes pink and moist. CARDIOVASCULAR: Regular rate and rhythm. No murmur appreciated. RESPIRATORY: No accessory muscle use. Clear to auscultation. Breath sounds equal bilaterally. GASTROINTESTINAL: Abdomen soft, non-tender, nondistended. Bowel sounds x4. MUSCULOSKELETAL: No obvious deformities. No clubbing or cyanosis. No edema. NEUROLOGICAL: Awake and alert. Profound Left-sided weakness. Moves right side spontaneously. Normal speech. PSYCHIATRIC: Appropriate mood and affect; insight and judgment fair. Date of Removal: Jun 18, 2016 Line: PICC Side: Right A/P Problem List: (1) Acute ischemic right MCA stroke ICD Code: I63.511 Status: Acute (2) HTN (hypertension) ICD Code: I10 Status: Chronic Assessment and Plan 50yF with h/o htn, smoking, and COPD with o2 use at night who presented with right MCA CVA status post systemic TPA and clot extraction. Now extubated and clinically improving. Acute right MCA CVA with Cerebral Edema: s/p TPA, s/p mechanical endovascular thrombectomy -Continue Neurochecks -S/p steroid taper, discontinued 06/11 -Continue aspirin(was on hold for PEG placement, restarted) and statin -Neurology and rehabilitation medicine following Dysphagia/Aspiration s/p CVA as above Moderate protein calorie malnutrition and hyponatremia -CXR 06/10 with airspace disease left upper lobe. -ST on board, meals sitting up for now, s/p NGT however patient removed -Repeat chest x-ray 06/11 with improving aeration of her persistent left mid lung airspace disease. -Received empiric IV Unasyn since 06/12, change to oral Augmentin for 2 weeks total treatment, stop date 06/25 -patient not accepted to rehab unless adequate oral intake or PEG in place -consulted gastroenterology, appreciate recommendations, hold off on PEG for now as patient reportedly eating, ordered calorie counting -Patient failed calorie counting 06/17/16, consult psychiatry for capacity. I personally don't think she has capacity to make decisions for herself. -Psychiatry evaluated, patient deemed to not have capacity to make medical decisions however no daughter refusing PEG, wants to abide by patient's wishes -Consulted palliative care, patient and daughter/surrogate decision-maker declined PEG at this time -06/21 - patient is eating most of her meals, calorie count in progress, discussed with case management, [facility] to reevaluate Acute hypercarbic hypoxic respiratory failure and COPD- resolved. -weaned O2 by [place] for goal spo2 > 90%. -Continue to monitor respiratory status -stable on room air Hypotension- resolved. Hypertension-reasonably controlled -Continue metoprolol and amlodipine. -IV labetalol as needed Hyperglycemia of critical illness, improving -Steroids for presumed COPD exacerbation, tapered, now discontinued -Hemoglobin A1c 6.2 -SSI DVT prophylaxis: SCDs. Heparin. Written by Randolph Hayward, acting as scribe for Dr. Acosta on 06/21/16 at 13:26. All or portions of this note were transcribed by scribalexey []. I, Dr. Isma Acosta personally performed the history, physical exam, and medical decision making; and confirmed the accuracy of the information in the transcribed note. Authenticated by Dr. Isma Acosta on 06/21/16 at 15:43. Discharge Planning Discharge to SNF or rehabilitation when arranged Problem Qualifiers (1) HTN (hypertension): Qualified Code: I10 - Essential hypertension Randolph Hayward Jun 21, 2016 13:29 Isma Acosta MD Jun 21, 2016 15:43
[2016-06-22] VITALS (8 sets, daily range): BP systolic 92–124; BP diastolic 56–79; PULSE 76–103; RESP 15–22; TEMP 98.3–99.6; O2SAT 92–95
[2016-06-22] MEDS: oxyCODONE HCL ORAL CONC 20 MG/ML SYRINGE PO PRN (04:46)
[2016-06-22] MEDS: INSULIN NovoLIN REGULAR SUPPLEMENTAL SCALE SQ SCH ×4 (04:47→21:00)
[2016-06-22] MEDS: METOPROLOL TARTRATE 25 MG TAB PO SCH ×3 (04:54→21:03)
[2016-06-22] MEDS: CHLORHEXIDINE 0.12% (ORAL KIT) 15 ML CUP MT SCH ×2 (08:00→20:00)
[2016-06-22] MEDS: FAMOTIDINE SUSP 40 MG/5 ML NG SCH ×2 (09:00→21:24)
[2016-06-22] MEDS: BISACODYL 10 MG SUPP RECTAL SCH (09:00)
[2016-06-22] MEDS: SODIUM CHLORIDE 0.9% FLUSH 5 ML FLUSH IV FLUSH SCH ×2 (09:00→21:00)
[2016-06-22] MEDS: ASPIRIN 81 MG CHEW TAB PO SCH (09:24)
[2016-06-22] MEDS: LACTULOSE SYRUP 20 GM/30 ML CUP PO SCH ×2 (09:24→21:01)
[2016-06-22] MEDS: AMOXICILLIN/CLAVULANATE K 875 MG TAB PO SCH ×2 (09:25→21:01)
[2016-06-22] MEDS: risperiDONE 0.5 MG TAB PO SCH ×2 (09:25→21:02)
[2016-06-22] MEDS: DOCUSATE SODIUM 50 MG/SENNA 8.6 MG TAB PO SCH ×2 (09:25→21:02)
[2016-06-22] MEDS: HEPARIN SODIUM - SQ 10,000 UNITS/ML VIAL SQ SCH ×2 (09:25→21:18)
--- NOTE | 2016-06-22 10:44 | HHI.PR ---
Subjective Remarks Follow-up for CVA. Calorie count in progress, patient states she is eating well. She denies any headache or dizziness. She feels like she is improving, but not fast enough. Former tobacco use, plans to continue abstinence from tobacco. Objective Vitals Vital Signs Date Time Temp Pulse Resp B/P Pulse Ox O2 Delivery O2 Flow Rate FiO2 06/22/16 08:00 99.6 76 15 94/65 92 06/22/16 05:23 18 06/22/16 04:00 98.9 88 22 124/69 93 06/22/16 03:28 16 06/22/16 00:00 99.4 83 20 122/75 93 06/21/16 20:00 98.0 94 22 99/64 93 06/21/16 16:44 100.1 85 17 107/56 92 06/21/16 12:40 98.7 84 17 110/61 92 I/O 06/21/16 06/21/16 06/21/16 06/22/16 06/22/16 06/22/16 07:00 15:00 23:00 07:00 15:00 23:00 Intake Total 480 ml 360 ml Output Total 1 ml Balance 480 ml 359 ml Intake Oral 480 ml 360 ml Output Urine Total 1 ml # Voids 1 Imaging Last Impressions Chest X-Ray 06/11/16 0000 Signed Impressions: Service Date/Time: Saturday, June 11, 2016 17:52 - CONCLUSION: Improving lung aeration. Persistent left midlung airspace disease. Otherwise stable chest. Arjun Cancino MD Abdomen X-Ray 06/11/16 0000 Signed Impressions: Service Date/Time: Saturday, June 11, 2016 20:05 - CONCLUSION: Tip of nasogastric tube and cardia of the stomach. No evidence of obstruction. Arjun Cancino MD Head CT 06/04/16 0000 Signed Impressions: Service Date/Time: Sunday, June 05, 2016 05:36 - CONCLUSION: Evolving right middle cerebral artery territory infarct. Eriberto Mirza MD CT Angiography 05/31/16 0000 Signed Impressions: Service Date/Time: Tuesday, May 31, 2016 14:08 - CONCLUSION: 1. No evidence of pulmonary embolism. 2. Dense consolidation in the left lower lobe with more patchy infiltrate in the posterior left upper lobe. Tae Marquez MD Head Magnetic Resonance Angiography 05/30/16 0000 Signed Impressions: Service Date/Time: May 11:39 - CONCLUSION: 1. Resolution of previously identified intraluminal filling defect in the mid right middle cerebral artery seen on prior CTA. Currently no hemodynamically significant stenosis identified. Bert Ayoub MD Brain MRI 05/30/16 0000 Signed Impressions: Service Date/Time: May 11:39 - CONCLUSION: 1. Large right MCA distribution infarct with mild mass effect and 3 mm right to left midline shift. Bert Ayoub MD Cerebral Arteriogram 05/29/16 1454 Signed Impressions: Service Date/Time: Sunday, May 29, 2016 15:22 - CONCLUSION: Success right MCA embolectomy as above . Chalo Payne MD Neck CTA 05/28/162026 Signed Impressions: Service Date/Time: Saturday, May 28, 2016 20:32 - CONCLUSION: Mild calcified plaque at the left proximal internal carotid artery. A significant stenosis is not seen. Eriberto Mirza MD Head CTA 05/28/162026 Signed Impressions: Service Date/Time: Saturday, May 28, 2016 20:32 - CONCLUSION: Short focal area of diminished flow potentially representing a thrombus in the midportion of the M1 segment of the right middle cerebral artery. The more peripheral flow at the right middle cerebral artery is diminished when compared to the left side. Eriberto Mirza MD Objective Remarks GENERAL: Well-developed well-nourished. In no acute distress. SKIN: Warm and dry. No lesions noted. HEENT: Normocephalic. Pupils equal and round. Mucous membranes pink and moist. CARDIOVASCULAR: Regular rate and rhythm. No murmur appreciated. RESPIRATORY: No accessory muscle use. Clear to auscultation. Breath sounds equal bilaterally. GASTROINTESTINAL: Abdomen soft, non-tender, nondistended. Bowel sounds x4. MUSCULOSKELETAL: No obvious deformities. No clubbing or cyanosis. No edema. NEUROLOGICAL: Awake and alert. Able to lift left arm against gravity. Able to lift left leg against mild resistance. Moves right side spontaneously. Normal speech. PSYCHIATRIC: Appropriate mood and affect; insight and judgment fair. Date of Removal: Jun 18, 2016 Line: PICC Side: Right A/P Problem List: (1) Acute ischemic right MCA stroke ICD Code: I63.511 Status: Acute (2) HTN (hypertension) ICD Code: I10 Status: Chronic Assessment and Plan 50yF with h/o htn, smoking, and COPD with o2 use at night who presented with right MCA CVA status post systemic TPA and clot extraction. Now extubated and clinically improving. Acute right MCA CVA with Cerebral Edema: s/p TPA, s/p mechanical endovascular thrombectomy -Continue Neurochecks -S/p steroid taper, discontinued 06/11 -Continue aspirin(was on hold for PEG placement, restarted) and statin -Neurology and rehabilitation medicine following Dysphagia/Aspiration s/p CVA as above Moderate protein calorie malnutrition and hyponatremia -CXR 06/10 with airspace disease left upper lobe. -ST on board, meals sitting up for now, s/p NGT however patient removed -Repeat chest x-ray 06/11 with improving aeration of her persistent left mid lung airspace disease. -Received empiric IV Unasyn since 06/12, change to oral Augmentin for 2 weeks total treatment, stop date 06/25 -patient not accepted to rehab unless adequate oral intake or PEG in place -consulted gastroenterology, appreciate recommendations, hold off on PEG for now as patient reportedly eating, ordered calorie counting -Patient failed calorie counting 06/17/16, consult psychiatry for capacity. I personally don't think she has capacity to make decisions for herself. -Psychiatry evaluated, patient deemed to not have capacity to make medical decisions however no daughter refusing PEG, wants to abide by patient's wishes -Consulted palliative care, patient and daughter/surrogate decision-maker declined PEG at this time -06/22 - patient is eating most of her meals, calorie count in progress until , [facility] to reevaluate Acute hypercarbic hypoxic respiratory failure and COPD- resolved. -weaned O2 by [place] for goal spo2 > 90%. -Continue to monitor respiratory status -stable on room air Hypotension- resolved. Hypertension-reasonably controlled -Continue metoprolol and amlodipine. -IV labetalol as needed Hyperglycemia of critical illness, improving -Steroids for presumed COPD exacerbation, tapered, now discontinued -Hemoglobin A1c 6.2 -SSI DVT prophylaxis: SCDs. Heparin. Written by Randolph Hayward, acting as scribe for Dr. Acosta on 06/22/16 at 10:44. All or portions of this note were transcribed by scribe []. I, Dr. Isma Acosta personally performed the history, physical exam, and medical decision making; and confirmed the accuracy of the information in the transcribed note. Authenticated by Dr. Isma Acosta on 06/22/16 at 13:54. Discharge Planning Discharge to SNF or rehabilitation when arranged Problem Qualifiers (1) HTN (hypertension): Qualified Code: I10 - Essential hypertension Randolph Hayward Jun 22, 2016 10:44 Isma Acosta MD Jun 22, 2016 13:54
[2016-06-22] MEDS: GABAPENTIN 300 MG CAP PO SCH (21:01)
[2016-06-22] MEDS: ACETAMINOPHEN 325 MG TAB PO PRN (21:01)
[2016-06-22] MEDS: ATORVASTATIN 40 MG TAB PO SCH (21:01)
[2016-06-23 00:30] VITALS: BP_SYST 105; BP_SYST 118; BP_DIAS 60; BP_DIAS 84; PULSE 101; PULSE 68; RESP 18; RESP 21; TEMP 97.8; TEMP 99; O2SAT 94
[2016-06-23] MEDS: CHLORHEXIDINE GLUCONATE 2 % 1 PACK (2 CLOTHS) TOP SCH (04:00)
[2016-06-23 04:30] VITALS: BP 170/72; PULSE 93; RESP 20; TEMP 96.9; O2SAT 97
[2016-06-23] MEDS: METOPROLOL TARTRATE 25 MG TAB PO SCH ×3 (06:09→22:00)
[2016-06-23] MEDS: INSULIN NovoLIN REGULAR SUPPLEMENTAL SCALE SQ SCH ×4 (06:10→21:00)
[2016-06-23 08:00] VITALS: BP 104/66; PULSE 88; RESP 15; TEMP 99.5; O2SAT 92
[2016-06-23] MEDS: CHLORHEXIDINE 0.12% (ORAL KIT) 15 ML CUP MT SCH ×2 (08:00→20:00)
[2016-06-23] MEDS: FAMOTIDINE SUSP 40 MG/5 ML NG SCH ×2 (09:00→21:56)
[2016-06-23] MEDS: SODIUM CHLORIDE 0.9% FLUSH 5 ML FLUSH IV FLUSH SCH ×2 (09:00→21:00)
[2016-06-23] MEDS: BISACODYL 10 MG SUPP RECTAL SCH (09:00)
[2016-06-23] MEDS: DOCUSATE SODIUM 50 MG/SENNA 8.6 MG TAB PO SCH ×2 (09:01→21:59)
[2016-06-23] MEDS: AMOXICILLIN/CLAVULANATE K 875 MG TAB PO SCH ×2 (09:01→21:59)
[2016-06-23] MEDS: LACTULOSE SYRUP 20 GM/30 ML CUP PO SCH ×2 (09:01→21:00)
[2016-06-23] MEDS: risperiDONE 0.5 MG TAB PO SCH ×2 (09:01→22:00)
[2016-06-23] MEDS: ASPIRIN 81 MG CHEW TAB PO SCH (09:01)
[2016-06-23] MEDS: HEPARIN SODIUM - SQ 10,000 UNITS/ML VIAL SQ SCH ×2 (09:02→22:00)
[2016-06-23] MEDS: ACETAMINOPHEN 325 MG TAB PO PRN ×2 (09:15→21:58)
[2016-06-23 12:00] VITALS: BP 117/72; PULSE 77; RESP 15; TEMP 97.4; O2SAT 93
--- NOTE | 2016-06-23 12:01 | HHI.PR ---
Subjective Remarks Follow up for CVA, poor oral intake. The patient is awake, alert. States she's eating most of her meals, RN confirms this, ate 100% of meals yesterday. The patient is questioning why she is not on her home trazodone dosing, requesting this to be restarted. She states her PCP Dr. Quinn was prescribing this to her for sleep. Of note, the patient had a fall yesterday around 12:45pm, initially complaining of her right hip feeling "sore" however improved today. No other medical complaints at this time. Objective Vitals Vital Signs Date Time Temp Pulse Resp B/P Pulse Ox O2 Delivery O2 Flow Rate FiO2 06/23/16 08:00 99.5 88 15 104/66 92 06/23/16 04:30 96.9 93 20 170/72 97 06/23/16 00:30 99.0 101 21 118/84 94 06/23/16 00:30 99.0 101 21 118/84 94 06/22/16 20:00 99.5 103 20 121/79 94 06/22/16 16:00 98.3 92 15 105/63 92 06/22/16 13:20 98.3 88 15 92/56 95 06/22/16 12:50 98.4 96 15 96/61 95 06/22/16 12:00 98.6 90 15 116/67 93 I/O 06/22/16 06/22/16 06/22/16 06/23/16 06/23/16 06/23/16 07:00 15:00 23:00 07:00 15:00 23:00 Intake Total 960 ml 250 ml 100 ml Output Total 0 ml 500 ml Balance 960 ml 250 ml -400 ml Intake Oral 960 ml 250 ml 100 ml Output Urine Total 0 ml 500 ml Stool Total 0 ml # Voids 2 1 1 # Bowel Movements 1 Imaging Last Impressions Chest X-Ray 06/11/16 0000 Signed Impressions: Service Date/Time: Saturday, June 11, 2016 17:52 - CONCLUSION: Improving lung aeration. Persistent left midlung airspace disease. Otherwise stable chest. Arjun Cancino MD Abdomen X-Ray 06/11/16 0000 Signed Impressions: Service Date/Time: Saturday, June 11, 2016 20:05 - CONCLUSION: Tip of nasogastric tube and cardia of the stomach. No evidence of obstruction. Arjun Cancino MD Head CT 06/04/16 0000 Signed Impressions: Service Date/Time: Sunday, June 05, 2016 05:36 - CONCLUSION: Evolving right middle cerebral artery territory infarct. Eriberto Mirza MD CT Angiography 05/31/16 0000 Signed Impressions: Service Date/Time: Tuesday, May 31, 2016 14:08 - CONCLUSION: 1. No evidence of pulmonary embolism. 2. Dense consolidation in the left lower lobe with more patchy infiltrate in the posterior left upper lobe. Tae Marquez MD Head Magnetic Resonance Angiography 05/30/16 0000 Signed Impressions: Service Date/Time: May 11:39 - CONCLUSION: 1. Resolution of previously identified intraluminal filling defect in the mid right middle cerebral artery seen on prior CTA. Currently no hemodynamically significant stenosis identified. Bert Ayoub MD Brain MRI 05/30/16 0000 Signed Impressions: Service Date/Time: May 11:39 - CONCLUSION: 1. Large right MCA distribution infarct with mild mass effect and 3 mm right to left midline shift. Bert Ayoub MD Cerebral Arteriogram 05/29/16 1454 Signed Impressions: Service Date/Time: Sunday, May 29, 2016 15:22 - CONCLUSION: Success right MCA embolectomy as above . Chalo Payne MD Neck CTA 05/28/162026 Signed Impressions: Service Date/Time: Saturday, May 28, 2016 20:32 - CONCLUSION: Mild calcified plaque at the left proximal internal carotid artery. A significant stenosis is not seen. Eriberto Mirza MD Head CTA 05/28/162026 Signed Impressions: Service Date/Time: Saturday, May 28, 2016 20:32 - CONCLUSION: Short focal area of diminished flow potentially representing a thrombus in the midportion of the M1 segment of the right middle cerebral artery. The more peripheral flow at the right middle cerebral artery is diminished when compared to the left side. Eriberto Mirza MD Objective Remarks GENERAL: Well-developed well-nourished middle aged female patient in [facility]. SKIN: Warm and dry. No rash noted. HEENT: Normocephalic. Pupils equal and round. Mucous membranes pink and moist. CARDIOVASCULAR: Regular rate and rhythm. No murmur appreciated. RESPIRATORY: No accessory muscle use. Clear to auscultation. Breath sounds equal bilaterally. GASTROINTESTINAL: Abdomen soft, non-tender, nondistended. Bowel sounds x4. MUSCULOSKELETAL: No obvious deformities. No clubbing or cyanosis. No edema. NEUROLOGICAL: Awake and alert. Able to lift left arm spontaneously but not against resistance today. Able to lift left leg against gravity and resistance. Normal speech. PSYCHIATRIC: Appropriate mood and affect; insight and judgment fair to normal. Medications and IVs Current Medications Medications (Trade) Dose Ordered Sig/Aric Route Start Time Stop Time Status Last Admin (D50w (Vial) Inj) 25 ml UNSCH PRN IV PUSH 05/29/16 02:15 (NS Flush) 2 ml UNSCH PRN IV FLUSH 05/29/16 02:15 06/13/16 06:01 (NS Flush) 2 ml BID IV FLUSH 05/29/16 09:00 06/22/16 21:00 (Tylenol) 650 mg Q6H PRN PO 05/29/16 02:15 06/23/16 09:15 (Zofran Inj) 4 mg Q6H PRN IV 05/29/16 02:15 (Steffany-Colace) 2 tab BID PO 05/29/16 09:00 06/23/16 09:01 Miscellaneous Information 1 Q361D XX 05/29/16 02:15 05/29/16 02:15 (Chlorhexidine 2% Cloth) Taper DAILY@04 TOP 05/29/16 04:00 05/25/17 03:59 06/10/16 03:53 (Chlorhexidine 2% Cloth) 3 pack UNSCH PRN TOP 05/29/16 02:15 (risperDAL) 0.5 mg BID PO 05/29/16 09:00 06/23/16 09:01 (Heparin Inj) 5,000 units BID SQ 05/30/16 09:00 06/23/16 09:02 (Lipitor) 40 mg HS PO 05/30/16 21:00 06/22/16 21:01 (Peridex 0.12% Liq) 15 ml BID@08,20 MT 05/31/16 20:00 06/22/16 08:00 (Brethine Inj) 1 mg UNSCH PRN SQ 05/31/16 16:15 (NS Flush) See Protocol DAILY IVF 06/01/16 09:00 06/18/16 09:00 (NS Flush) See Protocol UNSCH PRN IVF 05/31/16 18:15 (Heparin Central Flush) See Protocol DAILY IVF 06/01/16 09:00 06/17/16 09:45 (Heparin Central Flush) See Protocol UNSCH PRN IVF 05/31/16 18:15 (NS Flush) See Protocol UNSCH PRN IVF 05/31/16 18:15 (Neurontin) 300 mg HS PO 06/06/16 21:00 06/22/16 21:01 (Dulcolax Supp) 10 mg DAILY RECTAL 06/07/16 09:00 06/17/16 09:46 (Lactulose Liq) 30 ml BID PO 06/07/16 09:00 06/23/16 09:01 (Roxicodone Intensol Liq) 5 mg Q4H PRN PO 06/07/16 10:00 06/22/16 04:46 (Trandate Inj) 10 mg Q20M PRN IV PUSH 06/07/16 13:15 06/07/16 23:25 (Lopressor) 12.5 mg Q8HR PO 06/08/16 06:00 06/23/16 06:09 (Pill Splitter) 1 ea UNSCH PRN OTHER 06/07/16 23:30 06/08/16 19:51 (Norvasc) 10 mg DAILY PO 06/08/16 09:00 06/22/16 09:26 (Pepcid Liq) 20 mg BID NG 06/08/16 09:00 06/23/16 09:00 (Augmentin) 875 mg Q12HR PO 06/16/16 21:00 06/25/16 23:55 06/23/16 09:01 (Aspirin Chew) 162 mg DAILY PO 06/17/16 09:00 06/23/16 09:01 (Glucagon Inj) 1 mg UNSCH PRN OTHER 06/18/16 22:00 (risperDAL) 0.5 mg Q12H PRN PO 06/19/16 11:15 Urinary Catheter: No Vascular Central Line Catheter: No Date of Removal: Jun 18, 2016 Line: PICC Side: Right A/P Problem List: (1) Acute ischemic right MCA stroke ICD Code: I63.511 Status: Acute (2) HTN (hypertension) ICD Code: I10 Status: Chronic Assessment and Plan 50yF with h/o htn, smoking, and COPD with o2 use at night who presented with right MCA CVA status post systemic TPA and clot extraction. Now extubated and clinically improving. Acute right MCA CVA with Cerebral Edema: s/p TPA, s/p mechanical endovascular thrombectomy -Continue Neurochecks -S/p steroid taper, discontinued 06/11 -Continue aspirin(was on hold for possible PEG placement, now restarted) and statin -Neurology and rehabilitation medicine following, needs rehab after discharge Dysphagia/Aspiration s/p CVA as above Moderate protein calorie malnutrition and hyponatremia -CXR 06/10 with airspace disease left upper lobe. -S/p NGT, removed by the patient -ST recommends Mechanical Soft diet, no liquid restrictions, with chopped meat and extra gravy -Repeat CXR 06/11 with improving aeration of her persistent left mid lung airspace disease. -Received empiric IV Unasyn since 06/12, change to oral Augmentin for 2 weeks total treatment, stop date 06/25 -patient not accepted to rehab unless adequate oral intake or PEG in place -consulted gastroenterology, appreciate recommendations, hold off on PEG for now as patient is eating, ordered calorie counting -Patient failed calorie counting 06/17/16, consulted psychiatry for capacity. -Psychiatry evaluated, patient deemed to not have capacity to make medical decisions however no daughter refusing PEG, wants to abide by patient's wishes -Consulted palliative care, patient and daughter/surrogate decision-maker declined PEG at this time -06/23 - patient is eating most of her meals, calorie count in progress until , [facility] to reevaluate Acute hypercarbic hypoxic respiratory failure and COPD- resolved. -weaned O2 by [place] for goal spo2 > 90%. -Continue to monitor respiratory status -now stable on room air Hypotension- resolved. Hypertension-reasonably controlled -Continue metoprolol and amlodipine. -IV labetalol as needed Hyperglycemia of critical illness, improving -Steroids for presumed COPD exacerbation, tapered, now discontinued -Hemoglobin A1c 6.2 -SSI DVT prophylaxis: SCDs. Heparin. Written by Arelis Bernard, acting as scribe for Dr. Acosta on 06/23/16 at 10: 52. All or portions of this note were transcribed by scribe []. I, Dr. Isma Acosta personally performed the history, physical exam, and medical decision making; and confirmed the accuracy of the information in the transcribed note. Authenticated by Dr. Isma Acosta on 06/23/16 at 16:07. Discharge Planning Discharge to [facility] when accepted. Patient now eating more, tolerating oral intake. Problem Qualifiers (1) HTN (hypertension): Qualified Code: I10 - Essential hypertension Arelis Bernard PA-C Jun 23, 2016 12:01 Isma Acosta MD Jun 23, 2016 16:07
[2016-06-23 16:00] VITALS: BP 112/61; PULSE 81; RESP 16; TEMP 98.4; O2SAT 92
[2016-06-23 20:00] VITALS: BP 123/64; PULSE 92; RESP 20; TEMP 97.6; O2SAT 92
[2016-06-23] MEDS: GABAPENTIN 300 MG CAP PO SCH (21:59)
[2016-06-23] MEDS: ATORVASTATIN 40 MG TAB PO SCH (22:00)
[2016-06-24 00:30] VITALS: BP 121/80; PULSE 80; RESP 19; TEMP 98.8; O2SAT 97
[2016-06-24] MEDS: CHLORHEXIDINE GLUCONATE 2 % 1 PACK (2 CLOTHS) TOP SCH (03:57)
[2016-06-24 04:00] VITALS: BP 117/62; PULSE 90; RESP 20; TEMP 96.6; O2SAT 92
[2016-06-24] MEDS: METOPROLOL TARTRATE 25 MG TAB PO SCH ×4 (05:57→22:43)
[2016-06-24] MEDS: INSULIN NovoLIN REGULAR SUPPLEMENTAL SCALE SQ SCH ×4 (06:09→21:00)
[2016-06-24] MEDS: CHLORHEXIDINE 0.12% (ORAL KIT) 15 ML CUP MT SCH ×2 (08:00→20:00)
[2016-06-24 08:06] VITALS: BP_SYST 118; BP_SYST 121; BP_DIAS 56; BP_DIAS 80; PULSE 106; PULSE 74; RESP 16; RESP 18; TEMP 97.3; TEMP 97.5; O2SAT 94; O2SAT 97
[2016-06-24] MEDS: BISACODYL 10 MG SUPP RECTAL SCH (09:00)
[2016-06-24] MEDS: SODIUM CHLORIDE 0.9% FLUSH 5 ML FLUSH IV FLUSH SCH ×2 (09:00→21:00)
[2016-06-24] MEDS: HEPARIN SODIUM - SQ 10,000 UNITS/ML VIAL SQ SCH ×2 (09:00→22:44)
[2016-06-24] MEDS: LACTULOSE SYRUP 20 GM/30 ML CUP PO SCH ×2 (09:16→21:00)
[2016-06-24] MEDS: ASPIRIN 81 MG CHEW TAB PO SCH (09:16)
[2016-06-24] MEDS: AMOXICILLIN/CLAVULANATE K 875 MG TAB PO SCH ×2 (09:16→22:43)
[2016-06-24] MEDS: risperiDONE 0.5 MG TAB PO SCH ×2 (09:16→22:43)
[2016-06-24] MEDS: DOCUSATE SODIUM 50 MG/SENNA 8.6 MG TAB PO SCH ×2 (09:16→21:00)
[2016-06-24] MEDS: FAMOTIDINE SUSP 40 MG/5 ML NG SCH ×2 (09:17→22:45)
[2016-06-24 12:23] VITALS: BP 116/72; PULSE 113; RESP 17; TEMP 98.2; O2SAT 94
--- NOTE | 2016-06-24 15:20 | HHI.PR ---
Subjective Remarks Follow up for CVA, poor oral intake. The patient is eating most of her meals. She is seen sitting upright at nurses station. She has no medical complaints. She is motivated to go to rehab. Objective Vitals Vital Signs Date Time Temp Pulse Resp B/P Pulse Ox O2 Delivery O2 Flow Rate FiO2 06/24/16 12:23 98.2 113 17 116/72 94 06/24/16 08:06 97.5 106 18 121/80 94 06/24/16 04:00 96.6 90 20 117/62 92 06/24/16 00:30 98.8 80 19 121/80 97 06/23/16 20:00 97.6 92 20 123/64 92 06/23/16 16:00 98.4 81 16 112/61 92 I/O 06/23/16 06/23/16 06/23/16 06/24/16 06/24/16 06/24/16 07:00 15:00 23:00 07:00 15:00 23:00 Intake Total 100 ml 240 ml 100 ml 100 ml Output Total 500 ml Balance -400 ml 240 ml 100 ml 100 ml Intake Oral 100 ml 240 ml 100 ml 100 ml Output Urine Total 500 ml Stool Total 0 ml # Voids 1 3 1 1 # Bowel Movements 1 Imaging Last Impressions Chest X-Ray 06/11/16 0000 Signed Impressions: Service Date/Time: Saturday, June 11, 2016 17:52 - CONCLUSION: Improving lung aeration. Persistent left midlung airspace disease. Otherwise stable chest. Arjun Cancino MD Abdomen X-Ray 06/11/16 0000 Signed Impressions: Service Date/Time: Saturday, June 11, 2016 20:05 - CONCLUSION: Tip of nasogastric tube and cardia of the stomach. No evidence of obstruction. Arjun Cancino MD Head CT 06/04/16 0000 Signed Impressions: Service Date/Time: Sunday, June 05, 2016 05:36 - CONCLUSION: Evolving right middle cerebral artery territory infarct. Eriberto Mirza MD CT Angiography 05/31/16 0000 Signed Impressions: Service Date/Time: Tuesday, May 31, 2016 14:08 - CONCLUSION: 1. No evidence of pulmonary embolism. 2. Dense consolidation in the left lower lobe with more patchy infiltrate in the posterior left upper lobe. Tae Marquez MD Head Magnetic Resonance Angiography 05/30/16 0000 Signed Impressions: Service Date/Time: May 11:39 - CONCLUSION: 1. Resolution of previously identified intraluminal filling defect in the mid right middle cerebral artery seen on prior CTA. Currently no hemodynamically significant stenosis identified. Bert Ayoub MD Brain MRI 05/30/16 0000 Signed Impressions: Service Date/Time: May 11:39 - CONCLUSION: 1. Large right MCA distribution infarct with mild mass effect and 3 mm right to left midline shift. Bert Ayoub MD Cerebral Arteriogram 05/29/16 1454 Signed Impressions: Service Date/Time: Sunday, May 29, 2016 15:22 - CONCLUSION: Success right MCA embolectomy as above . Chalo Payne MD Neck CTA 05/28/162026 Signed Impressions: Service Date/Time: Saturday, May 28, 2016 20:32 - CONCLUSION: Mild calcified plaque at the left proximal internal carotid artery. A significant stenosis is not seen. Eriberto Mirza MD Head CTA 05/28/162026 Signed Impressions: Service Date/Time: Saturday, May 28, 2016 20:32 - CONCLUSION: Short focal area of diminished flow potentially representing a thrombus in the midportion of the M1 segment of the right middle cerebral artery. The more peripheral flow at the right middle cerebral artery is diminished when compared to the left side. Eriberto Mirza MD Objective Remarks GENERAL: Well-developed well-nourished middle aged female patient in [facility]. SKIN: Warm and dry. No rash noted. HEENT: Normocephalic. Pupils equal and round. Mucous membranes pink and moist. CARDIOVASCULAR: Regular rate and rhythm. No murmur appreciated. RESPIRATORY: No accessory muscle use. Clear to auscultation. Breath sounds equal bilaterally. GASTROINTESTINAL: Abdomen soft, non-tender, nondistended. Bowel sounds x4. MUSCULOSKELETAL: No obvious deformities. No clubbing or cyanosis. No edema. NEUROLOGICAL: Awake and alert. LUE/LLE strength 3/5, RUE/RLE strength 5/5. Able to lift left arm against gravity and minimal resistance. Able to lift left leg against gravity and resistance. Normal speech. PSYCHIATRIC: Appropriate mood and affect; insight and judgment fair to normal. Medications and IVs Current Medications Medications (Trade) Dose Ordered Sig/Aric Route Start Time Stop Time Status Last Admin (D50w (Vial) Inj) 25 ml UNSCH PRN IV PUSH 05/29/16 02:15 (NS Flush) 2 ml UNSCH PRN IV FLUSH 05/29/16 02:15 06/13/16 06:01 (NS Flush) 2 ml BID IV FLUSH 05/29/16 09:00 06/22/16 21:00 (Tylenol) 650 mg Q6H PRN PO 05/29/16 02:15 06/23/16 21:58 (Zofran Inj) 4 mg Q6H PRN IV 05/29/16 02:15 (Steffany-Colace) 2 tab BID PO 05/29/16 09:00 06/24/16 09:16 Miscellaneous Information 1 Q361D XX 05/29/16 02:15 05/29/16 02:15 (Chlorhexidine 2% Cloth) Taper DAILY@04 TOP 05/29/16 04:00 05/25/17 03:59 06/10/16 03:53 (Chlorhexidine 2% Cloth) 3 pack UNSCH PRN TOP 05/29/16 02:15 (risperDAL) 0.5 mg BID PO 05/29/16 09:00 06/24/16 09:16 (Heparin Inj) 5,000 units BID SQ 05/30/16 09:00 06/23/16 22:00 (Lipitor) 40 mg HS PO 05/30/16 21:00 06/23/16 22:00 (Peridex 0.12% Liq) 15 ml BID@08,20 MT 05/31/16 20:00 06/22/16 08:00 (Brethine Inj) 1 mg UNSCH PRN SQ 05/31/16 16:15 (NS Flush) See Protocol DAILY IVF 06/01/16 09:00 06/18/16 09:00 (NS Flush) See Protocol UNSCH PRN IVF 05/31/16 18:15 (Heparin Central Flush) See Protocol DAILY IVF 06/01/16 09:00 06/17/16 09:45 (Heparin Central Flush) See Protocol UNSCH PRN IVF 05/31/16 18:15 (NS Flush) See Protocol UNSCH PRN IVF 05/31/16 18:15 (Neurontin) 300 mg HS PO 06/06/16 21:00 06/23/16 21:59 (Dulcolax Supp) 10 mg DAILY RECTAL 06/07/16 09:00 06/17/16 09:46 (Lactulose Liq) 30 ml BID PO 06/07/16 09:00 06/24/16 09:16 (Roxicodone Intensol Liq) 5 mg Q4H PRN PO 06/07/16 10:00 06/22/16 04:46 (Trandate Inj) 10 mg Q20M PRN IV PUSH 06/07/16 13:15 06/07/16 23:25 (Lopressor) 12.5 mg Q8HR PO 06/08/16 06:00 06/24/16 14:35 (Pill Splitter) 1 ea UNSCH PRN OTHER 06/07/16 23:30 06/08/16 19:51 (Norvasc) 10 mg DAILY PO 06/08/16 09:00 06/24/16 09:16 (Pepcid Liq) 20 mg BID NG 06/08/16 09:00 06/24/16 09:17 (Augmentin) 875 mg Q12HR PO 06/16/16 21:00 06/25/16 23:55 06/24/16 09:16 (Aspirin Chew) 162 mg DAILY PO 06/17/16 09:00 06/24/16 09:16 (Glucagon Inj) 1 mg UNSCH PRN OTHER 06/18/16 22:00 (risperDAL) 0.5 mg Q12H PRN PO 06/19/16 11:15 Urinary Catheter: No Vascular Central Line Catheter: No Date of Removal: Jun 18, 2016 Line: PICC Side: Right A/P Problem List: (1) Acute ischemic right MCA stroke ICD Code: I63.511 Status: Acute (2) HTN (hypertension) ICD Code: I10 Status: Chronic Assessment and Plan 50yF with h/o htn, smoking, and COPD with o2 use at night who presented with right MCA CVA status post systemic TPA and clot extraction. Now extubated and clinically improving. Acute right MCA CVA with Cerebral Edema: s/p TPA, s/p mechanical endovascular thrombectomy -Continue Neurochecks -S/p steroid taper, discontinued 2/28 -Continue aspirin(was on hold for possible PEG placement, now restarted) and statin -Neurology and rehabilitation medicine following, needs rehab after discharge Dysphagia/Aspiration s/p CVA as above Moderate protein calorie malnutrition and hyponatremia -CXR 06/10 with airspace disease left upper lobe. -S/p NGT, removed by the patient -ST recommends Mechanical Soft diet, no liquid restrictions, with chopped meat and extra gravy -Repeat CXR 06/11 with improving aeration of her persistent left mid lung airspace disease. -Received empiric IV Unasyn since 06/12, change to oral Augmentin for 2 weeks total treatment, stop date 06/25 -patient not accepted to rehab unless adequate oral intake or PEG in place -consulted gastroenterology, appreciate recommendations, hold off on PEG for now as patient is eating, ordered calorie counting -Patient failed calorie counting 06/17/16, consulted psychiatry for capacity. -Psychiatry evaluated, patient deemed to not have capacity to make medical decisions however no daughter refusing PEG, wants to abide by patient's wishes -Consulted palliative care, patient and daughter/surrogate decision-maker declined PEG at this time -06/24 - patient is eating most of her meals, calorie count to be completed today , [facility] to reevaluate Acute hypercarbic hypoxic respiratory failure and COPD- resolved. -weaned O2 by [place] for goal spo2 > 90%. -Continue to monitor respiratory status -now stable on room air Hypotension- resolved. Hypertension-reasonably controlled -Continue metoprolol and amlodipine. -IV labetalol as needed Hyperglycemia of critical illness, improving -Steroids for presumed COPD exacerbation, tapered, now discontinued -Hemoglobin A1c 6.2 -SSI DVT prophylaxis: SCDs. Heparin. Written by Arelis Bernard, acting as scribe for Dr. Acosta on 06/24/16 at 14: 20. All or portions of this note were transcribed by scribe []. I, Dr. Isma Acosta personally performed the history, physical exam, and medical decision making; and confirmed the accuracy of the information in the transcribed note. Authenticated by Dr. Isma Acosta on 06/24/16 at 16:50. Discharge Planning Discharge to [facility] when accepted. Patient now eating most of her meals. Medically cleared for discharge to rehab. Problem Qualifiers (1) HTN (hypertension): Qualified Code: I10 - Essential hypertension Arelis Bernard PA-C Jun 24, 2016 15:20 Isma Acosta MD Jun 24, 2016 16:50
[2016-06-24 16:23] VITALS: BP 115/70; PULSE 81; RESP 18; TEMP 98.5; O2SAT 93
[2016-06-24 20:00] VITALS: BP 116/70; PULSE 80; RESP 18; TEMP 98.4; O2SAT 91
[2016-06-24] MEDS: ATORVASTATIN 40 MG TAB PO SCH (22:43)
[2016-06-24] MEDS: oxyCODONE HCL ORAL CONC 20 MG/ML SYRINGE PO PRN (22:43)
[2016-06-24] MEDS: GABAPENTIN 300 MG CAP PO SCH (22:44)
[2016-06-25 00:18] VITALS: BP 120/74; PULSE 83; RESP 18; TEMP 98.3; O2SAT 92
[2016-06-25 04:00] VITALS: BP 115/67; PULSE 84; RESP 18; TEMP 98.8; O2SAT 92
[2016-06-25] MEDS: CHLORHEXIDINE GLUCONATE 2 % 1 PACK (2 CLOTHS) TOP SCH (04:00)
[2016-06-25] MEDS: METOPROLOL TARTRATE 25 MG TAB PO SCH ×2 (06:00→09:23)
[2016-06-25] MEDS: INSULIN NovoLIN REGULAR SUPPLEMENTAL SCALE SQ SCH ×3 (06:44→16:00)
[2016-06-25] MEDS: CHLORHEXIDINE 0.12% (ORAL KIT) 15 ML CUP MT SCH (08:00)
[2016-06-25] MEDS: DOCUSATE SODIUM 50 MG/SENNA 8.6 MG TAB PO SCH ×2 (09:00→09:23)
[2016-06-25] MEDS: SODIUM CHLORIDE 0.9% FLUSH 5 ML FLUSH IV FLUSH SCH (09:00)
[2016-06-25] MEDS: LACTULOSE SYRUP 20 GM/30 ML CUP PO SCH ×2 (09:00→09:23)
[2016-06-25] MEDS: BISACODYL 10 MG SUPP RECTAL SCH (09:00)
[2016-06-25] MEDS: ASPIRIN 81 MG CHEW TAB PO SCH (09:22)
[2016-06-25] MEDS: HEPARIN SODIUM - SQ 10,000 UNITS/ML VIAL SQ SCH (09:23)
[2016-06-25] MEDS: risperiDONE 0.5 MG TAB PO SCH (09:23)
[2016-06-25] MEDS: AMOXICILLIN/CLAVULANATE K 875 MG TAB PO SCH (09:23)
[2016-06-25] MEDS: FAMOTIDINE SUSP 40 MG/5 ML NG SCH (09:24)
[2016-06-25 12:33] VITALS: BP 102/62; PULSE 88; RESP 18; TEMP 98.2
--- NOTE | 2016-06-25 13:20 | HHI.PR ---
Subjective Remarks Follow-up for CVA. The patient did well with calorie count, cleared for full diet. She is happy to be able to go to rehabilitation. Objective Vitals Vital Signs Date Time Temp Pulse Resp B/P Pulse Ox O2 Delivery O2 Flow Rate FiO2 06/25/16 12:33 98.2 88 18 102/62 06/25/16 04:00 98.8 84 18 115/67 92 06/25/16 00:18 98.3 83 18 120/74 92 06/24/16 20:00 98.4 80 18 116/70 91 06/24/16 16:23 98.5 81 18 115/70 93 I/O 06/24/16 06/24/16 06/24/16 06/25/16 06/25/16 06/25/16 07:00 15:00 23:00 07:00 15:00 23:00 Intake Total 100 ml 480 ml 360 ml Balance 100 ml 480 ml 360 ml Intake Oral 100 ml 480 ml 360 ml # Voids 1 2 3 2 # Bowel Movements 1 2 1 Imaging Last Impressions Chest X-Ray 06/11/16 0000 Signed Impressions: Service Date/Time: Saturday, June 11, 2016 17:52 - CONCLUSION: Improving lung aeration. Persistent left midlung airspace disease. Otherwise stable chest. Arjun Cancino MD Abdomen X-Ray 06/11/16 0000 Signed Impressions: Service Date/Time: Saturday, June 11, 2016 20:05 - CONCLUSION: Tip of nasogastric tube and cardia of the stomach. No evidence of obstruction. Arjun Cancino MD Head CT 06/04/16 0000 Signed Impressions: Service Date/Time: Sunday, June 05, 2016 05:36 - CONCLUSION: Evolving right middle cerebral artery territory infarct. Eriberto Mirza MD CT Angiography 05/31/16 0000 Signed Impressions: Service Date/Time: Tuesday, May 31, 2016 14:08 - CONCLUSION: 1. No evidence of pulmonary embolism. 2. Dense consolidation in the left lower lobe with more patchy infiltrate in the posterior left upper lobe. Tae Marquez MD Head Magnetic Resonance Angiography 05/30/16 0000 Signed Impressions: Service Date/Time: May 11:39 - CONCLUSION: 1. Resolution of previously identified intraluminal filling defect in the mid right middle cerebral artery seen on prior CTA. Currently no hemodynamically significant stenosis identified. Bert Ayoub MD Brain MRI 05/30/16 0000 Signed Impressions: Service Date/Time: May 11:39 - CONCLUSION: 1. Large right MCA distribution infarct with mild mass effect and 3 mm right to left midline shift. Bert Ayoub MD Cerebral Arteriogram 05/29/16 1454 Signed Impressions: Service Date/Time: Sunday, May 29, 2016 15:22 - CONCLUSION: Success right MCA embolectomy as above . Chalo Payne MD Neck CTA 05/28/162026 Signed Impressions: Service Date/Time: Saturday, May 28, 2016 20:32 - CONCLUSION: Mild calcified plaque at the left proximal internal carotid artery. A significant stenosis is not seen. Eriberto Mirza MD Head CTA 05/28/162026 Signed Impressions: Service Date/Time: Saturday, May 28, 2016 20:32 - CONCLUSION: Short focal area of diminished flow potentially representing a thrombus in the midportion of the M1 segment of the right middle cerebral artery. The more peripheral flow at the right middle cerebral artery is diminished when compared to the left side. Eriberto Mirza MD Objective Remarks GENERAL: Well-developed well-nourished. In no acute distress. Sitting up in wheel chair eating lunch. SKIN: Warm and dry. No lesions noted. HEENT: Normocephalic. Pupils equal and round. Mucous membranes pink and moist. CARDIOVASCULAR: Regular rate and rhythm. No murmur appreciated. RESPIRATORY: No accessory muscle use. Clear to auscultation. Breath sounds equal bilaterally. GASTROINTESTINAL: Abdomen soft, non-tender, nondistended. Bowel sounds x4. MUSCULOSKELETAL: No obvious deformities. No clubbing or cyanosis. No edema. NEUROLOGICAL: Awake and alert. Able to lift left arm against gravity. Able to lift left leg against mild resistance. Moves right side spontaneously. Normal speech. PSYCHIATRIC: Appropriate mood and affect; insight and judgment fair to normal. Date of Removal: Jun 18, 2016 Line: PICC Side: Right A/P Problem List: (1) Acute ischemic right MCA stroke ICD Code: I63.511 Status: Acute (2) HTN (hypertension) ICD Code: I10 Status: Chronic Assessment and Plan 50yF with h/o htn, smoking, and COPD with o2 use at night who presented with right MCA CVA status post systemic TPA and clot extraction. Now extubated and clinically improving. Acute right MCA CVA with Cerebral Edema: s/p TPA, s/p mechanical endovascular thrombectomy -Continue Neurochecks -S/p steroid taper, discontinued 06/11 -Continue aspirin(was on hold for PEG placement, restarted) and statin -Neurology and rehabilitation medicine following, improving some, good candidate for rehabilitation at [place] Dysphagia/Aspiration s/p CVA as above Moderate protein calorie malnutrition and hyponatremia -CXR 06/10 with airspace disease left upper lobe. -ST on board, meals sitting up for now, s/p NGT however patient removed -Repeat chest x-ray 06/11 with improving aeration of her persistent left mid lung airspace disease. -Received empiric IV Unasyn since 06/12, change to oral Augmentin for 2 weeks total treatment, stop date 06/25 -patient not accepted to rehab unless adequate oral intake or PEG in place -consulted gastroenterology, appreciate recommendations, hold off on PEG for now as patient reportedly eating, ordered calorie counting -Patient failed calorie counting 06/17/16, consult psychiatry for capacity. I personally don't think she has capacity to make decisions for herself. -Psychiatry evaluated, patient deemed to not have capacity to make medical decisions however no daughter refusing PEG, wants to abide by patient's wishes -Consulted palliative care, patient and daughter/surrogate decision-maker declined PEG at this time -Adequate oral intake with calorie count, no need for PEG Acute hypercarbic hypoxic respiratory failure and COPD- resolved. -weaned O2 by VT for goal spo2 > 90%. -Continue to monitor respiratory status -stable on room air Hypotension- resolved. Hypertension-reasonably controlled -Continue metoprolol and amlodipine. -IV labetalol as needed Hyperglycemia of critical illness, improving -Steroids for presumed COPD exacerbation, tapered, now discontinued -Hemoglobin A1c 6.2 -SSI DVT prophylaxis: SCDs. Heparin. Written by Randolph Hayward, acting as scribe for Dr. Acosta on 06/25/16 at 13:20. All or portions of this note were transcribed by scribe []. I, Dr. Isma Acosta personally performed the history, physical exam, and medical decision making; and confirmed the accuracy of the information in the transcribed note. Authenticated by Dr. Isma Acosta on 06/25/16 at 16:49. Discharge Planning Discharge to [place] when arranged. Problem Qualifiers (1) HTN (hypertension): Qualified Code: I10 - Essential hypertension Randolph Hayward Jun 25, 2016 13:20 Isma Acosta MD Jun 25, 2016 16:49
--- NOTE | 2016-06-25 16:50 | HHI.DS ---
Discharge Summary Admission Date May 28, 2016 at 21:12 Discharge Date: Jun 25, 2016 Admitting Diagnosis L MCA CVA (1) Acute ischemic right MCA stroke ICD Code: I63.511 Diagnosis: Principal (2) HTN (hypertension) ICD Code: I10 Diagnosis: Principal Procedures Cerebral angiogram Brief History - From Admission This is a 50-year-old female who presented to the emergency department with history of left arm and leg weakness and facial droop. Symptoms started approximately 25 minutes prior to ER arrival. She admits to smoking and drinking alcohol at the time of first and onset. NIH stroke scale on arrival was 15. Noncontrasted head CT was negative for acute bleed. Systemic TPA was administered within the first hour of symptom onset. CT angiography had not demonstrated possible flow deficit in the right MCA territory. Initially plans for possible endovascular thrombectomy, however repeat neuro exam of 45 minutes to complete resolution of symptoms. She is admitted to the ICU for close monitoring and further evaluation of her ischemic stroke. Imaging Last Impressions Chest X-Ray 06/11/16 0000 Signed Impressions: Service Date/Time: Saturday, June 11, 2016 17:52 - CONCLUSION: Improving lung aeration. Persistent left midlung airspace disease. Otherwise stable chest. Arjun Cancino MD Abdomen X-Ray 06/11/16 0000 Signed Impressions: Service Date/Time: Saturday, June 11, 2016 20:05 - CONCLUSION: Tip of nasogastric tube and cardia of the stomach. No evidence of obstruction. Arjun Cancino MD Head CT 06/04/16 0000 Signed Impressions: Service Date/Time: Sunday, June 05, 2016 05:36 - CONCLUSION: Evolving right middle cerebral artery territory infarct. Eriberto Mirza MD CT Angiography 05/31/16 0000 Signed Impressions: Service Date/Time: Tuesday, May 31, 2016 14:08 - CONCLUSION: 1. No evidence of pulmonary embolism. 2. Dense consolidation in the left lower lobe with more patchy infiltrate in the posterior left upper lobe. Tae Marquez MD Head Magnetic Resonance Angiography 05/30/16 0000 Signed Impressions: Service Date/Time: May 11:39 - CONCLUSION: 1. Resolution of previously identified intraluminal filling defect in the mid right middle cerebral artery seen on prior CTA. Currently no hemodynamically significant stenosis identified. Bert Ayoub MD Brain MRI 05/30/16 0000 Signed Impressions: Service Date/Time: May 11:39 - CONCLUSION: 1. Large right MCA distribution infarct with mild mass effect and 3 mm right to left midline shift. Bert Ayoub MD Cerebral Arteriogram 05/29/16 1454 Signed Impressions: Service Date/Time: Sunday, May 29, 2016 15:22 - CONCLUSION: Success right MCA embolectomy as above . Chalo Payne MD Neck CTA 05/28/162026 Signed Impressions: Service Date/Time: Saturday, May 28, 2016 20:32 - CONCLUSION: Mild calcified plaque at the left proximal internal carotid artery. A significant stenosis is not seen. Eriberto Mirza MD Head CTA 05/28/162026 Signed Impressions: Service Date/Time: Saturday, May 28, 2016 20:32 - CONCLUSION: Short focal area of diminished flow potentially representing a thrombus in the midportion of the M1 segment of the right middle cerebral artery. The more peripheral flow at the right middle cerebral artery is diminished when compared to the left side. Eriberto Mirza MD PE at Discharge GENERAL: Well-developed well-nourished. In no acute distress. Sitting up in wheel chair eating lunch. SKIN: Warm and dry. No lesions noted. HEENT: Normocephalic. Pupils equal and round. Mucous membranes pink and moist. CARDIOVASCULAR: Regular rate and rhythm. No murmur appreciated. RESPIRATORY: No accessory muscle use. Clear to auscultation. Breath sounds equal bilaterally. GASTROINTESTINAL: Abdomen soft, non-tender, nondistended. Bowel sounds x4. MUSCULOSKELETAL: No obvious deformities. No clubbing or cyanosis. No edema. NEUROLOGICAL: Awake and alert. Able to lift left arm against gravity. Able to lift left leg against mild resistance. Moves right side spontaneously. Normal speech. PSYCHIATRIC: Appropriate mood and affect; insight and judgment fair to normal. Transfer Summary 50 y/o woman developed symptoms of Left MCA CVA. Resolved quickly after tPA @ 2100 hours. Hospital Course 50yF with h/o htn, smoking, and COPD with o2 use at night who presented with right MCA CVA status post systemic TPA and clot extraction. Now extubated and clinically improving. Acute right MCA CVA with Cerebral Edema: s/p TPA, s/p mechanical endovascular thrombectomy -Continue Neurochecks -S/p steroid taper, discontinued 06/11 -Continue aspirin(was on hold for PEG placement, restarted) and statin -Neurology and rehabilitation medicine following, improving some, good candidate for rehabilitation at [place] Dysphagia/Aspiration s/p CVA as above Moderate protein calorie malnutrition and hyponatremia -CXR 06/10 with airspace disease left upper lobe. -ST on board, meals sitting up for now, s/p NGT however patient removed -Repeat chest x-ray 06/11 with improving aeration of her persistent left mid lung airspace disease. -Received empiric IV Unasyn since 06/12, change to oral Augmentin for 2 weeks total treatment, stop date 06/25 -patient not accepted to rehab unless adequate oral intake or PEG in place -consulted gastroenterology, appreciate recommendations, hold off on PEG for now as patient reportedly eating, ordered calorie counting -Patient failed calorie counting 06/17/16, consult psychiatry for capacity. I personally don't think she has capacity to make decisions for herself. -Psychiatry evaluated, patient deemed to not have capacity to make medical decisions however no daughter refusing PEG, wants to abide by patient's wishes -Consulted palliative care, patient and daughter/surrogate decision-maker declined PEG at this time -Adequate oral intake with calorie count, no need for PEG Acute hypercarbic hypoxic respiratory failure and COPD- resolved. -weaned O2 by CT for goal spo2 > 90%. -Continue to monitor respiratory status -stable on room air Hypotension- resolved. Hypertension-reasonably controlled -Continue metoprolol and amlodipine. -IV labetalol as needed Hyperglycemia of critical illness, improving -Steroids for presumed COPD exacerbation, tapered, now discontinued -Hemoglobin A1c 6.2 -SSI DVT prophylaxis: SCDs. Heparin. Pt Condition on Discharge: Stable Discharge Disposition: Rehab Inpatient Discharge Time: > 30 minutes Discharge Instructions DIET: Follow Instructions for: Heart Healthy Diet, Diabetic Diet Speech Therapy-Diet Recommends: Other Activities you can perform: Regular-No Restrictions Activities to Avoid: Driving Follow up Referrals: Neurology - 1 Week PCP Follow-up - 1 Week New Medications: Amlodipine (Norvasc) 10 Mg Tab 10 MG PO DAILY Blood Pressure Management #30 TAB Amoxicillin-Clavulanate (Amoxicillin-Clavulanate) 875-125 mg Tab 875 MG PO Q12HR Infection #2 TAB Atorvastatin (Lipitor) 40 Mg Tab 40 MG PO HS Cholesterol Management #30 TAB Gabapentin (Neurontin) 300 Mg Cap 300 MG PO HS Pain Management #30 CAP Lactulose Liq (Lactulose Liq) 10 Gm/15 Ml Soln 30 ML PO BID PRN Prevent Constipation #600 ML Metoprolol Tartrate (Metoprolol Tartrate) 25 Mg Tab 12.5 MG PO Q8HR Regulate Heart Beat #90 TAB Oxycodone Liq (Oxycodone Liq) 20 Mg/Ml Conc 5 MG PO Q6HR PRN agitation or pain 3-10 #3 ML Risperidone (Risperdal) 0.5 Mg Tab 0.5 MG PO BID Agitation #60 TAB Sennosides-Docusate Sodium (Senna Plus 8.6-50 mg) 1 Tab Tab 2 TAB PO BID Prevent Constipation #60 TAB ([Aspirin Chew]) 81 MG CHEW 162 MG PO DAILY Prevent Blood Clot #30 TAB.CHEW Continued Medications: Albuterol 6.7 GM Inh (Proventil Hfa 6.7 GM Inh) 90 Mcg/Act Aer 2 PUFF INH Q4H PRN SHORTNESS OF BREATH #1 Ref 0 INHALER Fluticasone-Salmeterol Inh (Advair Diskus Inh) 100-50 Mcg/Blist Aer 1 PUFF INH BID Rinse mouth after use. Asthma Management #1 Ref 0 INHALER Pantoprazole (Protonix) 20 Mg Tab 20 MG PO DAILY Reflux Ref 0 TAB Tiotropium Inh (Spiriva Handihaler) 18 Mcg Cap 18 MCG INH DAILY 1 capsule = 18 mcg COPD #30 Ref 0 CAP Isma Acosta MD Jun 25, 2016 16:50
[2016-07-08] MEDS ORDERED: WHEEMIS3 (11:51)
[2016-07-08] MEDS ORDERED: COMMODE 3-IN-11 MIS ×2 (11:51→12:12)
[2016-07-08] MEDS ORDERED: WALKER/FOLDING1 MIS (11:51)
[2016-07-09] MEDS ORDERED: RISP0.5T20 PO (09:55)
[2016-07-09] MEDS ORDERED: LIDO5DIS35 TD (09:55)
[2016-07-09] MEDS ORDERED: Aspirin Chew PO (09:55)
[2016-07-09] MEDS ORDERED: PANT20 PO (09:55)
[2016-07-09] MEDS ORDERED: TRAZ50TA12 PO (09:55)
[2016-07-09] MEDS ORDERED: SPIRCAP INH (09:55)
[2016-07-09] MEDS ORDERED: ALBU6.7H INH (09:55)
[2016-07-09] MEDS ORDERED: LIPI40TA PO (09:55)
[2016-07-09] MEDS ORDERED: OXYC-392 PO (09:55)
[2016-07-09] MEDS ORDERED: NEUR300C PO (09:55)
[2016-08-21] MEDS ORDERED: GABA300C5 PO (14:48)
== END 2016-06-25 17:05 | DRG 23 ==
LOC: NEPC 20:21 → NEDA 21:12 → N03A 22:39 → N05A 06-10 16:02 → N05B 06-20 18:47
PROVIDERS: ADMIT Internal Medicine; ATTEND Internal Medicine
PROC: 3E05317 Introduction of Other Thrombolytic into Peripheral Artery, Percutaneous Approach (ICD-10-PCS; 2016-05-28)
PROC: 03CG3ZZ Extirpation of Matter from Intracranial Artery, Percutaneous Approach (ICD-10-PCS; principal; 2016-05-29)
PROC: 037 Upper Arteries, Dilation (ICD-10-PCS; 2016-05-29)
PROC: B31D1ZZ Fluoroscopy of Right Vertebral Artery using Low Osmolar Contrast (ICD-10-PCS; 2016-05-29)
PROC: 5A1955Z Respiratory Ventilation, Greater than 96 Consecutive Hours (ICD-10-PCS; 2016-05-31)
PROC: 0BH17EZ Insertion of Endotracheal Airway into Trachea, Via Natural or Artificial Opening (ICD-10-PCS; 2016-05-31)
PROC: 02HV33Z Insertion of Infusion Device into Superior Vena Cava, Percutaneous Approach (ICD-10-PCS; 2016-05-31)
PROC: B246ZZ4 Ultrasonography of Right and Left Heart, Transesophageal (ICD-10-PCS; 2016-06-03)
DX: I63.411 Cerebral infarction due to embolism of right middle cerebral artery (principal); J96.01 Acute respiratory failure with hypoxia; J69.0 Pneumonitis due to inhalation of food and vomit; G93.6 Cerebral edema; G93.40 Encephalopathy, unspecified; J15.6 Pneumonia due to other Gram-negative bacteria; J96.02 Acute respiratory failure with hypercapnia; R13.10 Dysphagia, unspecified; J44.0 Chronic obstructive pulmonary disease with (acute) lower respiratory infection; E87.0 Hyperosmolality and hypernatremia; E87.3 Alkalosis; E87.1 Hypo-osmolality and hyponatremia; E44.0 Moderate protein-calorie malnutrition; J44.1 Chronic obstructive pulmonary disease with (acute) exacerbation; G81.94 Hemiplegia, unspecified affecting left nondominant side; F05 Delirium due to known physiological condition; R41.4 Neurologic neglect syndrome; I95.9 Hypotension, unspecified; E87.70 Fluid overload, unspecified; I10 Essential (primary) hypertension; J44.9 Chronic obstructive pulmonary disease, unspecified; J45.909 Unspecified asthma, uncomplicated; G43.909 Migraine, unspecified, not intractable, without status migrainosus; R29.810 Facial weakness; E87.6 Hypokalemia; F17.210 Nicotine dependence, cigarettes, uncomplicated; R29.715 NIHSS score 15; R41.89 Other symptoms and signs involving cognitive functions and awareness; I65.22 Occlusion and stenosis of left carotid artery; K59.00 Constipation, unspecified; R73.9 Hyperglycemia, unspecified; R47.81 Slurred speech; Z78.1 Physical restraint status
CPT/HCPCS: 31500; 36569; 36600; 36620; 51702; 61645; 70450; 70496; 70498; 70544; 70551; 71010; 71275; 74000; 76937; 80048; 80053; 80061; 80202; 80307; 81001; 82435; 82550; 82565; 82607; 82805; 82947; 82948; 83036; 83735; 84100; 84132; 84295; 84443; 84484; 84520; 84702; 85007; 85025; 85027; 85384; 85610; 85652; 85730; 86850; 86900; 86901; 87040; 87070; 87086; 87205; 93005; 93306; 93312; 93320; 93325; 94002; 94003; 94150; 94640; 94664; 94667; 94668; 96374; C1757; C1760; C1769; C1887; C1894; C9113; J0171; J0295; J0461; J1120; J1642; J1644; J1940; J2060; J2250; J2370; J2543; J2920; J2997; J3010; J3370; J3480; J7030; J7050; J7060; J7070; Q9967

== ENCOUNTER 2016-09-20 10:26 | Emergency (ER) | payer MEDICAID ==
[~2016-09-20] VITALS: Ht 139.7 cm; Wt 51.7 kg
[~2016-09-20 10:26] MED LIST changes: -ADVA100A INH; +Aspirin Chew PO; +COMMODE 3-IN-11 MIS; -LEVO500T3 PO; +LIDO5DIS35 TD; +LIPI40TA PO; +NEUR300C PO; +OXYC-392 PO; -PRED20 PO; -PROT40TA PO; +RISP0.5T20 PO; +WALKER/FOLDING1 MIS; +WHEEMIS3
[2016-09-20 10:31] VITALS: BP 139/82; PULSE 88; RESP 17; TEMP 98.4; O2SAT 93
[2016-09-20] MEDS ORDERED: ASPI-110 PO (11:05)
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
[2016-09-20] MEDS ORDERED: LIDO1PAD52 TOPICAL (11:37)
[2016-09-20] MEDS ORDERED: ALBU1.25 NEB (11:37)
[2016-09-20] MEDS ORDERED: GABA600T PO (11:37)
== END 2016-09-20 11:58 | disposition home or self-care (01) ==
LOC: PHEFT 10:26
DX: S09.90XA Unspecified injury of head, initial encounter (principal); S46.002A Unspecified injury of muscle(s) and tendon(s) of the rotator cuff of left shoulder, initial encounter; S16.1XXA Strain of muscle, fascia and tendon at neck level, initial encounter; W10.9XXA Fall (on) (from) unspecified stairs and steps, initial encounter; J45.909 Unspecified asthma, uncomplicated; I10 Essential (primary) hypertension; J44.9 Chronic obstructive pulmonary disease, unspecified; F17.200 Nicotine dependence, unspecified, uncomplicated
CPT/HCPCS: 70450; 72125

== ENCOUNTER 2016-12-08 06:34 | Emergency (ER) | payer MEDICAID ==
[~2016-12-08] VITALS: Ht 167.6 cm; Wt 65.0 kg
[~2016-12-08 06:34] MED LIST changes: +ALBU1.25 NEB; -ALBU6.7H INH; +ASPI-110 PO; -Aspirin Chew PO; -COMMODE 3-IN-11 MIS; +GABA600T PO; +LIDO1PAD52 TOPICAL; -LIDO5DIS35 TD; -NEUR300C PO; -OXYC-392 PO; -WALKER/FOLDING1 MIS; -WHEEMIS3
[2016-12-08 06:36] VITALS: BP 157/98; PULSE 96; RESP 16; TEMP 98.8; O2SAT 98
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
--- NOTE | 2016-12-08 07:46 | RADRPT ---
EXAM DATE/TIME: 12/08/2016 07:34 [facility] COMPARISON: CT BRAIN W/O CONTRAST, September 20, 2016, 10:57. INDICATIONS : Fall.Hitting the back of her head RADIATION DOSE: 26.22 CTDIvol (mGy) MEDICAL HISTORY : Cerebrovascular disease. Seizures. Cardiovascular diseaseHypertension. Previous CVA. SURGICAL HISTORY : None. ENCOUNTER: Initial ACUITY: 2 days PAIN SCALE: 6/10 LOCATION: cranial TECHNIQUE: Multiple contiguous axial images were obtained of the head. Using automated exposure control and adj ustment of the mA and/or kV according to patient size, radiation dose was kept as low as reasonably a chievable to obtain optimal diagnostic quality images. DICOM format image data is available electro nically for review and comparison. FINDINGS: CEREBRUM: There is an old large right-sided MCA infarct with encephalomalacia involving the right parietal lobe and portions of the right temporal lobe. There is stable asymmetric prominence of the right lateral ventricle as compared to the left secondary to white matter loss. The li-white matter otherwise dem onstrates normal differentiation. No intra-axial or extra-axial fluid collection. No evidence of hemo rrhage. POSTERIOR FOSSA: The cerebellum and brainstem are intact. The 4th ventricle is midline. The cerebellopontine angle i s unremarkable. EXTRACRANIAL: The visualized portion of the orbits is intact. SKULL: The calvaria is intact. No evidence of skull fracture. CONCLUSION: There is a stable appearance of a large right-sided. No acute abnormality.. Lissy Correa MD on December 08, 2016 at 7:41 Board Certified Radiologist. This report was verified electronically.
--- NOTE | 2016-12-08 07:55 | RADRPT ---
EXAM DATE/TIME: 12/08/2016 07:41 [facility] COMPARISON: CHEST SINGLE AP, June 29, 2016, 15:09. INDICATIONS : Pain from fall on left side. MEDICAL HISTORY : None. SURGICAL HISTORY : None. ENCOUNTER: Initial ACUITY: 1 day PAIN SCORE: 6/10 LOCATION: Left upper chest FINDINGS: A single view of the chest demonstrates the lungs to be symmetrically aerated without evidence of mas s, infiltrate or effusion. The cardiomediastinal contours are unremarkable. Osseous structures are intact. No visualized rib fractures. CONCLUSION: Normal examination. No visualized fractures. Lissy Correa MD on December 08, 2016 at 7:51 Board Certified Radiologist. This report was verified electronically.
== END 2016-12-08 08:41 | disposition home or self-care (01) ==
LOC: NEPC 06:34
DX: S09.90XA Unspecified injury of head, initial encounter (principal); W19.XXXA Unspecified fall, initial encounter; I10 Essential (primary) hypertension; Z79.82 Long term (current) use of aspirin; J44.9 Chronic obstructive pulmonary disease, unspecified; Z86.73 Personal history of transient ischemic attack (TIA), and cerebral infarction without residual deficits
CPT/HCPCS: 70450; 71010; 99284

== ENCOUNTER 2016-12-24 04:19 | Emergency (ER) | payer MEDICAID ==
[2016-12-24 04:22] VITALS: BP 108/68; PULSE 84; RESP 18; TEMP 97.3; O2SAT 97
--- NOTE | 2016-12-24 05:23 | PD ---
HPI Chief Complaint: Fall Time Seen by Provider: 04:58 Travel History International Travel<30 days: No Contact w/Intl Traveler<30days: No Traveled to known affect area: No History of Present Illness HPI 51-year-old female presents to the emergency department by EMS transport from home after having a fall and hitting her head without loss of consciousness just prior to arrival to the emergency department. 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 Police have contacted DCF/child protective services for care of this 3-year- old. Patient reportedly had consumed alcohol prior to her fall. Patient states that she is analysis service because of alcohol consumption but also because of previous stroke. Patient states she was in a wheelchair and fell out of her wheelchair. Patient reports that she is able to ambulate with a limp to take her granddaughter to school and work to class. Patient also reports history of COPD and tobacco use. PFSH Past Medical History Narrative Medical Asthma anxiety depression hypertension dyslipidemia CVA with left-sided neglect peptic ulcer disease dental extraction tobacco use alcohol use; nursing notes reviewed Hx Anticoagulant Therapy: Yes (ASPIRIN 81 MG DAILY) Arthritis: No Asthma: Yes Autoimmune Disease: No Anxiety: Yes Depression: Yes Heart Rhythm Problems: No Cancer: No Cardiovascular Problems: Yes (HYPO/HYPERTENSION) High Cholesterol: Yes Chemotherapy: No Chest Pain: No Congestive Heart Failure: No COPD: Yes (3l nc at night) Cerebrovascular Accident: Yes Diabetes: No Diminished Hearing: No Endocrine: No Gastrointestinal Disorders: Yes (colonoscopy march, gastric ulcer ) GERD: No Genitourinary: Yes (OCCASIONAL INCONT. ) Headaches: Yes Hepatitis: No Hiatal Hernia: No Heparin Induced Thrombocytopen: No Hypertension: Yes Immune Disorder: No Implanted Vascular Access Dvce: No Kidney Stones: No Medical other: Yes (LUMP RIGHT BREAST) Musculoskeletal: Yes (LEFT SIDE WEAKNESS D/T CVA) Neurologic: Yes (NUMBNESS RIGHT FOOT, LEFT SIDE NEGLECT) Psychiatric: Yes Reproductive: No Respiratory: Yes (ASTHMA, COPD) Immunizations Current: Yes Migraines: Yes Radiation Therapy: No Renal Failure: No Sickle Cell Disease: No Sleep Apnea: No Thyroid Disease: No Ulcer: Yes (STOMACH ULCERS) ?: Not Menopausal: Yes : 2 Para: 2 Tubal Ligation: Yes Past Surgical History Abdominal Surgery: No AICD: No Arteriovenous Shunt: No Cardiac Surgery: Yes Ear Surgery: No Endocrine Surgery: No Eye Surgery: No Genitourinary Surgery: No Gynecologic Surgery: Yes Insulin Pump: No Joint Replacement: No Neurologic Surgery: No Oral Surgery: Yes (TEETH REMOVED) Pacemaker: No Thoracic Surgery: No Other Surgery: Yes Social History Alcohol Use: Yes (DAILY) Tobacco Use: Yes (1/2 PPD) Substance Use: No Allergies-Medications (Allergen,Severity, Reaction): Coded Allergies: No Known Allergies (Verified , 12/24/16) Reported Meds & Prescriptions Reported Meds & Active Scripts Active Trazodone (Trazodone HCl) 50 Mg Tab 50 Mg PO HS PRN Lipitor (Atorvastatin Calcium) 40 Mg Tab 40 Mg PO HS Protonix (Pantoprazole Sodium) 20 Mg Tab 20 Mg PO DAILY 30 Days Spiriva Handihaler (Tiotropium Inh) 18 Mcg Cap 18 Mcg INH DAILY 1 capsule = 18 mcg Reported Lidocaine Patch 12 HR (Lidocaine) 5 % Patch 1 Patch TOPICAL DAILY PRN Remove patch after 12 hours Gabapentin 600 Mg Tab 600 Mg PO BID Albuterol Neb (Albuterol Sulfate) 1.25 Mg/3 Ml Neb 1.25 Mg NEB QID NEB PRN Aspirin 81 (Aspirin) 81 Mg Tabdr 81 Mg PO DAILY Review of Systems Except as stated in HPI: all other systems reviewed are Neg General / Constitutional: No: Fever Eyes: No: Visual changes HENT: Positive: Headaches, Neck Pain Cardiovascular: No: Chest Pain or Discomfort Respiratory: No: Shortness of Breath Gastrointestinal: No: Abdominal Pain (I did not) Genitourinary: No: Decreased Urinary Output Musculoskeletal: No: Pain Skin: No Rash Neurologic: Positive: Focal Abnormalities (LUE/LLE), Coordination Problem, No: Weakness, Dizziness, Syncope Psychiatric: Positive: Anxiety Endocrine: No: Heat Intolerance Hematologic/Lymphatic: No: Easy Bruising Physical Exam Narrative GENERAL: Disheveled female in no acute distress no respiratory distress SKIN: Warm and dry. HEAD: Atraumatic. Normocephalic. EYES: Pupils equal and round. No scleral icterus. No injection or drainage. ENT: No nasal bleeding or discharge. Mucous membranes pink and moist. NECK: Trachea midline. No JVD. CARDIOVASCULAR: Regular rate and rhythm. RESPIRATORY: No accessory muscle use. Clear to auscultation. Breath sounds equal bilaterally. GASTROINTESTINAL: Abdomen soft, non-tender, nondistended. Hepatic and splenic margins not palpable. MUSCULOSKELETAL: Extremities without clubbing, cyanosis, or edema. No obvious deformities. NEUROLOGICAL: Awake and alert. No obvious cranial nerve deficits. Motor grossly within normal limits. Five out of 5 muscle strength in the arms and legs. Normal speech. PSYCHIATRIC: Appropriate mood and affect; insight and judgment normal. Data Data Last Documented VS Vital Signs Date Time Temp Pulse Resp B/P (MAP) Pulse Ox O2 Delivery O2 Flow Rate FiO2 12/24/16 04:22 97.3 84 18 108/68 (81) [address] Brain W/O Iv Contrast(Rout) (12/24/16 ) Ct Cerv Spine W/O Contrast (12/24/16 ) [facility] Medical Decision Making Medical Screen Exam Complete: Yes Emergency Medical Condition: Yes Medical Record Reviewed: Yes Interpretation(s) Last Impressions Head CT 12/24/16 0000 Signed Impressions: Service Date/Time: Saturday, December 24, 2016 15:18 - CONCLUSION: 1. No acute findings. Stable encephalomalacia right MCA distribution. Bert Ayoub MD Cervical Spine CT 12/24/16 0000 Signed Impressions: Service Date/Time: Saturday, December 24, 2016 15:18 - CONCLUSION: Normal examination for a patient of this age. No significant change has occurred. Bert Ayoub MD Differential Diagnosis Fall, closed head injury, ICH, cervical spine sprain strain, alcohol intoxication Narrative Course Patient presents by EMS transport with police and care of 5-year-old grandchild patient is able to relay her own history complains of head pain after fall out of a wheelchair imaging of the brain and neck will be performed CT brain noncontrast no acute abnormality per reading radiologist evidence of previous MCA distribution infarct; CT cervical spine no acute abnormality per reading radiologist chronic changes Patient appears intoxicated and admits to recent alcohol ingestion at this point time patient will be given the opportunity to sleep off alcohol ingestion and will be discharged once stable for ambulation independently Diagnosis Primary Impression: Closed head injury Qualified Codes: S09.90XA - Unspecified injury of head, initial encounter Additional Impression: Alcohol abuse Referrals: Primary Care Physician 2 days Keep appointment with PCP: Dr Hoa Byrd [facility] call for appointment Patient Instructions: General Instructions Additional Instructions: Do not drink alcoholic beverages Discontinue tobacco use Follow-up with your primary care provider as scheduled on 12/25/16 Return to the emergency for free concerns or change condition Med/Other Pt SpecificInfo: No Change to Meds Disposition: 01 DISCHARGE HOME Condition: Stable Stephanie Garcia MD Dec 24, 2016 05:23
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
--- NOTE | 2016-12-24 05:41 | RADRPT ---
EXAM DATE/TIME: 12/24/2016 15:18 [facility] COMPARISON: CT CERVICAL SPINE W/O CONTRAST, September 20, 2016, 10:57. INDICATIONS : Trauma; patient fell out of her wheelchair. RADIATION DOSE: 25.42 CTDIvol (mGy) MEDICAL HISTORY : Chronic obstructive pulmonary disease. Cerebrovascular disease. Seizures.HTN, ETOH abuse, asthma SURGICAL HISTORY : Tubal ligation. ENCOUNTER: Initial ACUITY: 1 day PAIN SCALE: Non-responsive LOCATION: neck TECHNIQUE: Volumetric scanning of the cervical spine was performed. Multiplanar reconstructions in the sagittal, coronal and oblique axial planes were performed. Using automated exposure control and adjustment o f the mA and/or kV according to patient size, radiation dose was kept as low as reasonably achievable to obtain optimal diagnostic quality images. DICOM format image data is available electronically f or review and comparison. FINDINGS: VERTEBRAE: Normal vertebral body height. ALIGNMENT: No evidence of subluxation. C2-C3: The bony spinal canal is normal in size. No evidence of disc bulge or herniation. The neural forami na are bilaterally patent. C3-C4: The bony spinal canal is normal in size. No evidence of disc bulge or herniation. The neural forami na are bilaterally patent. C4-C5: The bony spinal canal is normal in size. No evidence of disc bulge or herniation. The neural forami na are bilaterally patent. C5-C6: The bony spinal canal is normal in size. No evidence of disc bulge or herniation. The neural forami na are bilaterally patent. C6-C7: The bony spinal canal is normal in size. No evidence of disc bulge or herniation. The neural forami na are bilaterally patent. C7-T1: The bony spinal canal is normal in size. No evidence of disc bulge or herniation. The neural forami na are bilaterally patent. CONCLUSION: Normal examination for a patient of this age. No significant change has occurred. Bert Ayoub MD on December 24, 2016 at 5:38 Board Certified Radiologist. This report was verified electronically.
[2016-12-24 09:05] VITALS: BP 105/65; PULSE 75; RESP 16; O2SAT 95
== END 2016-12-24 12:17 | disposition home or self-care (01) ==
LOC: PHEFT 04:19
DX: S09.90XA Unspecified injury of head, initial encounter (principal); F10.10 Alcohol abuse, uncomplicated; F17.210 Nicotine dependence, cigarettes, uncomplicated; E78.5 Hyperlipidemia, unspecified; I10 Essential (primary) hypertension; J44.9 Chronic obstructive pulmonary disease, unspecified; Z79.82 Long term (current) use of aspirin; Z86.73 Personal history of transient ischemic attack (TIA), and cerebral infarction without residual deficits
CPT/HCPCS: 70450; 72125

== ENCOUNTER 2016-12-29 16:45 | Emergency (ER) | payer MEDICAID, OTHER ==
[2016-12-29] VITALS (7 sets, daily range): BP systolic 92–132; BP diastolic 53–74; PULSE 64–90; RESP 14–19; TEMP 98; O2SAT 96–100
[~2016-12-29] VITALS: Ht 160 cm; Wt 50.0 kg
--- NOTE | 2016-12-29 17:24 | PD ---
HPI Chief Complaint: Alcohol intoxication Time Seen by Provider: 17:15 Travel History International Travel<30 days: No Contact w/Intl Traveler<30days: No History of Present Illness HPI 51yo F with CVA and left sided weakness, alcohol abuse, COPD was brought in as Bergman Act for being unable to care for herself. She is the jail guardian of 5yo granddaughter who was taken away from her because she was intoxicated. She admits to drinking a lot today. Said she was sitting in wheelchair and fell and hit her head. Pt complains of left rib pain and left elbow pain. Pt has residual weakness on left side. PFSH Past Medical History Hx Anticoagulant Therapy: Yes (ASPIRIN 81 MG DAILY) Arthritis: No Asthma: Yes Autoimmune Disease: No Anxiety: Yes Depression: Yes Heart Rhythm Problems: No Cancer: No Cardiovascular Problems: Yes (HYPO/HYPERTENSION) High Cholesterol: Yes Chemotherapy: No Chest Pain: No Congestive Heart Failure: No COPD: Yes (3l nc at night) Cerebrovascular Accident: Yes Diabetes: No Diminished Hearing: No Endocrine: No Gastrointestinal Disorders: Yes (colonoscopy march, gastric ulcer ) GERD: No Genitourinary: Yes (OCCASIONAL INCONT. ) Headaches: Yes Hepatitis: No Hiatal Hernia: No Heparin Induced Thrombocytopen: No Hypertension: Yes Immune Disorder: No Implanted Vascular Access Dvce: No Kidney Stones: No Musculoskeletal: Yes (LEFT SIDE WEAKNESS D/T CVA) Neurologic: Yes (NUMBNESS RIGHT FOOT, LEFT SIDE NEGLECT) Psychiatric: Yes Reproductive: No Respiratory: Yes (ASTHMA, COPD) Immunizations Current: Yes Migraines: Yes Radiation Therapy: No Renal Failure: No Sickle Cell Disease: No Sleep Apnea: No Thyroid Disease: No Ulcer: Yes (STOMACH ULCERS) Menopausal: Yes : 2 Para: 2 Tubal Ligation: Yes Past Surgical History Abdominal Surgery: No AICD: No Arteriovenous Shunt: No Cardiac Surgery: Yes Ear Surgery: No Endocrine Surgery: No Eye Surgery: No Genitourinary Surgery: No Gynecologic Surgery: Yes Insulin Pump: No Joint Replacement: No Neurologic Surgery: No Oral Surgery: Yes (TEETH REMOVED) Pacemaker: No Thoracic Surgery: No Other Surgery: Yes Social History Alcohol Use: Yes (DAILY) Tobacco Use: Yes (1/2 PPD) Substance Use: No Allergies-Medications (Allergen,Severity, Reaction): Coded Allergies: No Known Allergies (Verified , 12/29/16) Reported Meds & Prescriptions Reported Meds & Active Scripts Active Trazodone (Trazodone HCl) 50 Mg Tab 50 Mg PO HS PRN Lipitor (Atorvastatin Calcium) 40 Mg Tab 40 Mg PO HS Protonix (Pantoprazole Sodium) 20 Mg Tab 20 Mg PO DAILY 30 Days Spiriva Handihaler (Tiotropium Inh) 18 Mcg Cap 18 Mcg INH DAILY 1 capsule = 18 mcg Reported Lidocaine Patch 12 HR (Lidocaine) 5 % Patch 1 Patch TOPICAL DAILY PRN Remove patch after 12 hours Gabapentin 600 Mg Tab 600 Mg PO BID Albuterol Neb (Albuterol Sulfate) 1.25 Mg/3 Ml Neb 1.25 Mg NEB QID NEB PRN Aspirin 81 (Aspirin) 81 Mg Tabdr 81 Mg PO DAILY Review of Systems Except as stated in HPI: all other systems reviewed are Neg Physical Exam Narrative GENERAL: 51yo F intoxicated. SKIN: Focused skin assessment warm/dry. HEAD: Atraumatic. Normocephalic. EYES: Pupils equal and round at 3mm bilaterally. Horizontal nystagmus. No scleral icterus. No injection or drainage. ENT: No nasal bleeding or discharge. Mucous membranes pink and moist. NECK: Trachea midline. No JVD. CARDIOVASCULAR: Regular rate and rhythm. No murmur appreciated. RESPIRATORY: No accessory muscle use. Clear to auscultation. Breath sounds equal bilaterally. GASTROINTESTINAL: Abdomen soft, non-tender, nondistended. MUSCULOSKELETAL: No obvious deformities. No clubbing. No cyanosis. No edema. NEUROLOGICAL: Awake and alert. No obvious cranial nerve deficits. Decreased strength on left. . Data Data Last Documented VS Vital Signs Date Time Temp Pulse Resp B/P (MAP) Pulse Ox O2 Delivery O2 Flow Rate FiO2 12/30/16 05:45 97.8 80 16 157/88 (111) 97 Room Air 12/29/16 20:00 2.00 Orders Orders Complete Blood Count With Diff (12/29/16 17:15) Comprehensive Metabolic Panel (12/29/16 17:15) Psych Screen (12/29/16 17:15) Drug Screen, Random Urine (12/29/16 17:15) Alcohol (Ethanol) (12/29/16 17:15) Elbow, Limited (Ap&Lat) (12/29/16 ) Ribs, Uni (W/Exp Cxr-Min 3vw) (12/29/16 ) Ct Brain W/O Iv Contrast(Rout) (12/29/16 ) Sodium Chlor 0.9% 1000 Ml Inj (Ns 1000 M (12/29/16 17:30) Haloperidol Inj (Haldol Inj) (12/29/16 17:45) Midazolam Inj (Versed Inj) (12/29/16 17:45) Restraints Non-Violent EVER.Q3H (12/29/16 17:40) Medicare Sales Representative / Telemetry EVER.Q8H (12/29/16 18:08) Medicare Sales Representative / Telemetry EVER.Q8H (12/29/16 19:19) End Tidal Co2 (Etco2) (12/29/16 ) Dextrose 50% In Oh (Vial) Inj (D50w (Vi (12/29/16 19:30) Dextrose 50% In Oh (Syr) Inj (D50w (Syr (12/29/16 19:40) Diet Regular Basic (12/30/16 Breakfast) Labs Laboratory Tests Test 12/29/16 17:30 White Blood Count 11.3 TH/MM3 Red Blood Count 4.50 MIL/MM3 Hemoglobin 13.4 GM/DL Hematocrit 40.4 % Mean Corpuscular Volume 89.8 FL Mean Corpuscular Hemoglobin 29.9 PG Mean Corpuscular Hemoglobin Concent 33.2 % Red Cell Distribution Width 16.7 % Platelet Count 296 TH/MM3 Mean Platelet Volume 7.5 FL Neutrophils (%) (Auto) 57.1 % Lymphocytes (%) (Auto) 36.3 % Monocytes (%) (Auto) 5.6 % Eosinophils (%) (Auto) 0.4 % Basophils (%) (Auto) 0.6 % Neutrophils # (Auto) 6.4 TH/MM3 Lymphocytes # (Auto) 4.1 TH/MM3 Monocytes # (Auto) 0.6 TH/MM3 Eosinophils # (Auto) 0.0 TH/MM3 Basophils # (Auto) 0.1 TH/MM3 CBC Comment DIFF FINAL Differential Comment Blood Urea Nitrogen 12 MG/DL Creatinine 0.78 MG/DL Random Glucose 65 MG/DL Total Protein 6.6 GM/DL Albumin 3.7 GM/DL Calcium Level 7.8 MG/DL Alkaline Phosphatase 80 U/L Aspartate Amino Transf (AST/SGOT) 18 U/L Alanine Aminotransferase (ALT/SGPT) 17 U/L Total Bilirubin 0.4 MG/DL Sodium Level 145 MEQ/L Potassium Level 3.8 MEQ/L Chloride Level 114 MEQ/L Carbon Dioxide Level 21.8 MEQ/L Anion Gap 9 MEQ/L Estimat Glomerular Filtration Rate 77 ML/MIN Urine Opiates Screen NEG Urine Barbiturates Screen NEG Urine Amphetamines Screen NEG Urine Benzodiazepines Screen NEG Urine Cocaine Screen NEG Urine Cannabinoids Screen NEG Ethyl Alcohol Level 252 MG/DL MDM Medical Decision Making Medical Screen Exam Complete: Yes Emergency Medical Condition: Yes Differential Diagnosis Alcohol intoxication vs. polysubstance abuse vs. ICH vs. fracture vs. contusion Narrative Course 51yo F with alcohol intoxication under Bergman Act for unable to care for herself. Pt said she fell from wheelchair today but she is intoxicated and not cooperative. Pt was a threat to herself and others so given versed 4mg IV and haldol 5mg. Pt placed on continuous cardiac monitoring and end tidal CO2. Labs reviewed, WBC 11.3. Glucose mildly low at 65, will give 1amp of D50. LFT negative. Alcohol 252. Utox negative. Xray left elbow negative. CT brain negative. 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 Xray left ribs showed no displace rib fracture or pneumothorax. Pt is medically clear for psych evaluation. Diagnosis Primary Impression: Alcohol intoxication Qualified Codes: F10.920 - Alcohol use, unspecified with intoxication, uncomplicated Mendy Lewis DO Dec 29, 2016 17:24
[2016-12-29] MEDS ORDERED: SODIUM CHLOR 0.9% 1000 ML INJ 1,000 ML IV ONE (17:30)
[2016-12-29] MEDS ORDERED: HALOPERIDOL LACTATE 5 MG/ML AMP IV PUSH ONE (17:45)
[2016-12-29] MEDS ORDERED: MIDAZOLAM HCL 2 MG/2 ML VIAL IV PUSH ONE (17:45)
[2016-12-29 18:01] LABS: AUTOMATED NEUTROPHIL # 6.4 TH/MM3 (1.8-7.7); BASOPHIL # 0.1 TH/MM3 (0-0.2); BASOPHIL % 0.6 % (0.0-2.0); EOSINOPHIL % 0.4 % (0.0-4.0); HEMATOCRIT 40.4 % (35.0-46.0); HEMO FLAGS DIFF FINAL; LYMPH % 36.3 % (9.0-44.0); LYMPHOCYTE # 4.1 TH/MM3 (1.0-4.8); MEAN CELL VOLUME 89.8 FL (80.0-100.0); MEAN CORPUSCULAR HEMOGLOBIN 29.9 PG (27.0-34.0); MEAN CORPUSCULAR HGB CONC 33.2 % (32.0-36.0); MONO % 5.6 % (0.0-8.0); NEUT % 57.1 % (16.0-70.0); PLATELET COUNT 296 TH/MM3 (150-450); RED CELL DISTRIBUTION WIDTH 16.7 % (11.6-17.2); WHITE BLOOD COUNT 11.3 TH/MM3 (4.0-11.0)
[2016-12-29 18:19] LABS: ALKALINE PHOSPHATASE 80 U/L (45-117); TOTAL BILIRUBIN ADULT 0.4 MG/DL (0.2-1.0)
[2016-12-29 18:24] LABS: ALT (GPT) 17 U/L (10-53); ANION GAP 9 MEQ/L (5-15); AST (GOT) 18 U/L (15-37); BICARBONATE 21.8 MEQ/L (21.0-32.0); BLOOD UREA NITROGEN 12 MG/DL (7-18); CHLORIDE 114 MEQ/L (98-107); GLOMERULAR FILTRATION RATE 77 ML/MIN (>89); SODIUM (NA) 145 MEQ/L (136-145)
[2016-12-29 18:28] LABS: ALCOHOL 252 MG/DL (0-5); POTASSIUM 3.8 MEQ/L (3.5-5.1)
--- NOTE | 2016-12-29 18:32 | RADRPT ---
EXAM DATE/TIME: 12/29/2016 18:17 [facility] COMPARISON: CT BRAIN W/O CONTRAST, December 24, 2016, 15:18. CT BRAIN W/O CONTRAST, September 20, 2016, 10:57. INDICATIONS : Altered mental status. RADIATION DOSE: 52.13 CTDIvol (mGy) MEDICAL HISTORY : Cerebrovascular disease. ETOH abuse SURGICAL HISTORY : Non-responsive. ENCOUNTER: Initial ACUITY: 1 day PAIN SCALE: Non-responsive LOCATION: cranial TECHNIQUE: Multiple contiguous axial images were obtained of the head. Using automated exposure control and adj ustment of the mA and/or kV according to patient size, radiation dose was kept as low as reasonably a chievable to obtain optimal diagnostic quality images. DICOM format image data is available electro nically for review and comparison. FINDINGS: CEREBRUM: The ventricles are normal for age. No evidence of midline shift, mass lesion, hemorrhage or acute in farction. No extra-axial fluid collections are seen. Old right middle screw anjel artery distribution infarct again noted. There is atrophy. POSTERIOR FOSSA: The cerebellum and brainstem are intact. The 4th ventricle is midline. The cerebellopontine angle i s unremarkable. EXTRACRANIAL: The visualized portion of the orbits is intact. SKULL: The calvaria is intact. No evidence of skull fracture. CONCLUSION: 1. No acute intracranial abnormality. 2. Atrophy and old right middle cerebral artery infarct again noted. Eriberto Castañeda MD on December 29, 2016 at 18:29 Board Certified Radiologist. This report was verified electronically.
--- NOTE | 2016-12-29 18:55 | RADRPT ---
EXAM DATE/TIME: 12/29/2016 18:37 [facility] COMPARISON: No previous studies available for comparison. INDICATIONS : Pain. MEDICAL HISTORY : Cerebrovascular disease. Hypertension ETOH Abuse Seizures SURGICAL HISTORY : None. ENCOUNTER: Initial ACUITY: 1 day PAIN SCORE: Non-responsive. LOCATION: Left elbow FINDINGS: Two view examination of the left elbow demonstrates no soft tissue swelling, joint effusion, fracture or dislocation. Bony mineralization is normal. CONCLUSION: 1. No acute fracture or dislocation. Gregory Angulo MD on December 29, 2016 at 18:53 Board Certified Radiologist. This report was verified electronically.
--- NOTE | 2016-12-29 18:55 | RADRPT ---
EXAM DATE/TIME: 12/29/2016 18:31 [facility] COMPARISON: No previous studies available for comparison. INDICATIONS : Pain. MEDICAL HISTORY : Hypertension. Stroke. CVA SURGICAL HISTORY : None. ENCOUNTER: Initial ACUITY: 1 day PAIN SCORE: Non-responsive. LOCATION: Left chest FINDINGS: Multiple views of the left ribs were performed. There is no evidence of displaced fracture. No dest ructive lesions or areas of periosteal thickening are seen. Expiratory view of the chest is negative for pneumothorax. The mediastinal structures are midline. CONCLUSION: 1. No displaced rib fractures or pneumothorax. Gregory Angulo MD on December 29, 2016 at 18:52 Board Certified Radiologist. This report was verified electronically.
[2016-12-29] MEDS ORDERED: DEXTROSE 50% IN WATER 50 ML VIAL(D50) IV PUSH ONE (19:30)
[2016-12-29] MEDS ORDERED: DEXTROSE 50% IN WATER 50 ML SYRINGE ONE (19:40)
[2016-12-30] VITALS: BP 132/79; PULSE 74; RESP 24; O2SAT 100
[2016-12-30 05:45] VITALS: BP 157/88; PULSE 80; RESP 16; TEMP 97.8; O2SAT 97
[2016-12-30 11:30] VITALS: BP 131/78; PULSE 98; RESP 18; O2SAT 98
--- NOTE | 2016-12-30 17:29 | PD ---
Physical Exam Narrative Patient was medically cleared by ED physician. Patient was seen by psychiatric screening this afternoon. Data Data Last Documented VS Vital Signs Date Time Temp Pulse Resp B/P (MAP) Pulse Ox O2 Delivery O2 Flow Rate FiO2 12/30/16 11:30 98 18 131/78 (95) 98 Room Air 12/30/16 05:45 97.8 12/29/16 20:00 2.00 Orders Orders Complete Blood Count With Diff (12/29/16 17:15) Comprehensive Metabolic Panel (12/29/16 17:15) Psych Screen (12/29/16 17:15) Drug Screen, Random Urine (12/29/16 17:15) Alcohol (Ethanol) (12/29/16 17:15) Elbow, Limited (Ap&Lat) (12/29/16 ) Ribs, Uni (W/Exp Cxr-Min 3vw) (12/29/16 ) Ct Brain W/O Iv Contrast(Rout) (12/29/16 ) Sodium Chlor 0.9% 1000 Ml Inj (Ns 1000 M (12/29/16 17:30) Haloperidol Inj (Haldol Inj) (12/29/16 17:45) Midazolam Inj (Versed Inj) (12/29/16 17:45) Restraints Non-Violent EVER.Q3H (12/29/16 17:40) Telegrapher Agent / Telemetry EVER.Q8H (12/29/16 18:08) Telegrapher Agent / Telemetry EVER.Q8H (12/29/16 19:19) End Tidal Co2 (Etco2) (12/29/16 ) Dextrose 50% In Oh (Vial) Inj (D50w (Vi (12/29/16 19:30) Dextrose 50% In Oh (Syr) Inj (D50w (Syr (12/29/16 19:40) Diet Regular Basic (12/30/16 Breakfast) Labs Laboratory Tests Test 12/29/16 17:30 White Blood Count 11.3 TH/MM3 Red Blood Count 4.50 MIL/MM3 Hemoglobin 13.4 GM/DL Hematocrit 40.4 % Mean Corpuscular Volume 89.8 FL Mean Corpuscular Hemoglobin 29.9 PG Mean Corpuscular Hemoglobin Concent 33.2 % Red Cell Distribution Width 16.7 % Platelet Count 296 TH/MM3 Mean Platelet Volume 7.5 FL Neutrophils (%) (Auto) 57.1 % Lymphocytes (%) (Auto) 36.3 % Monocytes (%) (Auto) 5.6 % Eosinophils (%) (Auto) 0.4 % Basophils (%) (Auto) 0.6 % Neutrophils # (Auto) 6.4 TH/MM3 Lymphocytes # (Auto) 4.1 TH/MM3 Monocytes # (Auto) 0.6 TH/MM3 Eosinophils # (Auto) 0.0 TH/MM3 Basophils # (Auto) 0.1 TH/MM3 CBC Comment DIFF FINAL Differential Comment Blood Urea Nitrogen 12 MG/DL Creatinine 0.78 MG/DL Random Glucose 65 MG/DL Total Protein 6.6 GM/DL Albumin 3.7 GM/DL Calcium Level 7.8 MG/DL Alkaline Phosphatase 80 U/L Aspartate Amino Transf (AST/SGOT) 18 U/L Alanine Aminotransferase (ALT/SGPT) 17 U/L Total Bilirubin 0.4 MG/DL Sodium Level 145 MEQ/L Potassium Level 3.8 MEQ/L Chloride Level 114 MEQ/L Carbon Dioxide Level 21.8 MEQ/L Anion Gap 9 MEQ/L Estimat Glomerular Filtration Rate 77 ML/MIN Urine Opiates Screen NEG Urine Barbiturates Screen NEG Urine Amphetamines Screen NEG Urine Benzodiazepines Screen NEG Urine Cocaine Screen NEG Urine Cannabinoids Screen NEG Ethyl Alcohol Level 252 MG/DL MDM Supervised Visit with KELVIN: No Narrative Course Patient was medically cleared by ED physician. Patient was seen by psychiatric screener and cleared to be discharged. Diagnosis Primary Impression: Alcohol intoxication Qualified Codes: F10.920 - Alcohol use, unspecified with intoxication, uncomplicated Patient Instructions: General Instructions Additional Instruction: Advised [facility] for detox. Med/Other Pt SpecificInfo: No Change to Meds Disposition: 01 DISCHARGE HOME Condition: Stable James Solo MD Dec 30, 2016 17:29
--- NOTE | 2016-12-30 17:30 | PD ---
History of Present Illness Chief Complaint: Psychiatric Symptoms Time Seen by Provider: 17:20 Travel History International Travel<30 Days: No Contact w/Intl Traveler<30days: No Known affected area: No Legal Status Legal Status: Bergman Act Bergman Act Signed By: Kaya Heard History of Present Illness: History of Present Illness HPI 51 yo F with CVA and left sided weakness, alcohol abuse and no other psychiatric illness who was brought in as Bergman Act initiated by [facility] for being unable to care for herself and her granddaughter. As per the report the police were called by the granddaughter after the patient fell asleep on the couch. She admits to having " a few drinks during the afternoon". Her BAL on arrival was 250. She denies that she drinks on a daily basis. EMR reviewed. No previous contact with [facility] psychiatry. She was monitored in main ED until she was clinically sober. This afternoon she is clinically sober. She is wearing hospital gowns with fair hygiene. Speech is clear and logical. No signs of withdrawal. She denies any suicidal or homicidal ideation, there is no annemarie. No objective clinical signs of depression. She is requesting to be discharged as she needs to find out where her granddaughter is. PFSH Past Medical History Hx Anticoagulant Therapy: Yes (ASPIRIN 81 MG DAILY) Arthritis: No Asthma: Yes Autoimmune Disease: No Anxiety: Yes Depression: Yes Heart Rhythm Problems: No Cancer: No Cardiovascular Problems: Yes (HYPO/HYPERTENSION) High Cholesterol: Yes Chemotherapy: No Chest Pain: No Congestive Heart Failure: No COPD: Yes Cerebrovascular Accident: Yes (CVA) Diabetes: No Diminished Hearing: No Endocrine: No Gastrointestinal Disorders: Yes (colonoscopy march, gastric ulcer ) GERD: No Genitourinary: Yes (OCCASIONAL INCONT. ) Headaches: Yes Hepatitis: No Hiatal Hernia: No Heparin Induced Thrombocytopen: No Hypertension: Yes Immune Disorder: No Implanted Vascular Access Dvce: No Kidney Stones: No Medical other: Yes (LUMP RIGHT BREAST) Musculoskeletal: Yes (LEFT SIDE WEAKNESS D/T CVA) Neurologic: Yes ( DECREASED LEFT SIDE ) Psychiatric: Yes Reproductive: No Respiratory: Yes (ASTHMA, COPD) Immunizations Current: Yes Migraines: Yes Radiation Therapy: No Renal Failure: No Sickle Cell Disease: No Sleep Apnea: No Thyroid Disease: No Ulcer: Yes (STOMACH ULCERS) Tetanus Vaccination: Unknown Influenza Vaccination: Yes ?: Not Menopausal: Yes : 2 Para: 2 Tubal Ligation: Yes Past Surgical History Abdominal Surgery: No AICD: No Arteriovenous Shunt: No Cardiac Surgery: Yes Ear Surgery: No Endocrine Surgery: No Eye Surgery: No Genitourinary Surgery: No Gynecologic Surgery: Yes Insulin Pump: No Joint Replacement: No Neurologic Surgery: No Oral Surgery: Yes (TEETH REMOVED) Pacemaker: No Thoracic Surgery: No Other Surgery: Yes Psychiatric History Psychiatric History Hx Psychiatric Treatment: DENIES any Deneis any previous suicide attempt History of Inpatient Treatment: No Guns or firearms in home: No Social History Single female. Lives with 5 year old granddaughter, unemployed. Hx Alcohol Use: Yes (DAILY) Hx Tobacco Use: Yes (1/2 PPD) Hx Substance Use: No Other Substances Used: PATIENT DENIES Hx of Substance Use Treatment: No Family Psychiatric History Negative Allergies-Medications (Allergen,Severity, Reaction): Coded Allergies: No Known Allergies (Verified , 12/29/16) Reported Meds & Prescriptions Reported Meds & Active Scripts Active Trazodone (Trazodone HCl) 50 Mg Tab 50 Mg PO HS PRN Lipitor (Atorvastatin Calcium) 40 Mg Tab 40 Mg PO HS Protonix (Pantoprazole Sodium) 20 Mg Tab 20 Mg PO DAILY 30 Days Spiriva Handihaler (Tiotropium Inh) 18 Mcg Cap 18 Mcg INH DAILY 1 capsule = 18 mcg Reported Lidocaine Patch 12 HR (Lidocaine) 5 % Patch 1 Patch TOPICAL DAILY PRN Remove patch after 12 hours Gabapentin 600 Mg Tab 600 Mg PO BID Albuterol Neb (Albuterol Sulfate) 1.25 Mg/3 Ml Neb 1.25 Mg NEB QID NEB PRN Aspirin 81 (Aspirin) 81 Mg Tabdr 81 Mg PO DAILY Review of Systems Except as stated in HPI: all other systems reviewed are Neg Neurologic: COMPLAINS OF: Abnormal gait, Poor Balance (left sided weakness) Exam Alert: Yes [place]: Person (ox4) Mood: Calm Affect: Appropriate Speech: Clear, Logical Eye Contact: Normal Memory Intact: Comment (no impairment) Hallucinations: Other (negative) Delusions: No Suicidal: Ideation (denies any) Homicidal: Ideation (Denies any) Insight/Judgement Fair. Not impaired. MDM Medical Decision Making Medical Record Reviewed: Yes Assessment/Plan 51 yo F with CVA and left sided weakness, alcohol abuse and no other psychiatric illness who was brought in as Bergman Act initiated by [facility] for being unable to care for herself and her granddaughter. As per the report the police were called by the granddaughter after the patient fell asleep on the couch. She admits to having " a few drinks during the afternoon". Her BAL on arrival was 250. She denies that she drinks on a daily basis. Patient at this time is clinically sober. There is no indication that she has a major mental illness. there is no suicidal or homicidal ideation. She does not meet Bergman act criteria. Will lift BA. Psychiatrically clear for discharge from ED. Orders Orders Haloperidol Inj (Haldol Inj) (12/29/16 17:45) Midazolam Inj (Versed Inj) (12/29/16 17:45) Restraints Non-Violent EVER.Q3H (12/29/16 17:40) Grab Jack Worker / Telemetry EVER.Q8H (12/29/16 18:08) Grab Jack Worker / Telemetry EVER.Q8H (12/29/16 19:19) End Tidal Co2 (Etco2) (12/29/16 ) Dextrose 50% In Oh (Vial) Inj (D50w (Vi (12/29/16 19:30) Dextrose 50% In Oh (Syr) Inj (D50w (Syr (12/29/16 19:40) Diet Regular Basic (12/30/16 Breakfast) Results Vital Signs Date Time Temp Pulse Resp B/P (MAP) Pulse Ox O2 Delivery O2 Flow Rate FiO2 12/30/16 11:30 98 18 131/78 (95) 98 Room Air 12/30/16 05:45 97.8 80 16 157/88 (111) 97 Room Air 12/30/16 00:00 74 24 132/79 (96) 100 12/29/16 22:00 64 19 101/59 (73) 99 12/29/16 20:00 80 16 112/70 (84) 97 Nasal Cannula 2.00 12/29/16 19:51 80 14 110/74 (86) 98 Nasal Cannula 2.00 12/29/16 18:45 80 16 112/56 (74) 100 Nasal Cannula 2.00 12/29/16 18:30 90 14 132/63 (86) 100 Nasal Cannula 4.00 12/29/16 18:00 82 16 92/53 (66) 96 Nasal Cannula 2.00 12/29/16 17:36 79 16 Laboratory Tests Test 12/29/16 17:30 White Blood Count 11.3 Red Blood Count 4.50 Hemoglobin 13.4 Hematocrit 40.4 Mean Corpuscular Volume 89.8 Mean Corpuscular Hemoglobin 29.9 Mean Corpuscular Hemoglobin Concent 33.2 Red Cell Distribution Width 16.7 Platelet Count 296 Mean Platelet Volume 7.5 Neutrophils (%) (Auto) 57.1 Lymphocytes (%) (Auto) 36.3 Monocytes (%) (Auto) 5.6 Eosinophils (%) (Auto) 0.4 Basophils (%) (Auto) 0.6 Neutrophils # (Auto) 6.4 Lymphocytes # (Auto) 4.1 Monocytes # (Auto) 0.6 Eosinophils # (Auto) 0.0 Basophils # (Auto) 0.1 CBC Comment DIFF FINAL Differential Comment Blood Urea Nitrogen 12 Creatinine 0.78 Random Glucose 65 Total Protein 6.6 Albumin 3.7 Calcium Level 7.8 Alkaline Phosphatase 80 Aspartate Amino Transf (AST/SGOT) 18 Alanine Aminotransferase (ALT/SGPT) 17 Total Bilirubin 0.4 Sodium Level 145 Potassium Level 3.8 Chloride Level 114 Carbon Dioxide Level 21.8 Anion Gap 9 Estimat Glomerular Filtration Rate 77 Urine Opiates Screen NEG Urine Barbiturates Screen NEG Urine Amphetamines Screen NEG Urine Benzodiazepines Screen NEG Urine Cocaine Screen NEG Urine Cannabinoids Screen NEG Ethyl Alcohol Level 252 Diagnosis Primary Impression: Alcohol intoxication Psychiatrically Cleared: Yes Patient Instructions: General Instructions Additional Instructions: Advised [facility] for detox. Med/ Other Pt Specific Info: No Meds Exist/No RX given Disposition: 01 DISCHARGE HOME Condition: Stable Problem Qualifiers Primary Impression: Alcohol intoxication Qualified Codes: F10.920 - Alcohol use, unspecified with intoxication, uncomplicated Jazmine Resendiz Dec 30, 2016 17:30
== END 2016-12-30 18:01 | disposition home or self-care (01) ==
LOC: NEPC 16:45 → NEPD 12-30 18:01
DX: F10.920 Alcohol use, unspecified with intoxication, uncomplicated (principal); R07.81 Pleurodynia; M25.522 Pain in left elbow; I10 Essential (primary) hypertension; E78.00 Pure hypercholesterolemia, unspecified; F17.200 Nicotine dependence, unspecified, uncomplicated; Z79.899 Other long term (current) drug therapy; Z79.82 Long term (current) use of aspirin; Z87.09 Personal history of other diseases of the respiratory system; Z86.59 Personal history of other mental and behavioral disorders; Z86.79 Personal history of other diseases of the circulatory system; Z87.19 Personal history of other diseases of the digestive system; Z87.448 Personal history of other diseases of urinary system; Z87.39 Personal history of other diseases of the musculoskeletal system and connective tissue; Z86.69 Personal history of other diseases of the nervous system and sense organs
CPT/HCPCS: 70450; 71101; 73070; 80053; 80307; 85025; 96361; 96374; 96375; 99285; J1630; J2250; J7030